=== PATIENT | male | born 1960 | race Caucasian/White ===

== ENCOUNTER → 2019-10-07 11:14 | Outpatient (BNVA) | payer BC, SELFPAY | PROVIDERS: PCP Family Medicine; Visit Provider Internal Medicine Rheumatology | DX: R21 Rash and other nonspecific skin eruption (principal); Z79.899 Other long term (current) drug therapy; Z11.59 Encounter for screening for other viral diseases; Z11.1 Encounter for screening for respiratory tuberculosis; R76.8 Other specified abnormal immunological findings in serum; M19.90 Unspecified osteoarthritis, unspecified site; R50.9 Fever, unspecified | CPT/HCPCS: 36415; 80076; 82306; 82565; 82728; 85025; 85651; 86140; 86431; 86480; 86704; 86803; 87340; 99204 ==

== ENCOUNTER 2019-10-16 07:44 | Outpatient (CLI) | payer BC, SELFPAY ==
--- NOTE | 2019-10-16 08:00 | XR_ITS ---
WS: [id number] Left hand, 3 views, 10/16/2019 Clinical Data: joint pain Comparison: None. Findings: No fractures or dislocations are seen. The soft tissues are unremarkable. The joint spaces are normal No periarticular demineralization or calcifications are seen. XR/XR hand LT min 3V* [id number] Impression: Negative left hand.
--- NOTE | 2019-10-16 08:30 | XR_ITS ---
WS: [id number] Right foot, 3 views, 10/16/2019 Clinical Data: joint pain Comparison: None. Findings: No fractures or dislocations are seen. No bone destruction or erosion is noted. The joint spaces and soft tissues are normal. No periarticular demineralization or calcifications are seen. XR/XR foot RT min 3V* [id number] Impression: Negative right foot.
--- NOTE | 2019-10-16 09:00 | XR_ITS ---
WS: [id number] Cervical spine, 3 views, 10/16/2019 Clinical Data: joint pain Comparison: None. Findings: No compression fractures are seen. The disc heights are normal. There is no prevertebral so ft tissue swelling. The odontoid is unremarkable. The soft tissues of the neck and the lung apices ar e normal. XR/XR cervical spine 3V* [id number] Impression: Negative cervical spine.
--- NOTE | 2019-10-16 09:30 | XR_ITS ---
WS: [id number] Right hand, 3 views, 10/16/2019 Clinical Data: joint pain Comparison: None. Findings: No fractures or dislocations are seen. The soft tissues are unremarkable. The joint space s are normal No periarticular demineralization or calcifications are seen. XR/XR hand RT min 3V* [id number] Impression: Negative right hand.
--- NOTE | 2019-10-16 10:00 | XR_ITS ---
WS: [id number] Left foot, 3 views, 10/16/2019 Clinical Data: joint pain Comparison: None. Findings: No fractures or dislocations are seen. No bone destruction or erosion is noted. The joint spaces and soft tissues are normal. No periarticular demineralization or calcifications are seen. There is a plantar spur. XR/XR foot LT min 3V* [id number] Impression: Negative left foot.
--- NOTE | 2019-10-16 10:30 | XR_ITS ---
WS: [id number] Chest 2 views, 10/16/2019 Clinical Data: joint pain Comparison: None. Findings: No nodules, masses or effusions are seen. The heart is normal. The pulmonary vascularity is not increased. No pneumonia or pneumothorax is seen. XR/XR chest 2V* [id number] Impression: Negative chest.
== END 2019-10-16 07:45 | disposition home or self-care (01) ==
LOC: RADWPI 07:48
PROVIDERS: Family Provider Family Medicine; PCP Family Medicine; Visit Provider Internal Medicine Rheumatology
DX: M25.50 Pain in unspecified joint (principal)
CPT/HCPCS: 71046; 72040; 73130; 73630

== ENCOUNTER → 2019-10-24 08:59 | Outpatient (BNVA) | payer BC, SELFPAY | PROVIDERS: Family Provider Family Medicine; PCP Family Medicine; Visit Provider Internal Medicine Rheumatology | DX: M19.90 Unspecified osteoarthritis, unspecified site (principal); Z79.899 Other long term (current) drug therapy; R21 Rash and other nonspecific skin eruption; R50.9 Fever, unspecified | CPT/HCPCS: 36415; 80076; 82728; 85651; 86140; 99214 ==

== ENCOUNTER → 2019-11-12 15:26 | Outpatient (BNVA) | payer BC, SELFPAY | PROVIDERS: Family Provider Family Medicine; PCP Family Medicine; Referring Provider Internal Medicine Rheumatology; Visit Provider Dermatology | DX: R21 Rash and other nonspecific skin eruption (principal); B07.8 Other viral warts | CPT/HCPCS: 99203; 99204 ==

== ENCOUNTER → 2020-03-16 09:42 | Outpatient (BNVA) | payer OTHER, SELFPAY | PROVIDERS: Family Provider Family Medicine; PCP Family Medicine; Visit Provider Internal Medicine Rheumatology | DX: M06.1 Adult-onset Still's disease (principal); Z79.899 Other long term (current) drug therapy | CPT/HCPCS: 36415; 80076; 82565; 85025; 85651; 86140 ==

== ENCOUNTER → 2020-03-31 13:06 | Outpatient (BNVA) | payer BC, SELFPAY | PROVIDERS: Family Provider Family Medicine; PCP Family Medicine; Visit Provider Internal Medicine Rheumatology | DX: M25.50 Pain in unspecified joint (principal); R50.9 Fever, unspecified; R21 Rash and other nonspecific skin eruption; Z79.899 Other long term (current) drug therapy; Z87.891 Personal history of nicotine dependence | CPT/HCPCS: 99214 ==

== ENCOUNTER → 2020-05-11 10:55 | Outpatient (BNVA) | payer OTHER, SELFPAY | PROVIDERS: Family Provider Family Medicine; PCP Family Medicine; Visit Provider Internal Medicine Rheumatology | DX: Z79.899 Other long term (current) drug therapy (principal) | CPT/HCPCS: 36415 ==

== ENCOUNTER 2020-05-11 16:24 | Outpatient (CLI) | payer OTHER, SELFPAY ==
--- NOTE | 2020-05-11 | XR_ITS ---
WS: [id number] CERVICAL SPINE 6 VIEWS HISTORY: NECK PAIN CHRONIC COMPARISON: None available. TECHNIQUE: AP, oblique and lateral radiographs. Lateral in neutral, flexion and extension. Mild straightening of the normal cervical lordosis. No fractures. With flexion and extension no insta bility. Lateral masses of C1 and C2 are aligned and the odontoid process is intact. XR/XR cervical spine 4-5V [id number] IMPRESSION: Normal cervical spine. No cervical instability.
== END 2020-05-11 16:25 | disposition home or self-care (01) ==
PROVIDERS: PCP Family Medicine; Visit Provider Family Medicine
DX: M54.2 Cervicalgia (principal)
CPT/HCPCS: 80076; 82565; 85025; 86140

== ENCOUNTER → 2020-08-25 15:21 | Outpatient (BNVA) | payer OTHER, SELFPAY | PROVIDERS: PCP Family Medicine; Visit Provider Internal Medicine Rheumatology | DX: M19.90 Unspecified osteoarthritis, unspecified site (principal); R21 Rash and other nonspecific skin eruption; Z79.899 Other long term (current) drug therapy; Z87.891 Personal history of nicotine dependence | CPT/HCPCS: 36415; 80076; 82565; 85025; 86140; 99214 ==

== ENCOUNTER → 2020-12-17 12:47 | Outpatient (BNVA) | payer OTHER, SELFPAY | PROVIDERS: PCP Family Medicine; Visit Provider Internal Medicine Rheumatology | DX: M06.1 Adult-onset Still's disease (principal); Z79.899 Other long term (current) drug therapy; Z87.2 Personal history of diseases of the skin and subcutaneous tissue; Z71.89 Other specified counseling | CPT/HCPCS: 99214 ==

== ENCOUNTER 2021-02-24 08:59 | Outpatient (CLI) | payer OTHER, SELFPAY ==
--- NOTE | 2021-02-24 10:05 | N.ONRAD NP_ITS ---
Radiation Oncology Consultation Patient Name: Jose Manuel Hogan Date of : 1960 Date of Service: 02/24/2021 Attending Physician: Tavo Vidal M.D. Jose Manuel Hogan was seen in consultation this morning at the request of Alex Rapp M.D. for consideration of prostate radiotherapy for the management of a recently diagnosed prostate cancer. He initially was identified to have an elevated PSA level (69.9 ng/mL) in November. A transrectal ultrasound-guided biopsy performed by Alex Rapp M.D. on November 26, 2020 diagnosed an acinar adenocarcinoma of the prostate gland with a Houston pattern of 5+5 (Grade Group 5) within the right mid biopsy core, a Nissa pattern of 5+4 (Grade Group 5) amidst the right apical, right basal, left apical, and left mid sampled cores, as well as a Nissa pattern 4+4 (Grade Group 4) in the left basal biopsy specimen. There was no seminal vesicle invasion was described. The presence of perineural invasion was not reported. A nuclear bone scintigraphy ordered on December 09, 2020 revealed increased tracer activity associated with the left posterior fourth and fifth ribs, shoulder girdle, right patella, and left nasion/inferior orbital rim. And abdominopelvic CT scan demonstrated bilateral external iliac chain lymphadenopathy and subcentimeter periaortic lymphadenopathy, and an indeterminate 4.5 cm upper-renal pole lesion. An F-18 Axumin PET imaging scan for 2020 confirmed increased tracer accumulation amid multiple subcentimeter retroperitoneal lymphadenopathy (SUV 2.9), common iliac lymphadenopathy (SUV 5.5), a right presacral lymph node (SUV 5.4), and bilateral external iliac lymphadenopathy (SUV 3.3). There was no osseous lesions present. The patient presents for discussion of radiotherapeutic options. I discussed with Mr. Hogan the AJCC clinical stage IVB ([id number]) corresponding to his prostate cancer. I also reviewed the National Comprehensive Cancer Network Guidelines recommending androgen deprivation therapy, with systemic therapy (abiraterone, apalutamide, docetaxel, or enzalutamide). Radiotherapy to the primary tumor for low-volume M1 disease may be considered. The admonition by the NCCN was established by the STAMPEDE Trial as published in The Lancet that enrolled patients with metastatic prostate cancer to receive lifelong androgen suppression and docetaxel (six 3-weekly cycles) with or without radiotherapy to the prostate. This study demonstrated improved failure-free survival in the radiotherapy arm but lacked an overall survival benefit. I would endorse a 4 week course of prostate radiotherapy according to the STAMPEDE Trial. Prior to commencement of radiotherapy, androgen suppression will be prescribed. I will not order genetic testing (the patient does not have offspring). I will request a medical oncology consultation at [facility] in [place]. His medical treatment plan was discussed with Alex Rapp M.D. Signed by: Dr. Tavo Vidal 03/10/2021 9:18:01 AM
[2021-02-24 10:23] LABS: Basophils % 0.9 %; Eosinophils # 0.3 10^3/uL (0.0-0.8); Eosinophils % 6.6 %; Hematocrit 39.8 % (42.0-52.0); Hemoglobin 13.1 g/dL (11.7-16.6); Lymphocytes # 1.5 10^3/uL (0.8-4.8); Lymphocytes % 31.9 %; Mean Corpuscular HGB Conc 32.9 g/dL (30.0-36.0); Mean Corpuscular Hemoglobin 29.6 pg (28.0-34.0); Mean Corpuscular Volume 89.8 fl (80-94); Monocytes # 0.6 10^3/uL (0.2-0.9); Neutrophils # 2.25 10^3/uL (1.8-7.7); Neutrophils % 48.2 %; Nucleated Red Blood Cells % 0 %; Platelet Count 214 10^3/cmm (130-400); Red Blood Count 4.43 10^6/uL (4.1-5.3); Red Cell Distribution Width 12.7 % (12.1-15.1); White Blood Count 4.7 10^3/uL (4.0-10.0)
[2021-02-24 10:57] LABS: Alanine Aminotransferase 31 U/L (0-41); Alkaline Phosphatase 166 IU/L (40-130); Anion Gap 15.3 (5-19); Aspartate Amino Transferase 23 U/L (0-40); Blood Urea Nitrogen 14 mg/dL (8-23); Calcium 8.6 mg/dL (8.5-10.5); Carbon Dioxide 20 mmol/L (22-29); Chloride 104 mmol/L (98-107); Globulin 2.5 g/dL (1.3-4.6); Glomerular Filtration Rate 85.8 mL/min (90-130); Glucose 113 mg/dL (65-115); Magnesium 1.9 mg/dL (1.7-2.3); Osmolality Calculated 281 mOsm/kg (285-295); Potassium 4.3 mmol/L (3.5-5.1); Sodium 135 mmol/L (136-145); Total Bilirubin 0.5 mg/dL (0.15-1.2); Total Protein 6.5 g/dL (6.6-8.7)
[2021-02-24 11:33] LABS: Testosterone Total > 1500.0 ng/dL (193-740)
== END 2021-02-24 09:00 | disposition home or self-care (01) ==
LOC: ONCMED 09:03
PROVIDERS: PCP Family Medicine; Visit Provider Radiology Radiation Oncology
DX: C61 Malignant neoplasm of prostate (principal); R97.20 Elevated prostate specific antigen [PSA]
CPT/HCPCS: 36415; 80053; 83735; 84153; 84403; 85025; 99205

== ENCOUNTER 2021-03-10 08:58 | Outpatient (CLI) | payer OTHER, SELFPAY ==
[2021-03-10 09:28] LABS: Basophils # 0.1 10^3/uL (0.0-0.1); Basophils % 1.1 %; Eosinophils # 0.2 10^3/uL (0.0-0.8); Eosinophils % 4.5 %; Hematocrit 40.6 % (42.0-52.0); Hemoglobin 13.6 g/dL (11.7-16.6); Lymphocytes # 1.2 10^3/uL (0.8-4.8); Lymphocytes % 26.3 %; Mean Corpuscular HGB Conc 33.5 g/dL (30.0-36.0); Mean Corpuscular Volume 89.6 fl (80-94); Mean Platelet Volume 10.2 fL (7.4-10.4); Monocytes # 0.5 10^3/uL (0.2-0.9); Monocytes % 9.8 %; Neutrophils # 2.71 10^3/uL (1.8-7.7); Neutrophils % 57.9 %; Nucleated Red Blood Cells % 0 %; Platelet Count 185 10^3/cmm (130-400); Red Blood Count 4.53 10^6/uL (4.1-5.3); Red Cell Distribution Width 12.8 % (12.1-15.1); White Blood Count 4.7 10^3/uL (4.0-10.0)
--- NOTE | 2021-03-10 11:41 | ONC CON_ITS ---
Dr. Steinberg New Patient Note Patient: Jose Manuel Hogan Unit #: [id number]: 1960 Dicatated By: Vivi Steinberg M.D.Date of Visit: Mar 10, 2021 Onc MED New Patient/Consult Referring Physician: Alex Rapp History of Present Illness: Mr. Jose Manuel Hogan, is a 60-year-old gentleman with history of progressive PSA level, it was 69.9 ng/mL in November 2020, patient was evaluated by urology and on 11/26/2020 he underwent ultrasound-guided prostate gland biopsy and pathology confirmed acinar adenocarcinoma with Williamson score 5+5, grade group 5 within the right mid biopsy core and Williamson pattern 5+4 in right apical, right basal, left apical and left mid cores. As well as Nissa score 4+4 in the left basal biopsy specimen. No seminal vesicle mentioned. And no perineural invasion identified. Patient underwent bone scan on 12/09/2020 which showed increased activity with the left posterior fourth and fifth rib, shoulder girdle, right patella and left orbital rim. CT scan of abdomen pelvis showed bilateral external iliac chain lymphadenopathy and subcentimeter periaortic lymphadenopathy and an indeterminate 4.5 cm upper renal pole lesion. Subsequently patient underwent Axumin CT PET scan on 02/01/2021 which confirmed increase uptake in multiple subcentimeter retroperitoneal lymph node SUV 2.9, common iliac lymphadenopathy SUV 5.5, a right presacral lymph node SUV 5.4 and bilateral external iliac lymph nodes SUV 3.3 but there was no bony lesion identified. Patient was started on bicalutamide 50 mg p.o. daily and January 2021 till 03/09/2021, when radiation oncology discontinue bicalutamide patient received first dose of 3 monthly Lupron just before 2020. Patient denies any bony pains, denies any dysuria or hematuria, denies any nausea or vomiting, denies any fever chills, denies any night sweats, denies any jaundice, denies any abdominal pain, appetite is good but patient is losing weight which is intentional. Past Medical History: Mr. Ruiz medical history consists of gastroesophageal reflux disease, hypertension, and restless leg syndrome. Past Surgical History: Mr. Hogan'donna surgical/procedural history consists of cholecystectomy, colonoscopy, and hernia repair. Medications: ALPRAZolam 0.5 Tablet (of 0.25 mg) Oral q 12 hours PRN, Apixaban 1 Tablet (of 5 mg) Oral daily, Azelastine HCl Solution Ophthalmic PRN, Azelastine HCl Solution Nasal PRN, Clopidogrel Bisulfate 1 Tablet (of 75 mg) Oral daily, Isosorbide Mononitrate ER 1 tablespoonful(s) (of 30 mg) Tablet SR 24 HR Oral b.i.d., Lopressor 1 Tablet (of 50 mg) Oral b.i.d., Losartan Potassium 2 Tablet (of 50 mg) Oral daily, Protonix 1 Tablet (of 40 mg) Tablet, enteric coated Oral daily Allergies: MRI contrast Social History: Mr. Hogan is single. Mr. Hogan no longer smokes. Family History: There is no documented family history. Review Of Symptoms: Review of Systems is not available for this patient. Vital Signs: Performed on Mar 10, 2021 09:34: 0, 0, 36.80 (HIGH), 2.11 sq.m, 66.00 in, 96 %, 68 /min, 18 /min, 172/95 mm(hg) (HIGH), 98.1 F (LOW), and 228 lbs (LOW). Performance Status: 0 - Fully active, able to carry on all predisease activities without restrictions. (ECOG) Physical Examination: ENMT - No mouth sores, no thrush, no jaundice, Respiratory - Lungs are clear to auscultation, Cardiovascular - Regular rate and rhythm of heart, Abdomen - Soft, bowel sounds present, Extremities - No visible edema. Lab/Imaging: Most recent lab results are not available for this patient. Impression: Adenocarcinoma prostate per ultrasound guided biopsy of prostate gland done on 11/26/2020 which showed Williamson score 5+5 within the right mid biopsy core, Nissa pattern 5+4 in right apical, right basal, left apical and left mid sample course as well as Williamson score 4+4 in the left basal biopsy specimen. No seminal vesicle identified and no perineural invasion identified. CT scan of abdomen pelvis done on 12/09/2020 showed bilateral enlarged external iliac chain lymph nodes concerning for metastatic disease. Moderate prostate gland enlargement. Left upper renal pole indeterminate lesion size 4.5 cm bone scan done on 12/07/2020 showed 2 posterior left ribs and left medial inferior orbital rim may reflect metastatic disease. Axumin CT PET scan done on 02/01/2021 showed prostate demonstrate marked increase in uptake. Small retroperitoneal lymph nodes are observed of concern for early metastatic disease. More prominent deep pelvic lymph nodes demonstrate findings concerning for metastatic disease. No osseous metastatic disease Clinical stage III versus 4B (T1c, N1 M1 a) Started on bicalutamide 50 mg p.o. daily in January 2021, till 03/09/2021. And first dose of 3 monthly Lupron was given just before 2020. Plan: Discussed with patient regarding his disease status and treatment options, based on his Axumin CT PET scan, patient has stage IVb disease and high-grade prostate cancer with features suggestive of very high risk disease e.g. Williamson score 5+5, PSA was 69 in November 2020. But the concern is whether patient has retroperitoneal lymph node involvement or not , if does then he would need ADT for lifelong or extended., If not, then being very high risk, ADT will be considered for extended period e.g Up to 18 to 36 months and will receive combined ADT plus radiation therapy plus 6 cycle of Taxotere. Patient was referred to urology oncology clinic at [place], but due to noncoverage patient could not go. Patient would prefer [facility] for second opinion and evaluation for clinical trials , If available. So ,we will refer him to urology oncology clinic at [facility] in [place], for evaluation for clinical trials, if available and for second opinion and regarding utility of Axumin CT PET scan for staging purposes or if possible retroperitoneal lymph node biopsy to confirm metastatic disease. Patient return to clinic 1 week after his visit to [facility] with CBC CMP and PSA and testosterone Signed By: Vivi Steinberg M.D. <<Signature on File>>
[2021-05-19 13:56] LABS: Basophils # 0.1 10^3/uL (0.0-0.1); Basophils % 1.1 %; Eosinophils # 0.2 10^3/uL (0.0-0.8); Eosinophils % 5.2 %; Hematocrit 38.4 % (42.0-52.0); Hemoglobin 12.9 g/dL (11.7-16.6); Lymphocytes # 1.7 10^3/uL (0.8-4.8); Lymphocytes % 35.7 %; Mean Corpuscular HGB Conc 33.6 g/dL (30.0-36.0); Mean Corpuscular Hemoglobin 30.4 pg (28.0-34.0); Mean Corpuscular Volume 90.4 fl (80-94); Mean Platelet Volume 10.6 fL (7.4-10.4); Monocytes # 0.5 10^3/uL (0.2-0.9); Monocytes % 10.8 %; Neutrophils # 2.17 10^3/uL (1.8-7.7); Nucleated Red Blood Cells % 0 %; Platelet Count 207 10^3/cmm (130-400); Red Blood Count 4.25 10^6/uL (4.1-5.3); Red Cell Distribution Width 12.7 % (12.1-15.1); White Blood Count 4.6 10^3/uL (4.0-10.0)
[2021-05-19 14:27] LABS: Alanine Aminotransferase 25 U/L (0-41); Albumin Level 4.2 g/dL (3.5-5.2); Alkaline Phosphatase 167 IU/L (40-130); Anion Gap 13.9 (5-19); Aspartate Amino Transferase 20 U/L (0-40); Blood Urea Nitrogen 12 mg/dL (8-23); Calcium 9.6 mg/dL (8.5-10.5); Carbon Dioxide 25 mmol/L (22-29); Chloride 104 mmol/L (98-107); Glomerular Filtration Rate 98.3 mL/min (90-130); Glucose 140 mg/dL (65-115); Osmolality Calculated 290 mOsm/kg (285-295); Potassium 3.9 mmol/L (3.5-5.1); Sodium 139 mmol/L (136-145); Total Bilirubin 0.5 mg/dL (0.15-1.2); Total Protein 7.2 g/dL (6.6-8.7)
== END 2021-03-10 08:59 | disposition home or self-care (01) ==
LOC: ONCMED 09:02
PROVIDERS: PCP Family Medicine; Visit Provider Internal Medicine Hematology & Oncology
DX: C61 Malignant neoplasm of prostate (principal); C77.8 Secondary and unspecified malignant neoplasm of lymph nodes of multiple regions; Z79.818 Long term (current) use of other agents affecting estrogen receptors and estrogen levels; Z79.899 Other long term (current) drug therapy
CPT/HCPCS: 36415; 84153; 85025; 99205

== ENCOUNTER 2021-05-19 09:00 | Outpatient (CLI) | payer OTHER, SELFPAY | END 2021-05-19 09:01 | disposition home or self-care (01) | LOC: ONCMED 05-21 11:52 | PROVIDERS: PCP Family Medicine; Visit Provider Internal Medicine Hematology & Oncology | DX: C61 Malignant neoplasm of prostate (principal); I10 Essential (primary) hypertension; G25.81 Restless legs syndrome; Z79.899 Other long term (current) drug therapy | CPT/HCPCS: 80053; 84153; 85025 ==

== ENCOUNTER 2021-05-20 08:55 | Outpatient (CLI) | payer OTHER, SELFPAY ==
--- NOTE | 2021-05-22 13:00 | ONC FU_ITS ---
Dr. Steinberg follow up note Patient: Jose Manuel Hogan Unit #: [id number]: 1960 Dicatated By: Vivi Steinberg M.D.Date of Visit:May 20, 2021 Onc Med Follow-up/Prog Note History of Present Illness: Mr. Jose Manuel Hogan, is a 60-year-old gentleman with history of progressive PSA level, it was 69.9 ng/mL in November 2020, patient was evaluated by urology and on 11/26/2020 he underwent ultrasound-guided prostate gland biopsy and pathology confirmed acinar adenocarcinoma with Chadwicks score 5+5, grade group 5 within the right mid biopsy core and Nissa pattern 5+4 in right apical, right basal, left apical and left mid cores. As well as Chadwicks score 4+4 in the left basal biopsy specimen. No seminal vesicle mentioned. And no perineural invasion identified. Patient underwent bone scan on 12/09/2020 which showed increased activity with the left posterior fourth and fifth rib, shoulder girdle, right patella and left orbital rim. CT scan of abdomen pelvis showed bilateral external iliac chain lymphadenopathy and subcentimeter periaortic lymphadenopathy and an indeterminate 4.5 cm upper renal pole lesion. Subsequently patient underwent Axumin CT PET scan on 02/01/2021 which confirmed increase uptake in multiple subcentimeter retroperitoneal lymph node SUV 2.9, common iliac lymphadenopathy SUV 5.5, a right presacral lymph node SUV 5.4 and bilateral external iliac lymph nodes SUV 3.3 but there was no bony lesion identified. Patient was started on bicalutamide 50 mg p.o. daily in January 2021 till 03/09/2021, when radiation oncology discontinue bicalutamide patient received first dose of 6 monthly Eligard ( 45 mg)j ust before [place] On February 22, 2021 On May 11, 2021, his PSA was 2.0 ng/mL Compared to 69.96 on November 19, 2020 and alk phos was 157 Patient was referred to [facility] for second opinion where he was seen on May 20, 2021 and the recommendations were aggressive therapy in the form of chemo hormonal therapy and also choline CT PET scan in combination with repeat pelvic MRI scan: CT PET scan showed asymmetric choline activity in the prostate gland, suspicious for residual prostate malignancy. Multiple bilateral external iliac, right common iliac and retroperitoneal lymph nodes with mild activity are consistent with komal metastasis but all have decreased in size when compared with CT scan done on December 09, 2020. No evidence of osseous or solid organ metastasis and MRI scan of pelvis shows 4.2 cm exophytic T2 hyperintense mass with multiple septations, in the upper pole left kidney concerning for primary renal neoplasm or multilocular cystic nephroma or complicated cyst. Patent renal veins and IVC. Patient was referred to urologist Dr. Alejo at [facility] who evaluated patient via telemetry medicine and recommended follow-up MRI scan of pelvis in [facility]. Patient was advised to start chemotherapy with Taxotere 75 mg per metered square every 3 weeks x6 followed by lab test and scans. And Came for follow-up, denies any specific complaint, no fever chills, no nausea or vomiting, no diarrhea constipation, no headaches blurred vision or double vision, no new bony pains, no dysuria or hematuria, occasionally hot flashes otherwise tolerating hormone therapy well. Patient denies any bony pains, denies any dysuria or hematuria, denies any nausea or vomiting, denies any fever chills, denies any night sweats, denies any jaundice, denies any abdominal pain, appetite is good but patient is losing weight which is intentional. Medications: Azelastine HCl Solution Ophthalmic PRN, Azelastine HCl Solution Nasal PRN, buPROPion HCl ER (XL) 1 Tablet (of 300 mg) Tablet SR 24 HR Oral daily, Carvedilol 1 Tablet (of 12.5 mg) Oral b.i.d., Leflunomide 1 Tablet (of 20 mg) Oral daily, predniSONE 1 Tablet (of 10 mg) Oral PRN, rOPINIRole HCl 1 Tablet (of 3 mg) Oral daily, Tamsulosin HCl 1 Capsule (of 0.4 mg) Oral daily, Temazepam 1 Capsule (of 15 mg) Oral at bedtime PRN Allergies: MRI contrast Review of Systems: Review of Systems is not available for this patient. Vital Signs: Performed on May 20, 2021 09:23 Height - 66.00 in BP - 179/93 mm(hg) (HIGH) Performed on May 20, 2021 09:22 Height - 66.00 in Weight - 240.2 lbs (HIGH) BSA - 2.16 sq.m BMI - 38.77 (HIGH) Temperature - 97.2 F (LOW) Pulse - 73 /min Respiration - 16 /min BP - 180/102 mm(hg) (HIGH) O2 Sat - 99 % Pain - 0 Fatigue - 5 Performance Status: 0 - Fully active, able to carry on all predisease activities without restrictions. (ECOG) Physical Examination: ENMT - No mouth sores, no thrush, no jaundice, Respiratory - Lungs are clear to auscultation, Cardiovascular - Regular rate and rhythm of heart, Abdomen - Soft, bowel sounds present, Extremities - No visible edema. Lab/Imaging: Most recent lab results are not available for this patient. Impression: Adenocarcinoma prostate per ultrasound guided biopsy of prostate gland done on 11/26/2020 which showed Nissa score 5+5 within the right mid biopsy core, Nissa pattern 5+4 in right apical, right basal, left apical and left mid sample course as well as Chadwicks score 4+4 in the left basal biopsy specimen. No seminal vesicle identified and no perineural invasion identified. CT scan of abdomen pelvis done on 12/09/2020 showed bilateral enlarged external iliac chain lymph nodes concerning for metastatic disease. Moderate prostate gland enlargement. Left upper renal pole indeterminate lesion size 4.5 cm bone scan done on 12/07/2020 showed 2 posterior left ribs and left medial inferior orbital rim may reflect metastatic disease. Axumin CT PET scan done on 02/01/2021 showed prostate demonstrate marked increase in uptake. Small retroperitoneal lymph nodes are observed of concern for early metastatic disease. More prominent deep pelvic lymph nodes demonstrate findings concerning for metastatic disease. No osseous metastatic disease Clinical stage III versus 4B (T1c, N1 M1 a) Started on bicalutamide 50 mg p.o. daily in January 2021, till 03/09/2021. And first dose of 3 monthly lupron was given just before 2020., Correction, patient received 6 monthly dose of Eligard 45 mg on February 22, 2021 and instead of Lupron Plan: Discussed with patient regarding his labs white blood count 4.6 hemoglobin 12.9 hematocrit 38.4 platelets 207,000 CMP within normal limits PSA 2.08 compared to 20.91 on March 10, 2021 Clinically, patient is doing well with no new signs symptoms history of disease progression, patient was referred to [facility] for second opinion we are further testing with choline CT PET scan showed improvement in his prostate gland as well as pelvic lymphadenopathy when compared with scan done in December 2020 and his follow-up PSA improved to 2 ng/mL from 69 at the time of diagnosis. Patient also had pelvic MRI which showed left renal mass concerning second renal primary, patient was referred to urologist at [place] who recommended follow-up MRI scan in [place] and then plan, while patient has very high risk prostate cancer, he was recommended chemo hormonal therapy. As mentioned earlier patient received 1 month of Casodex and 6 monthly dose of Eligard in February 2021 and now being considered for chemotherapy with Taxotere 75 mg per metered square every 3 weeks x6. Patient is aware of all the side effect possible benefits as discussed by oncology clinic at [place], and again discussed today, including but not limited to, bone marrow suppression, nausea vomiting, hair loss, peripheral neuropathy, allergic reactions were mentioned, further teaching will be done by chemotherapy nurse. We will obtain approval from his insurance prior to treatment and then we will see him back 1 week after first dose of Taxotere with CBC CMP As for generalized weakness and fatigue is concerned probably patient has underlying sleep apnea, will suggest PMD to consider sleep study, as if sleep apnea is concerned, he may benefit from CPAP machine. Return to clinic 1 week after chemotherapy with Taxotere initiated, with CBC CMP and PSA Signed By: Vivi Steinberg M.D. <<Signature on File>>
== END 2021-05-20 08:56 | disposition home or self-care (01) ==
PROVIDERS: PCP Family Medicine; Visit Provider Internal Medicine Hematology & Oncology
DX: C61 Malignant neoplasm of prostate (principal); R53.1 Weakness; R53.83 Other fatigue; Z79.899 Other long term (current) drug therapy
CPT/HCPCS: 36415; G0463

== ENCOUNTER 2021-06-08 07:01 | Day surgery (SDC) | payer OTHER, SELFPAY ==
[2021-06-07 12:37] VITALS: BMI 41.6
[2021-06-08] VITALS (8 sets, daily range): BP systolic 119–156; BP diastolic 65–96; PULSE 54–71; RESP 10–18; TEMP 36.3–36.6; O2SAT 97–99
--- NOTE | 2021-06-08 | SCC_ITS ---
Procedure done: 1. Placement of Power Port via right subclavian vein 2. Fluoroscopic guidance and interpretation for placement of catheter 31.3 seconds of fluoroscopic guidance, for a cumulative dose of 15.75 mGy, was provided to Dr. Sinclair by the radiology department. C-arm images of the chest were saved for the patient's permanent record. [facility]
--- NOTE | 2021-06-08 06:59 | ANES.PREANE2 ---
Pre-Anesthetic Assessment Height/Weight: Height 1.6 m Weight 106.594 kg Operation Date: 06/08/21 08:30 Proposed Procedures p Portacath Placement 93666/c61(Not Applicable) - Sarthak Sinclair MD Was Beta Kelvin taken within 24 hours: Yes Social No alcohol and No tobacco Exam alert, oriented x 3, clear to auscultation bilaterally and regular rate & rhythm Airway Submandibular: within normal limits Cervical ROM: within normal limits Mallampati: Class II Dentition: chipped Pulmonary None reported CV/HEM Hypertension HOCM S/P ICD placement no hx of cardioversion None reported Prostate cancer Hepatic None reported GI None reported Metabolic None reported Musc/skel Osteoarthritis/DJD Inflammatory arthritis Still's disease Prednisone 10 mg PRN, not taking currently Neuropsych 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 We discussed spectrum of MAC anesthesia including conversion to general as well as possibility of recall of intraoperative stimuli including discomfort/pain. Patient agrees to proceed with MAC with minimization of sympathetic stimulation, fluids to maintain intravascular volume, and phenylephrine to maintain afterload. Risk of > 500 ml blood loss (7ml/kg in children): No Medications/Allergies Home Medications Medication Instructions Recorded Confirmed Last Taken Type bupropion HCl 300 mg 24 hr tablet, 300 mg PO QAM 10/03/19 06/07/21 Unknown History extended release carvedilol 12.5 mg tablet 12.5 mg PO BID 10/03/19 06/07/21 Unknown History potassium 75 mg tablet 75 mg PO DAILY 10/03/19 06/07/21 Unknown History azelastine 0.05 % eye drops 1 drop OPHTHALMIC (EYE) BID 10/07/19 06/07/21 Unknown History azelastine 137 mcg (0.1 %) nasal 1 spray INTRANASAL BID 10/07/19 06/07/21 Unknown History spray aerosol ropinirole 1 mg tablet 4 mg PO DAILY tab 10/07/19 06/07/21 Unknown History temazepam 15 mg capsule 15 mg PO .hs PRN cap 10/07/19 06/07/21 Unknown History tretinoin 0.05 % topical cream 1 applic TOPICAL Q7D 10/07/19 06/07/21 Unknown History mupirocin 2 % topical ointment 1 applic TOPICAL TID #22 g 04/01/20 06/07/21 Unknown Rx triamcinolone acetonide 0.1 % 1 applic TOPICAL BID #80 g 04/01/20 06/07/21 Unknown Rx topical ointment clobetasol 0.05 % topical ointment 1 applic TOPICAL BID 14 Days #60 g 11/18/20 06/07/21 Unknown Rx tamsulosin 0.4 mg capsule (Flomax) 0.4 mg PO DAILY 12/17/20 06/07/21 Unknown History prednisone 10 mg tablet See Rx Instructions PO .COMPLEX 05/13/21 06/07/21 Unknown Rx PRN #30 tab leflunomide 20 mg tablet 20 mg PO DAILY 06/07/21 06/07/21 Unknown History Allergies Allergy/AdvReac Type Severity Reaction Status Date / Time Iodinated Contrast Media Allergy Severe ALGY-Swell Verified 06/07/21 12:34 Lip/Tongue/Throat PFS Anesthesia Medical History Adult-onset Still's disease COVID-19 vaccine administered High risk medication use Hypertension Immunization counseling Inflammatory arthritis Intermittent fever Joint pain Pain in joints 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 Restless leg syndrome Surgical History History of cholecystectomy Family History Other Cancer Diabetes Hypertension Rheumatoid arthritis Denies family history of Lupus Social History Smoking and tobacco status: former smoker Alcohol intake: former Year of sobriety/quit date alcohol: 11yr History of recent travel: No Data Anesthesia Cardiac Studies: No Data to Display
--- NOTE | 2021-06-08 07:03 | ECG_ITS ---
[facility] Test Date: 2021-06-08 Pat Name: Jose Manuel Hogan Department: Room: Gender: Male Siphoner: : 1960 Requested By: Lesvia Jeffery Order Number: [id number] Antonia MD: Juwan Parekh M.D. Measurements Intervals [place] Rate: 65 P: 5 MO: 178 QRS: -32 QRSD: 114 T: 69 QT: 390 QTc: 408 Interpretive Statements SINUS RHYTHM LEFT AXIS DEVIATION [QRS AXIS < -30] S1-S2-S3 PATTERN, CONSISTENT WITH PULMONARY DISEASE, RVH, OR NORMAL VARIANT MODERATE INTRAVENTRICULAR CONDUCTION DELAY [110+ ms QRS DURATION] MODERATE VOLTAGE CRITERIA FOR LVH, CONSIDER NORMAL VARIANT [MEETS CRITERIA IN ONE OF: R(aVL), S(V1), R(V5), R(V5/V6)+S(V1)] NONSPECIFIC T-WAVE ABNORMALITY No previous ECG available for comparison Electronically Signed On 06-08-2021 9:20:09 CDT by Juwan Parekh M.D. [id number]
--- NOTE | 2021-06-08 07:05 | SC_ITS ---
WS: [id number] INTRAOPERATIVE TECHNIQUE: 2 Spot fluoroscopic images for intraoperative purposes. FLUOROSCOPY TIME: 31.3 seconds CLINICAL INFORMATION: Powerport Placement COMPARISON: None. FINDINGS: RIGHT Port-A-Cath with tip in the SVC. No visualized pneumothorax. SC/C-arm FL for CVA [id number] IMPRESSION: Images obtained for intraoperative purposes.
[2021-06-08] MEDS: sodium chloride 0.9% 1,000 ML 30 ML IV (07:30)
--- NOTE | 2021-06-08 08:02 | W.PM.OPSUD ---
Surgery/Procedure H&P Update DATE OF PROCEDURE: June 08, 2021 DATE H&P PERFORMED: 05/31/21 H&P UPDATE INFORMATION: I have reviewed H&P completed within last 30 days, I have examined patient prior to procedure and No changes to prior documentation PREOP DIAGNOSIS: Prostate cancer PRIMARY INDICATION FOR PROCEDURE: The same PLANNED PROCEDURE: Operation Date: 06/08/21 08:30 Proposed Procedures p Portacath Placement 94520/c61(Not Applicable) - Sarthak Sinclair MD
[2021-06-08] MEDS: lidocaine 2% INJ 20 mL INJECTION (09:14)
[2021-06-08] MEDS: heparin, porcine 1,000 unit/mL INJ 10 mL 10000 UNIT IRRIGATION (09:14)
--- NOTE | 2021-06-08 09:28 | XR_ITS ---
WS: [id number] CHEST XRAY TECHNIQUE: Portable chest. CLINICAL INFORMATION: S/P right SC vein power port COMPARISON: None. FINDINGS: RIGHT subclavian Port-A-Cath with tip in the distal SVC. No visualized pneumothorax. Subcut aneous ICD overlying the sternum. Heart: Cardiomegaly. Lungs: Lungs are clear. No consolidation or pleural effusion. Bones: Normal visualized bony structures. XR/XR chest 1V portable [id number] IMPRESSION: RIGHT subclavian Port-A-Cath with tip in the distal SVC. No visualized pneumoth orax.
--- NOTE | 2021-06-08 09:28 | PM.OP ---
Operative Report Date of procedure: June 08, 2021 Pre-op diagnosis: Preop Diagnosis Prostate cancer Post-op diagnosis: The same Procedure done: 1. Placement of Power Port via right subclavian vein 2. Fluoroscopic guidance and interpretation for placement of catheter Implants: PowerPort Surgeon: Sarhtak Sinclair MD Retail And Promotions Coordinator: Surgical everett Phillip Estimated blood loss (mL): 10 Procedure: Patient was identified in the holding area and taken to the operative room and placed in supine position IV propofol was given by the anesthesia provider ,both arms were tucked,Time-out was done verifying the patient's name/date of /planned procedure and destination after the procedure, all were in agreement. SCDs confirmed to be functioning, preoperative antibiotics administered per protocol, and beta gale protocol was confirmed, appropriate positioning of the patient was done by me. Please note anesthesia was able to put a magnet for the ICD purpose prior to starting the procedure. Medications were reviewed to assess for anticoagulant usage. Risks and benefits and prevention of central line associated blood stream infection (CLABSI) were discussed with the patient/CPOA, and a consent was obtained. Monitors were in place and monitored throughout the procedure. All necessary supplies were available prior to start. Hand hygiene was completed prior to starting. Maximum barrier technique was utilized including a sterile gown, sterile gloves with a hat and mask. Site was was prepped with [chlorhexidine] and a full body drape was placed. 5 mL of 2% lidocaine was injected into the skin with a 25 gauge needle. Prep& drape was done under the usual sterile technique, lidocaine 2% was injected at the site of the stick, started by right sub-clavian vein stick that retrieved venous blood was obtained from the first stick, a guide wire was then threaded and under the guidance of fluoroscopy position was confirmed to be in the IVC and my interpretation, there were no PVC changes, at that point the guide wire was secured to the drapes with a hemostat and the needle was taken out, attention was then deviated towards creation of a pocket for the port were lidocaine 2% was injected using an 15 blade knife skin incision was created dissection using the Bovie to create a pocket for the Power Port to be accommodated. Hemostasis was secured, after the port being appropriately flushed it was inserted into the pocket and a tunneler was used to accommodate the catheter of the port catheter to be delivered through the incision first created at the site of the stick, at that point under fluoroscopy an estimated length was measured for the catheter and was cut at the designed level, followed by that a dilator with the sheath introduced onto the guide wire the dilator and the wire were retrieved and the catheter of the port was introduced via the sheath where it was peeled off and the catheter maintained to be in the SVC that was confirmed with fluoroscopy, and the fluoroscopy interpretation was done by me throughout the entire procedure. The port was kept in its pocket,3-0 Vicryl deep subdermal interrupted sutures, skin was then closed by 4-0 Monocryl as subcuticular closure.The port was appropriately flushed with heparin and venous blood was withdrawn without difficulty.The stick site was closed by 4-0 Monocryl and Dermabond was used followed by dressing.Count was correct at the end of the procedure.Patient tolerated the procedure well was taken to the recovery area. I was present for the whole entire procedure. Position of the catheter was checked with a postoperative chest x-ray and it was in good position without evidence of pneumothorax.
--- NOTE | 2021-06-08 11:10 | ANE.PACU2 ---
Inpatient post-anesthesia follow up: Airway intact: Yes Vital signs: Temperature 97.3 F Pulse Rate 65 Respiratory Rate 16 Blood Pressure 134/83 Pulse Oximetry 97 Oxygen Delivery Me thod Room Air Oxygen Flow Rate Fraction of Inspir ed Oxygen Hydration adequate: Yes Nausea and vomiting: No Pain level: 2 Mental status: Baseline
== END 2021-06-08 11:10 | disposition home or self-care (01) ==
PROVIDERS: PCP Family Medicine; Visit Provider Surgery
PROC: (CPT 36561; principal; 2021-06-08 08:30)
DX: C61 Malignant neoplasm of prostate (principal); I10 Essential (primary) hypertension; M19.90 Unspecified osteoarthritis, unspecified site; Z79.52 Long term (current) use of systemic steroids; Z87.891 Personal history of nicotine dependence
CPT/HCPCS: 36561; 71045; 76000; 77001; 93005; C1788; J0690; J1644; J2370; J2704; J3010; J7030

== ENCOUNTER 2021-06-09 08:02 | Outpatient (CLI) | payer OTHER, SELFPAY ==
[2021-06-09 08:34] LABS: Basophils % 0.4 %; Hematocrit 36.7 % (42.0-52.0); Hemoglobin 12.4 g/dL (11.7-16.6); Lymphocytes # 1.2 10^3/uL (0.8-4.8); Lymphocytes % 11.4 %; Mean Corpuscular HGB Conc 33.8 g/dL (30.0-36.0); Mean Corpuscular Hemoglobin 30.5 pg (28.0-34.0); Mean Corpuscular Volume 90.2 fl (80-94); Mean Platelet Volume 10.6 fL (7.4-10.4); Neutrophils # 8.02 10^3/uL (1.8-7.7); Neutrophils % 77.7 %; Nucleated Red Blood Cells % 0 %; Platelet Count 236 10^3/cmm (130-400); Red Blood Count 4.07 10^6/uL (4.1-5.3); Red Cell Distribution Width 12.7 % (12.1-15.1); White Blood Count 10.3 10^3/uL (4.0-10.0)
[2021-06-09 09:01] LABS: Alanine Aminotransferase 37 U/L (0-41); Albumin Level 3.9 g/dL (3.5-5.2); Alkaline Phosphatase 209 IU/L (40-130); Aspartate Amino Transferase 21 U/L (0-40); Blood Urea Nitrogen 16 mg/dL (8-23); Calcium 9.4 mg/dL (8.5-10.5); Carbon Dioxide 22 mmol/L (22-29); Chloride 107 mmol/L (98-107); Globulin 2.9 g/dL (1.3-4.6); Glomerular Filtration Rate 98.3 mL/min (90-130); Glucose 186 mg/dL (65-115); Osmolality Calculated 296 mOsm/kg (285-295); Sodium 140 mmol/L (136-145); Total Bilirubin 0.3 mg/dL (0.15-1.2); Total Protein 6.8 g/dL (6.6-8.7)
[2021-06-09 09:03] LABS: Anion Gap 15.7 (5-19); Potassium 4.7 mmol/L (3.5-5.1)
[2021-06-09] MEDS: famotidine 20 mg/2 mL INJ IVP (09:55)
[2021-06-09] MEDS: diphenhydrAMINE 50 mg/mL SDV 1mL 25 MG IV (10:00)
[2021-06-09] MEDS: palonosetron 0.25 mg/5 mL SDV IV (10:05)
--- NOTE | 2021-06-14 21:20 | ONC FU_ITS ---
Daniella Butterfield Progress Note Patient: Jose Manuel Hogan Unit #: [id number]: 1960 Dicatated By: Daniella Butterfield N.P.Date of Visit:Jun 09, 2021 Onc MED Follow-up/Prog Note Chief Complaint: Prostate cancer History of Present Illness: Mr. Jose Manuel Hogan, is a 60-year-old gentleman with history of progressive PSA level, it was 69.9 ng/mL in November 2020, patient was evaluated by urology and on 11/26/2020 he underwent ultrasound-guided prostate gland biopsy and pathology confirmed acinar adenocarcinoma with Carlisle score 5+5, grade group 5 within the right mid biopsy core and Nissa pattern 5+4 in right apical, right basal, left apical and left mid cores. As well as Carlisle score 4+4 in the left basal biopsy specimen. No seminal vesicle mentioned. And no perineural invasion identified. Patient underwent bone scan on 12/09/2020 which showed increased activity with the left posterior fourth and fifth rib, shoulder girdle, right patella and left orbital rim. CT scan of abdomen pelvis showed bilateral external iliac chain lymphadenopathy and subcentimeter periaortic lymphadenopathy and an indeterminate 4.5 cm upper renal pole lesion. Subsequently patient underwent Axumin CT PET scan on 02/01/2021 which confirmed increase uptake in multiple subcentimeter retroperitoneal lymph node SUV 2.9, common iliac lymphadenopathy SUV 5.5, a right presacral lymph node SUV 5.4 and bilateral external iliac lymph nodes SUV 3.3 but there was no bony lesion identified. Patient was started on bicalutamide 50 mg p.o. daily in January 2021 till 03/09/2021, when radiation oncology discontinue bicalutamide patient received first dose of 6 monthly Eligard ( 45 mg)j ust before [place] On February 22, 2021 On May 11, 2021, his PSA was 2.0 ng/mL Compared to 69.96 on November 19, 2020 and alk phos was 157 Patient was referred to [facility] for second opinion where he was seen on May 20, 2021 and the recommendations were aggressive therapy in the form of chemo hormonal therapy and also choline CT PET scan in combination with repeat pelvic MRI scan: CT PET scan showed asymmetric choline activity in the prostate gland, suspicious for residual prostate malignancy. Multiple bilateral external iliac, right common iliac and retroperitoneal lymph nodes with mild activity are consistent with komal metastasis but all have decreased in size when compared with CT scan done on December 09, 2020. No evidence of osseous or solid organ metastasis and MRI scan of pelvis shows 4.2 cm exophytic T2 hyperintense mass with multiple septations, in the upper pole left kidney concerning for primary renal neoplasm or multilocular cystic nephroma or complicated cyst. Patent renal veins and IVC. Patient was referred to urologist Dr. Alejo at [facility] who evaluated patient via telemetry medicine and recommended follow-up MRI scan of pelvis in [facility]. Patient was advised to start chemotherapy with Taxotere 75 mg per metered square every 3 weeks x6 followed by lab test and scans. Patient presents today for follow-up. He states he is feeling well. He is here for education on Taxotere which he will receive every 3 weeks x 6 cycles. He is having a moderate amount of fatigue. His appetite is good. He denies fever, chills, night sweats. No sinus drainage or sore throat. No shortness of breath, cough, chest pain. No GI or problems. No joint or bone pain. He is requesting a refill on his temazepam but he takes on occasion for insomnia. Review Of Symptoms: See above Past Medical History: Gastroesophageal reflux disease Hypertension Restless leg syndrome Past Surgical History: Cholecystectomy Colonoscopy Hernia repair Allergies: MRI contrast Medications: Azelastine HCl Solution Ophthalmic PRN Azelastine HCl Solution Nasal PRN buPROPion HCl ER (XL) 1 Tablet (of 300 mg) Tablet SR 24 HR Oral daily Carvedilol 1 Tablet (of 12.5 mg) Oral b.i.d. Leflunomide 1 Tablet (of 20 mg) Oral daily predniSONE 1 Tablet (of 10 mg) Oral PRN rOPINIRole HCl 1 Tablet (of 3 mg) Oral daily Tamsulosin HCl 1 Capsule (of 0.4 mg) Oral daily Temazepam 1 Capsule (of 15 mg) Oral at bedtime PRN Family History: There is no documented family history. Social History: Mr. Hogan is single. Mr. Hogan no longer smokes. Physical Examination: Performed on Jun 09, 2021 09:01: Height - 66.00 in, Weight - 242 lbs (HIGH), BSA - 2.17 sq.m, BMI - 39.06 (HIGH), Temperature - 98.7 F, Pulse - 73 /min, Respiration - 17 /min, BP - 164/84 mm(hg) (HIGH), O2 Sat - 97 %, Pain - 0, and Fatigue - 6. Performance Status: 0 - Fully active, able to carry on all predisease activities without restrictions. (ECOG) Constitutional Alert, cooperative, oriented. Mood and affect appropriate. Appears close to chronological age. Well nourished. Well developed. Head Normocephalic; no scars. Respiratory Lungs are clear to auscultation without rhonchi or wheezing. Cardiovascular Regular rate and rhythm of heart without murmurs, gallops or rubs. Abdomen Non-tender, non-distended, no masses, ascites or hepatosplenomegaly. Good bowel sounds. No guarding or rebound tenderness. Musculoskeletal No tenderness or swelling, normal range of motion without obvious weakness. Psychiatric Alert and oriented times three. Coherent speech. Verbalizes understanding of our discussions today. Laboratory: Test performed on Jun 09, 2021 08:24 Sodium 140 mmol/L Potassium 4.7 mmol/L Chloride 107 mmol/L CO2 22 mmol/L Anion Gap 15.7 BUN 16 mg/dL Creatinine 0.8 mg/dL Cr Clearance (Est) 150.55 mL/min eGFR 98.3 mL/min Glucose 186 mg/dL Osmolality - Calculated 296 mOsm/kg Calcium 9.4 mg/dL Protein, Total 6.8 g/dL Albumin 3.9 g/dL Globulin 2.9 g/dL Bilirubin, Total 0.3 mg/dL ALT (SGPT) 37 U/L AST (SGOT) 21 U/L Alkaline Phosphatase 209 IU/L WBC 10.3 10 3/uL RBC 4.07 10 6/uL HGB 12.4 g/dL HCT 36.7 % MCV 90.2 fl MCH 30.5 pg MCHC 33.8 g/dL RDW 12.7 % Platelet Count 236 10 3/cmm MPV 10.6 fL Neutrophils 8.02 10 3/uL Lymphocytes 1.2 10 3/uL Monocytes 1.0 10 3/uL Eosinophils 0.0 10 3/uL Basophils 0.0 10 3/uL Neutrophil % 77.7 % Lymphocyte % 11.4 % Monocyte % 10.0 % Eosinophil % 0.0 % Basophils % 0.4 % NRBC % 0 % Impression: Adenocarcinoma prostate per ultrasound guided biopsy of prostate gland done on 11/26/2020 which showed Nissa score 5+5 within the right mid biopsy core, Carlisle pattern 5+4 in right apical, right basal, left apical and left mid sample course as well as Carlisle score 4+4 in the left basal biopsy specimen. No seminal vesicle identified and no perineural invasion identified. CT scan of abdomen pelvis done on 12/09/2020 showed bilateral enlarged external iliac chain lymph nodes concerning for metastatic disease. Moderate prostate gland enlargement. Left upper renal pole indeterminate lesion size 4.5 cm bone scan done on 12/07/2020 showed 2 posterior left ribs and left medial inferior orbital rim may reflect metastatic disease. Axumin CT PET scan done on 02/01/2021 showed prostate demonstrate marked increase in uptake. Small retroperitoneal lymph nodes are observed of concern for early metastatic disease. More prominent deep pelvic lymph nodes demonstrate findings concerning for metastatic disease. No osseous metastatic disease Clinical stage III versus 4B (T1c, N1 M1 a) Started on bicalutamide 50 mg p.o. daily in January 2021, till 03/09/2021. And first dose of 3 monthly lupron was given just before 2020., Correction, patient received 6 monthly dose of Eligard 45 mg on February 22, 2021 and instead of Lupron Plan: Patient presents today for education on Taxotere. Handouts were provided. Side effects were discussed including hair loss, peripheral neuropathy, nausea and vomiting. We also discussed symptomatic treatment for possible side effects. He will receive his first cycle of Taxotere today and every 21 days as tolerated x6 cycles. He will return in 1 week with a CBC, CMP, and PSA. Signed By: Daniella Buttefrield N.P. <<Signature on File>>
== END 2021-06-09 08:03 | disposition home or self-care (01) ==
LOC: ONCMED 08:06
PROVIDERS: PCP Family Medicine; Visit Provider Nurse Practitioner Family
DX: Z51.11 Encounter for antineoplastic chemotherapy (principal); C61 Malignant neoplasm of prostate; R59.0 Localized enlarged lymph nodes; Z79.818 Long term (current) use of other agents affecting estrogen receptors and estrogen levels; Z79.899 Other long term (current) drug therapy
CPT/HCPCS: 80053; 85025; 96367; 96375; 96413; 99215; J1100; J1200; J2469; J3490; J7050; J9171

== ENCOUNTER 2021-06-15 09:00 | Outpatient (CLI) | payer OTHER, SELFPAY ==
--- NOTE | 2021-06-21 17:37 | ONC FU_ITS ---
Dr. Steinberg follow up note Patient: Jose Manuel Hogan Unit #: [id number]: [id number] Dicatated By: Vivi Steinberg M.D.Date of Visit:Jun 15, 2021 Onc Med Follow-up/Prog Note History of Present Illness: Mr. Jose Manuel Hogan, is a 60-year-old gentleman with history of progressive PSA level, it was 69.9 ng/mL in November 2020, patient was evaluated by urology and on 11/26/2020 he underwent ultrasound-guided prostate gland biopsy and pathology confirmed acinar adenocarcinoma with Nabb score 5+5, grade group 5 within the right mid biopsy core and Nissa pattern 5+4 in right apical, right basal, left apical and left mid cores. As well as Nabb score 4+4 in the left basal biopsy specimen. No seminal vesicle mentioned. And no perineural invasion identified. Patient underwent bone scan on 12/09/2020 which showed increased activity with the left posterior fourth and fifth rib, shoulder girdle, right patella and left orbital rim. CT scan of abdomen pelvis showed bilateral external iliac chain lymphadenopathy and subcentimeter periaortic lymphadenopathy and an indeterminate 4.5 cm upper renal pole lesion. Subsequently patient underwent Axumin CT PET scan on 02/01/2021 which confirmed increase uptake in multiple subcentimeter retroperitoneal lymph node SUV 2.9, common iliac lymphadenopathy SUV 5.5, a right presacral lymph node SUV 5.4 and bilateral external iliac lymph nodes SUV 3.3 but there was no bony lesion identified. Patient was started on bicalutamide 50 mg p.o. daily in January 2021 till 03/09/2021, when radiation oncology discontinue bicalutamide patient received first dose of 6 monthly Eligard ( 45 mg)j ust before [place] On February 22, 2021 On May 11, 2021, his PSA was 2.0 ng/mL Compared to 69.96 on November 19, 2020 and alk phos was 157 Patient was referred to [facility] for second opinion where he was seen on May 20, 2021 and the recommendations were aggressive therapy in the form of chemo hormonal therapy and also choline CT PET scan in combination with repeat pelvic MRI scan: CT PET scan showed asymmetric choline activity in the prostate gland, suspicious for residual prostate malignancy. Multiple bilateral external iliac, right common iliac and retroperitoneal lymph nodes with mild activity are consistent with komal metastasis but all have decreased in size when compared with CT scan done on December 09, 2020. No evidence of osseous or solid organ metastasis and MRI scan of pelvis shows 4.2 cm exophytic T2 hyperintense mass with multiple septations, in the upper pole left kidney concerning for primary renal neoplasm or multilocular cystic nephroma or complicated cyst. Patent renal veins and IVC. Patient was referred to urologist Dr. Aljeo at [facility] who evaluated patient via telemetry medicine and recommended follow-up MRI scan of pelvis in [facility]. Patient was advised to start chemotherapy with Taxotere 75 mg per metered square every 3 weeks x6 followed by lab test and scans. , Taxotere was started on June 09, 2021 Came for follow-up, denies any specific complaints except rash around Port-A-Cath and right lower neck and in left lateral chest in the rectangular patch shape. Patient denies any pain or increased sensitivity, no itching or oozing. Patient denies using any new soap or shampoo or new medication except for cycle of chemotherapy with Taxotere which was given on June 09, 2021. Denies any fever chills, no nausea or vomiting, no diarrhea or constipation, no dysuria or hematuria, no new bony pains. Medications: Azelastine HCl Solution Ophthalmic PRN, Azelastine HCl Solution Nasal PRN, buPROPion HCl ER (XL) 1 Tablet (of 300 mg) Tablet SR 24 HR Oral daily, Carvedilol 1 Tablet (of 12.5 mg) Oral b.i.d., Leflunomide 1 Tablet (of 20 mg) Oral daily, predniSONE 1 Tablet (of 10 mg) Oral PRN, rOPINIRole HCl 1 Tablet (of 3 mg) Oral daily, Tamsulosin HCl 1 Capsule (of 0.4 mg) Oral daily, Temazepam 1 Capsule (of 15 mg) Oral at bedtime PRN Allergies: MRI contrast Review of Systems: Review of Systems is not available for this patient. Vital Signs: Performed on Jun 15, 2021 15:33 Height - 66.00 in Weight - 236.8 lbs (LOW) BSA - 2.15 sq.m BMI - 38.22 (HIGH) Temperature - 98.6 F Pulse - 80 /min Respiration - 16 /min BP - 138/85 mm(hg) O2 Sat - 97 % Pain - 0 Fatigue - 5 Performance Status: 0 - Fully active, able to carry on all predisease activities without restrictions. (ECOG) Physical Examination: ENMT - No mouth sores, no thrush, no jaundice, Respiratory - Lungs are clear to auscultation, Cardiovascular - Regular rate and rhythm of heart, Abdomen - Soft, bowel sounds present, Extremities - No visible edema but rash involving right upper chest and right lower neck, patient recently underwent Port-A-Cath placement and rectangular shape patch of rash and left lateral chest. Lab/Imaging: Test performed on Jun 09, 2021 08:24 Sodium 140 mmol/L Potassium 4.7 mmol/L Chloride 107 mmol/L CO2 22 mmol/L Anion Gap 15.7 BUN 16 mg/dL Creatinine 0.8 mg/dL Cr Clearance (Est) 150.55 mL/min eGFR 98.3 mL/min Glucose 186 mg/dL Osmolality - Calculated 296 mOsm/kg Calcium 9.4 mg/dL Protein, Total 6.8 g/dL Albumin 3.9 g/dL Globulin 2.9 g/dL Bilirubin, Total 0.3 mg/dL ALT (SGPT) 37 U/L AST (SGOT) 21 U/L Alkaline Phosphatase 209 IU/L WBC 10.3 10 3/uL RBC 4.07 10 6/uL HGB 12.4 g/dL HCT 36.7 % MCV 90.2 fl MCH 30.5 pg MCHC 33.8 g/dL RDW 12.7 % Platelet Count 236 10 3/cmm MPV 10.6 fL Neutrophils 8.02 10 3/uL Lymphocytes 1.2 10 3/uL Monocytes 1.0 10 3/uL Eosinophils 0.0 10 3/uL Basophils 0.0 10 3/uL Neutrophil % 77.7 % Lymphocyte % 11.4 % Monocyte % 10.0 % Eosinophil % 0.0 % Basophils % 0.4 % NRBC % 0 % Impression: Adenocarcinoma prostate per ultrasound guided biopsy of prostate gland done on 11/26/2020 which showed Nabb score 5+5 within the right mid biopsy core, Nissa pattern 5+4 in right apical, right basal, left apical and left mid sample course as well as Nabb score 4+4 in the left basal biopsy specimen. No seminal vesicle identified and no perineural invasion identified. CT scan of abdomen pelvis done on 12/09/2020 showed bilateral enlarged external iliac chain lymph nodes concerning for metastatic disease. Moderate prostate gland enlargement. Left upper renal pole indeterminate lesion size 4.5 cm bone scan done on 12/07/2020 showed 2 posterior left ribs and left medial inferior orbital rim may reflect metastatic disease. Axumin CT PET scan done on 02/01/2021 showed prostate demonstrate marked increase in uptake. Small retroperitoneal lymph nodes are observed of concern for early metastatic disease. More prominent deep pelvic lymph nodes demonstrate findings concerning for metastatic disease. No osseous metastatic disease Clinical stage III versus 4B (T1c, N1 M1 a) Started on bicalutamide 50 mg p.o. daily in January 2021, till 03/09/2021. And first dose of 3 monthly lupron was given just before 2020., Correction, patient received 6 monthly dose of Eligard 45 mg on February 22, 2021 and instead of Lupron Started on Taxotere every 3 weeks x6 on June 09, 2021 Plan: Discussed with patient regarding his labs white blood count 1.1 hemoglobin 12.2 hematocrit 36.3 platelets 169,000 ANC 140 CMP within normal range PSA 1.35 compared to 2.08 on May 19, 2021 and 20.9 on March 10, 2021 Clinically, patient doing reasonably well, with no new signs symptoms except patches of rash involving right upper chest and lower neck and rectangular shape skin rash in the left lateral chest, etiology is unclear could be due to bandage used for recently done Port-A-Cath placement or contact dermatitis due to skin preparation for Port-A-Cath placement. Or due to chemotherapy but less likely, will continue to monitor, patient was advised in case there is a worsening of rash, he need to call us and we may consider referral to dermatology for evaluation As far as severe leukopenia/neutropenia is concerned probably due to chemotherapy, we will start him on prophylactic Levaquin 500 mg p.o. daily and he will return to clinic in 1 week with CBC and CMP. And will consider Neulasta support with next cycle of chemotherapy and thereafter, to prevent chemotherapy-induced neutropenia/leukopenia, patient received 6 monthly dose of Eligard 45 mg on February 22, 2021 so next one will be due in August 2021 Signed By: Vivi Steinberg M.D. <<Signature on File>>
== END 2021-06-15 09:01 | disposition home or self-care (01) ==
LOC: ONCMED 06-22 07:40
PROVIDERS: PCP Family Medicine; Visit Provider Internal Medicine Hematology & Oncology
DX: C61 Malignant neoplasm of prostate (principal); R59.0 Localized enlarged lymph nodes; L27.1 Localized skin eruption due to drugs and medicaments taken internally; D70.1 Agranulocytosis secondary to cancer chemotherapy; T45.1X5A Adverse effect of antineoplastic and immunosuppressive drugs, initial encounter; Z79.899 Other long term (current) drug therapy; Z79.2 Long term (current) use of antibiotics
CPT/HCPCS: 36591; 99215

== ENCOUNTER 2021-06-15 11:29 | Outpatient (CLI) | payer OTHER, SELFPAY ==
[2021-06-15 12:08] LABS: Basophils % 2.7 %; Eosinophils # 0.1 10^3/uL (0.0-0.8); Eosinophils % 6.3 %; Hematocrit 36.3 % (42.0-52.0); Hemoglobin 12.2 g/dL (11.7-16.6); Lymphocytes # 0.8 10^3/uL (0.8-4.8); Lymphocytes % 72.1 %; Mean Corpuscular HGB Conc 33.6 g/dL (30.0-36.0); Mean Corpuscular Hemoglobin 29.7 pg (28.0-34.0); Mean Corpuscular Volume 88.3 fl (80-94); Mean Platelet Volume 10.5 fL (7.4-10.4); Monocytes # 0.1 10^3/uL (0.2-0.9); Monocytes % 6.3 %; Neutrophils % 12.6 %; Nucleated Red Blood Cells % 0 %; Platelet Count 169 10^3/cmm (130-400); Red Blood Count 4.11 10^6/uL (4.1-5.3); Red Cell Distribution Width 12.1 % (12.1-15.1); White Blood Count 1.1 10^3/uL (4.0-10.0)
[2021-06-15 12:14] LABS: Neutrophils # 0.14 10^3/uL (1.8-7.7)
[2021-06-15 12:43] LABS: Alanine Aminotransferase 25 U/L (0-41); Albumin Level 3.9 g/dL (3.5-5.2); Alkaline Phosphatase 127 IU/L (40-130); Anion Gap 11.2 (5-19); Aspartate Amino Transferase 15 U/L (0-40); Blood Urea Nitrogen 15 mg/dL (8-23); Calcium 9.4 mg/dL (8.5-10.5); Carbon Dioxide 27 mmol/L (22-29); Chloride 100 mmol/L (98-107); Globulin 2.3 g/dL (1.3-4.6); Glomerular Filtration Rate 85.8 mL/min (90-130); Glucose 107 mg/dL (65-115); Osmolality Calculated 279 mOsm/kg (285-295); Potassium 4.2 mmol/L (3.5-5.1); Sodium 134 mmol/L (136-145); Total Bilirubin 1.2 mg/dL (0.15-1.2); Total Protein 6.2 g/dL (6.6-8.7)
== END 2021-06-15 11:30 | disposition home or self-care (01) ==
PROVIDERS: PCP Family Medicine; Visit Provider Internal Medicine Hematology & Oncology
DX: C61 Malignant neoplasm of prostate (principal); R53.1 Weakness; R53.83 Other fatigue; Z79.899 Other long term (current) drug therapy
CPT/HCPCS: 80053; 84153; 85025

== ENCOUNTER 2021-06-22 07:55 | Outpatient (CLI) | payer OTHER, SELFPAY ==
[2021-06-22 08:30] LABS: Hematocrit 35.8 % (42.0-52.0); Mean Corpuscular HGB Conc 33.5 g/dL (30.0-36.0); Mean Corpuscular Volume 89.5 fl (80-94); Platelet Count 297 10^3/cmm (130-400); Red Cell Distribution Width 12.5 % (12.1-15.1)
[2021-06-22 08:48] LABS: Alanine Aminotransferase 61 U/L (0-41); Albumin Level 3.7 g/dL (3.5-5.2); Alkaline Phosphatase 194 IU/L (40-130); Anion Gap 11.9 (5-19); Aspartate Amino Transferase 27 U/L (0-40); Blood Urea Nitrogen 12 mg/dL (8-23); Calcium 9.1 mg/dL (8.5-10.5); Carbon Dioxide 26 mmol/L (22-29); Chloride 104 mmol/L (98-107); Globulin 2.4 g/dL (1.3-4.6); Glucose 128 mg/dL (65-115); Osmolality Calculated 287 mOsm/kg (285-295); Potassium 3.9 mmol/L (3.5-5.1); Sodium 138 mmol/L (136-145); Total Bilirubin 0.4 mg/dL (0.15-1.2); Total Protein 6.1 g/dL (6.6-8.7)
[2021-06-22 08:54] LABS: Slide Review Slide Review Perform
[2021-06-22 08:55] LABS: Absolute Neutrophil 3.2 10^3/cmm (1.4-6.5); Absolute Segmented Neutrophil 2.2 10/cmm (1.6-7.1); Band Neutrophils Absolute 1.1 10^3/cmm (0.0-1.2); Eosinophils 0 %; Lymphocytes 41 %; Lymphocytes Absolute 4.5 10^3/cmm (1.2-3.4); Monocytes Absolute 0.4 10^3/cmm (0.1-0.6); Platelet Estimate Normal (Normal); Segmented Neutrophils 24 %; Total Cells Counted 100 (0-100)
--- NOTE | 2021-06-22 17:36 | ONC FU_ITS ---
Dr. Steinberg follow up note Patient: Jose Manuel Hogan Unit #: [id number]: [id number] Dicatated By: Vivi Steinberg M.D.Date of Visit:Jun 22, 2021 Onc Med Follow-up/Prog Note History of Present Illness: Mr. Jose Manuel Hogan, is a 60-year-old gentleman with history of progressive PSA level, it was 69.9 ng/mL in November 2020, patient was evaluated by urology and on 11/26/2020 he underwent ultrasound-guided prostate gland biopsy and pathology confirmed acinar adenocarcinoma with Arcadia score 5+5, grade group 5 within the right mid biopsy core and Nissa pattern 5+4 in right apical, right basal, left apical and left mid cores. As well as Arcadia score 4+4 in the left basal biopsy specimen. No seminal vesicle mentioned. And no perineural invasion identified. Patient underwent bone scan on 12/09/2020 which showed increased activity with the left posterior fourth and fifth rib, shoulder girdle, right patella and left orbital rim. CT scan of abdomen pelvis showed bilateral external iliac chain lymphadenopathy and subcentimeter periaortic lymphadenopathy and an indeterminate 4.5 cm upper renal pole lesion. Subsequently patient underwent Axumin CT PET scan on 02/01/2021 which confirmed increase uptake in multiple subcentimeter retroperitoneal lymph node SUV 2.9, common iliac lymphadenopathy SUV 5.5, a right presacral lymph node SUV 5.4 and bilateral external iliac lymph nodes SUV 3.3 but there was no bony lesion identified. Patient was started on bicalutamide 50 mg p.o. daily in January 2021 till 03/09/2021, when radiation oncology discontinue bicalutamide patient received first dose of 6 monthly Eligard ( 45 mg)j ust before [place] On February 22, 2021 On May 11, 2021, his PSA was 2.0 ng/mL Compared to 69.96 on November 19, 2020 and alk phos was 157 Patient was referred to [facility] for second opinion where he was seen on May 20, 2021 and the recommendations were aggressive therapy in the form of chemo hormonal therapy and also choline CT PET scan in combination with repeat pelvic MRI scan: CT PET scan showed asymmetric choline activity in the prostate gland, suspicious for residual prostate malignancy. Multiple bilateral external iliac, right common iliac and retroperitoneal lymph nodes with mild activity are consistent with komal metastasis but all have decreased in size when compared with CT scan done on December 09, 2020. No evidence of osseous or solid organ metastasis and MRI scan of pelvis shows 4.2 cm exophytic T2 hyperintense mass with multiple septations, in the upper pole left kidney concerning for primary renal neoplasm or multilocular cystic nephroma or complicated cyst. Patent renal veins and IVC. Patient was referred to urologist Dr. Alejo at [facility] who evaluated patient via telemetry medicine and recommended follow-up MRI scan of pelvis in [facility]. Patient was advised to start chemotherapy with Taxotere 75 mg per metered square every 3 weeks x6 followed by lab test and scans. , Taxotere was started on June 09, 2021 Came for follow-up, denies any specific complaints, no fever chills, no nausea or vomiting, no diarrhea constipation, as per patient rash on the right anterior chest and left chest wall is resolved, now feeling much better since taking prednisone 5 mg twice a day as a part of Taxotere therapy protocol. Also has completed a course of Levaquin which was given as prophylactic during neutropenia. Medications: Azelastine HCl Solution Ophthalmic PRN, Azelastine HCl Solution Nasal PRN, buPROPion HCl ER (XL) 1 Tablet (of 300 mg) Tablet SR 24 HR Oral daily, Carvedilol 1 Tablet (of 12.5 mg) Oral b.i.d., Leflunomide 1 Tablet (of 20 mg) Oral daily, predniSONE 1 Tablet (of 10 mg) Oral PRN, rOPINIRole HCl 1 Tablet (of 3 mg) Oral daily, Tamsulosin HCl 1 Capsule (of 0.4 mg) Oral daily, Temazepam 1 Capsule (of 15 mg) Oral at bedtime PRN Allergies: MRI contrast Review of Systems: Review of Systems is not available for this patient. Vital Signs: Performed on Jun 22, 2021 09:47 Height - 66.00 in Weight - 235.2 lbs (LOW) BSA - 2.14 sq.m BMI - 37.96 (HIGH) Temperature - 98.2 F (LOW) Pulse - 75 /min Respiration - 18 /min BP - 138/81 mm(hg) O2 Sat - 96 % Pain - 0 Fatigue - 2 Performance Status: 0 - Fully active, able to carry on all predisease activities without restrictions. (ECOG) Physical Examination: ENMT - No mouth sores, no thrush, no jaundice, Respiratory - Lungs are clear to auscultation, Cardiovascular - Regular rate and rhythm of heart, Abdomen - Soft, bowel sounds present, Extremities - No visible edema, No rash. Lab/Imaging: Test performed on Jun 09, 2021 08:24 Sodium 140 mmol/L Potassium 4.7 mmol/L Chloride 107 mmol/L CO2 22 mmol/L Anion Gap 15.7 BUN 16 mg/dL Creatinine 0.8 mg/dL Cr Clearance (Est) 150.55 mL/min eGFR 98.3 mL/min Glucose 186 mg/dL Osmolality - Calculated 296 mOsm/kg Calcium 9.4 mg/dL Protein, Total 6.8 g/dL Albumin 3.9 g/dL Globulin 2.9 g/dL Bilirubin, Total 0.3 mg/dL ALT (SGPT) 37 U/L AST (SGOT) 21 U/L Alkaline Phosphatase 209 IU/L WBC 10.3 10 3/uL RBC 4.07 10 6/uL HGB 12.4 g/dL HCT 36.7 % MCV 90.2 fl MCH 30.5 pg MCHC 33.8 g/dL RDW 12.7 % Platelet Count 236 10 3/cmm MPV 10.6 fL Neutrophils 8.02 10 3/uL Lymphocytes 1.2 10 3/uL Monocytes 1.0 10 3/uL Eosinophils 0.0 10 3/uL Basophils 0.0 10 3/uL Neutrophil % 77.7 % Lymphocyte % 11.4 % Monocyte % 10.0 % Eosinophil % 0.0 % Basophils % 0.4 % NRBC % 0 % Impression: Adenocarcinoma prostate per ultrasound guided biopsy of prostate gland done on 11/26/2020 which showed Nissa score 5+5 within the right mid biopsy core, Arcadia pattern 5+4 in right apical, right basal, left apical and left mid sample course as well as Nissa score 4+4 in the left basal biopsy specimen. No seminal vesicle identified and no perineural invasion identified. CT scan of abdomen pelvis done on 12/09/2020 showed bilateral enlarged external iliac chain lymph nodes concerning for metastatic disease. Moderate prostate gland enlargement. Left upper renal pole indeterminate lesion size 4.5 cm bone scan done on 12/07/2020 showed 2 posterior left ribs and left medial inferior orbital rim may reflect metastatic disease. Axumin CT PET scan done on 02/01/2021 showed prostate demonstrate marked increase in uptake. Small retroperitoneal lymph nodes are observed of concern for early metastatic disease. More prominent deep pelvic lymph nodes demonstrate findings concerning for metastatic disease. No osseous metastatic disease Clinical stage III versus 4B (T1c, N1 M1 a) Started on bicalutamide 50 mg p.o. daily in January 2021, till 03/09/2021. And first dose of 3 monthly lupron was given just before 2020., Correction, patient received 6 monthly dose of Eligard 45 mg on February 22, 2021 and instead of Lupron Started on Taxotere every 3 weeks x6 on June 09, 2021 Plan: Discussed with patient regarding his labs white blood count 9 hemoglobin 12 hematocrit 35.8 platelets 297,000 CMP within normal limits except ALT 61 compared to 25 previously Clinically, patient doing well with no new signs symptom, previously seen right anterior chest wall and left chest wall rash has resolved, which was probably due to tape used during Port-A-Cath placement. His follow-up CBC shows resolution of chemotherapy induced neutropenia, patient was treated with prophylactic Levaquin. Patient return to clinic in 1 week with CBC CMP, if reasonable for his second course of Taxotere. Patient has history of left renal mass/Cyst, at [facility]'s request, will schedule him for MRI scan of pelvis with special attention to left renal mass, and we will send the MRI scan disc to [facility] for review and comparison. Signed By: Vivi Steinberg M.D. <<Signature on File>>
== END 2021-06-22 07:56 | disposition home or self-care (01) ==
LOC: ONCMED 07:58
PROVIDERS: PCP Family Medicine; Visit Provider Internal Medicine Hematology & Oncology
DX: C61 Malignant neoplasm of prostate (principal); N28.89 Other specified disorders of kidney and ureter; Z79.899 Other long term (current) drug therapy
CPT/HCPCS: 36591; 80053; 85007; 85025; 99215

== ENCOUNTER 2021-06-29 08:57 | Outpatient (CLI) | payer OTHER, SELFPAY ==
[2021-06-29 09:23] LABS: Basophils % 0.2 %; Hematocrit 35.2 % (42.0-52.0); Hemoglobin 11.8 g/dL (11.7-16.6); Lymphocytes # 1.2 10^3/uL (0.8-4.8); Lymphocytes % 9.1 %; Mean Corpuscular HGB Conc 33.5 g/dL (30.0-36.0); Mean Corpuscular Hemoglobin 30.3 pg (28.0-34.0); Mean Corpuscular Volume 90.3 fl (80-94); Mean Platelet Volume 9.7 fL (7.4-10.4); Monocytes # 0.7 10^3/uL (0.2-0.9); Monocytes % 5.1 %; Neutrophils # 11.06 10^3/uL (1.8-7.7); Neutrophils % 84.7 %; Nucleated Red Blood Cells % 0 %; Platelet Count 200 10^3/cmm (130-400); Red Cell Distribution Width 12.8 % (12.1-15.1); White Blood Count 13.1 10^3/uL (4.0-10.0)
[2021-06-29 09:49] LABS: Alanine Aminotransferase 36 U/L (0-41); Albumin Level 4.1 g/dL (3.5-5.2); Alkaline Phosphatase 185 IU/L (40-130); Aspartate Amino Transferase 22 U/L (0-40); Blood Urea Nitrogen 14 mg/dL (8-23); Calcium 8.7 mg/dL (8.5-10.5); Carbon Dioxide 23 mmol/L (22-29); Chloride 104 mmol/L (98-107); Globulin 2.3 g/dL (1.3-4.6); Glomerular Filtration Rate 85.8 mL/min (90-130); Glucose 134 mg/dL (65-115); Osmolality Calculated 288 mOsm/kg (285-295); Sodium 138 mmol/L (136-145); Total Bilirubin 0.3 mg/dL (0.15-1.2); Total Protein 6.4 g/dL (6.6-8.7)
[2021-06-29 10:03] LABS: Anion Gap 15.5 (5-19); Potassium 4.5 mmol/L (3.5-5.1)
[2021-06-29] MEDS: palonosetron 0.25 mg/5 mL SDV IV (11:22)
[2021-06-29] MEDS: sodium chloride 0.9% 250 ML 100 ML IV (11:22)
[2021-06-29] MEDS: famotidine 20 mg/2 mL INJ IVP (11:25)
[2021-06-29] MEDS: diphenhydrAMINE 50 mg/mL SDV 1mL 25 MG IV (11:30)
[2021-06-29] MEDS: pegfilgrastim 6 mg/0.6 mL Kit (onpro) SUBCUT (13:47)
--- NOTE | 2021-06-29 20:43 | ONC FU_ITS ---
Daniella Butterfield Progress Note Patient: Jose Manuel Hogan Unit #: [id number]: 1960 Dicatated By: Daniella Butterfield N.P.Date of Visit:Jun 29, 2021 Onc MED Follow-up/Prog Note Chief Complaint: Prostate cancer History of Present Illness: Mr. Jose Manuel Hogan, is a 60-year-old gentleman with history of progressive PSA level, it was 69.9 ng/mL in November 2020, patient was evaluated by urology and on 11/26/2020 he underwent ultrasound-guided prostate gland biopsy and pathology confirmed acinar adenocarcinoma with Wilmington score 5+5, grade group 5 within the right mid biopsy core and Nissa pattern 5+4 in right apical, right basal, left apical and left mid cores. As well as Wilmington score 4+4 in the left basal biopsy specimen. No seminal vesicle mentioned. And no perineural invasion identified. Patient underwent bone scan on 12/09/2020 which showed increased activity with the left posterior fourth and fifth rib, shoulder girdle, right patella and left orbital rim. CT scan of abdomen pelvis showed bilateral external iliac chain lymphadenopathy and subcentimeter periaortic lymphadenopathy and an indeterminate 4.5 cm upper renal pole lesion. Subsequently patient underwent Axumin CT PET scan on 02/01/2021 which confirmed increase uptake in multiple subcentimeter retroperitoneal lymph node SUV 2.9, common iliac lymphadenopathy SUV 5.5, a right presacral lymph node SUV 5.4 and bilateral external iliac lymph nodes SUV 3.3 but there was no bony lesion identified. Patient was started on bicalutamide 50 mg p.o. daily in January 2021 till 03/09/2021, when radiation oncology discontinue bicalutamide patient received first dose of 6 monthly Eligard ( 45 mg)j ust before [place] On February 22, 2021 On May 11, 2021, his PSA was 2.0 ng/mL Compared to 69.96 on November 19, 2020 and alk phos was 157 Patient was referred to [facility] for second opinion where he was seen on May 20, 2021 and the recommendations were aggressive therapy in the form of chemo hormonal therapy and also choline CT PET scan in combination with repeat pelvic MRI scan: CT PET scan showed asymmetric choline activity in the prostate gland, suspicious for residual prostate malignancy. Multiple bilateral external iliac, right common iliac and retroperitoneal lymph nodes with mild activity are consistent with komal metastasis but all have decreased in size when compared with CT scan done on December 09, 2020. No evidence of osseous or solid organ metastasis and MRI scan of pelvis shows 4.2 cm exophytic T2 hyperintense mass with multiple septations, in the upper pole left kidney concerning for primary renal neoplasm or multilocular cystic nephroma or complicated cyst. Patent renal veins and IVC. Patient was referred to urologist Dr. Alejo at [facility] who evaluated patient via telemetry medicine and recommended follow-up MRI scan of pelvis in [facility]. Patient was advised to start chemotherapy with Taxotere 75 mg per metered square every 3 weeks x6 followed by lab test and scans. , Taxotere was started on June 09, 2021 Patient presents today for follow-up. He states he is feeling fine. His appetite is good. He denies fever, chills, night sweats. No sinus drainage or mouth sores. He does experience dry eyes which he takes azelastine drops for. No shortness of breath, cough, chest pain. No GI or problems. He states he had joint and bone pain for approximately 4 days after his last treatment but that is now resolved. He did have to take oxycodone during that time for the pain which really helped. And is requesting a refill. He denies headaches or dizziness. Review Of Symptoms: See above. Past Medical History: Gastroesophageal reflux disease Hypertension Restless leg syndrome Past Surgical History: Cholecystectomy Colonoscopy Hernia repair Allergies: MRI contrast Medications: Azelastine HCl Solution Ophthalmic PRN Azelastine HCl Solution Nasal PRN buPROPion HCl ER (XL) 1 Tablet (of 300 mg) Tablet SR 24 HR Oral daily Carvedilol 1 Tablet (of 12.5 mg) Oral b.i.d. Leflunomide 1 Tablet (of 20 mg) Oral daily predniSONE 1 Tablet (of 10 mg) Oral PRN rOPINIRole HCl 1 Tablet (of 3 mg) Oral daily Tamsulosin HCl 1 Capsule (of 0.4 mg) Oral daily Temazepam 1 Capsule (of 15 mg) Oral at bedtime PRN Family History: There is no documented family history. Social History: Mr. Hogan is single. Mr. Hogan no longer smokes. Physical Examination: Performed on Jun 29, 2021 11:52: Height - 66.00 in, BP - 145/92 mm(hg) (HIGH), Performed on Jun 29, 2021 11:51: Height - 66.00 in, Weight - 234.8 lbs (LOW), BSA - 2.14 sq.m, BMI - 37.90 (HIGH), Temperature - 98.1 F (LOW), Pulse - 88 /min, Respiration - 16 /min, BP - 157/92 mm(hg) (HIGH), O2 Sat - 97 %, Pain - 0, and Fatigue - 0. Performance Status: 0 - Fully active, able to carry on all predisease activities without restrictions. (ECOG) Constitutional Alert, cooperative, oriented. Mood and affect appropriate. Appears close to chronological age. Well nourished. Well developed. Head Normocephalic; no scars. Respiratory Lungs are clear to auscultation without rhonchi or wheezing. Cardiovascular Regular rate and rhythm of heart without murmurs, gallops or rubs. Abdomen Non-tender, non-distended, no masses, ascites or hepatosplenomegaly. Good bowel sounds. No guarding or rebound tenderness. Musculoskeletal No tenderness or swelling, normal range of motion without obvious weakness. Psychiatric Alert and oriented times three. Coherent speech. Verbalizes understanding of our discussions today. Laboratory: Test performed on Jun 29, 2021 09:15 Sodium 138 mmol/L Potassium 4.5 mmol/L Chloride 104 mmol/L CO2 23 mmol/L Anion Gap 15.5 BUN 14 mg/dL Creatinine 0.9 mg/dL Cr Clearance (Est) 133.8300 mL/min eGFR 85.8 mL/min Glucose 134 mg/dL Osmolality - Calculated 288 mOsm/kg Calcium 8.7 mg/dL Protein, Total 6.4 g/dL Albumin 4.1 g/dL Globulin 2.3 g/dL Bilirubin, Total 0.3 mg/dL ALT (SGPT) 36 U/L AST (SGOT) 22 U/L Alkaline Phosphatase 185 IU/L WBC 13.1 10 3/uL RBC 3.90 10 6/uL HGB 11.8 g/dL HCT 35.2 % MCV 90.3 fl MCH 30.3 pg MCHC 33.5 g/dL RDW 12.8 % Platelet Count 200 10 3/cmm MPV 9.7 fL Neutrophils 11.06 10 3/uL Lymphocytes 1.2 10 3/uL Monocytes 0.7 10 3/uL Eosinophils 0.0 10 3/uL Basophils 0.0 10 3/uL Neutrophil % 84.7 % Lymphocyte % 9.1 % Monocyte % 5.1 % Eosinophil % 0.0 % Basophils % 0.2 % NRBC % 0 % Impression: Adenocarcinoma prostate per ultrasound guided biopsy of prostate gland done on 11/26/2020 which showed Nissa score 5+5 within the right mid biopsy core, Wilmington pattern 5+4 in right apical, right basal, left apical and left mid sample course as well as Nissa score 4+4 in the left basal biopsy specimen. No seminal vesicle identified and no perineural invasion identified. CT scan of abdomen pelvis done on 12/09/2020 showed bilateral enlarged external iliac chain lymph nodes concerning for metastatic disease. Moderate prostate gland enlargement. Left upper renal pole indeterminate lesion size 4.5 cm bone scan done on 12/07/2020 showed 2 posterior left ribs and left medial inferior orbital rim may reflect metastatic disease. Axumin CT PET scan done on 02/01/2021 showed prostate demonstrate marked increase in uptake. Small retroperitoneal lymph nodes are observed of concern for early metastatic disease. More prominent deep pelvic lymph nodes demonstrate findings concerning for metastatic disease. No osseous metastatic disease Clinical stage III versus 4B (T1c, N1 M1 a) Started on bicalutamide 50 mg p.o. daily in January 2021, till 03/09/2021. And first dose of 3 monthly lupron was given just before 2020., Correction, patient received 6 monthly dose of Eligard 45 mg on February 22, 2021 and instead of Lupron Started on Taxotere every 3 weeks x6 on June 09, 2021 Plan: Labs were reviewed with patient with WBC 13.1, hemoglobin 11.8, hematocrit 35.2, and platelet count 200,000. His ANC is 11.06 on his CMP his glucose is mildly elevated at 134 and his alkaline phosphatase is mildly elevated at 185. The rest of his CMP is within normal limits. Patient seems to be tolerating Taxotere treatment although he did experience some neutropenia which was treated with Levaquin. He also experienced bone pain x4 days after his treatment and is needing a refill of his oxycodone to take during this time. He will receive cycle 2 of Taxotere today and return to the clinic in 1 week with a CBC and CMP and a PSA. Patient has history of left renal mass/Cyst, at [facility]'s request, will schedule him for MRI scan of pelvis with special attention to left renal mass, and we will send the MRI scan disc to [facility] for review and comparison. Signed By: Daniella Butterfield N.P. <<Signature on File>>
== END 2021-06-29 08:58 | disposition home or self-care (01) ==
PROVIDERS: PCP Family Medicine; Visit Provider Nurse Practitioner Family
DX: Z51.11 Encounter for antineoplastic chemotherapy (principal); C61 Malignant neoplasm of prostate; N28.89 Other specified disorders of kidney and ureter; Z79.899 Other long term (current) drug therapy
CPT/HCPCS: 80053; 85025; 96367; 96372; 96375; 96377; 96413; 99215; J1100; J1200; J2469; J2506; J3490; J7050; J9171

== ENCOUNTER 2021-07-21 09:00 | Oncology outpatient (recurring) (ONCR) | payer OTHER, SELFPAY ==
[2021-07-07 08:51] LABS: Basophils % 0.2 %; Eosinophils % 0.2 %; Hemoglobin 11.3 g/dL (11.7-16.6); Lymphocytes # 2.8 10^3/uL (0.8-4.8); Lymphocytes % 12.5 %; Mean Corpuscular HGB Conc 32.3 g/dL (30.0-36.0); Mean Corpuscular Hemoglobin 29.7 pg (28.0-34.0); Mean Corpuscular Volume 91.9 fl (80-94); Monocytes # 2.3 10^3/uL (0.2-0.9); Monocytes % 10.1 %; Neutrophils # 13.23 10^3/uL (1.8-7.7); Neutrophils % 58.4 %; Nucleated Red Blood Cells # 0.6 /100WBC; Nucleated Red Blood Cells % 2.4 %; Platelet Count 245 10^3/cmm (130-400); Red Blood Count 3.81 10^6/uL (4.1-5.3); Red Cell Distribution Width 13.3 % (12.1-15.1); White Blood Count 22.6 10^3/uL (4.0-10.0)
[2021-07-07 09:24] LABS: Alanine Aminotransferase 39 U/L (0-41); Albumin Level 3.4 g/dL (3.5-5.2); Alkaline Phosphatase 173 IU/L (40-130); Anion Gap 14.3 (5-19); Aspartate Amino Transferase 24 U/L (0-40); Blood Urea Nitrogen 23 mg/dL (8-23); Calcium 9.3 mg/dL (8.5-10.5); Carbon Dioxide 25 mmol/L (22-29); Chloride 106 mmol/L (98-107); Globulin 2.6 g/dL (1.3-4.6); Glomerular Filtration Rate 85.8 mL/min (90-130); Glucose 130 mg/dL (65-115); Osmolality Calculated 297 mOsm/kg (285-295); Potassium 4.3 mmol/L (3.5-5.1); Prostate Specific Antigen 0.927 ng/mL (0-4); Sodium 141 mmol/L (136-145); Total Bilirubin 0.5 mg/dL (0.15-1.2)
[2021-07-07 09:48] LABS: Slide Review Slide Review Perform
[2021-07-21 09:31] LABS: Basophils % 0.2 %; Eosinophils % 0.1 %; Hematocrit 33.1 % (42.0-52.0); Lymphocytes % 9.6 %; Mean Corpuscular HGB Conc 33.2 g/dL (30.0-36.0); Mean Corpuscular Volume 93.2 fl (80-94); Mean Platelet Volume 9.8 fL (7.4-10.4); Monocytes # 0.8 10^3/uL (0.2-0.9); Monocytes % 7.6 %; Neutrophils # 8.56 10^3/uL (1.8-7.7); Neutrophils % 81.5 %; Nucleated Red Blood Cells % 0 %; Platelet Count 254 10^3/cmm (130-400); Red Blood Count 3.55 10^6/uL (4.1-5.3); Red Cell Distribution Width 14.8 % (12.1-15.1); White Blood Count 10.5 10^3/uL (4.0-10.0)
[2021-07-21 09:50] LABS: Alanine Aminotransferase 27 U/L (0-41); Albumin Level 3.8 g/dL (3.5-5.2); Alkaline Phosphatase 166 IU/L (40-130); Aspartate Amino Transferase 15 U/L (0-40); Blood Urea Nitrogen 14 mg/dL (8-23); Calcium 8.8 mg/dL (8.5-10.5); Carbon Dioxide 23 mmol/L (22-29); Chloride 107 mmol/L (98-107); Globulin 1.8 g/dL (1.3-4.6); Glomerular Filtration Rate 114.6 mL/min (90-130); Glucose 109 mg/dL (65-115); Osmolality Calculated 291 mOsm/kg (285-295); Sodium 140 mmol/L (136-145); Total Bilirubin 0.4 mg/dL (0.15-1.2); Total Protein 5.6 g/dL (6.6-8.7)
[2021-07-21 10:02] LABS: Anion Gap 14.3 (5-19); Potassium 4.3 mmol/L (3.5-5.1)
[2021-07-21] MEDS: sodium chloride 0.9% 250 ML 100 ML IV (11:43)
[2021-07-21] MEDS: palonosetron 0.25 mg/5 mL SDV IVP (11:46)
[2021-07-21] MEDS: famotidine 20 mg/2 mL INJ IVP (11:47)
[2021-07-21] MEDS: diphenhydrAMINE 50 mg/mL SDV 1mL 25 MG IVP (11:51)
[2021-07-21] MEDS: [UNRECOGNIZED DRUG - REMARK] 258.5 MG IV (12:11)
[2021-07-21] MEDS: pegfilgrastim 6 mg/0.6 mL Kit (onpro) SUBCUT (13:21)
[2021-07-21 13:24] VITALS: BP 163/92; PULSE 73; RESP 16; TEMP 36.4; O2SAT 96
== END 2021-08-03 23:59 | disposition home or self-care (01) ==
PROVIDERS: Nurse Practitioner Family; PCP Family Medicine; Visit Provider Internal Medicine Hematology & Oncology
DX: Z51.11 Encounter for antineoplastic chemotherapy (principal); C61 Malignant neoplasm of prostate; C77.8 Secondary and unspecified malignant neoplasm of lymph nodes of multiple regions; M06.1 Adult-onset Still's disease; D72.829 Elevated white blood cell count, unspecified; Z79.899 Other long term (current) drug therapy; Z79.891 Long term (current) use of opiate analgesic
CPT/HCPCS: 36591; 80053; 84153; 85025; 96367; 96375; 96377; 96413; J1100; J1200; J2469; J2506; J3490; J7050; J9171

== ENCOUNTER 2021-09-01 08:30 | Oncology outpatient (recurring) (ONCR) | payer OTHER, SELFPAY ==
[2021-08-11 08:29] VITALS: BMI 37.9
[2021-08-11 08:30] LABS: Basophils % 0.2 %; Hematocrit 33.8 % (42.0-52.0); Lymphocytes # 1.1 10^3/uL (0.8-4.8); Lymphocytes % 8.8 %; Mean Corpuscular HGB Conc 32.5 g/dL (30.0-36.0); Mean Corpuscular Hemoglobin 31.1 pg (28.0-34.0); Mean Corpuscular Volume 95.5 fl (80-94); Mean Platelet Volume 9.7 fL (7.4-10.4); Monocytes # 1.1 10^3/uL (0.2-0.9); Monocytes % 8.2 %; Neutrophils % 81.2 %; Nucleated Red Blood Cells % 0 %; Platelet Count 188 10^3/cmm (130-400); Red Blood Count 3.54 10^6/uL (4.1-5.3); Red Cell Distribution Width 17.3 % (12.1-15.1); White Blood Count 12.8 10^3/uL (4.0-10.0)
[2021-08-11 08:54] LABS: Alanine Aminotransferase 31 U/L (0-41); Albumin Level 3.7 g/dL (3.5-5.2); Alkaline Phosphatase 185 IU/L (40-130); Blood Urea Nitrogen 23 mg/dL (8-23); Carbon Dioxide 25 mmol/L (22-29); Chloride 107 mmol/L (98-107); Globulin 2.1 g/dL (1.3-4.6); Glomerular Filtration Rate 98.3 mL/min (90-130); Glucose 92 mg/dL (65-115); Osmolality Calculated 295 mOsm/kg (285-295); Sodium 141 mmol/L (136-145); Total Bilirubin 0.6 mg/dL (0.15-1.2); Total Protein 5.8 g/dL (6.6-8.7)
[2021-08-11 08:55] LABS: Anion Gap 13.5 (5-19); Potassium 4.5 mmol/L (3.5-5.1)
[2021-08-11 08:56] LABS: Aspartate Amino Transferase 17 U/L (0-40)
[2021-08-11] MEDS: sodium chloride 0.9% 250 ML 100 ML IV (10:40)
[2021-08-11] MEDS: palonosetron 0.25 mg/5 mL SDV IVP (10:41)
[2021-08-11] MEDS: famotidine 20 mg/2 mL INJ IVP (10:43)
[2021-08-11] MEDS: diphenhydrAMINE 50 mg/mL SDV 1mL 25 MG IVP (10:45)
[2021-08-11] MEDS: [UNRECOGNIZED DRUG - REMARK] 258.5 MG IV (11:14)
[2021-08-11 12:29] VITALS: BP 144/93; PULSE 64; RESP 16; TEMP 36.2; O2SAT 97
[2021-08-11] MEDS: pegfilgrastim 6 mg/0.6 mL Kit (onpro) SUBCUT (12:29)
[2021-09-01 09:01] VITALS: BMI 38.0
[2021-09-01 09:03] LABS: Basophils # 0.1 10^3/uL (0.0-0.1); Basophils % 0.3 %; Hemoglobin 11.4 g/dL (11.7-16.6); Lymphocytes # 0.8 10^3/uL (0.8-4.8); Lymphocytes % 4.3 %; Mean Corpuscular HGB Conc 33.5 g/dL (30.0-36.0); Mean Corpuscular Hemoglobin 32.2 pg (28.0-34.0); Mean Platelet Volume 9.3 fL (7.4-10.4); Monocytes # 0.8 10^3/uL (0.2-0.9); Monocytes % 4.4 %; Neutrophils # 16.81 10^3/uL (1.8-7.7); Neutrophils % 89.6 %; Nucleated Red Blood Cells % 0.1 %; Platelet Count 182 10^3/cmm (130-400); Red Blood Count 3.54 10^6/uL (4.1-5.3); Red Cell Distribution Width 18.6 % (12.1-15.1); White Blood Count 18.8 10^3/uL (4.0-10.0)
[2021-09-01 09:28] LABS: Albumin Level 3.6 g/dL (3.5-5.2); Alkaline Phosphatase 244 IU/L (40-130); Blood Urea Nitrogen 23 mg/dL (8-23); Calcium 8.7 mg/dL (8.5-10.5); Carbon Dioxide 24 mmol/L (22-29); Chloride 103 mmol/L (98-107); Globulin 2.2 g/dL (1.3-4.6); Glomerular Filtration Rate 114.6 mL/min (90-130); Glucose 141 mg/dL (65-115); Osmolality Calculated 290 mOsm/kg (285-295); Prostate Specific Antigen 0.496 ng/mL (0-4); Sodium 137 mmol/L (136-145); Total Bilirubin 0.7 mg/dL (0.15-1.2); Total Protein 5.8 g/dL (6.6-8.7)
[2021-09-01 09:37] LABS: Alanine Aminotransferase 36 U/L (0-41)
[2021-09-01 09:38] LABS: Aspartate Amino Transferase 27 U/L (0-40)
[2021-09-01] MEDS: sodium chloride 0.9% 250 ML 100 ML IV (10:49)
[2021-09-01] MEDS: palonosetron 0.25 mg/5 mL SDV IVP (10:50)
[2021-09-01] MEDS: famotidine 20 mg/2 mL INJ IVP (10:51)
[2021-09-01] MEDS: diphenhydrAMINE 50 mg/mL SDV 1mL 25 MG IVP (10:52)
[2021-09-01] MEDS: [UNRECOGNIZED DRUG - REMARK] 258.5 MG IV (11:30)
[2021-09-01] MEDS: pegfilgrastim 6 mg/0.6 mL Kit (onpro) SUBCUT (12:43)
[2021-09-01 12:47] VITALS: BP 148/88; PULSE 74; RESP 16; TEMP 36.6; O2SAT 96
== END 2021-09-02 23:59 | disposition home or self-care (01) ==
PROVIDERS: Nurse Practitioner Family; PCP Family Medicine; Visit Provider Internal Medicine Hematology & Oncology
DX: Z51.11 Encounter for antineoplastic chemotherapy (principal); C61 Malignant neoplasm of prostate; C79.51 Secondary malignant neoplasm of bone; C77.8 Secondary and unspecified malignant neoplasm of lymph nodes of multiple regions; M06.1 Adult-onset Still's disease; M19.90 Unspecified osteoarthritis, unspecified site; R53.1 Weakness; R53.83 Other fatigue; D64.9 Anemia, unspecified; Z79.899 Other long term (current) drug therapy; Z79.891 Long term (current) use of opiate analgesic
CPT/HCPCS: 80053; 84153; 85025; 96367; 96375; 96377; 96413; J1100; J1200; J2469; J2506; J3490; J7050; J9171

== ENCOUNTER 2021-09-13 18:53 | Inpatient (IN) | payer OTHER, SELFPAY ==
[2021-09-13] VITALS (9 sets, daily range): BP systolic 72–106; BP diastolic 57–81; PULSE 139–150; RESP 22–23; TEMP 36.8; O2SAT 88–97; BMI 37.9
--- NOTE | 2021-09-13 19:11 | XRR_ITS ---
PROCEDURE INFORMATION: Exam: XR Chest Exam date and time: 09/13/2021 7:31 PM Age: 60 years old Clinical indication: Shortness of breath; Additional info: SOB TECHNIQUE: Imaging protocol: Radiologic exam of the chest. Views: 1 view. COMPARISON: CR XR chest 2V* [id number] 09/13/2021 1:25 PM FINDINGS: Tubes, catheters and devices: There is a right subclavian port with tip in the superior vena cava. There is a ICD wire projected over the sternum with a battery pack over the left lower chest. Lungs: There is unchanged airspace opacity right mid lung laterally. No interval increase/new airspace consolidation. Unchanged linear atelectasis or scarring in the left lower lobe. The pulmonary vascularity is within normal limits. Pleural spaces: Unremarkable. No pleural effusion. No pneumothorax. Heart/Mediastinum: The heart is enlarged. Bones/joints: No acute abnormality. XR/XR chest 1V portable [id number] IMPRESSION: Unchanged exam with stable airspace opacity in the periphery of the right lung.
--- NOTE | 2021-09-13 19:11 | ECG_ITS ---
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 Measurements Intervals [place] Rate: 141 P: TX: QRS: -53 QRSD: 90 T: 73 QT: 276 QTc: 423 Interpretive Statements ATRIAL FLUTTER/TACHYCARDIA WITH RAPID VENTRICULAR RESPONSE LEFT ANTERIOR FASCICULAR BLOCK [QRS AXIS <= -45, QR IN I, RS IN II] ST DEPRESSION, CONSIDER SUBENDOCARDIAL INJURY [0.1+ mV ST DEPRESSION] Compared to ECG 06/08/2021 07:12:49 Left anterior fascicular block now present ST (T wave) deviation now present Sinus rhythm no longer present Left-axis deviation no longer present Intraventricular conduction delay no longer present T-wave abnormality no longer present Electronically Signed On 09-14-2021 17:31:49 CDT by Wilfred Kidd M.D. [id number]
--- NOTE | 2021-09-13 19:36 | USR_ITS ---
PROCEDURE INFORMATION: Exam: US Duplex Lower Extremity Veins, Bilateral Exam date and time: 09/13/2021 8:02 PM Age: 60 years old Clinical indication: Edema, localized; Lower extremity, bilateral; Patient HX: Venous duplex imaging was performed in bilateral lower extremities. The venous duplex doppler examination of both lower extremities was performed in the standard fashion. The following venous structures were evaluated: Common femoral vein, profunda vein, proximal portion of the greater saphenous vein, superficial femoral vein, and the popliteal vein. In addition, the posterior tibial and peroneal veins were evaluated. Bilaterally, the common femoral, superficial femoral, profunda femoral, popliteal, posterior tibial, and the peroneal veins were identified and interrogated in the standard fashion. These veins were found to be easily compressible with spontaneous blood flow and normal augmentation. No evidence of thrombus in the deep veins noted. There is superficial thrombus in the superior aspect of the right greater saphenous vein, with partial channel effect. This area does not compress completely, although there is limited augmentation through the partial channel. The right greater saphenous vein in the proximal, mid, and distal thigh show normal compression, spontaneity, and augmentation. The left greater saphenous vein is normal. ; Additional info: Leg swelling x 4 days TECHNIQUE: Imaging protocol: Real-time Duplex ultrasound of the bilateral extremities with 2-D montalvo scale, color Doppler flow and spectral waveform analysis with image documentation. Complete exam focused on the bilateral lower extremity veins. COMPARISON: CT abdomen pelvis w con* [id number] 12/09/2020 10:43 AM FINDINGS: Right deep veins: Unremarkable. The common femoral, femoral, proximal profunda femoral and popliteal veins are patent without thrombus. Normal Doppler waveforms. Normal compressibility and/or augmentation response. Right superficial veins: Saphenofemoral junction is noted to have subocclusive thrombus and lack of complete compressibility. The remaining right saphenous vein is patent with good compressibility. Left deep veins: Unremarkable. The common femoral, femoral, proximal profunda femoral and popliteal veins are patent without thrombus. Normal Doppler waveforms. Normal compressibility and/or augmentation response. Left superficial veins: Saphenofemoral junction is patent without thrombus. Soft tissues: Unremarkable. US/[place] [id number] IMPRESSION: 1. No evidence of deep vein thrombosis either leg. 2. There is thrombus at the right saphenofemoral junction.
--- NOTE | 2021-09-13 19:37 | W.ED.SOB ---
HPI - SOB/Dyspnea General: Chief Complaint: Shortness of Breath/Dyspnea Stated Complaint: SOB/Cancer PT Time Seen by Provider: 09/13/21 19:25 Source: patient Mode of arrival: ambulatory Limitations: no limitations History of Present Illness: HPI Narrative: 60-year-old male who has a history of prostate cancer he is currently on treatment he states he is due for his last treatment. States that over the last few days has been having some low-grade fevers along with a cough and increasing shortness of breath. Patient here was hypotensive and is requiring 3 L currently and was hypoxic on room air he does not wear oxygen at home. Had some full body pain denies really any chest pain. States it is much worse with exertion he is also had some swelling in bilateral legs. No history of CHF or COPD. Associated symptoms: Deny abdominal pain, chest pain, fever(s), nausea or vomiting Review of Systems Const: Denies: fever(s), chills, body aches or change in appetite Eyes: Denies: blurry vision or eye discomfort ENMT: Denies: throat pain or dental pain Card: Denies: chest pain Resp: Reports: dyspnea GI: Denies: abdominal pain, nausea, vomiting or diarrhea : Denies: dysuria Musc: Denies: neck pain or back pain Skin/Breast: Denies: rash Neuro: Reports: weakness in extremities Psych: Denies: depression Manjeet/Lymph: Denies: easy bruising All/Imm: Denies: urticaria PFSH ED PFSH: Medical History (Updated 09/13/21 @ 23:32 by Mehran Espinoza MD) Adult-onset Still's disease COVID-19 vaccine administered Edema High risk medication use Hypertension Immunization counseling Inflammatory arthritis Intermittent fever Joint pain Pain in joints 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 Restless leg syndrome Shortness of breath Surgical History History of cholecystectomy Family History Other Cancer Diabetes Hyperlipidemia Hypertension Rheumatoid arthritis Denies family history of Lupus CAD (coronary artery disease) Clotting disorder Dementia Psychiatric illness Chronic kidney disease (CKD) Suicide Anesthesia complication Bleeding disorder Lung disease Stroke Social History Smoking and tobacco status: former smoker Alcohol intake: former Year of sobriety/quit date alcohol: 11yr History of recent travel: No Physical Exam Const: COMMON NORMALS: patient oriented x3 GENERAL APPEARANCE: ill appearing HENMT: COMMON NORMALS: normocephalic and atraumatic HEAD & SCALP: normocephalic and atraumatic Eye: COMMON NORMALS: Equal, round and reactive pupils present and EOMs intact bilaterally PUPIL: Yes Equal, round and reactive pupils present Neck/C-Spine: COMMON NORMALS: full ROM and supple Chest: COMMONS NORMALS: normal inspection of the chest and normal palpation of entire chest wall Resp: COMMON NORMALS: normal respiratory effort, No retractions and No use of accessory muscles AUSCULTATION: rales Cardio: COMMON NORMALS: regular rate, regular rhythm and No murmurs present (Cardio) RATE: regular rate RHYTHM: regular rhythm GI: COMMON NORMALS: Normal to inspection, nondistended, normoactive bowel sounds present, Soft to palpation, non-tender and no masses PALPATION: Yes Soft to palpation Extremity: COMMON NORMALS: full ROM NARRATIVE EXTREMITY EXAM: 2+ lower extremity edema Neuro: COMMON NORMALS: patient oriented x3, moves all extremities and no focal motor deficits Psych: COMMON NORMALS: mental status grossly normal, Normal thought process present and cooperative THOUGHT PROCESS: Normal thought process present Skin: COMMON NORMALS: no rashes or lesions noted and no wounds GENERAL SKIN EXAM: no rashes or lesions noted Course Vital Signs: Vital signs: Vital Signs Temperature 98.2 F 09/13/21 19:13 Pulse Rate 143 H 09/13/21 23:13 Respiratory Rate 22 H 09/13/21 22:34 Blood Pressure 99/71 09/13/21 23:13 Pulse Oximetry 95 09/13/21 23:13 MDM - SOB/Dyspnea Medical Decision Making Patient presents here with shortness of breath x-ray does show a right-sided pneumonia patient also has atrial flutter with RVR patient's currently on amnio drip still in atrial flutter blood pressure currently is 106/80 has had some slight hypotension spoke to cardiology who is consulted. Patient did have an elevated D-dimer he has an allergy to IV contrast patient given Lovenox likely get a VQ scan tomorrow spoke to the hospitalist will admit to ICU at this time. Lab Data : 09/13/21 19:50 09/13/21 19:50 Labs/Radiology: Radiology Impressions Chest X-Ray 09/13/21 19:11 IMPRESSION: Unchanged exam with stable airspace opacity in the periphery of the right lung. Venous Duplex 09/13/21 19:36 IMPRESSION: 1. No evidence of deep vein thrombosis either leg. 2. There is thrombus at the right saphenofemoral junction. Laboratory Results WBC 17.7 10^3/uL (4.0-10.0) H 09/13/21 19:50 RBC 3.28 10^6/uL (4.1-5.3) L 09/13/21 19:50 Hgb 10.3 g/dL (11.7-16.6) L 09/13/21 19:50 Hct 30.7 % (42.0-52.0) L 09/13/21 19:50 MCV 93.6 fl (80-94) 09/13/21 19:50 MCH 31.4 pg (28.0-34.0) 09/13/21 19:50 MCHC 33.6 g/dL (30.0-36.0) 09/13/21 19:50 RDW 18.1 % (12.1-15.1) H 09/13/21 19:50 Plt Count 102 10^3/cmm (130-400) L 09/13/21 19:50 MPV 9.8 fL (7.4-10.4) 09/13/21 19:50 Neut % (Auto) 85.7 % 09/13/21 19:50 Lymph % (Auto) 7.4 % 09/13/21 19:50 [place]ot % (Auto) 3.4 % 09/13/21 19:50 Eos % (Auto) 0.1 % 09/13/21 19:50 Baso % (Auto) 0.6 % 09/13/21 19:50 Neut # (Auto) 15.17 10^3/uL (1.8-7.7) H 09/13/21 19:50 Lymph # (Auto) 1.3 10^3/uL (0.8-4.8) 09/13/21 19:50 [place]ot # (Auto) 0.6 10^3/uL (0.2-0.9) 09/13/21 19:50 Eos # (Auto) 0.0 10^3/uL (0.0-0.8) 09/13/21 19:50 Baso # (Auto) 0.1 10^3/uL (0.0-0.1) 09/13/21 19:50 Nucleated RBC % (auto) 0.2 % 09/13/21 19:50 Nucleated RBCs # 0.0 /100WBC 09/13/21 19:50 PT 13.80 SECONDS (12.1-14.9) 09/13/21 19:50 INR 1.02 (0.8-1.2) 09/13/21 19:50 D-Dimer 5.29 ug/mIFEU (0-0.59) H 09/13/21 19:50 Sodium 134 mmol/L (136-145) L 09/13/21 19:50 Potassium 4.3 mmol/L (3.5-5.1) 09/13/21 19:50 Chloride 100 mmol/L (98-107) 09/13/21 19:50 Carbon Dioxide 22 mmol/L (22-29) 09/13/21 19:50 Anion Gap 16.3 (5-19) 09/13/21 19:50 BUN 12 mg/dL (8-23) 09/13/21 19:50 Creatinine 0.9 mg/dL (0.7-1.2) 09/13/21 19:50 GFR Calculation 85.8 mL/min (90-130) L 09/13/21 19:50 Glucose 134 mg/dL (65-115) H 09/13/21 19:50 Calculated Osmolality 280 mOsm/kg (285-295) L 09/13/21 19:50 Lactate 1.6 mmol/L (0.5-2.2) 09/13/21 19:50 Calcium 8.4 mg/dL (8.5-10.5) L 09/13/21 19:50 Total Bilirubin 1.2 mg/dL (0.15-1.2) 09/13/21 19:50 AST 36 U/L (0-40) 09/13/21 19:50 ALT 40 U/L (0-41) 09/13/21 19:50 Alkaline Phosphatase 170 IU/L (40-130) H 09/13/21 19:50 Troponin T Baseline 91 ng/L (0-15) H 09/13/21 19:50 NT-Pro-B Natriuret Pep 1393 pg/mL (0-125) H 09/13/21 19:50 Total Protein 5.3 g/dL (6.6-8.7) L 09/13/21 19:50 Albumin 3.0 g/dL (3.5-5.2) L 09/13/21 19:50 Globulin 2.3 g/dL (1.3-4.6) 09/13/21 19:50 SARS-CoV-2 Ag (Rapid) Negative (Negative) 09/13/21 19:55 EKG Data EKG 1: I personally reviewed and interpreted this EKG as follows: EKG Interpretation Date: 09/13/21 EKG interpretation time: 19:57 Interpretation: atrial flutter hr [address] or t wave abnormalities qrs 87 qtc 355 Critical Care Time Critical Care Time: Critical Care Time: Yes Total Critical Care Time: 40 Attestation: The high probability of a clinically significant, sudden or life threatening deterioration of the patient's cv/resp system(s) required my full and direct attention, intervention and personal management. The critical care time is as shown. 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
[2021-09-13] MEDS: sodium chloride 0.9% 1,000 ML 999 ML IV (19:55)
[2021-09-13 20:04] LABS: Basophils # 0.1 10^3/uL (0.0-0.1); Basophils % 0.6 %; Eosinophils % 0.1 %; Hematocrit 30.7 % (42.0-52.0); Hemoglobin 10.3 g/dL (11.7-16.6); Lymphocytes # 1.3 10^3/uL (0.8-4.8); Lymphocytes % 7.4 %; Mean Corpuscular HGB Conc 33.6 g/dL (30.0-36.0); Mean Corpuscular Hemoglobin 31.4 pg (28.0-34.0); Mean Corpuscular Volume 93.6 fl (80-94); Mean Platelet Volume 9.8 fL (7.4-10.4); Monocytes # 0.6 10^3/uL (0.2-0.9); Monocytes % 3.4 %; Neutrophils # 15.17 10^3/uL (1.8-7.7); Neutrophils % 85.7 %; Nucleated Red Blood Cells % 0.2 %; Platelet Count 102 10^3/cmm (130-400); Red Blood Count 3.28 10^6/uL (4.1-5.3); Red Cell Distribution Width 18.1 % (12.1-15.1); White Blood Count 17.7 10^3/uL (4.0-10.0)
[2021-09-13 20:23] LABS: SARS Covid-2 Antigen Negative (Negative)
[2021-09-13 20:26] LABS: INR 1.02 (0.8-1.2); Lactate (Lactic Acid level) 1.6 mmol/L (0.5-2.2)
[2021-09-13 20:27] LABS: Troponin(5th) Baseline 91 ng/L (0-15)
[2021-09-13 20:35] LABS: D Dimer 5.29 ug/mIFEU (0-0.59)
[2021-09-13 20:37] LABS: Alanine Aminotransferase 40 U/L (0-41); Alkaline Phosphatase 170 IU/L (40-130); Blood Urea Nitrogen 12 mg/dL (8-23); Calcium 8.4 mg/dL (8.5-10.5); Carbon Dioxide 22 mmol/L (22-29); Chloride 100 mmol/L (98-107); Globulin 2.3 g/dL (1.3-4.6); Glomerular Filtration Rate 85.8 mL/min (90-130); Glucose 134 mg/dL (65-115); NT Pro B Type Natriuretic Pept 1393 pg/mL (0-125); Osmolality Calculated 280 mOsm/kg (285-295); Sodium 134 mmol/L (136-145); Total Bilirubin 1.2 mg/dL (0.15-1.2); Total Protein 5.3 g/dL (6.6-8.7)
[2021-09-13 20:41] LABS: Anion Gap 16.3 (5-19); Aspartate Amino Transferase 36 U/L (0-40); Potassium 4.3 mmol/L (3.5-5.1)
[2021-09-13] MEDS: amiodarone 50 mg/mL SDV 3 mL 150 MG IVP (20:53)
[2021-09-13] MEDS: enoxaparin 100 mg/mL Syringe SUBCUT (21:10)
--- NOTE | 2021-09-13 21:11 | ECG_ITS ---
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 Measurements Intervals [place] Rate: 142 P: [place]: QRS: -54 QRSD: 87 T: 46 QT: 273 QTc: 420 Interpretive Statements ATRIAL FLUTTER/TACHYCARDIA WITH RAPID VENTRICULAR RESPONSE LEFT ANTERIOR FASCICULAR BLOCK [QRS AXIS <= -45, QR IN I, RS IN II] MODERATE ST DEPRESSION [0.05+ mV ST DEPRESSION] Compared to ECG 06/08/2021 07:12:49 Left anterior fascicular block now present ST (T wave) deviation now present Sinus rhythm no longer present Left-axis deviation no longer present Right ventricular hypertrophy no longer present Intraventricular conduction delay no longer present T-wave abnormality no longer present Electronically Signed On 09-14-2021 17:35:49 CDT by Wilfred Kidd M.D. [id number]
[2021-09-13] MEDS: sodium chloride 0.9% 500 ML 999 ML IV (21:25)
[2021-09-13] MEDS: dilTIAZem 5 mg/mL SDV 5 mL IVP (21:43)
[2021-09-13] MEDS: piperacillin-tazobactam 3.375 GM in sodium chloride 0.9% (plus) 50 ML IV (21:52)
[2021-09-13 22:37] LABS: Troponin 5 2HR 139.1 ng/L (0-15); Troponin 5 2HR Delta 48.1 ABS# (0-10)
[2021-09-13] MEDS: vancomycin 1,000 MG in sodium chloride 0.9% 250 ML 250 MG IV (22:40)
[2021-09-13 23:06] LABS: Magnesium 1.7 mg/dL (1.7-2.3)
[2021-09-14] VITALS (155 sets, daily range): BP systolic 69–121; BP diastolic 50–88; PULSE 112–155; RESP 0–31; TEMP 36.6–36.8; O2SAT 90–98
--- NOTE | 2021-09-14 00:07 | PC.PHAR ---
Pharmacokinetic dosing service Date: 09/14/21 Time: 0000 Objective: Patient: Jose Manuel Hogan Floor: ICU-5 Age: 60 yo Serum creatinine: 0.9 mg/dL Height: 66.0 Inches Weight (kg): 106.594 Diagnosis: Relevant medical/social history: Cultures and sensitivities: Other labs: Assessment: IBW (kg): 63.80 Dosing wt(kg): 106.594 Estimated Creatinine clearance (ml/min): 77.8 CRCL method: Cockcroft and Gault using ibw(default). Drug selected: Vancomycin Loading dose (mg): 0 Vd (liters): 95.9 (factor used: 0.9 L/kg) Jp (hr-1): 0.069 Half life (hrs): 10.05 Recommended dose: 1500 mg Interval: 12 hrs Infusion time (hrs): 1.5 Predicted peak (mcg/mL): 26.4 Predicted trough (mcg/mL): 12.79 Total body weight is being used for vancomycin dosing. Renal function is stable [ ] /unstable [ ] Recommendations: Give Vancomycin 1500 mg q 12 hrs with an expected Cpeak of 26.4 mcg/ml and an expected Ctrough of 12.79 mcg/ml Renal dosing of other antibiotics (review renal dosing of other medications and list guidelines here): Thank you for the consult, will continue to follow. Signature: Malina Palacio [facility]
--- NOTE | 2021-09-14 00:15 | PC.NURSE ---
Pt. arrived to room ICU 5 from er. NO needs or complaints expressed at this time. Amiodarone drip running at 1mg/min
--- NOTE | 2021-09-14 01:00 | PC.NURSE ---
Called Dr. Cox and gave update on patient status. No new orders at this time.
--- NOTE | 2021-09-14 01:11 | ECG_ITS ---
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 Measurements Intervals [place] Rate: 142 P: [place]: QRS: -44 QRSD: 98 T: 57 QT: 290 QTc: 447 Interpretive Statements ATRIAL FLUTTER/TACHYCARDIA WITH RAPID VENTRICULAR RESPONSE LEFT AXIS DEVIATION [QRS AXIS < -30] MODERATE ST DEPRESSION [0.05+ mV ST DEPRESSION] Compared to ECG 06/08/2021 07:12:49 ST (T wave) deviation now present Sinus rhythm no longer present Right ventricular hypertrophy no longer present Intraventricular conduction delay no longer present T-wave abnormality no longer present Electronically Signed On 09-14-2021 17:35:52 CDT by Wilfred Kidd M.D. [email or web address]
[2021-09-14] MEDS: FUROsemide 10 mg/mL SDV 2mL 20 MG IVP (01:50)
[2021-09-14 02:05] LABS: Basophils # 0.1 10^3/uL (0.0-0.1); Basophils % 0.4 %; Eosinophils % 0.1 %; Hematocrit 31.1 % (42.0-52.0); Hemoglobin 9.7 g/dL (11.7-16.6); Lymphocytes # 1.3 10^3/uL (0.8-4.8); Lymphocytes % 6.9 %; Mean Corpuscular HGB Conc 31.2 g/dL (30.0-36.0); Mean Corpuscular Hemoglobin 31.4 pg (28.0-34.0); Mean Corpuscular Volume 100.6 fl (80-94); Mean Platelet Volume 9.7 fL (7.4-10.4); Monocytes # 0.5 10^3/uL (0.2-0.9); Monocytes % 2.6 %; Neutrophils # 16.15 10^3/uL (1.8-7.7); Neutrophils % 87.1 %; Nucleated Red Blood Cells % 0.1 %; Platelet Count 85 10^3/cmm (130-400); Red Blood Count 3.09 10^6/uL (4.1-5.3); Red Cell Distribution Width 18.5 % (12.1-15.1); White Blood Count 18.5 10^3/uL (4.0-10.0)
--- NOTE | 2021-09-14 02:06 | P.HP_ITS ---
Providers/Chief Complaint Admitting Physician: Katia Cox MD Primary Care Provider: Glenn Dyer MD Chief Complaint: SOB/Cancer PT History of Present Illness Jose Manuel Hogan is a 60 year old male with metastatic prostate cancer, currently on chemotherapy with Taxotere presenting to the emergency room today with chief complains of increasing anasarca over the past week. Patient states he has been noticing increased lower extremity and generalized swelling to the point where t his morning he was unable to open his eyelids. He states he has had on and off swelling for the past few weeks for which he takes Lasix however this does not appear to have made a significant difference. He complains additionally of palpitations upon presentation to the ER was found to be in atrial fibrillation with RVR for which she is currently on amiodarone infusion. He has a family history of hypertrophic cardiomyopathy and his sister and has had prophylactic placement of an ICD earlier this year in [place]. Since yesterday he is also describing sensation of chest tightness and pleuritic type chest pain made worse on deep breathing. He has a new oxygen requirement of 3 L/min on nasal cannula. He was noted to be febrile this morning with T-max 100.2 when he went in for his oncology visit. He has had rhinorrhea over the past 7 to 10 days and a mild cough. 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 He has been taking 30 mg of p.o. prednisone daily, recently tapering down to prednisone 10 mg daily at least over the past 4 to 5 weeks for his arthritis. He had a port placed in June 2021 and has not noticed any swelling edema or discharge from the port site. I did draw his attention to small scab located a few centimeters away from his port site, patient was unaware of the same. Diagnostics in the ER were notable for EKG with A. fib with RVR,leukocytosis, elevated D-dimer, lower extremity [place] with superficial venous thrombosis, and an increasing troponin trend. Chest x-ray shows right middle lobe infiltrate. Review of Systems General: Reports: 10 or more systems reviewed and unremarkable except in HPI and below Const: Denies: fever(s), chills or body aches Eyes: Denies: change in vision, blurry vision or photophobia ENMT: Reports: hoarseness; Denies: throat pain, enlarged tonsils, odynophagia or nasal congestion Card: Denies: chest pain, palpitations, irregular heart rhythm, edema, swelling of feet/ankles, lightheadedness, pre-syncope, dyspnea on exertion or orthopnea Resp: Denies: dyspnea, productive cough, non-productive cough, wheezing, stridor, pain on inspiration, change in phlegm color, hemoptysis or chest congestion GI: Denies: abdominal pain, nausea, vomiting, hematemesis, coffee ground emesis, dysphagia, heartburn, diarrhea, constipation, GI cramping, change in stool character, hematochezia or melena : Denies: flank pain, dysuria, urinary frequency, urinary urgency, urinary hesitancy or hematuria Musc: Denies: neck pain, back pain, extremity pain, joint swelling, joint warmth or deformity Neuro: Denies: headache(s), numbness in extremities, weakness in extremities, sensory changes, difficulty walking, frequent falls, dizziness, vertigo, behavioral changes, Slurred speech present or seizure-like activity Psych: Denies: anxiety, depression, suicidal ideation or homicidal ideation Endo: Denies: polyuria, polydipsia, tired all the time, cold intolerance or hot flashes Manjeet/Lymph: Denies: easy bruising or easy bleeding Medications/Allergies Home Medications Medication Instructions Recorded Confirmed Last Taken Type bupropion HCl 300 mg 24 hr tablet, 300 mg PO QAM 10/03/19 09/13/21 09/13/21 History extended release carvedilol 12.5 mg tablet 12.5 mg PO BID 10/03/19 09/13/21 09/13/21 History potassium 75 mg tablet 75 mg PO DAILY 10/03/19 09/13/21 09/13/21 History azelastine 137 mcg (0.1 %) nasal 1 spray INTRANASAL BID 10/07/19 09/13/21 09/13/21 History spray aerosol ropinirole 1 mg tablet 4 mg PO DAILY tab 10/07/19 09/13/21 09/13/21 History tamsulosin 0.4 mg capsule (Flomax) 0.4 mg PO DAILY 12/17/20 09/13/21 09/13/21 History prednisone 10 mg tablet See Rx Instructions PO .COMPLEX 07/12/21 09/13/21 Unknown Rx PRN #30 tab leflunomide 20 mg tablet 20 mg PO DAILY #30 tab 07/29/21 09/13/21 09/13/21 Rx azelastine 0.05 % eye drops 1 drp OPHTHALMIC (EYE) BID #6 ml 08/05/21 09/13/21 0 09/13/21 Rx oxycodone 10 mg tablet 10 mg PO Q6H PRN 30 Days #60 tab 09/01/21 09/13/21 09/13/21 Rx furosemide 40 mg tablet (Lasix) 40 mg PO QAM #30 tab 09/13/21 09/13/21 09/13/21 Rx levofloxacin 500 mg tablet 500 mg PO DAILY 7 Days #7 tab 09/13/21 09/13/21 Unknown Rx Allergies Allergy/AdvReac Type Severity Reaction Status Date / Time Iodinated Contrast Media Allergy Severe ALGY-Swell Verified 09/13/21 20:57 Lip/Tongue/Throat PFSH Acute PFSH: Medical History Adult-onset Still's disease COVID-19 vaccine administered Edema High risk medication use Hypertension Immunization counseling Inflammatory arthritis Intermittent fever Joint pain Pain in joints 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 Restless leg syndrome Shortness of breath Surgical History History of cholecystectomy Family History Other Cancer Diabetes Hyperlipidemia Hypertension Rheumatoid arthritis Denies family history of Lupus CAD (coronary artery disease) Clotting disorder Dementia Psychiatric illness Chronic kidney disease (CKD) Suicide Anesthesia complication Bleeding disorder Lung disease Stroke Social History Smoking and tobacco status: former smoker Alcohol intake: former Year of sobriety/quit date alcohol: 11yr History of recent travel: No Vitals/I&O/Wt Last Vital Signs Temp 98.2 F 09/13/21 19:13 Pulse 145 H 09/13/21 23:56 Resp 22 H 09/13/21 23:56 BP 91/72 09/13/21 23:56 Pulse Ox 97 09/13/21 23:56 09/13/21 09/13/21 09/14/21 14:59 22:59 06:59 Intake Total 1550 / 1550 Balance 1550 / 1550 Weight last 48 hrs Weight 106.594 kg Physical Exam Narrative: General: Lying comfortably in bed at the time of exam. Does get mildly tachypneic with prolonged sentences. HEENT: PERRLA, pupils bilaterally equal and reactive, pallors not present Chest: Crackles to auscultation bilaterally CVS: Tachycardic, irregular heart rate Abdomen: Soft, mildly distended, no fluid thrill Neuro: No focal deficits, no facial deformity, AO x3, power 5/5 in all limbs Extremities: 3+ pitting edema extending up to the level of thighs. Healing scab few cm from port site insertion. No gross cellulitis noted around port site. Data : 09/13/21 19:50 09/13/21 19:50 Micro: Microbiology 09/13/21 22:03 Blood Culture - Preliminary Blood SPECIMEN COLLECTED 09/13/21 22:00 Blood Culture - Preliminary Blood SPECIMEN COLLECTED Other data: Radiology Impressions Chest X-Ray 09/13/21 19:11 IMPRESSION: Unchanged exam with stable airspace opacity in the periphery of the right lung. Venous Duplex 09/13/21 19:36 IMPRESSION: 1. No evidence of deep vein thrombosis either leg. 2. There is thrombus at the right saphenofemoral junction. Laboratory Results WBC 18.5 10^3/uL (4.0-10.0) H 09/14/21 01:38 RBC 3.09 10^6/uL (4.1-5.3) L 09/14/21 01:38 Hgb 9.7 g/dL (11.7-16.6) L 09/14/21 01:38 Hct 31.1 % (42.0-52.0) L 09/14/21 01:38 MCV 100.6 fl (80-94) H D 09/14/21 01:38 MCH 31.4 pg (28.0-34.0) 09/14/21 01:38 MCHC 31.2 g/dL (30.0-36.0) D 09/14/21 01:38 RDW 18.5 % (12.1-15.1) H 09/14/21 01:38 Plt Count 85 10^3/cmm (130-400) L 09/14/21 01:38 MPV 9.7 fL (7.4-10.4) 09/14/21 01:38 Neut % (Auto) 87.1 % 09/14/21 01:38 Lymph % (Auto) 6.9 % 09/14/21 01:38 [place] % (Auto) 2.6 % 09/14/21 01:38 Eos % (Auto) 0.1 % 09/14/21 01:38 Baso % (Auto) 0.4 % 09/14/21 01:38 Neut # (Auto) 16.15 10^3/uL (1.8-7.7) H 09/14/21 01:38 Lymph # (Auto) 1.3 10^3/uL (0.8-4.8) 09/14/21 01:38 [place] # (Auto) 0.5 10^3/uL (0.2-0.9) 09/14/21 01:38 Eos # (Auto) 0.0 10^3/uL (0.0-0.8) 09/14/21 01:38 Baso # (Auto) 0.1 10^3/uL (0.0-0.1) 09/14/21 01:38 Nucleated RBC % (auto) 0.1 % 09/14/21 01:38 Nucleated RBCs # 0.0 /100WBC 09/14/21 01:38 PT 13.80 SECONDS (12.1-14.9) 09/13/21 19:50 INR 1.02 (0.8-1.2) 09/13/21 19:50 D-Dimer 5.29 ug/mIFEU (0-0.59) H 09/13/21 19:50 Sodium 134 mmol/L (136-145) L 09/13/21 19:50 Potassium 4.3 mmol/L (3.5-5.1) 09/13/21 19:50 Chloride 100 mmol/L (98-107) 09/13/21 19:50 Carbon Dioxide 22 mmol/L (22-29) 09/13/21 19:50 Anion Gap 16.3 (5-19) 09/13/21 19:50 BUN 12 mg/dL (8-23) 09/13/21 19:50 Creatinine 0.9 mg/dL (0.7-1.2) 09/13/21 19:50 GFR Calculation 85.8 mL/min (90-130) L 09/13/21 19:50 Glucose 134 mg/dL (65-115) H 09/13/21 19:50 Calculated Osmolality 280 mOsm/kg (285-295) L 09/13/21 19:50 Lactate 1.6 mmol/L (0.5-2.2) 09/13/21 19:50 Calcium 8.4 mg/dL (8.5-10.5) L 09/13/21 19:50 Magnesium 1.7 mg/dL (1.7-2.3) 09/13/21 22:00 Total Bilirubin 1.2 mg/dL (0.15-1.2) 09/13/21 19:50 AST 36 U/L (0-40) 09/13/21 19:50 ALT 40 U/L (0-41) 09/13/21 19:50 Alkaline Phosphatase 170 IU/L (40-130) H 09/13/21 19:50 Troponin T Baseline 91 ng/L (0-15) H 09/13/21 19:50 Troponin T 120 Minute 139.1 ng/L (0-15) H 09/13/21 22:00 Delta Troponin T 48.1 ABS# (0-10) H* 09/13/21 22:00 NT-Pro-B Natriuret Pep 1393 pg/mL (0-125) H 09/13/21 19:50 Total Protein 5.3 g/dL (6.6-8.7) L 09/13/21 19:50 Albumin 3.0 g/dL (3.5-5.2) L 09/13/21 19:50 Globulin 2.3 g/dL (1.3-4.6) 09/13/21 19:50 SARS-CoV-2 Ag (Rapid) Negative (Negative) 09/13/21 19:55 A&P Assessment and plan (1) Community acquired pneumonia: Status: Acute (2) Atrial flutter with rapid ventricular response: Status: Acute (3) Acute respiratory failure with hypoxia: Status: Acute (4) Anasarca: Status: Acute (5) NSTEMI (non-ST elevated myocardial infarction): Status: Acute (6) Pulmonary embolism: Status: Acute (7) Venous thrombosis: Status: Acute (8) Inflammatory arthritis: Status: Acute (9) CHF (congestive heart failure): Status: Acute Plan 60-year-old male with metastatic prostate cancer currently on chemotherapy with Taxotere presenting today with A. fib with RVR, community-acquired pneumonia and signs of CHF along with lab findings suspicious for venous thromboembolism. #Sepsis Meet sepsis criteria by way of tachycardia, tachypnea, new organ dysfunction (hypoxia), leukocytosis and source of infection by way of pneumonia. Given 2 L fluid bolus in the ER, further fluids have not been continued as patient is otherwise grossly hypervolemic. Empiric antibiotic coverage with piperacillin tazobactam and vancomycin. Atypical coverage with azithromycin. Blood culture taken prior to starting antibiotics. Check COVID PCR, MRSA nasal screen, sputum culture if able to expectorate. Given steroid use with prednisone 30 mg/day at least over the past 4 to 5 weeks, will evaluate additionally for pneumocystis pneumonia. CT chest without contrast ordered. Screening with serum beta glucan, no results of the same may take up to a week to return. #Saphenofemoral junction thrombosis #Presumed PE Elevated D-dimer at 5, new onset A. fib, elevated troponins, saphenofemoral junction thrombosis, new hypoxia, pleuritic chest pain raise suspicion for venous thromboembolism and presumed PE. Unable to perform a CTA chest as patient reports anaphylaxis to CAT scan contrast. We will attempt to obtain VQ scan in a.m. Started on Lovenox 1 mg/kg every 12 hours. Closely monitor platelets, currently with mild thrombocytopenia at 102K #NSTEMI A. fib with RVR on EKG, no acute ST-T wave changes. Troponin elevated at baseline and 2 hours with significant delta. Started on Lovenox as above. Start aspirin 81 mg p.o. daily Patient denies any past history of CAD. Per noted drug history he is on carvedilol, reports this is for hypertension. Cardiology consult placed from ER. #A. fib with RVR Currently started on amiodarone infusion due to borderline low blood pressure. MAP currently consistently above 65. Per discussion with ER physician Case was discussed with on-call research development manager, patient otherwise medically stable for cardioversion not currently indicated. We will continue amiodarone and monitor closely in the ICU. This is new onset per patient history. Echocardiogram was taken earlier this morning, will await results. Elevated troponins may be a result of rapid A. fib versus CHF. Patient reports a family history of HOCM, has had placement of AICD as a precaution for his history. Device interrogation to ascertain duration of A. fib. #Acute CHF Clinical signs of heart failure with generalized anasarca, elevated JVD. CHF may be precipitated by A. fib RVR, prolonged steroid use, NSTEMI. Echocardiogram ordered and pending. Cannot comment at this time whether this will be systolic or diastolic in nature. Lasix 20mg IVP q12h monitor I/O, will likely titrate lasix dose based on clinical response # Hypoxia: likely combination of CHF+ pneumonia # Adult Still's disease : taper steroids to prednisone 10mg/d at this time # Leukocytosis may be related to pneumonia vs margination from steroid use (dates back to June 2021) Attestations Medical Necessity Statement*: anticipate >2midnight admission for above defined care, need for iv abx, iv amiodarone infusion, iv diuresis Critical Care Time: The high probability of a clinically significant, sudden or life threatening deterioration of the patient's [cardiac, respiratory] system(s) required my full and direct attention, intervention and personal management. The critical care time is as shown. This time is in addition to time spent performing any reported procedures but includes the following: [x] Data and vital sign review and interpretation [x] Patient assessment, examination and intervention [x] Documentation [x] Medication orders and management Critical Care Time (min): 60 Coding Level of Care Code Acute [facility] for [facility] Fwd Diagnoses Community acquired pneumonia J18.9 Atrial flutter with rapid ventricular response I48.92 Acute respiratory failure with hypoxia J96.01 Anasarca R60.1 NSTEMI (non-ST elevated myocardial infarction) I21.4 Pulmonary embolism I26.99 Venous thrombosis I82.90 Inflammatory arthritis M19.90 CHF (congestive heart failure) I50.9
[2021-09-14 02:26] LABS: Alanine Aminotransferase 35 U/L (0-41); Albumin Level 2.5 g/dL (3.5-5.2); Alkaline Phosphatase 154 IU/L (40-130); Blood Urea Nitrogen 11 mg/dL (8-23); Calcium 7.5 mg/dL (8.5-10.5); Carbon Dioxide 23 mmol/L (22-29); Chloride 102 mmol/L (98-107); Globulin 2.3 g/dL (1.3-4.6); Glomerular Filtration Rate 98.3 mL/min (90-130); Glucose 130 mg/dL (65-115); Osmolality Calculated 283 mOsm/kg (285-295); Sodium 136 mmol/L (136-145); Total Bilirubin 1.4 mg/dL (0.15-1.2); Total Protein 4.8 g/dL (6.6-8.7)
[2021-09-14 02:35] LABS: Anion Gap 15.1 (5-19); Aspartate Amino Transferase 30 U/L (0-40); Potassium 4.1 mmol/L (3.5-5.1)
[2021-09-14 02:37] LABS: Troponin 5 6HR 145.3 ng/L (0-15); Troponin 5 6HR Delta 54.3 ng/L (0-12)
--- NOTE | 2021-09-14 02:41 | PC.NURSE ---
Called Dr. Cox and notified of critical troponins. Also informed that patient heart rate has not lowered and has elevated to 150. Recieved orders for IV metoprolol
[2021-09-14 02:50] LABS: Chol HDL Ratio 6.16 mg/dL (1.0-5.00); Cholesterol 197 mg/dL (0-200); HDL Cholesterol 32 mg/dL (60-100); LDL Cholesterol Calculated 132 mg/dL (50-129); LDL HDL Ratio 4.13 RATIO (0.00-3.22); Triglycerides 167 mg/dL (0-150)
[2021-09-14] MEDS: metoprolol tartrate 1 mg/1 mL SDV 5 mL 5 MG IVP ×2 (02:52→04:28)
[2021-09-14 03:10] LABS: Thyroid Stimulating Hormone 2.59 uIU/mL (0.27-4.20)
--- NOTE | 2021-09-14 05:25 | PC.NURSE ---
CAlled Dr. Cox and notified that patient heart rate is still 151 a fib after giving all medications order. Pt. is asleep and asymptomatic. NO orders received at this time.
[2021-09-14] MEDS: piperacillin-tazobactam 3.375 GM in sodium chloride 0.9% (plus) 50 ML IV ×3 (05:58→22:16)
[2021-09-14] MEDS: buPROPion XL (24 HR) 300 mg Tablet PO (05:59)
[2021-09-14] MEDS: digoxin 250 mcg/ml INJ 2 mL IVP ×4 (07:19→17:39)
[2021-09-14] MEDS: dilTIAZem 5 mg/mL SDV 5 mL 10 MG IVP (07:19)
[2021-09-14] MEDS: azithromycin 250 mg Tablet 500 MG PO (08:17)
[2021-09-14] MEDS: pantoprazole DR 40 mg Tablet PO (08:17)
[2021-09-14] MEDS: aspirin 81 mg EC Tablet PO (08:18)
[2021-09-14 08:50] LABS: Platelet Count 97 10^3/cmm (130-400)
[2021-09-14 09:01] LABS: INR 1.22 (0.8-1.2)
[2021-09-14 09:02] LABS: Partial Thromboplastin Time 40.8 SECONDS (23.9-36.7)
[2021-09-14] MEDS: heparin drip 25,000 UNIT/500 ML PREMIX 61.83 UNIT IV (09:03)
[2021-09-14 09:05] LABS: D Dimer 3.12 ug/mIFEU (0-0.59)
[2021-09-14 09:06] LABS: Fibrinogen 532 mg/dL (174-498)
--- NOTE | 2021-09-14 09:19 | P.CONIM_ITS ---
Providers/Reason For Consult Consulting Physician/Specialty*: Wilfred Kidd MD/Cardiology Reason for Consult*: Atrial fibrillation/ Atrial flutter with RVR Requesting Physician: Dr Espinoza Attending Physician: Fredi Hui MD Primary Care Provider: Glenn Dyer MD History of Present Illness History of Present Illness Jose Manuel Hogan is a 60 year old male with past medical history of metastatic prostate cancer currently on chemotherapy presented to the hospital with generalized swelling and anasarca. He has also been noticing shortness of breath recently. In the emergency room he was found to be in atrial fibrillation with RVR. He has possible pneumonia versus PE. He was started on amiodarone drip. However heart rates are still uncontrolled. Echocardiogram demonstrates preserved LV systolic function. He is on heparin drip. Patient has been staying hypotensive Review of Systems General: Reports: 10 or more systems reviewed and unremarkable except in HPI and below Const: Denies: fever(s), chills or body aches Eyes: Denies: change in vision, blurry vision or photophobia ENMT: Reports: hoarseness; Denies: throat pain, enlarged tonsils, odynophagia or nasal congestion Card: Reports: palpitations and dyspnea on exertion; Denies: chest pain, irregular heart rhythm, edema, swelling of feet/ankles, lightheadedness, pre-syncope or orthopnea Resp: Denies: dyspnea, productive cough, non-productive cough, wheezing, stridor, pain on inspiration, change in phlegm color, hemoptysis or chest congestion GI: Denies: abdominal pain, nausea, vomiting, hematemesis, coffee ground emesis, dysphagia, heartburn, diarrhea, constipation, GI cramping, change in stool character, hematochezia or melena : Denies: flank pain, dysuria, urinary frequency, urinary urgency, urinary hesitancy or hematuria Musc: Denies: neck pain, back pain, extremity pain, joint swelling, joint warmth or deformity Neuro: Denies: headache(s), numbness in extremities, weakness in extremities, sensory changes, difficulty walking, frequent falls, dizziness, vertigo, behavioral changes, Slurred speech present or seizure-like activity Psych: Denies: anxiety, depression, suicidal ideation or homicidal ideation Endo: Denies: polyuria, polydipsia, tired all the time, cold intolerance or hot flashes Manjeet/Lymph: Denies: easy bruising or easy bleeding Medications/Allergies Home Medications Medication Instructions Recorded Confirmed Last Taken Type bupropion HCl 300 mg 24 hr tablet, 300 mg PO QAM 10/03/19 09/13/21 09/13/21 History extended release carvedilol 12.5 mg tablet 12.5 mg PO BID 10/03/19 09/13/21 09/13/21 History potassium 75 mg tablet 75 mg PO DAILY 10/03/19 09/13/21 09/13/21 History azelastine 137 mcg (0.1 %) nasal 1 spray INTRANASAL BID 10/07/19 09/13/21 09/13/21 History spray aerosol ropinirole 1 mg tablet 4 mg PO DAILY tab 10/07/19 09/13/21 09/13/21 History tamsulosin 0.4 mg capsule (Flomax) 0.4 mg PO DAILY 12/17/20 09/13/21 09/13/21 History prednisone 10 mg tablet See Rx Instructions PO .COMPLEX 07/12/21 09/13/21 Unknown Rx PRN #30 tab leflunomide 20 mg tablet 20 mg PO DAILY #30 tab 07/29/21 09/13/21 09/13/21 Rx azelastine 0.05 % eye drops 1 drp OPHTHALMIC (EYE) BID #6 ml 08/05/21 09/13/21 09/13/21 Rx oxycodone 10 mg tablet 10 mg PO Q6H PRN 30 Days #60 tab 09/01/21 09/13/21 09/13/21 Rx furosemide 40 mg tablet (Lasix) 40 mg PO QAM #30 tab 09/13/21 09/13/21 09/13/21 Rx levofloxacin 500 mg tablet 500 mg PO DAILY 7 Days #7 tab 09/13/21 09/13/21 Unknown Rx Allergies Allergy/AdvReac Type Severity Reaction Status Date / Time Iodinated Contrast Media Allergy Severe ALGY-Swell Verified 09/13/21 20:57 Lip/Tongue/Throat Current Medications Generic Name Dose Route Start Last Admin Trade Name Freq PRN Reason Stop Dose Admin Aspirin 81 mg 09/14/21 09:00 09/14/21 08:18 Aspirin 81 Mg Ec Tablet PO 81 mg DAILY RAJ Administration Azithromycin 500 mg 09/14/21 09:00 09/14/21 08:17 Azithromycin 250 Mg Tablet PO 09/17/21 08:59 500 mg DAILY RAJ Administration Protocol Bupropion HCl 300 mg 09/14/21 06:00 09/14/21 05:59 Bupropion Xl (24 Hr) 300 Mg Tablet PO 300 mg QAM RAJ Administration Furosemide 20 mg 09/14/21 01:45 09/14/21 01:50 Furosemide 10 Mg/Ml Sdv 2ml IVP 20 mg Q12H RAJ Administration Amiodarone HCl 900 mg/ 518 mls @ 0 mls/hr 09/13/21 20:15 09/14/21 03:15 Dextrose/ IV Miscellaneous IV 0.5 mg/min Supplies .Q0M RAJ 17.27 mls/hr Titration Protocol Per Protocol Piperacillin Sod/Tazobactam 50 mls @ 12.5 mls/hr 09/14/21 06:00 09/14/21 05:58 Sod 3.375 gm/ Sodium Chloride IV 12.5 mls/hr Q8H RAJ Administration Protocol Heparin Sodium/Sodium Chloride 25,000 unit in 500 mls @ 0 mls/hr 09/14/21 07:15 09/14/21 09:03 Heparin Drip IV 29 unit/kg/hr .Q0M RAJ 61.83 mls/hr Administration Protocol Per Protocol Methylprednisolone Sodium Succinate 30 mg 09/14/21 08:45 09/14/21 09:02 Methylprednisolone Sod Succ 40 Mg/Ml Inj IVP 30 mg Q12H RAJ Administration Pantoprazole Sodium 40 mg 09/14/21 09:00 09/14/21 08:[address] 40 Mg Tablet PO 40 mg DAILY RAJ Administration PFSH Acute PFSH: Medical History Adult-onset Still's disease COVID-19 vaccine administered Edema Elevated PSA High risk medication use Hypertension Immunization counseling Inflammatory arthritis Intermittent fever Joint pain Pain in joints Prostate cancer Stage IVB - T1c, N1, M1a, P>=20, G5 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 Restless leg syndrome Shortness of breath Urinary frequency Surgical History History of cholecystectomy Family History Other Cancer Diabetes Hyperlipidemia Hypertension Rheumatoid arthritis Denies family history of Lupus CAD (coronary artery disease) Clotting disorder Dementia Psychiatric illness Chronic kidney disease (CKD) Suicide Anesthesia complication Bleeding disorder Lung disease Stroke Social History Smoking and tobacco status: former smoker Alcohol intake: former Year of sobriety/quit date alcohol: 11yr History of recent travel: No Vitals/I&O/Wt Last Vital Signs Temp 98.3 F 09/14/21 07:52 Pulse 150 H 09/14/21 07:52 Resp 15 09/14/21 07:52 BP 90/75 09/14/21 07:52 Pulse Ox 91 09/14/21 07:52 09/13/21 09/14/21 09/14/21 22:59 06:59 14:59 Intake Total 1550 / 1550 214.662 / 1764.662 Output Total 1200 / 1200 Balance 1550 / 1550 -985.338 / 564.662 Weight last 48 hrs Weight 235 lb Physical Exam Narrative: GENERAL: Patient is alert, awake and oriented x3. [] NECK: No jugular vein distension. [] HEENT: No cyanosis. No icterus. No pallor. [] HEART: Regular S1 and S2. No murmur, rub or gallop. [] LUNGS: Clear to auscultate bilaterally. [] ABDOMEN: Soft, nontender and nondistended. Positive bowel sounds. No guarding, rebound or tenderness. [] CENTRAL NERVOUS SYSTEM: Grossly nonfocal. [] EXTREMITIES: Lower extremities with 1+ edema bilaterally. Pulses palpable in the lower extremities, both dorsalis pedis and posterior tibial. [] Data : 09/15/21 00:35 09/15/21 00:35 Micro: Microbiology 09/13/21 22:03 Blood Culture - Preliminary Blood SPECIMEN COLLECTED 09/13/21 22:00 Blood Culture - Preliminary Blood SPECIMEN COLLECTED A&P Assessment and plan (1) CHF (congestive heart failure): Status: Acute (2) Venous thrombosis: Status: Acute (3) Pulmonary embolism: Status: Suspected (4) Troponin level elevated: Status: Acute (5) Anasarca: Status: Acute (6) Community acquired pneumonia: Status: Acute (7) Atrial flutter with rapid ventricular response: Status: Acute Plan Patient has atrial flutter/fibrillation that is new onset for him. This is in the setting of possible pneumonia versus pulmonary embolism. Given his high heart rates and contrast allergy CTA has not been done. He is already anticoagulated. He is having congestive heart failure symptoms. Echo shows normal LV systolic function. He does have an ICD with family history of hypertrophic cardiomyopathy. He is on amiodarone drip. Continue. Continue anticoagulation with heparin drip. We are loading him with digoxin. If heart rates are not improved by tomorrow and he stays hypotensive, plan for MAURI/cardioversion. Troponin elevation likely secondary to demand ischemia. Once he is stable, can consider ischemic work-up. Thank you for involving us with care of this patient. We will continue to follow. Please call with questions. Consult Attestations Medical Necessity Statement: Care expected to cross 2 midnights. Coding Level of Care Code Acute Stove Mechanic for Erasto Goldberg Diagnoses CHF (congestive heart failure) I50.9 Venous thrombosis I82.90 Pulmonary embolism I26.99 Troponin level elevated R77.8 Anasarca R60.1 Community acquired pneumonia J18.9 Atrial flutter with rapid ventricular response I48.92
--- NOTE | 2021-09-14 09:20 | PM.PN ---
Subjective Subjective: Patient admitted overnight. Today morning seen in ICU with family at bedside. Patient's heart rate running in 140s to 150s, irregular. Patient comfortable otherwise other than slight difficulty in breathing. Currently on 3 L saturating 94%. Mean arterial pressures have remained around 65. Vitals/I&O/Wt Last Vital Signs Temp 98.3 F 09/14/21 07:52 Pulse 150 H 09/14/21 07:52 Resp 15 09/14/21 07:52 BP 90/75 09/14/21 07:52 Pulse Ox 91 09/14/21 07:52 09/13/21 09/14/21 09/14/21 22:59 06:59 14:59 Intake Total 1550 / 1550 214.662 / 1764.662 Output Total 1200 / 1200 Balance 1550 / 1550 -985.338 / 564.662 Weight last 48 hrs Weight 106.594 kg Physical Exam Narrative: General: Lying comfortably in bed at the time of exam. Does get mildly tachypneic with prolonged sentences. HEENT: PERRLA, pupils bilaterally equal and reactive, pallors not present Chest: Crackles to auscultation bilaterally CVS: Tachycardic, irregular heart rate Abdomen: Soft, mildly distended, no fluid thrill Neuro: No focal deficits, no facial deformity, AO x3, power 5/5 in all limbs Extremities: 3+ pitting edema extending up to the level of thighs. Healing scab few cm from port site insertion. No gross cellulitis noted around port site. Data : 09/14/21 12:33 09/14/21 01:38 Micro: Microbiology 09/13/21 22:03 Blood Culture - Preliminary Blood SPECIMEN COLLECTED 09/13/21 22:00 Blood Culture - Preliminary Blood SPECIMEN COLLECTED A&P Assessment and plan (1) Acute respiratory failure with hypoxia: Status: Acute (2) Pulmonary embolism: Status: Suspected (3) CHF (congestive heart failure): Status: Acute (4) Atrial flutter with rapid ventricular response: Status: Acute (5) Deep vein thrombosis: Status: Acute (6) NSTEMI (non-ST elevated myocardial infarction): Status: Acute (7) Leukocytosis: Status: Acute (8) Community acquired pneumonia: Status: Acute (9) Anasarca: Status: Acute (10) Venous thrombosis: Status: Acute (11) Inflammatory arthritis: Status: Acute (12) Thrombocytopenia: Status: Acute Plan 60-year-old male with metastatic prostate cancer currently on chemotherapy with Taxotere presenting today with A. fib with RVR, hypoxic respiratory failure found to have DVT, signs suggestive of congestive heart failure and possible pulmonary embolism while community-acquired pneumonia cannot be ruled out in a patient who is immunocompromised. Sepsis: Present on admission. Meet sepsis criteria by way of tachycardia, tachypnea, new organ dysfunction (hypoxia), leukocytosis and source of infection by way of pneumonia. Follow-up blood culture. Check sputum culture. Urine Legionella bacterial antigen negative. MRSA pending. Check COVID PCR. For now continue with broad-spectrum antibiotics. Continue with Zosyn, vancomycin, azithromycin. Will discontinue as per culture results. Given steroid use with prednisone 30 mg/day at least over the past 4 to 5 weeks, will evaluate additionally for pneumocystis pneumonia. CT chest without contrast ordered. Screening with serum beta glucan, no results of the same may take up to a week to return. Keep mean artery pressure 65. Patient has been chronically on steroids for last 3 to 4 weeks. Stopped yesterday. For now put on Solu-Medrol 30 mg twice daily. We will taper rapidly. Leukocytosis: Could be secondary to infection versus chronic steroid use. Tapering down from 30 mg to 10 mg with last steroid use as per patient on 09/13. Acute hypoxic respiratory failure: Most likely secondary to congestive heart failure in setting of atrial fibrillation flutter. High suspicion of pulmonary embolism. D-dimer elevated. Unfortunately cannot do CTA as patient is anaphylactic allergic to contrast. Low suspicion of pneumonia for now though. Antibiotics as above. Ipratropium, Xopenex every 6 hour, budesonide twice daily. For supplementation keeping saturation over 90%. For congestive heart failure. IV Lasix 40 mg twice daily. Strict input output charting, daily weights. Fluid restriction up to 2 L. Perez catheterization. Target up to 2 L negative in next 24 hours. Atrial flutter flutter/fibrillation with rapid ventricular response: Borderline blood pressures. Keep mean artery pressure over 65. For now continue with amiodarone drip as per protocol. Digoxin load. 500 mcg stat followed by 250 mcg every 6 hourly for 2 doses. Cardiology consulted. High chance patient would need cardioversion with MAURI. Heparin drip for anticoagulation for now. DVT: Saphenofemoral junction thrombosis: With high suspicion of PE. Thrombocytopenia. DIC panel negative. For now continue with heparin drip. Monitor for bleeding and worsening of thrombocytopenia. Elevated troponins: Possible NSTEMI. Patient does give history of chest pressure for last few days. Check A1c, lipid panel. Aspirin, statin. Cardiology consulted. Most likely patient will need ischemic work-up once hemodynamically stable. Echocardiogram once heart rate less than 100. Analgesia: Tylenol Glycemic control: Not needed. Check A1c. Nutrition: GI soft cardiac diet. N.p.o. after midnight for possible cardioversion in a.m. CODE STATUS: Full code. Confirmed with patient and family at bedside. PUD prophylaxis: Protonix DVT prophylaxis: Heparin drip will suffice as DVT prophylaxis Discharge planning: Most likely home once medically stable and medically cleared. Continue with ICU care Attestations Medical Necessity Statement*: Patient requires further hospitalization for management of acute hypoxic respiratory failure secondary congestive heart failure, high suspicion of pulmonary embolism, DVT, atrial flutter with fibrillation and rapid ventricular response, possible non-ST elevation IN Critical Care Time: The high probability of a clinically significant, sudden or life threatening deterioration of the patient's [cardiac, respiratory system(s) required my full and direct attention, intervention and personal management. The critical care time is as shown. This time is in addition to time spent performing any reported procedures but includes the following: [x] Data and vital sign review and interpretation [x] Patient assessment, examination and intervention [x] Documentation [x] Medication orders and management Critical Care Time (min): 90 Coding Level of Care Code Acute Bed Placement Coordinator for [facility] Fwd Diagnoses Community acquired pneumonia J18.9 Atrial flutter with rapid ventricular response I48.92 Acute respiratory failure with hypoxia J96.01 Anasarca R60.1 NSTEMI (non-ST elevated myocardial infarction) I21.4 Pulmonary embolism I26.99 Venous thrombosis I82.90 Inflammatory arthritis M19.90 CHF (congestive heart failure) I50.9 Deep vein thrombosis I82.409 Thrombocytopenia D69.6 Leukocytosis D72.829
[2021-09-14 09:55] LABS: NT Pro B Type Natriuretic Pept 1913 pg/mL (0-125); Procalcitonin 0.16 ng/mL (0-0.5)
[2021-09-14] MEDS: amiodarone 50 mg/mL SDV 3 mL 150 MG IVP (10:20)
[2021-09-14] MEDS: FUROsemide 10 mg/mL SDV 4mL 40 MG IVP (10:22)
[2021-09-14 10:54] LABS: Add Urine Microscopic? NO; Charge for UA Resulting for Rev
[2021-09-14 10:55] LABS: Iron 43 ug/dL (59-158); Percent Saturation 18.2 % (20-50); Total Iron Binding Capacity 236 mcg/dl; Unsaturated Iron Binding 193 ug/dL (112-347)
[2021-09-14 11:22] LABS: Bilirubin Urine Neg (Negative); Blood Urine Neg (Negative); Glucose Urine UA Norm (Normal); Ketones Urine Negative (Negative); Leukocyte Esterase Urine Negative (Negative); Nitrate Urine Negative (Negative); Protein Urine Neg (Negative); Urine Appearance Clear (CLEAR); Urine Color Yellow (Yellow); Urobilinogen Urine Norm (Negative); pH Urine 6 (5-7)
[2021-09-14 12:59] LABS: Basophils # 0.1 10^3/uL (0.0-0.1); Basophils % 0.3 %; Eosinophils % 0.1 %; Hematocrit 31.3 % (42.0-52.0); Hemoglobin 10.2 g/dL (11.7-16.6); Lymphocytes # 1.1 10^3/uL (0.8-4.8); Lymphocytes % 5.8 %; Mean Corpuscular HGB Conc 32.6 g/dL (30.0-36.0); Mean Corpuscular Volume 98.1 fl (80-94); Mean Platelet Volume 9.3 fL (7.4-10.4); Monocytes # 0.4 10^3/uL (0.2-0.9); Monocytes % 2.4 %; Neutrophils # 16.47 10^3/uL (1.8-7.7); Nucleated Red Blood Cells % 0 %; Platelet Count 95 10^3/cmm (130-400); Red Blood Count 3.19 10^6/uL (4.1-5.3); Red Cell Distribution Width 18.2 % (12.1-15.1); White Blood Count 18.5 10^3/uL (4.0-10.0)
[2021-09-14] MEDS: levalbuterol 1.25 mg/3 mL Neb INHALATION ×2 (15:19→20:47)
[2021-09-14] MEDS: ipratropium 0.5 mg/2.5 mL Neb INHALATION ×2 (15:19→20:47)
[2021-09-14 18:06] LABS: Partial Thromboplastin Time 105.7 SECONDS (23.9-36.7)
[2021-09-14] MEDS: ondansetron 2 mg/ML SDV 2 mL 4 MG IVP (18:13)
[2021-09-14] MEDS: atorvastatin 40 mg Tablet PO (20:11)
[2021-09-14] MEDS: ropinirole 1 mg Tablet 4 MG PO (20:11)
[2021-09-14] MEDS: budesonide 0.5 mg/2 mL Neb 0.25 MG INHALATION (20:47)
[2021-09-15] VITALS (66 sets, daily range): BP systolic 73–150; BP diastolic 43–95; PULSE 67–145; RESP 2–32; TEMP 36.4–36.6; O2SAT 90–99
[2021-09-15 01:05] LABS: Basophils # 0.1 10^3/uL (0.0-0.1); Basophils % 0.4 %; Hematocrit 26.2 % (42.0-52.0); Lymphocytes % 7.3 %; Mean Corpuscular HGB Conc 34.4 g/dL (30.0-36.0); Mean Corpuscular Hemoglobin 31.8 pg (28.0-34.0); Mean Corpuscular Volume 92.6 fl (80-94); Mean Platelet Volume 9.5 fL (7.4-10.4); Monocytes # 0.2 10^3/uL (0.2-0.9); Monocytes % 1.4 %; Neutrophils # 11.91 10^3/uL (1.8-7.7); Neutrophils % 89.5 %; Nucleated Red Blood Cells % 0 %; Platelet Count 82 10^3/cmm (130-400); Red Blood Count 2.83 10^6/uL (4.1-5.3); Red Cell Distribution Width 17.6 % (12.1-15.1); White Blood Count 13.3 10^3/uL (4.0-10.0)
[2021-09-15 01:23] LABS: Alanine Aminotransferase 30 U/L (0-41); Albumin Level 2.8 g/dL (3.5-5.2); Alkaline Phosphatase 134 IU/L (40-130); Anion Gap 14.9 (5-19); Aspartate Amino Transferase 17 U/L (0-40); Blood Urea Nitrogen 15 mg/dL (8-23); Carbon Dioxide 26 mmol/L (22-29); Chloride 100 mmol/L (98-107); Globulin 2.4 g/dL (1.3-4.6); Glomerular Filtration Rate 85.8 mL/min (90-130); Glucose 185 mg/dL (65-115); Osmolality Calculated 290 mOsm/kg (285-295); Potassium 3.9 mmol/L (3.5-5.1); Sodium 137 mmol/L (136-145); Total Bilirubin 1.3 mg/dL (0.15-1.2); Total Protein 5.2 g/dL (6.6-8.7)
[2021-09-15 01:33] LABS: Partial Thromboplastin Time 72.6 SECONDS (23.9-36.7)
[2021-09-15] MEDS: levalbuterol 1.25 mg/3 mL Neb INHALATION ×3 (04:11→20:24)
[2021-09-15] MEDS: piperacillin-tazobactam 3.375 GM in sodium chloride 0.9% (plus) 50 ML IV ×3 (05:50→21:09)
--- NOTE | 2021-09-15 07:00 | USCV_ITS ---
Jose Manuel Hogan Age: 60 Gender: M : 1960 Exam Date: 09/15/2021 07:30 Ordering Phys: Wilfred Kidd M.D ([email or web address]) Technologist: SAYDA Exam Location: [facility] [place] Indication: IRREGULAR HR, MAURI WITH CARDIOVER BP: 114 / 74 HR: 147 Rhythm: Sinus Technical Quality: Adequate MEASUREMENTS (Male / Female) Normal Values Medications Complications Proc. Components FINDINGS Left Ventricle Right Ventricle Right Atrium Left Atrium LA Appendage IA Septum Mitral Valve Aortic Valve Tricuspid Valve Pulmonic Valve Pericardium Aorta CONCLUSIONS Transesophageal echocardiogram was performed to rule out left atrial appendage thrombus prior to cardioversion. As limited images were obtained and left atrial appendage thrombus was ruled out, power surge shutdown the machine. Patient was having desaturation episodes and we decided to limit transesophageal echocardiogram and proceed with cardioversion that was successfully performed.(Not all images were stored) No left atrial appendage thrombus seen. Wilfred Kidd MD (Electronically Signed) Final Date: 26 September 2021 01:02 S
--- NOTE | 2021-09-15 07:10 | W.PM.OPSUD ---
Surgery/Procedure H&P Update DATE OF PROCEDURE: September 15, 2021 DATE H&P PERFORMED: 09/14/21 H&P UPDATE INFORMATION: I have reviewed H&P completed within last 30 days, I have examined patient prior to procedure and No changes to prior documentation PREOP DIAGNOSIS: Atrial fibrillation with RVR PRIMARY INDICATION FOR PROCEDURE: Atrial fibrillation with RVR PLANNED PROCEDURE: Transesophageal echocardiogram with cardioversion
--- NOTE | 2021-09-15 07:20 | ANES.PREANE2 ---
Pre-Anesthetic Assessment Height/Weight: Height 1.68 m Weight 106.186 kg Temp Pulse Resp BP Pulse Ox 97.8 F 118 H 9 L 122/62 96 09/15/21 04:00 09/15/21 07:00 09/15/21 07:00 09/15/21 07:00 09/15/21 07:00 Preop Diagnosis: Atrial fibrillation with RVR Was Beta Kelvin taken within 24 hours: Yes Was Clonidine taken within 24 hours: N/A Social No alcohol and No tobacco Airway Submandibular: within normal limits Cervical ROM: within normal limits Mallampati: Class II Comments: Comments: missing teeth Pulmonary Shortness of Breath PE Rule out COVID PCN CV/HEM Anemia, Arrythmia (Aflutter with RVR), Congestive Heart Failure, Deep Vein Thrombosis and Myocardial Infarction (NSTEMI) Thrombocytpoenia TTE 09/13/21 CONCLUSIONS ?Technically limited quality echocardiogram because of poor ?ultrasonic windows. ?LV systolic function is normal with EF of 55 to 60%. ?Moderate to severe concentric left ventricular hypertrophy. ?Mild mitral regurgitation ?Trace tricuspid regurgitation ?No comparison studies are available Hepatic None reported GI None reported Metabolic None reported Musc/skel Osteoarthritis/DJD Anesthetic Plan ASA status: 3 Anesthesia: Anesthesia Evaluation and General Risk of > 500 ml blood loss (7ml/kg in children): No Medications/Allergies Home Medications Medication Instructions Recorded Confirmed Last Taken Type bupropion HCl 300 mg 24 hr tablet, 300 mg PO QAM 10/03/19 09/13/21 09/13/21 History extended release carvedilol 12.5 mg tablet 12.5 mg PO BID 10/03/19 09/13/21 09/13/21 History potassium 75 mg tablet 75 mg PO DAILY 10/03/19 09/13/21 09/13/21 History azelastine 137 mcg (0.1 %) nasal 1 spray INTRANASAL BID 10/07/19 09/13/21 09/13/21 History spray aerosol ropinirole 1 mg tablet 4 mg PO DAILY tab 10/07/19 09/13/21 09/13/21 History tamsulosin 0.4 mg capsule (Flomax) 0.4 mg PO DAILY 12/17/20 09/13/21 09/13/21 History prednisone 10 mg tablet See Rx Instructions PO .COMPLEX 05/09/22 07/11/22 Unknown Rx PRN #30 tab leflunomide 20 mg tablet 20 mg PO DAILY #30 tab 07/29/21 09/13/21 09/13/21 Rx azelastine 0.05 % eye drops 1 drp OPHTHALMIC (EYE) BID #6 ml 08/05/21 09/13/21 09/13/21 Rx oxycodone 10 mg tablet 10 mg PO Q6H PRN 30 Days #60 tab 09/01/21 09/13/21 09/13/21 Rx furosemide 40 mg tablet (Lasix) 40 mg PO QAM #30 tab 09/13/21 09/13/21 09/13/21 Rx levofloxacin 500 mg tablet 500 mg PO DAILY 7 Days #7 tab 09/13/21 09/13/21 Unknown Rx Allergies Allergy/AdvReac Type Severity Reaction Status Date / Time Iodinated Contrast Media Allergy Severe ALGY-Swell Verified 09/13/21 20:57 Lip/Tongue/Throat Current Medications Generic Name Dose Route Start Last Admin Trade Name Freq PRN Reason Stop Dose Admin Aspirin 81 mg 09/14/21 09:00 09/14/21 08:18 Aspirin 81 Mg Ec Tablet PO 81 mg DAILY RAJ Administration Atorvastatin Calcium 40 mg 09/14/21 21:00 09/14/21 20:11 Atorvastatin 40 Mg Tablet PO 40 mg BEDTIME RAJ Administration Azithromycin 500 mg 09/14/21 09:00 09/14/21 08:17 Azithromycin 250 Mg Tablet PO 09/17/21 08:59 500 mg DAILY RAJ Administration Protocol Budesonide 0.25 mg 09/14/21 20:00 09/14/21 20:47 Budesonide 0.5 Mg/2 Ml Neb INHALATION 0.25 mg BID.RESPIRATORY RAJ Administration Bupropion HCl 300 mg 09/14/21 06:00 09/15/21 05:52 Bupropion Xl (24 Hr) 300 Mg Tablet PO Not Given QAM RAJ Furosemide 40 mg 09/14/21 09:30 09/14/21 17:42 Furosemide 10 Mg/Ml Sdv 4ml IVP Not Given BID RAJ Amiodarone HCl 900 mg/ 518 mls @ 0 mls/hr 09/13/21 20:15 09/14/21 13:40 Dextrose/ IV Miscellaneous IV 0.5 mg/min Supplies .Q0M RAJ 17.27 mls/hr Administration Protocol Per Protocol Piperacillin Sod/Tazobactam 50 mls @ 12.5 mls/hr 09/14/21 06:00 09/15/21 05:50 Sod 3.375 gm/ Sodium Chloride IV 12.5 mls/hr Q8H RAJ Administration Protocol Vancomycin HCl 1,500 mg/ 250 mls @ 166.667 mls/hr 09/14/21 11:00 09/14/21 22:28 Sodium Chloride IV 166.67 mls/hr Q12H RAJ Administration Heparin Sodium/Sodium Chloride 25,000 unit in 500 mls @ 0 mls/hr 09/14/21 07:15 09/14/21 18:11 Heparin Drip IV Infused .Q0M RAJ Titration Protocol Per Protocol Albumin Human 25 gm in 100 mls @ 60 mls/hr 09/14/21 17:30 09/15/21 01:00 Albumin IV 60 mls/hr Q8H RAJ Administration Ipratropium [place] 0.5 mg 09/14/21 15:00 09/14/21 20:47 Ipratropium 0.5 Mg/2.5 Ml Neb INHALATION 0.5 mg TID.RESPIRATORY RAJ Administration Levalbuterol HCl 1.25 mg 09/14/21 15:00 09/15/21 04:11 Levalbuterol 1.25 Mg/3 Ml Neb INHALATION 1.25 mg Q6H.RESPIRATORY RAJ Administration Methylprednisolone Sodium Succinate 30 mg 09/14/21 08:45 09/14/21 19:49 Methylprednisolone Sod Succ 40 Mg/Ml Inj IVP 30 mg Q12H RAJ Administration Ondansetron HCl 4 mg 09/13/21 22:36 09/14/21 18:13 Ondansetron 2 Mg/Ml Sdv 2 Ml IVP 4 mg Q8H PRN Administration NAUSEA AND VOMITING Pantoprazole Sodium 40 mg 09/14/21 09:00 09/14/21 08:[address] 40 Mg Tablet PO 40 mg DAILY RAJ Administration Ropinirole HCl 4 mg 09/14/21 21:00 09/14/21 20:11 Ropinirole 1 Mg Tablet PO 4 mg BEDTIME RAJ Administration Tamsulosin HCl 0.4 mg 09/14/21 09:00 09/14/21 09:28 Tamsulosin 0.4 Mg Capsule PO Not Given DAILY [facility] Medical History Adult-onset Still's disease COVID-19 vaccine administered Edema Elevated PSA High risk medication use Hypertension Immunization counseling Inflammatory arthritis Intermittent fever Joint pain Pain in joints Prostate cancer Stage IVB - T1c, N1, M1a, P>=20, G5 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 Restless leg syndrome Shortness of breath Urinary frequency Surgical History History of cholecystectomy Family History Other Cancer Diabetes Hyperlipidemia Hypertension Rheumatoid arthritis Denies family history of Lupus CAD (coronary artery disease) Clotting disorder Dementia Psychiatric illness Chronic kidney disease (CKD) Suicide Anesthesia complication Bleeding disorder Lung disease Stroke Social History Smoking and tobacco status: former smoker Alcohol intake: former Year of sobriety/quit date alcohol: 11yr History of recent travel: No Data Anesthesia : 09/15/21 00:35 09/15/21 00:35 Short CBC 09/13/21 09/14/21 09/14/21 Range/Units 19:50 01:38 07:53 WBC 17.7 H 18.5 H (4.0-10.0) 10^3/uL Hgb 10.3 L 9.7 L (11.7-16.6) g/dL Hct 30.7 L 31.1 L (42.0-52.0) % MCV 93.6 100.6 H D (80-94) fl Plt Count 102 L 85 L 97 L (130-400) 10^3/cmm Neut % (Auto) 85.7 87.1 % Neut # (Auto) 15.17 H 16.15 H (1.8-7.7) 10^3/uL 09/14/21 09/15/21 Range/Units 12:33 00:35 WBC 18.5 H 13.3 H (4.0-10.0) 10^3/uL Hgb 10.2 L 9.0 L (11.7-16.6) g/dL Hct 31.3 L 26.2 L (42.0-52.0) % MCV 98.1 H 92.6 D (80-94) fl Plt Count 95 L 82 L (130-400) 10^3/cmm Neut % (Auto) 89.0 89.5 % Neut # (Auto) 16.47 H 11.91 H (1.8-7.7) 10^3/uL BMP 09/13/21 09/14/21 09/15/21 19:50 01:38 00:35 Sodium 134 L 136 137 Potassium 4.3 4.1 3.9 Chloride 100 102 100 Carbon Dioxide 22 23 26 BUN 12 11 15 Creatinine 0.9 0.8 0.9 Glucose 134 H 130 H 185 H Calcium 8.4 L 7.5 L 8.0 L Cardiac Enzymes 09/13/21 09/13/21 09/13/21 Range/Units 19:50 19:50 22:00 Troponin T Baseline 91 H (0-15) ng/L Troponin T 120 Minute 139.1 H (0-15) ng/L Delta Troponin T 48.1 H* (0-10) ABS# Troponin T Hi Sens 6Hr (0-15) ng/L Troponin T Hi Sens 6Hr Delta (0-12) ng/L NT-Pro-B Natriuret Pep 1393 H (0-125) pg/mL 09/14/21 09/14/21 Range/Units 01:38 01:38 Troponin T Baseline (0-15) ng/L Troponin T 120 Minute (0-15) ng/L Delta Troponin T (0-10) ABS# Troponin T Hi Sens 6Hr 145.3 H (0-15) ng/L Troponin T Hi Sens 6Hr Delta 54.3 H* (0-12) ng/L NT-Pro-B Natriuret Pep 1913 H (0-125) pg/mL Liver Function 09/13/21 09/14/21 09/15/21 Range/Units 19:50 01:38 00:35 Total Bilirubin 1.2 1.4 H 1.3 H (0.15-1.2) mg/dL AST 36 30 17 (0-40) U/L ALT 40 35 30 (0-41) U/L Alkaline Phosphatase 170 H 154 H 134 H (40-130) IU/L Albumin 3.0 L 2.5 L 2.8 L (3.5-5.2) g/dL Urine 09/14/21 Range/Units 10:29 Urine Color Yellow (Yellow) Urine Appearance Clear (CLEAR) Urine pH 6 (5-7) Ur Specific [place] 1.010 (1.005-1.030) Urine Protein Neg (Negative) Urine Glucose (UA) Norm (Normal) Urine Ketones Negative (Negative) Urine Nitrate Negative (Negative) Urine Bilirubin Neg (Negative) Ur Leukocyte Esterase Negative (Negative) COVID Results 09/13/21 19:55 SARS-CoV-2 Ag (Rapid) Negative Coags 09/13/21 09/14/21 09/14/21 19:50 07:53 15:49 PT 13.80 15.70 H INR 1.02 1.22 H APTT 40.8 H 105.7 H D Fibrinogen 532 H Fibrin Degrad Products Neg, <10 D-Dimer 5.29 H 3.12 H 09/15/21 00:35 PT INR APTT 72.6 H Fibrinogen Fibrin Degrad Products D-Dimer Microbiology 09/13/21 22:03 Blood Culture - Preliminary Blood NEGATIVE TO DATE 09/13/21 22:00 Blood Culture - Preliminary Blood NEGATIVE TO DATE 09/14/21 01:55 MRSA Culture - Final Nose 09/14/21 10:29 Bacterial Antigens - Final Urine Kidney 09/14/21 10:29 Legionella Urinary Antigen - Final Urine Catheterized Cardiac Studies: Echocardiogram 09/13/21
[2021-09-15 07:32] LABS: Partial Thromboplastin Time 68.3 SECONDS (23.9-36.7)
--- NOTE | 2021-09-15 08:03 | P.PCN_ITS ---
Procedure Note: Date of procedure: 09/15/21 Pre-procedure diagnosis: Atrial fibrillation with RVR Post-procedure diagnosis: other (Normal sinus rhythm) Procedure: Transesophageal echocardiogram/ Cardioversion Procedure detail: After anesthesia team administered anesthesia, we introduced MAURI probe. Patient had desaturation episodes. As we obtained images of left atrial appendage, ruling out thrombus, power surge caused echo machine to shutdown. Given patient's desaturation episodes, we decided to proceed with cardioversion as no thrombus was seen. He underwent DCCV at 200 J and was successfully cardioverted to normal sinus rhythm. Performing Provider: Wilfrde Kidd Complications: None Coding Level of Care Code Acute Landscape Architecture Teacher for Erasto Goldberg
[2021-09-15] MEDS: phenylephrine 10 mg/ml SDV 1 mL (08:26)
[2021-09-15] MEDS: sodium chloride 0.9% 500 ML 999 ML IV (09:23)
[2021-09-15] MEDS: tamsulosin 0.4 mg Capsule PO (09:23)
[2021-09-15] MEDS: pantoprazole DR 40 mg Tablet PO (09:23)
[2021-09-15] MEDS: azithromycin 250 mg Tablet 500 MG PO (09:23)
[2021-09-15] MEDS: aspirin 81 mg EC Tablet PO (09:23)
[2021-09-15] MEDS: amiodarone 200 mg Tablet 400 MG PO ×2 (10:09→17:34)
[2021-09-15] MEDS: heparin drip 25,000 UNIT/500 ML PREMIX 49.03 UNIT IV (10:13)
--- NOTE | 2021-09-15 10:35 | PC.CHAP ---
Pastoral Care Encounter/Spiritual Assessment Type of Contact [] Declined mussel farmer visit [] Patient/Family/Request visit [] Outpatient visit [] Follow-up visit [] Physician referral [] Code/Alert [x] Routine visit [] Staff referral [] Actively dying [] Patient sleeping [] Family support [] [] Out of room [] Palliative care [] [x] Receiving care in room [] Pre-surgical visit [] Trauma [] Long length of stay [x] ICU visit [] Other: Relational/Emotional Strength [] Patient feels connected with others/family/visitors/staff [] Distress [] Loneliness/isolation [] Abandonment Spirituality of Patient [] Person of Pat [] Attends Buddhist of their Pat [] Believes in Prayer [] Reads Bible or Yarsani materials [] There are Spiritual issues to be addressed Machine Oiler Interventions [x] Prayer [] Active listening [] Non-anxious presence [] Spiritual/emotional support [] Crisis/trauma care [] Spiritual counseling [] Bereavement support [] Provided bereavement packet [] Provided Bible/devotional materials [] Provided toy/stuffed animal, coloring book to patient or family member [] Provided Communion [] Anointing/[place] [] Salvation [x] Completed spiritual assessment [] Other: Impact on Illness or Injury [] Angry [] Fearful [] Anxious [] Often cries [] Exhaustion [] Unable to work [] Unable to attend restorationism [] Unable to walk/stand [] Unable to read [] Unable to drive [] Unable to eat/drink [] Unable to sleep [] Unable to be with family [] Patient intubated [] Other: Summary Time spent with patient
--- NOTE | 2021-09-15 12:20 | P.PN_ITS ---
Subjective Subjective: Today patient seen with family at bedside. Patient states he is feeling a lot better. Denies any further chest heaviness. States his brain fogginess is gone. Ordered today morning he underwent MAURI cardioversion. Currently he is in normal sinus rhythm with heart rate running in 70s to 80s. Saturating well at 3 L nasal cannula. Documented urine output of over 4 L in last 24 hours. Denies any nausea vomiting, headache, chest pain. Currently on amiodarone drip of 0.5 and heparin drip. Vitals/I&O/Wt Last Vital Signs Temp 97.8 F 09/15/21 04:00 Pulse 118 H 09/15/21 07:00 Resp 9 L 09/15/21 07:00 BP 122/62 09/15/21 07:00 Pulse Ox 96 09/15/21 07:00 09/14/21 09/15/21 09/15/21 22:59 06:59 14:59 Intake Total 740 / 1219.896 400 / 1619.896 419.578 / 419.578 Output Total 1525 / 3925 400 / 4325 Balance -785 / -2705.104 0 / -2705.104 419.578 / 419.578 Weight last 48 hrs Weight 106.186 kg Weight 106.594 kg Physical Exam Narrative: General: Lying comfortably in bed at the time of exam. Does get mildly tachypneic with prolonged sentences. HEENT: PERRLA, pupils bilaterally equal and reactive, pallors not present Chest: Crackles to auscultation bilaterally CVS: Tachycardic, irregular heart rate Abdomen: Soft, mildly distended, no fluid thrill Neuro: No focal deficits, no facial deformity, AO x3, power 5/5 in all limbs Extremities: 3+ pitting edema extending up to the level of thighs. Healing scab few cm from port site insertion. No gross cellulitis noted around port site. Urinary Catheter Management: Perez: Cath Placed During This Visit: yes Reason for Continuing Indwelling Catheter: Accurate Measurement of Urinary Output in Critically Ill Patients Urinary Catheter Date of Insertion: 09/14/21 Urinary Catheter Time of Insertion: 09:00 Data : 09/15/21 00:35 09/15/21 00:35 Micro: Microbiology 09/13/21 22:03 Blood Culture - Preliminary Blood NEGATIVE TO DATE 09/13/21 22:00 Blood Culture - Preliminary Blood NEGATIVE TO DATE 09/14/21 01:55 MRSA Culture - Final Nose 09/14/21 10:29 Bacterial Antigens - Final Urine Kidney 09/14/21 10:29 Legionella Urinary Antigen - Final Urine Catheterized A&P Assessment and plan (1) Acute respiratory failure with hypoxia: Status: Acute (2) Pulmonary embolism: Status: Suspected (3) CHF (congestive heart failure): Status: Acute (4) Atrial flutter with rapid ventricular response: Status: Acute (5) Deep vein thrombosis: Status: Acute (6) NSTEMI (non-ST elevated myocardial infarction): Status: Acute (7) Leukocytosis: Status: Acute (8) Community acquired pneumonia: Status: Acute (9) Anasarca: Status: Acute (10) Venous thrombosis: Status: Acute (11) Inflammatory arthritis: Status: Acute (12) Thrombocytopenia: Status: Acute Plan 60-year-old male with metastatic prostate cancer currently on chemotherapy with Taxotere presenting today with A. fib with RVR, hypoxic respiratory failure found to have DVT, signs suggestive of congestive heart failure and possible pulmonary embolism while community-acquired pneumonia cannot be ruled out in a patient who is immunocompromised. Sepsis: Present on admission. Meet sepsis criteria by way of tachycardia, tachypnea, new organ dysfunction (hypoxia), leukocytosis and source of infection by way of pneumonia. Follow-up blood culture. Check sputum culture. Urine Legionella bacterial antigen negative. MRSA pending. Check COVID PCR. For now continue with broad-spectrum antibiotics. Continue with Zosyn, vancomycin, azithromycin. Will discontinue as per culture results. Given steroid use with prednisone 30 mg/day at least over the past 4 to 5 weeks, will evaluate additionally for pneumocystis pneumonia. CT chest without contrast ordered. Screening with serum beta glucan, no results of the same may take up to a week to return. Keep mean artery pressure 65. Patient has been chronically on steroids for last 3 to 4 weeks. Stopped yesterday. For now put on Solu-Medrol 30 mg twice daily. We will taper rapidly. Leukocytosis: Could be secondary to infection versus chronic steroid use. Tapering down from 30 mg to 10 mg with last steroid use as per patient on 09/13. Acute hypoxic respiratory failure: Most likely secondary to congestive heart failure in setting of atrial fibrillation flutter. High suspicion of pulmonary embolism. D-dimer elevated. Unfortunately cannot do CTA as patient is anaphylactic allergic to contrast. Low suspicion of pneumonia for now though. Antibiotics as above. Ipratropium, Xopenex every 6 hour, budesonide twice daily. For supplementation keeping saturation over 90%. For congestive heart failure. IV Lasix 40 mg twice daily. Strict input output charting, daily weights. Fluid restriction up to 2 L. Perez catheterization. Target up to 2 L negative in next 24 hours. Atrial flutter flutter/fibrillation with rapid ventricular response: Borderline blood pressures. Keep mean artery pressure over 65. For now continue with amiodarone drip as per protocol. Digoxin load. 500 mcg stat followed by 250 mcg every 6 hourly for 2 doses. Cardiology consulted. High chance patient would need cardioversion with MAURI. Heparin drip for anticoagulation for now. DVT: Saphenofemoral junction thrombosis: With high suspicion of PE. Thrombocytopenia. DIC panel negative. For now continue with heparin drip. Monitor for bleeding and worsening of thrombocytopenia. Elevated troponins: Possible NSTEMI. Patient does give history of chest pressure for last few days. Check A1c, lipid panel. Aspirin, statin. Cardiology consulted. Most likely patient will need ischemic work-up once hemodynamically stable. Echocardiogram once heart rate less than 100. Analgesia: Tylenol Glycemic control: Not needed. Check A1c. Nutrition: GI soft cardiac diet. N.p.o. after midnight for possible cardioversi on in a.m. CODE STATUS: Full code. Confirmed with patient and family at bedside. PUD prophylaxis: Protonix DVT prophylaxis: Heparin drip will suffice as DVT prophylaxis Discharge planning: Most likely home once medically stable and medically cleared. Continue with ICU care Plan for the day: Continue with vancomycin and Zosyn. MRSA negative. Will discontinue vancomycin 24 hours. Wean down Solu-Medrol to 30 mg daily. Change Lasix to 40 mg oral twice daily. Continue with heparin drip. Monitor hemoglobin and platelet count. Monitor for bleeding. Stop amiodarone drip. Start on amiodarone 400 mg twice daily. Blood pressure remained stable will start on metoprolol 25 mg twice daily from evening. We will plan for a possible Lexiscan stress test within next 48 hours if patient remains hemodynamically stable and afebrile. Out of bed to chair. Continue with fluid restriction. As patient is a lot more hemodynamically stable today we will do CT chest without contrast and nuclear perfusion scan. Attestations Medical Necessity Statement*: Patient requires further hospitalization for m anagement of possible PE, new DVT, atrial fibrillation with flutter post cardioversion, non-ST relation UT, possible pneumonia in setting of being immunocompromised from chemotherapy. Critical Care Time: The high probability of a clinically significant, sudden or life threatening deterioration of the patient's [cardiac, neurological, pulmonary system(s) required my full and direct attention, intervention and personal management. The critical care time is as shown. This time is in addition to time spent performing any reported procedures but includes the following: [x] Data and vital sign review and interpretation [x] Patient assessment, examination and intervention [x] Documentation [x] Medication orders and management Critical Care Time (min): 60 Coding Level of Care Code Acute [employer] Spacelift for g Fwd Diagnoses Acute respiratory failure with hypoxia J96.01 Pulmonary embolism I26.99 CHF (congestive heart failure) I50.9 Atrial flutter with rapid ventricular response I48.92 Deep vein thrombosis I82.409 NSTEMI (non-ST elevated myocardial infarction) I21.4 Leukocytosis D72.829 Community acquired pneumonia J18.9 Anasarca R60.1 Venous thrombosis I82.90 Inflammatory arthritis M19.90 Thrombocytopenia D69.6
--- NOTE | 2021-09-15 12:30 | CT_ITS ---
WS: [id number] CT CHEST WITHOUT INTRAVENOUS CONTRAST HISTORY: Pneumonia. Short of breath. TECHNIQUE: Contiguous 5 mm axial imaging performed on the thorax. Coronal and sagittal reformats are submitted. All CT scans at [facility] use at least one of these dose optimization techniques: automated exposure control; mA and/or kV adjustment per patient size (includes targeted exams where dose is matched to clinical indication); or iterative reconstruction. CONTRAST: None DLP: 695.85 mGy.cm COMPARISON: Prior PET/CT 02/01/2021 Lungs and central airway: Centrilobular emphysematous changes. There are numerous scattered bilateral , subcentimeter irregular opacifications and groundglass opacifications. Pleural-based mass in the RI GHT lateral thorax extending predominantly into the RIGHT upper lobe. There is extension along the mi nor fissure with mild bulging of the fissure posteriorly. Numerous adjacent blebs. There is also yesi cent groundglass attenuation encasing this pleural-based mass. Bilateral lower lobe areas of atelecta sis. Pleura: Normal. No pleural effusion. Heart and pericardium: Normal size heart with no pericardial effusion. Mediastinum and jean: No mediastinum or hilar adenopathy. Vessels: Normal size aortic and pulmonary artery. No coronary artery calcifications. Chest wall and lower neck: RIGHT subclavian catheter with tip terminating in the distal SVC. Upper abdomen: Bilateral adrenal low-attenuation masses. The largest exophytic from the superior pole LEFT kidney measures 4.4 x 3.6 cm. FDG negative on a PET/CT of 02/01/2021. Osseous structures: Mild degenerative changes throughout the thoracic spine. CT/CT chest wo con [id number] IMPRESSION: 1. Pleural-based mass RIGHT upper lobe extends along the fissure with mild bul ging across the minor fissure. Significant amount of adjacent parenchymal infla mmation. This could be an area of infection due to the extensive adjacent groun dglass attenuation within the lung. Small empyema within the differential altho ugh is no fluid or air present. Recommend short-term follow-up with antibiotics . Follow-up chest CT imaging recommended in 4-6 weeks. Please note this pleural -based mass was not present on the PET/CT of 02/01/2021. 2. There are additional scattered groundglass nodules which are slightly spicu lated. 3. Bibasilar areas of atelectasis. 4. No adenopathy.
[2021-09-15 13:42] LABS: Quest SARS-CoV-2 RNA NOT DETECTED (NOT DETECTED)
[2021-09-15 13:45] LABS: Partial Thromboplastin Time 69.1 SECONDS (23.9-36.7)
--- NOTE | 2021-09-15 14:42 | ANE.PACU2 ---
Inpatient post-anesthesia follow up: Airway intact: Yes Vital signs: Temperature 97.8 F Pulse Rate 118 Respiratory Rate 9 Blood Pressure 122/62 Pulse Oximetry 96 Oxygen Delivery Me thod [ Nasal Cannula Current Rate & Del elin] Oxygen Delivery Me thod Nasal Cannula Oxygen Flow Rate [ Current Rate 3 & Delivery] Oxygen Flow Rate 3 Fraction of Inspir ed Oxygen Hydration adequate: Yes Nausea and vomiting: No Pain level: 1 Mental status: Baseline
[2021-09-15] MEDS: ipratropium 0.5 mg/2.5 mL Neb INHALATION ×2 (14:44→20:24)
[2021-09-15 15:10] LABS: Troponin T (5th) Once 80 ng/L (0-15)
[2021-09-15] MEDS: FUROsemide 40 mg Tablet PO (15:20)
[2021-09-15 15:26] LABS: Estmated Average Glucose 174; Hemoglobin A1C 7.7 % (4.0-6.0)
--- NOTE | 2021-09-15 16:18 | PC.NURSE ---
0700 Dr. Kidd at bedside in preparation for MAURI and cardioversion. 0705 Dr. Jeffery, anesthesia, at bedside to administer sedation for procedure. MAURI performed per Dr. Kidd. Orders to synchronize cardiovert patient at 200 J. 0740 Shock delivered per order. Blood pressure managed per anesthesia. 0750 Reported low BP to Dr. Hui. Orders to hold am dose of Lasix, give fluid bolus for low BP. Once IV Amio has been administered for 24 hours, give PO dose and dc drip.
--- NOTE | 2021-09-15 17:04 | PM.PN ---
Subjective Subjective: Patient underwent successful MAURI cardioversion today. Blood pressure has improved. Feeling well. Vitals/I&O/Wt Last Vital Signs Temp 97.6 F 09/15/21 11:00 Pulse 99 09/15/21 16:00 Resp 18 09/15/21 16:00 BP 139/76 09/15/21 16:00 Pulse Ox 97 09/15/21 16:00 09/15/21 09/15/21 09/15/21 06:59 14:59 22:59 Intake Total 400 / 9246.789 5336.578 / 1169.578 Output Total 400 / 4325 Balance 0 / -2705.104 1169.578 / 1169.578 Weight last 48 hrs Weight 234 lb 1.6 oz Weight 235 lb Physical Exam Narrative: GENERAL: Patient is alert, awake and oriented x3. [] NECK: No jugular vein distension. [] HEENT: No cyanosis. No icterus. No pallor. [] HEART: Regular S1 and S2. No murmur, rub or gallop. [] LUNGS: Clear to auscultate bilaterally. [] ABDOMEN: Soft, nontender and nondistended. Positive bowel sounds. No guarding, rebound or tenderness. [] CENTRAL NERVOUS SYSTEM: Grossly nonfocal. [] EXTREMITIES: Lower extremities with 1+ edema bilaterally. Pulses palpable in the lower extremities, both dorsalis pedis and posterior tibial. [] Urinary Catheter Management: Perez: Cath Placed During This Visit: yes Reason for Continuing Indwelling Catheter: Accurate Measurement of Urinary Output in Critically Ill Patients Urinary Catheter Date of Insertion: 09/14/21 Urinary Catheter Time of Insertion: 09:00 Data : 09/16/21 09:09 09/16/21 05:36 Micro: Microbiology 09/13/21 22:03 Blood Culture - Preliminary Blood NEGATIVE TO DATE 09/13/21 22:00 Blood Culture - Preliminary Blood NEGATIVE TO DATE 09/14/21 01:55 MRSA Culture - Final Nose A&P Assessment and plan (1) CHF (congestive heart failure): Status: Acute (2) Venous thrombosis: Status: Acute (3) Pulmonary embolism: Status: Suspected (4) Troponin level elevated: Status: Acute (5) Anasarca: Status: Acute (6) Community acquired pneumonia: Status: Acute (7) Atrial flutter with rapid ventricular response: Status: Acute Plan Patient has atrial flutter/fibrillation that is new onset for him. This is in the setting of possible pneumonia versus pulmonary embolism. Given his high heart rates and contrast allergy CTA has not been done. He is already anticoagulated. He is having congestive heart failure symptoms. Echo shows normal LV systolic function. He does have an ICD with family history of hypertrophic cardiomyopathy. Continue anticoagulation with heparin drip. Patient underwent successful MAURI cardioversion to normal sinus rhythm. He is feeling much better now. Blood pressure is improved. Continue p.o. amiodarone and digoxin. Can start with blockers. Troponin elevation likely secondary to demand ischemia. Once he is stable, can consider ischemic work-up. Thank you for involving us with care of this patient. We will continue to follow. Please call with questions. Attestations Medical Necessity Statement*: Care expected to cross 2 midnights Coding Level of Care Code Acute Blood Donor Recruiter for [facility] Fwd Diagnoses CHF (congestive heart failure) I50.9 Venous thrombosis I82.90 Pulmonary embolism I26.99 Troponin level elevated R77.8 Anasarca R60.1 Community acquired pneumonia J18.9 Atrial flutter with rapid ventricular response I48.92
[2021-09-15 17:30] LABS: Glucose Point of Care 361 mg/dL (70-110)
[2021-09-15] MEDS: sennosides-docusate Tablet 1 TAB PO (17:34)
[2021-09-15] MEDS: insulin lispro 100 unit/1 mL SUBCUT ×2 (17:34→21:19)
[2021-09-15] MEDS: budesonide 0.5 mg/2 mL Neb 0.25 MG INHALATION (20:24)
[2021-09-15] MEDS: atorvastatin 40 mg Tablet 80 MG PO (20:49)
[2021-09-15] MEDS: ropinirole 1 mg Tablet 4 MG PO (20:50)
[2021-09-15] MEDS: metoprolol tartrate 25 mg Tablet PO (20:50)
[2021-09-15] MEDS: oxyCODONE 5 mg IR Tab/Cap 10 MG PO (21:24)
[2021-09-15 21:40] LABS: Glucose Point of Care 279 mg/dL (70-110)
[2021-09-15 22:02] LABS: Vancomycin Trough 19.2 ug/mL (10-15)
[2021-09-15] MEDS: ondansetron 2 mg/ML SDV 2 mL 4 MG IVP (23:28)
[2021-09-16] VITALS (48 sets, daily range): BP systolic 100–155; BP diastolic 56–90; PULSE 59–78; RESP 1–23; TEMP 36.3–36.7; O2SAT 92–99
[2021-09-16 00:36] LABS: Partial Thromboplastin Time 68.2 SECONDS (23.9-36.7)
[2021-09-16] MEDS: levalbuterol 1.25 mg/3 mL Neb INHALATION ×4 (03:26→21:27)
[2021-09-16] MEDS: buPROPion XL (24 HR) 300 mg Tablet PO (05:46)
[2021-09-16] MEDS: piperacillin-tazobactam 3.375 GM in sodium chloride 0.9% (plus) 50 ML IV (05:47)
[2021-09-16 06:22] LABS: Basophils % 0.2 %; Hemoglobin 7.6 g/dL (11.7-16.6); Lymphocytes # 0.5 10^3/uL (0.8-4.8); Lymphocytes % 5.4 %; Mean Corpuscular Hemoglobin 31.3 pg (28.0-34.0); Mean Corpuscular Volume 94.7 fl (80-94); Mean Platelet Volume 9.7 fL (7.4-10.4); Monocytes # 0.4 10^3/uL (0.2-0.9); Monocytes % 4.3 %; Neutrophils % 89.1 %; Nucleated Red Blood Cells % 0 %; Platelet Count 90 10^3/cmm (130-400); Red Blood Count 2.43 10^6/uL (4.1-5.3); Red Cell Distribution Width 17.2 % (12.1-15.1); White Blood Count 10.1 10^3/uL (4.0-10.0)
[2021-09-16 06:53] LABS: Alanine Aminotransferase 25 U/L (0-41); Albumin Level 3.3 g/dL (3.5-5.2); Alkaline Phosphatase 114 IU/L (40-130); Anion Gap 13.3 (5-19); Aspartate Amino Transferase 14 U/L (0-40); Blood Urea Nitrogen 22 mg/dL (8-23); Calcium 8.6 mg/dL (8.5-10.5); Carbon Dioxide 27 mmol/L (22-29); Chloride 102 mmol/L (98-107); Globulin 1.9 g/dL (1.3-4.6); Glomerular Filtration Rate 85.8 mL/min (90-130); Glucose 212 mg/dL (65-115); Osmolality Calculated 298 mOsm/kg (285-295); Potassium 3.3 mmol/L (3.5-5.1); Sodium 139 mmol/L (136-145); Total Bilirubin 0.5 mg/dL (0.15-1.2); Total Protein 5.2 g/dL (6.6-8.7)
--- NOTE | 2021-09-16 07:00 | NM_ITS ---
WS: [id number] NUCLEAR MEDICINE VENTILATION/PERFUSION LUNG SCAN HISTORY: high probability of PE COMPARISON: Chest CT 09/15/2021. Prior chest radiograph 09/13/2021 TECHNIQUE: Ventilation: 32.5 mCi of Technetium 99 DTPA aerosol inhaled. Perfusion: 5.2 mCi of technetium 99m MAA IV. Mild heterogeneous deposition of the radionuclide on the ventilatory portion centrally. Heart is enla rged. There is a matched peripheral defect in the central lateral RIGHT lung. This corresponds to the consolidation seen on the recent chest CT. This matched defect results from the lung consolidation p roduced by a pulmonary infarct with localized edema and hemorrhage. This does correspond to the CT fi ndings and history the patient. An additional defect is noted which is not matched in the posterior L EFT lower lobe. NM/NM pul vent and perfus* [id number] IMPRESSION: High probability for pulmonary embolism. Matched defect in the periphery of the mid RIGHT lung corresponds to an area of pulmonary infarction with localized edema and hemorrhage as also noted on a re cent CT.
[2021-09-16 07:03] LABS: Partial Thromboplastin Time 105.9 SECONDS (23.9-36.7)
[2021-09-16 08:14] LABS: Glucose Point of Care 227 mg/dL (70-110)
[2021-09-16] MEDS: FUROsemide 40 mg Tablet PO ×2 (08:38→17:04)
[2021-09-16] MEDS: amiodarone 200 mg Tablet 400 MG PO ×2 (08:38→20:31)
[2021-09-16] MEDS: aspirin 81 mg EC Tablet PO (08:38)
[2021-09-16] MEDS: insulin lispro 100 unit/1 mL SUBCUT ×4 (08:38→20:44)
[2021-09-16] MEDS: pantoprazole DR 40 mg Tablet PO (08:39)
[2021-09-16] MEDS: azithromycin 250 mg Tablet 500 MG PO (08:39)
[2021-09-16] MEDS: tamsulosin 0.4 mg Capsule PO (08:39)
[2021-09-16] MEDS: metoprolol tartrate 25 mg Tablet PO (08:41)
[2021-09-16] MEDS: budesonide 0.5 mg/2 mL Neb 0.25 MG INHALATION ×2 (08:55→21:27)
[2021-09-16] MEDS: ipratropium 0.5 mg/2.5 mL Neb INHALATION ×3 (08:55→21:27)
[2021-09-16] MEDS: potassium chloride ER 20 mEq Tablet 40 MEQ PO ×2 (09:05→10:44)
[2021-09-16 09:18] LABS: Hematocrit 23.2 % (42.0-52.0); Hemoglobin 7.8 g/dL (11.7-16.6)
--- NOTE | 2021-09-16 09:31 | PC.NURSE ---
Rounded with Dr. Hui and Dr. Kidd. Reviewed labs, vitals, heart rhythm, I&O, imaging results and plan of care. Orders for stat Hgb and PTT. Hold heparin until labs result. Transfuse 2 units PRBC, give ordered IV Lasix between units. BRADLEY mcmillan later today after blood transfusion. Check stool for occult blood. Plan for stress test vs. cardiac cath. Family at bedside.
[2021-09-16 09:47] LABS: Partial Thromboplastin Time 61.1 SECONDS (23.9-36.7)
[2021-09-16 11:45] LABS: Glucose Point of Care 211 mg/dL (70-110)
--- NOTE | 2021-09-16 12:24 | P.PN_ITS ---
Subjective Subjective: Patient is doing better. hgb went down. No chest pain or shortness of breath. Vitals/I&O/Wt Last Vital Signs Temp 97.6 F 09/16/21 11:00 Pulse 72 09/16/21 12:00 Resp 17 09/16/21 12:00 BP 121/71 09/16/21 12:00 Pulse Ox 97 09/16/21 12:00 09/15/21 09/16/21 09/16/21 22:59 06:59 14:59 Intake Total 470 / 1639.578 360 / 1999.578 350 / 350 Output Total 575 / 575 375 / 950 Balance -105 / 1064.578 -15 / 1049.578 350 / 350 Weight last 48 hrs Weight 228 lb 1.6 oz Weight 234 lb 1.6 oz Physical Exam Narrative: GENERAL: Patient is alert, awake and oriented x3. [] NECK: No jugular vein distension. [] HEENT: No cyanosis. No icterus. No pallor. [] HEART: Regular S1 and S2. No murmur, rub or gallop. [] LUNGS: Clear to auscultate bilaterally. [] ABDOMEN: Soft, nontender and nondistended. Positive bowel sounds. No guarding, rebound or tenderness. [] CENTRAL NERVOUS SYSTEM: Grossly nonfocal. [] EXTREMITIES: Lower extremities with 1+ edema bilaterally. Pulses palpable in the lower extremities, both dorsalis pedis and posterior tibial. [] Urinary Catheter Management: Perez: Cath Placed During This Visit: yes Reason for Continuing Indwelling Catheter: Accurate Measurement of Urinary Output in Critically Ill Patients Urinary Catheter Date of Insertion: 09/14/21 Urinary Catheter Time of Insertion: 09:00 Data : 09/17/21 05:02 09/17/21 05:02 A&P Assessment and plan (1) CHF (congestive heart failure): Status: Acute Qualifiers: Heart failure type: diastolic Heart failure chronicity: acute Qualified Code(s): I50.31 - Acute diastolic (congestive) heart failure (2) Venous thrombosis: Status: Acute (3) Pulmonary embolism: Status: Acute Qualifiers: Pulmonary embolism type: unspecified Chronicity: acute Acute cor pulmonale presence: without acute cor pulmonale Qualified Code(s): I26.99 - Other pulmonary embolism without acute cor pulmonale (4) Troponin level elevated: Status: Acute (5) Anasarca: Status: Acute (6) Community acquired pneumonia: Status: Acute (7) Atrial flutter with rapid ventricular response: Status: Acute Plan Patient has atrial flutter/fibrillation that is new onset for him. This is in the setting of possible pulmonary embolism. Patient underwent VQ scan secondary to contrast allergy and it shows high probability for pulmonary embolism. He is already anticoagulated. He is having congestive heart failure symptoms. Echo shows normal LV systolic function. He does have an ICD with family history of hypertrophic cardiomyopathy. Continue anticoagulation Patient underwent successful MAURI cardioversion to normal sinus rhythm. He is feeling much better now. Blood pressure is improved. Continue p.o. amiodarone and digoxin. Can start beta blockers. Troponin elevation likely secondary to demand ischemia. Can consider outpatient ischemic work up Thank you for involving us with care of this patient. We will continue to fo gilma. Please call with questions. Attestations 2 Medical Necessity Statement*: Care expected to cross 2 midnights. Coding Level of Care Code Acute Mount Loader for [facility]essiod Diagnoses CHF (congestive heart failure) I50.31 Heart failure type: diastolic Heart failure chronicity: acute Venous thrombosis I82.90 Pulmonary embolism I26.99 Pulmonary embolism type: unspecified Chronicity: acute Acute cor pulmonale presence: without acute cor pulmonale Troponin level elevated R77.8 Anasarca R60.1 Community acquired pneumonia J18.9 Atrial flutter with rapid ventricular response I48.92
[2021-09-16] MEDS: heparin drip 25,000 UNIT/500 ML PREMIX 36.24 UNIT IV (12:58)
[2021-09-16] MEDS: sodium chloride 0.9% (100 ml) 100 ML ×2 (12:59→17:04)
--- NOTE | 2021-09-16 13:21 | P.PN_ITS ---
Subjective Subjective: No acute events overnight. Seen with family at bedside. Denies any nausea, vomiting, headache. States he is feeling better. Has remained hemodynamically stable and afebrile. Currently on 2 L saturating 96%. Hemoglobin today down to 7.8 but denies of having any melena, bleeding, abdominal pain. Vitals/I&O/Wt Last Vital Signs Temp 98.0 F 09/16/21 13:15 Pulse 69 09/16/21 13:15 Resp 14 09/16/21 13:15 BP 117/66 09/16/21 13:15 Pulse Ox 96 09/16/21 13:15 09/15/21 09/16/21 09/16/21 22:59 06:59 14:59 Intake Total 970 / 2139.578 360 / 2499.578 350 / 350 Output Total 575 / 575 375 / 950 Balance 395 / 1564.578 -15 / 1549.578 350 / 350 Weight last 48 hrs Weight 103.464 kg Weight 106.186 kg Physical Exam Narrative: General: Lying comfortably in bed at the time of exam. Does get mildly tachypneic with prolonged sentences. HEENT: PERRLA, pupils bilaterally equal and reactive, pallors not present Chest: Crackles to auscultation bilaterally CVS: Tachycardic, irregular heart rate Abdomen: Soft, mildly distended, no fluid thrill Neuro: No focal deficits, no facial deformity, AO x3, power 5/5 in all limbs Extremities: 3+ pitting edema extending up to the level of thighs. Healing scab few cm from port site insertion. No gross cellulitis noted around port site. Urinary Catheter Management: Perez: Cath Placed During This Visit: yes Reason for Continuing Indwelling Catheter: Accurate Measurement of Urinary Output in Critically Ill Patients Urinary Catheter Date of Insertion: 09/14/21 Urinary Catheter Time of Insertion: 09:00 Data : 09/16/21 09:09 09/16/21 05:36 A&P Assessment and plan (1) Acute respiratory failure with hypoxia: Status: Acute (2) Pulmonary embolism: Status: Acute Qualifiers: Pulmonary embolism type: unspecified Chronicity: acute Acute cor pulm onale presence: without acute cor pulmonale Qualified Code(s): I26.99 - Other pulmonary embolism without acute cor pulmonale (3) CHF (congestive heart failure): Status: Acute Qualifiers: Heart failure type: diastolic Heart failure chronicity: acute Qualified Code(s): I50.31 - Acute diastolic (congestive) heart failure (4) Atrial flutter with rapid ventricular response: Status: Acute (5) Deep vein thrombosis: Status: Acute Qualifiers: DVT location: lower extremity Affected thrombotic vein of extremity: femoral Chronicity: acute Laterality: right Qualified Code(s): I82.411 - Acute embolism and thrombosis of right femoral vein (6) NSTEMI (non-ST elevated myocardial infarction): Status: Acute (7) Leukocytosis: Status: Acute (8) Community acquired pneumonia: Status: Acute (9) Anasarca: Status: Acute (10) Venous thrombosis: Status: Acute (11) Inflammatory arthritis: Status: Acute (12) Thrombocytopenia: Status: Acute Plan 60-year-old male with metastatic prostate cancer currently on chemotherapy with Taxotere presenting today with A. fib with RVR, hypoxic respiratory failure found to have DVT, signs suggestive of congestive heart failure and possible pu lmonary embolism while community-acquired pneumonia cannot be ruled out in a patient who is immunocompromised. Sepsis: Present on admission. Meet sepsis criteria by way of tachycardia, tachypnea, new organ dysfunction (hypoxia), leukocytosis and source of infection by way of pneumonia. Blood cultures so far negative, MRSA negative, urine Legionella bacterial antigen negative. COVID-19 antigen negative, PCR pending. Will discontinue IV antibiotics and switch over to oral Augmentin and Levaquin for next 3 days and continue to monitor. Given steroid use with prednisone 30 mg/day at least over the past 4 to 5 weeks, will evaluate additionally for pneumocystis pneumonia. Appreciate CT chest results. Concerning for possible pulmonary infarct with hemorrhage versus possible empyema. Discussed with radiology and pulmonology on-call.. As per radiology most likely hemorrhage given high suspicion of pulmonary embolism on VQ scan. Plan for now is to continue antibiotics for 2 weeks post discharge and repeat imaging in 4 to 6 weeks Keep mean artery pressure 65. Taper steroids to 15 mg daily. Leukocytosis: Could be secondary to infection versus chronic steroid use. Tapering down from 30 mg to 10 mg with last steroid use as per patient on 09/13. Acute hypoxic respiratory failure: Most likely secondary to congestive heart failure in setting of atrial fibrillation flutter. VQ scan confirming pulm embolism. Unfortunately cannot do CTA as patient is anaphylactic allergic to contrast. Low suspicion of pneumonia for now though. Antibiotics as above. Ipratropium, Xopenex every 6 hour, budesonide twice daily. For supplementation keeping saturation over 90%. For congestive heart failure. Switch to oral Lasix 40 mg twice daily. Will give 1 extra dose of IV Lasix during blood transfusion. Strict input output charting, daily weights. Fluid restriction up to 2 L. Perez catheterization. Atrial flutter flutter/fibrillation with rapid ventricular response: Post cardioversion. Continue with amiodarone 400 mg oral twice daily for next 7 days followed by 200 mg twice daily. Switch from metoprolol to home medication Coreg but at lower dose of 6.25 mg twice daily. Heparin drip for anticoagulation for now. DVT: Saphenofemoral junction thrombosis: With high suspicion of PE. Thrombocytopenia. DIC panel negative. For now continue with heparin drip. Monitor for bleeding and worsening of thrombocytopenia. We will switch to oral anticoagulation within next 24 hours. Elevated troponins: Possible NSTEMI. Patient does give history of chest pressure for last few days. Aspirin, statin. Cardiology consulted. Most likely patient will need ischemic work-up once hemodynamically stable. Plan for ischemic work-up as an outpatient. Echocardiogram shows an EF of 55 to 60%, moderate to severe concentric LVH. Anemia: No overt sign of bleeding. Check stool for occult blood. Most likely secondary to severe illness versus secondary to chemotherapy. Transfused unit of blood to keep hemoglobin over 8. Continue with heparin drip. Monitor hemoglobin. Continue with oral iron suppl ementation. Analgesia: Tylenol Glycemic control: Not needed. Check A1c. Nutrition: GI soft cardiac diet. N.p.o. after midnight for possible cardioversion in a.m. CODE STATUS: Full code. Confirmed with patient and family at bedside. PUD prophylaxis: Protonix DVT prophylaxis: Heparin drip will suffice as DVT prophylaxis Discharge planning: Most likely home within next 48 hours if hemoglobin remains stable. Continue with ICU care Attestations Medical Necessity Statement*: Requires further hospitalization for management of anemia in setting of ongoing anticoagulation for a new DVT, pulmonary emboli sm, atrial fibrillation post cardioversion Time Spent in Patient Care: Greater than 35 minutes Coding Level of Care Code Acute Automobile Wrecker for Erast[facility] Goldberg Diagnoses Acute respiratory failure with hypoxia J96.01 Pulmonary embolism I26.99 Pulmonary embolism type: unspecified Chronicity: acute Acute cor pulmonale presence: without acute cor pulmonale CHF (congestive heart failure) I50.31 Heart failure type: diastolic Heart failure chronicity: acute Atrial flutter with rapid ventricular response I48.92 Deep vein thrombosis I82.411 DVT location: lower extremity Affected thrombotic vein of extremity: femoral Chronicity: acute Laterality: right NSTEMI (non-ST elevated myocardial infarction) I21.4 Leukocytosis D72.829 Community acquired pneumonia J18.9 Anasarca R60.1 Venous thrombosis I82.90 Inflammatory arthritis M19.90 Thrombocytopenia D69.6
[2021-09-16] MEDS: FUROsemide 10 mg/mL SDV 4mL 40 MG IVP (15:39)
[2021-09-16 16:25] LABS: Partial Thromboplastin Time 41.1 SECONDS (23.9-36.7)
[2021-09-16] MEDS: heparin 5,000 unit/mL INJ 1 mL IV (17:04)
[2021-09-16 17:10] LABS: Glucose Point of Care 230 mg/dL (70-110)
[2021-09-16] MEDS: ondansetron 2 mg/ML SDV 2 mL 4 MG IVP (17:11)
[2021-09-16] MEDS: carvedilol 6.25 mg Tablet PO (20:31)
[2021-09-16] MEDS: ropinirole 1 mg Tablet 4 MG PO (20:33)
[2021-09-16 20:43] LABS: Glucose Point of Care 267 mg/dL (70-110)
[2021-09-16] MEDS: oxyCODONE 5 mg IR Tab/Cap 10 MG PO (20:45)
[2021-09-16] MEDS: atorvastatin 40 mg Tablet 80 MG PO (22:49)
[2021-09-16] MEDS: amoxicillin-clav 875-125 mg Tablet 1 TAB PO (22:50)
[2021-09-16 23:06] LABS: Partial Thromboplastin Time 87.6 SECONDS (23.9-36.7)
[2021-09-17] VITALS (45 sets, daily range): BP systolic 53–161; BP diastolic 40–95; PULSE 60–140; RESP 12–32; TEMP 36.3–36.5; O2SAT 92–99
[2021-09-17] MEDS: ondansetron 2 mg/ML SDV 2 mL 4 MG IVP ×2 (02:34→08:22)
--- NOTE | 2021-09-17 02:54 | PC.NURSE ---
Pt has left lower abdomen pain. He feels that it may be related to gas. He tells me that he has not been regular and feels as though he would feel much better if he could pass flatus.
--- NOTE | 2021-09-17 03:16 | PC.NURSE ---
Pt resting quietly in bed with eyes closed. Respirations are even and unlabored.
--- NOTE | 2021-09-17 03:58 | PC.NURSE ---
Pt resting quietly in bed with eyes closed. Respirations are even and unlabored. Skin is flushed and dry.
[2021-09-17 05:25] LABS: Basophils % 0.3 %; Hematocrit 28.5 % (42.0-52.0); Hemoglobin 9.9 g/dL (11.7-16.6); Lymphocytes # 0.6 10^3/uL (0.8-4.8); Lymphocytes % 4.3 %; Mean Corpuscular HGB Conc 34.7 g/dL (30.0-36.0); Mean Corpuscular Hemoglobin 31.7 pg (28.0-34.0); Mean Corpuscular Volume 91.3 fl (80-94); Monocytes # 0.5 10^3/uL (0.2-0.9); Monocytes % 3.9 %; Neutrophils # 11.72 10^3/uL (1.8-7.7); Nucleated Red Blood Cells # 0.1 /100WBC; Nucleated Red Blood Cells % 0.4 %; Platelet Count 115 10^3/cmm (130-400); Red Blood Count 3.12 10^6/uL (4.1-5.3); Red Cell Distribution Width 16.5 % (12.1-15.1)
[2021-09-17] MEDS: buPROPion XL (24 HR) 300 mg Tablet PO (05:26)
--- NOTE | 2021-09-17 05:27 | PC.NURSE ---
Pt complains of LLQ pain only when moving. He denies any pain at all when lying still.
[2021-09-17 05:40] LABS: Partial Thromboplastin Time 53.7 SECONDS (23.9-36.7)
[2021-09-17] MEDS: heparin 5,000 unit/mL INJ 1 mL IV ×2 (05:46→12:16)
[2021-09-17 05:47] LABS: Alanine Aminotransferase 38 U/L (0-41); Albumin Level 3.3 g/dL (3.5-5.2); Alkaline Phosphatase 126 IU/L (40-130); Anion Gap 10.2 (5-19); Aspartate Amino Transferase 35 U/L (0-40); Blood Urea Nitrogen 23 mg/dL (8-23); Calcium 8.7 mg/dL (8.5-10.5); Carbon Dioxide 34 mmol/L (22-29); Chloride 100 mmol/L (98-107); Globulin 1.7 g/dL (1.3-4.6); Glomerular Filtration Rate 85.8 mL/min (90-130); Glucose 163 mg/dL (65-115); Osmolality Calculated 299 mOsm/kg (285-295); Potassium 3.2 mmol/L (3.5-5.1); Sodium 141 mmol/L (136-145); Total Bilirubin 1.2 mg/dL (0.15-1.2)
--- NOTE | 2021-09-17 06:18 | PC.NURSE ---
Heparin drip infusing at 21 mls per hour when this nurse came on shift last night. Pt does not wish to take Levaquin until breakfast this morning.
[2021-09-17] MEDS: oxyCODONE 5 mg IR Tab/Cap 10 MG PO (06:51)
--- NOTE | 2021-09-17 07:02 | PC.NURSE ---
pt got up to commode. After having a small, tarry BM, he became dizzy. He was assisted into the chair. VS normal. Dizziness quickly subsided, but left abdomen and flank pain persisted. Pain medication administered.
[2021-09-17 07:27] LABS: Glucose Point of Care 174 mg/dL (70-110)
--- NOTE | 2021-09-17 08:09 | ECG_ITS ---
[facility] Test Date: 2021-09-17 Pat Name: Jose Manuel Hogan Department: Room: [facility] Gender: Male Guidance Director: : 1960 Requested By: Fredi Hui Order Number: [id number] Antonia MD: Gloria Cheek M.D. Measurements Intervals [place] Rate: 71 P: 26 CA: 160 QRS: -11 QRSD: 101 T: 14 QT: 405 QTc: 443 Interpretive Statements SINUS RHYTHM LEFT VENTRICULAR HYPERTROPHY AND ST-T CHANGE [VOLTAGE CRITERIA PLUS ST/T ABNORMALITY] Compared to ECG 09/13/2021 22:30:12 Left ventricular hypertrophy now present Atrial flutter no longer present Left anterior fascicular block no longer present ST (T wave) deviation still present Electronically Signed On 09-17-2021 17:17:48 CDT by Gloria Cheek M.D. [id number]
[2021-09-17] MEDS: insulin lispro 100 unit/1 mL SUBCUT ×2 (08:22→12:17)
--- NOTE | 2021-09-17 08:35 | PC.NURSE ---
Reported nausea and vomiting to Dr. Hui. Orders for EKG and Zofran. Will hold PO meds until GI upset has resolved.
--- NOTE | 2021-09-17 08:51 | PM.PN ---
Subjective Subjective: Patient was having significant abdominal discomfort. CT showed possible retroperitoneal hematoma had a spontaneous. Vitals/I&O/Wt Last Vital Signs Temp 97.4 F L 09/17/21 00:00 Pulse 67 09/17/21 06:00 Resp 18 09/17/21 06:51 BP 133/76 09/17/21 06:00 Pulse Ox 94 09/17/21 06:51 09/16/21 09/17/21 09/17/21 22:59 06:59 14:59 Intake Total 1029.928 / 1779.928 390.072 / 2170.000 Output Total 1800 / 2700 2400 / 5100 Balance -770.072 / -920.072 -2009.928 / -2930.000 Weight last 48 hrs Weight 222 lb 9.6 oz Weight 228 lb 1.6 oz Physical Exam Narrative: GENERAL: Patient is alert, awake and oriented x3. [] NECK: No jugular vein distension. [] HEENT: No cyanosis. No icterus. No pallor. [] HEART: Regular S1 and S2. No murmur, rub or gallop. [] LUNGS: Clear to auscultate bilaterally. [] ABDOMEN: Abdominal tenderness CENTRAL NERVOUS SYSTEM: Grossly nonfocal. [] EXTREMITIES: Lower extremities with 1+ edema bilaterally. Pulses palpable in the lower extremities, both dorsalis pedis and posterior tibial. [] Urinary Catheter Management: Perez: Cath Placed During This Visit: yes, but has since been removed by the nurse Reason for Continuing Indwelling Catheter: Accurate Measurement of Urinary Output in Critically Ill Patients Urinary Catheter Date of Insertion: 09/14/21 Urinary Catheter Time of Insertion: 09:00 Date Urinary Catheter Removed: 09/17/21 Time Urinary Catheter Discontinued: 06:20 Data : 09/17/21 15:41 09/17/21 15:41 Micro: Microbiology 09/16/21 21:00 Occult Blood (FIT) - Final Stool - Stool Aspirate A&P Assessment and plan (1) CHF (congestive heart failure): Status: Acute Qualifiers: Heart failure type: diastolic Heart failure chronicity: acute Qualified Code(s): I50.31 - Acute diastolic (congestive) heart failure (2) Venous thrombosis: Status: Acute (3) Pulmonary embolism: Status: Acute Qualifiers: Pulmonary embolism type: unspecified Chronicity: acute Acute cor pulmonale presence: without acute cor pulmonale Qualified Code(s): I26.99 - Other pulmonary embolism without acute cor pulmonale (4) Troponin level elevated: Status: Acute (5) Anasarca: Status: Acute (6) Community acquired pneumonia: Status: Acute (7) Atrial flutter with rapid ventricular response: Status: Acute (8) Retroperitoneal hematoma: Status: Acute Plan Patient developed abdominal discomfort. CTA showing possible retroperitoneal hematoma. Plan for transfer for IR intervention. Will need to continue anticoagulation for now as possible PE and had cardioversion. Thank you for involving us with care of this patient. Please call with questions. Attestations Medical Necessity Statement*: Care expected to cross 2 midnights. Coding Level of Care Code Acute Architect In Training for Erasto Goldberg Diagnoses CHF (congestive heart failure) I50.31 Heart failure type: diastolic Heart failure chronicity: acute Venous thrombosis I82.90 Pulmonary embolism I26.99 Pulmonary embolism type: unspecified Chronicity: acute Acute cor pulmonale presence: without acute cor pulmonale Troponin level elevated R77.8 Anasarca R60.1 Community acquired pneumonia J18.9 Atrial flutter with rapid ventricular response I48.92 Retroperitoneal hematoma K66.1
[2021-09-17] MEDS: FUROsemide 40 mg Tablet PO (10:07)
[2021-09-17] MEDS: amiodarone 200 mg Tablet 400 MG PO ×2 (10:08→18:04)
[2021-09-17] MEDS: aspirin 81 mg EC Tablet PO (10:08)
[2021-09-17] MEDS: levoFLOXacin 500 mg Tablet PO (10:08)
[2021-09-17] MEDS: lidocaine 1% 5 ML in potassium chloride premix 100 ML 25 ML IV ×2 (10:09→15:09)
[2021-09-17] MEDS: potassium chloride ER 20 mEq Tablet 40 MEQ PO (10:09)
[2021-09-17] MEDS: tamsulosin 0.4 mg Capsule PO (10:09)
[2021-09-17] MEDS: carvedilol 6.25 mg Tablet PO (10:09)
[2021-09-17] MEDS: pantoprazole 40 mg SDV IVP (10:09)
--- NOTE | 2021-09-17 11:04 | PC.CHAP ---
Pastoral Care Encounter/Spiritual Assessment Type of Contact [] Declined fresh work inspector visit [] Patient/Family/Request visit [] Outpatient visit [] Follow-up visit [] Physician referral [] Code/Alert [x] Routine visit [] Staff referral [] Actively dying [] Patient sleeping [] Family support [] [] Out of room [] Palliative care [] [] Receiving care in room [] Pre-surgical visit [] Trauma [] Long length of stay [x] ICU visit [] Other: Relational/Emotional Strength [] Patient feels connected with others/family/visitors/staff [] Distress [] Loneliness/isolation [] Abandonment Spirituality of Patient [] Person of Pat [] Attends Religion of their Pat [] Believes in Prayer [] Reads Bible or Christian materials [] There are Spiritual issues to be addressed Manager Research Interventions [x] Prayer [] Active listening [] Non-anxious presence [] Spiritual/emotional support [] Crisis/trauma care [] Spiritual counseling [] Bereavement support [] Provided bereavement packet [] Provided Bible/devotional materials [] Provided toy/stuffed animal, coloring book to patient or family member [] Provided Communion [] Anointing/[place] [] Salvation [x] Completed spiritual assessment [] Other: Impact on Illness or Injury [] Angry [] Fearful [] Anxious [] Often cries [] Exhaustion [] Unable to work [] Unable to attend nondenominational [] Unable to walk/stand [] Unable to read [] Unable to drive [] Unable to eat/drink [] Unable to sleep [] Unable to be with family [] Patient intubated [] Other: Summary Time spent with patient
[2021-09-17 11:50] LABS: Glucose Point of Care 183 mg/dL (70-110)
[2021-09-17] MEDS: morphine 4 mg/mL SDV 1 mL 2 MG IVP (11:54)
[2021-09-17 11:58] LABS: Partial Thromboplastin Time 52.6 SECONDS (23.9-36.7)
[2021-09-17 12:26] LABS: Lactic Sepsis W/Reflex 1.1 mmol/L (0.5-2.2)
[2021-09-17] MEDS: metoprolol tartrate 1 mg/1 mL SDV 5 mL 5 MG IVP (12:33)
[2021-09-17] MEDS: metoclopramide 5 mg/mL SDV 2 mL IVP (14:45)
[2021-09-17 15:05] LABS: Digoxin 0.8 ng/mL (0.6-1.2); Lipase 27 U/L (13-60); Magnesium 1.9 mg/dL (1.7-2.3)
[2021-09-17] MEDS: sodium chloride 0.9% 1,000 ML 999 ML IV ×2 (15:30→17:46)
--- NOTE | 2021-09-17 15:34 | US_ITS ---
WS: [id number] ULTRASOUND ABDOMEN CLINICAL INFORMATION: free air, possible intrabdominal bleed COMPARISON: None. FINDINGS: Lobulated heterogeneous echogenic collection in the LEFT upper quadrant with mass effect on the LEFT kidney and adjacent spleen. LEFT kidney not well visualized. Findings suspicious for hemato ma measuring 12.3 x 7.2 CM. Liver Size: Normal. Craniocaudal length: 13.1 cm. Echogenicity: Normal. Surface nodularity: None. Mass (size and location): None. Bile ducts Intrahepatic ducts: Normal. Common bile duct diameter: 0.4 cm. Gallbladder Not visualized. Spleen Splenomegaly: Upper limits of normal Craniocaudal length: 13.1 cm. RIGHT kidney: Not well visualized LEFT kidney: Not well visualized US/US abdomen complete* [id number] IMPRESSION: Limited examination due to patient's pain. 1. Lobulated heterogeneous echogenic collection in the LEFT upper quadrant wit h mass effect on the LEFT kidney and adjacent spleen. LEFT kidney not well visu alized. Findings suspicious for intra-abdominal hematoma measuring 12.3 x 7.2 C M. 2. Liver is normal in appearance. 3. Gallbladder is not visualized and may have been previously resected. Notified Fredi Hui MD at 09/17/2021 4:23 PM.
[2021-09-17] MEDS: HYDROmorphone 1 mg/mL INJ 1 mL 0.5 MG IVP (15:50)
--- NOTE | 2021-09-17 15:50 | P.PN_ITS ---
Subjective Subjective: Patient is doing better. hgb went down. No chest pain or shortness of breath. Vitals/I&O/Wt Last Vital Signs Temp 97.6 F 09/17/21 07:00 Pulse 77 09/17/21 10:00 Resp 14 09/17/21 11:54 BP 161/93 09/17/21 10:00 Pulse Ox 94 09/17/21 11:54 09/17/21 09/17/21 09/17/21 06:59 14:59 22:59 Intake Total 390.072 / 2170.000 208 / 208 Output Total 2400 / 5100 Balance -2009.928 / -2930.000 208 / 208 Weight last 48 hrs Weight 100.97 kg Weight 103.464 kg Physical Exam Narrative: General: Lying comfortably in bed at the time of exam. Does get mildly tachypneic with prolonged sentences. HEENT: PERRLA, pupils bilaterally equal and reactive, pallors not present Chest: Crackles to auscultation bilaterally CVS: Tachycardic, irregular heart rate Abdomen: Soft, mildly distended, no fluid thrill Neuro: No focal deficits, no facial deformity, AO x3, power 5/5 in all limbs Extremities: 3+ pitting edema extending up to the level of thighs. Healing scab few cm from port site insertion. No gross cellulitis noted around port site. Urinary Catheter Management: Perez: Cath Placed During This Visit: yes, but has since been removed by the nurse Reason for Continuing Indwelling Catheter: Accurate Measurement of Urinary Output in Critically Ill Patients Urinary Catheter Date of Insertion: 09/14/21 Urinary Catheter Time of Insertion: 09:00 Date Urinary Catheter Removed: 09/17/21 Time Urinary Catheter Discontinued: 06:20 Data : 09/17/21 05:02 09/17/21 05:02 Micro: Microbiology 09/16/21 21:00 Occult Blood (FIT) - Final Stool - Stool Aspirate A&P Assessment and plan (1) Acute respiratory failure with hypoxia: Status: Acute (2) Pulmonary embolism: Status: Acute Qualifiers: Pulmonary embolism type: unspecified Chronicity: acute Acute cor pulmonale presence: without acute cor pulmonale Qualified Code(s): I26.99 - Ot her pulmonary embolism without acute cor pulmonale (3) CHF (congestive heart failure): Status: Acute Qualifiers: Heart failure type: diastolic Heart failure chronicity: acute Qualified Code(s): I50.31 - Acute diastolic (congestive) heart failure (4) Atrial flutter with rapid ventricular response: Status: Acute (5) Deep vein thrombosis: Status: Acute Qualifiers: DVT location: lower extremity Affected thrombotic vein of extremity: femoral Chronicity: acute Laterality: right Qualified Code(s): I82.411 - Acute embolism and thrombosis of right femoral vein (6) NSTEMI (non-ST elevated myocardial infarction): Status: Acute (7) Leukocytosis: Status: Acute (8) Community acquired pneumonia: Status: Acute (9) Anasarca: Status: Acute (10) Venous thrombosis: Status: Acute (11) Inflammatory arthritis: Status: Acute (12) Thrombocytopenia: Status: Acute Plan 60-year-old male with metastatic prostate cancer currently on chemotherapy with Taxotere presenting today with A. fib with RVR, hypoxic respiratory failure found to have DVT, signs suggestive of congestive heart failure and possible pulmonary embolism while community-acquired pneumonia cannot be ruled out in a patient who is immunocompromised. Sepsis: Present on admission. Meet sepsis criteria by way of tachycardia, tachypnea, new organ dysfunction (hypoxia), leukocytosis and source of infection by way of pneumonia. Blood cultures so far negative, MRSA negative, urine Legionella bacterial antigen negative. COVID-19 antigen negative, PCR pending. Will discontinue IV antibiotics and switch over to oral Augmentin and Levaquin for next 3 days and continue to monitor. Given steroid use with prednisone 30 mg/day at least over the past 4 to 5 weeks, will evaluate additionally for pneumocystis pneumonia. Appreciate CT chest results. Concerning for possible pulmonary infarct with hemorrhage versus possible empyema. Discussed with radiology and pulmonology on-call.. As per radiology most likely hemorrhage given high suspicion of p ulmonary embolism on VQ scan. Plan for now is to continue antibiotics for 2 weeks post discharge and repeat imaging in 4 to 6 weeks Keep mean artery pressure 65. Taper steroids to 15 mg daily. Leukocytosis: Could be secondary to infection versus chronic steroid use. Tapering down from 30 mg to 10 mg with last steroid use as per patient on 09/13. Acute hypoxic respiratory failure: Most likely secondary to congestive heart failure in setting of atrial fibrillation flutter. VQ scan confirming pulm embolism. Unfortunately cannot do CTA as patient is anaphylactic allergic to contrast. Low suspicion of pneumonia for now though. Antibiotics as above. Ipratropium, Xopenex every 6 hour, budesonide twice daily. For supplementation keeping saturation over 90%. For congestive heart failure. Switch to oral Lasix 40 mg twice daily. Will give 1 extra dose of IV Lasix during blood transfusion. Strict input output charting, daily weights. Fluid restriction up to 2 L. Perez catheterization. Atrial flutter flutter/fibrillation with rapid ventricular response: Post cardioversion. Continue with amiodarone 400 mg oral twice daily for next 7 days followed by 200 mg twice daily. Switch from metoprolol to home medication Coreg but at lower dose of 6.25 mg twice daily. Heparin drip for anticoagulation for now. DVT: Saphenofemoral junction thrombosis: With high suspicion of PE. Thrombocytopenia. DIC panel negative. For now continue with heparin drip. Monitor for bleeding and worsening of thrombocytopenia. We will switch to oral anticoagulation within next 24 hours. Elevated troponins: Possible NSTEMI. Patient does give history of chest pressure for last few days. Aspirin, statin. Cardiology consulted. Most likely patient will need ischemic work-up once hemodynamically stable. Plan for ischemic work-up as an outpatient. Echocardiogram shows an EF of 55 to 60%, moderate to severe concentric LVH. Anemia: No overt sign of bleeding. Check stool for occult blood. Most likely secondary to severe illness versus secondary to chemotherapy. Transfused unit of blood to keep hemoglobin over 8. Continue with heparin drip. Monitor hemoglobin. Continue with oral iron supplementation. Analgesia: Tylenol Glycemic control: Not needed. Check A1c. Nutrition: GI soft cardiac diet. N.p.o. after midnight for possible cardioversion in a.m. CODE STATUS: Full code. Confirmed with patient and family at bedside. PUD prophylaxis: Protonix DVT prophylaxis: Heparin drip will suffice as DVT prophylaxis Discharge planning: Most likely home within next 48 hours if hemoglobin remains stable. Continue with ICU care Coding Level of Care Code Acute Perioperative Educator for Erasto Fwd Diagnoses Acute respiratory failure with hypoxia J96.01 Pulmonary embolism I26.99 Pulmonary embolism type: unspecified Chronicity: acute Acute cor pulmonale presence: without acute cor pulmonale CHF (congestive heart failure) I50.31 Heart failure type: diastolic Heart failure chronicity: acute Atrial flutter with rapid ventricular response I48.92 Deep vein thrombosis I82.411 DVT location: lower extremity Affected thrombotic vein of extremity: femoral Chronicity: acute Laterality: right NSTEMI (non-ST elevated myocardial infarction) I21.4 Leukocytosis D72.829 Community acquired pneumonia J18.9 Anasarca R60.1 Venous thrombosis I82.90 Inflammatory arthritis M19.90 Thrombocytopenia D69.6
[2021-09-17 15:52] LABS: Basophils % 0.3 %; Hematocrit 25.7 % (42.0-52.0); Hemoglobin 8.8 g/dL (11.7-16.6); Lymphocytes # 0.7 10^3/uL (0.8-4.8); Lymphocytes % 4.6 %; Mean Corpuscular HGB Conc 34.2 g/dL (30.0-36.0); Mean Corpuscular Volume 93.5 fl (80-94); Mean Platelet Volume 8.9 fL (7.4-10.4); Monocytes # 0.6 10^3/uL (0.2-0.9); Monocytes % 4.2 %; Neutrophils # 13.24 10^3/uL (1.8-7.7); Neutrophils % 89.3 %; Nucleated Red Blood Cells # 0.1 /100WBC; Nucleated Red Blood Cells % 0.5 %; Platelet Count 123 10^3/cmm (130-400); Red Blood Count 2.75 10^6/uL (4.1-5.3); Red Cell Distribution Width 16.9 % (12.1-15.1); White Blood Count 14.8 10^3/uL (4.0-10.0)
[2021-09-17] MEDS: HYDROmorphone 1 mg/mL INJ 1 mL IVP (16:05)
--- NOTE | 2021-09-17 16:08 | CT_ITS ---
WS: [id number] CTA ABDOMEN TECHNIQUE: Noncontrast plus contrast enhanced CTA of the abdominal aorta with coronal and sagittal re formatted images and additional MIP Images. CLINICAL INFORMATION: ischemic bowel vs spleenic infarct bleeding COMPARISON: None. DLP: 1046.[address] scans at [facility] use at least one of these dose optimization techniques: automated e xposure control; mA and/or kV adjustment per patient size (includes targeted exams where dose is matc hed to clinical indication); or iterative reconstruction. FINDINGS: Large LEFT subcapsular perirenal hematoma. Hemorrhagic blood products extend into the LEFT retroperit oneum with blood products extending into the pelvis. Perirenal hematoma measures approximately 4.1 c m in maximum transverse dimension with associated compression of the LEFT kidney. Evidence of active hemorrhage with increased attenuation blood products and areas of contrast extravasation near the upp er pole LEFT kidney adjacent to the upper pole renal lesion which may be the source for bleeding. Mod erate to large amount of retroperitoneal blood products about the psoas and extending into the pelvis with evidence of acute recent hemorrhage. Renal arteries are normal in appearance. LEFT renal artery is normal. Spleen is normal in appearance. Enteric tube with tip in the distal stomach. Liver is normal in appearance. Gallbladder is not visualized although no visualized cholecystectomy c lips. Presumed previous cholecystectomy. Bibasilar atelectasis LEFT greater than RIGHT. Pleural-based partially visualized lesion RIGHT upper lobe previously described. Pancreas appears normal. Celiac and SMA appear normal. Sigmoid diverticulosis. No evidence of high-gr tay small or large bowel obstruction. No free air. Normal appendix in the RIGHT lower quadrant. RIGHT renal cyst. CT/CT angio abdomen pelvis [id number] IMPRESSION: 1. Large LEFT acute subcapsular perirenal hematoma with evidence of active hem orrhage. Perirenal hematoma measures approximately 4.9 x 4.7 x 11.8 cm 2. Hemorrhagic blood products extend into the retroperitoneum and LEFT lower p amos. Retroperitoneal hematoma measures approximately 13.7 x 6.1 cm 3. Subcapsular hematoma results in compression of the LEFT kidney parenchyma. 4. LEFT upper pole renal lesion suspected to be source of hemorrhage with smal l areas of contrast extravasation.. 5. Normal caliber abdominal aorta. Celiac and SMA are patent. Renal arteries a re patent. 6. No other acute findings. Message LEFT for Fredi Hui MD at 09/17/2021 5:00PM. Discussed with Dr. Jim at 4:55 PM
[2021-09-17 16:12] LABS: Lactate (Lactic Acid level) 2.2 mmol/L (0.5-2.2)
[2021-09-17 16:24] LABS: Alanine Aminotransferase 84 U/L (0-41); Albumin Level 2.8 g/dL (3.5-5.2); Alkaline Phosphatase 119 IU/L (40-130); Anion Gap 11.4 (5-19); Aspartate Amino Transferase 99 U/L (0-40); Blood Urea Nitrogen 29 mg/dL (8-23); Calcium 7.6 mg/dL (8.5-10.5); Carbon Dioxide 28 mmol/L (22-29); Chloride 102 mmol/L (98-107); Globulin 1.8 g/dL (1.3-4.6); Glomerular Filtration Rate 61.6 mL/min (90-130); Glucose 179 mg/dL (65-115); Osmolality Calculated 296 mOsm/kg (285-295); Potassium 3.4 mmol/L (3.5-5.1); Sodium 138 mmol/L (136-145); Total Protein 4.6 g/dL (6.6-8.7)
[2021-09-17] MEDS: diphenhydrAMINE 50 mg/mL SDV 1mL IVP (16:30)
[2021-09-17] MEDS: hydrocortisone 100 mg/2 mL SDV 50 MG IVP (16:30)
[2021-09-17] MEDS: iodixanol 320 mg/mL 100mL Btl IV (16:45)
--- NOTE | 2021-09-17 17:00 | P.PNCC_ITS ---
Critical Care Event Note Patient seen multiple times in the day today. Today morning examination patient was sitting up in chair with family at bedside. As per the RN patient has not had 2 episodes of vomiting. Vomitus looked bilious in content along with possibility of being black in color though not hematemesis. Patient complains of pain in his left upper and middle quadrant. Patient's hemoglobin was up to 9.9 after 2 units of blood transfusion yesterday. Patient did complain of diarrhea without melena. During the day lactate was checked which came back to be 1.1. Patient did have episode of RVR with atrial fibrillation during vomiting which was treated with a dose of IV metoprolol and amiodarone. Both amiodarone patient came back into normal sinus rhythm. Patient continued to have worsening of abdominal pain. Abdominal pain was treated with IV morphine and Dilaudid. Plan was to repeat hemoglobin and CT abdomen pelvis without contrast in evening. At around 3 PM patient complaint of acute abdominal pain after which she went hypotensive which was treated with IV bolus and 2 unit of blood transfusion. Repeat set of labs including CBC, CMP, lactate were sent. His lactate remained negative. Start bedside ultrasound showed a possibility of collection/hematoma between the left spleen and kidney. Patient was premedicated and underwent CT abdominal pelvis which was concerning for retroperitoneal bleed encapsulating the left kidney along with compression. During all of this patient received 2 unit of blood transfusion, 2 L of IV fluid and was started on low-dose Levophed to keep. My mean artery pressure over 65. He received 3 mg of IV Dilaudid overall in divided doses. PTT was found to be 61. Because of extensive hematoma further risks of reversal of heparin with the possibility of a stroke, further thrombosis were discussed and he was given 5 mg of protamine. Given all the above surgery was consulted to recommended patient to be transferred to a higher center for IR drainage and possible coiling. During the whole day multiple plans were discussed with patient, patient's family at bedside. All the questions were answered. Patient and patient's family were finally agreeable for transfer to a higher center. The high probability of a clinically significant, sudden or life threatening deterioration of the patient's [cardiac, renal, hematological, GI system(s) required my full and direct attention, intervention and personal management. The critical care time is as shown. This time is in addition to time spent performing any reported procedures but includes the following: [x] Data and vital sign review and interpretation [x] Patient assessment, examination and intervention [x] Documentation [x] Medication orders and management 90 Critical Care Time Code activated: No Critical Care Time (min): 90 Coding Level of Care Code Acute Talent Development Consultant for Erasto Goldberg
--- NOTE | 2021-09-17 17:03 | P.CONIM_ITS ---
Providers/Reason For Consult Consulting Physician/Specialty*: Dr. 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 Overnight he began vomiting and imaging revealed an expanding retroperitoneal mass in the patient's left side. He reports extreme left flank pain nausea and vomiting of bilious contents. He also had an NSTEMI upon arrival to the hospital. The pain is severe sharp and constant. Palpation makes it worse. Nothing makes it better. The pain does not radiate. Review of Systems General: Reports: 10 or more systems reviewed and unremarkable except in HPI and below Medications/Allergies Home Medications Medication Instructions Recorded Confirmed Last Taken Type bupropion HCl 300 mg 24 hr tablet, 300 mg PO QAM 10/03/19 09/13/21 09/13/21 History extended release carvedilol 12.5 mg tablet 12.5 mg PO BID 10/03/19 09/13/21 09/13/21 History potassium 75 mg tablet 75 mg PO DAILY 10/03/19 09/13/21 09/13/21 History azelastine 137 mcg (0.1 %) nasal 1 spray INTRANASAL BID 10/07/19 09/13/21 09/13/21 History spray aerosol ropinirole 1 mg tablet 4 mg PO DAILY tab 10/07/19 09/13/21 09/13/21 History tamsulosin 0.4 mg capsule (Flomax) 0.4 mg PO DAILY 12/17/20 09/13/21 09/13/21 History prednisone 10 mg tablet See Rx Instructions PO .COMPLEX 07/12/21 09/13/21 Unknown Rx PRN #30 tab leflunomide 20 mg tablet 20 mg PO DAILY #30 tab 07/29/21 09/13/21 09/13/21 Rx azelastine 0.05 % eye drops 1 drp OPHTHALMIC (EYE) BID #6 ml 08/05/21 09/13/21 09/13/21 Rx oxycodone 10 mg tablet 10 mg PO Q6H PRN 30 Days #60 tab 09/01/21 09/13/21 09/13/21 Rx furosemide 40 mg tablet (Lasix) 40 mg PO QAM #30 tab 09/13/21 09/13/21 09/13/21 Rx levofloxacin 500 mg tablet 500 mg PO DAILY 7 Days #7 tab 09/13/21 09/13/21 Unknown Rx Allergies Allergy/AdvReac Type Severity Reaction Status Date / Time Iodinated Contrast Media Allergy Severe ALGY-Swell Verified 09/13/21 20:57 Lip/Tongue/Throat Current Medications Generic Name Dose Route Start Last Admin Trade Name Freq PRN Reason Stop Dose Admin Amiodarone HCl 400 mg 09/15/21 12:00 09/17/21 10:08 Amiodarone 200 Mg Tablet PO 400 mg BID RAJ Administration Aspirin 81 mg 09/14/21 09:00 09/17/21 10:08 Aspirin 81 Mg Ec Tablet PO 81 mg DAILY RAJ Administration Atorvastatin Calcium 80 mg 09/15/21 21:00 09/16/21 22:49 Atorvastatin 40 Mg Tablet PO 80 mg BEDTIME RAJ Administration Bupropion HCl 300 mg 09/14/21 06:00 09/17/21 05:26 Bupropion Xl (24 Hr) 300 Mg Tablet PO 300 mg QAM RAJ Administration Furosemide 40 mg 09/15/21 16:00 09/17/21 10:07 Furosemide 40 Mg Tablet PO 40 mg BID@08,16 RAJ Administration Heparin Sodium (Porcine) 0 unit 09/14/21 07:11 09/17/21 12:16 Heparin 5,000 Unit/Ml Inj 1 Ml IV 2,100 unit PRN PRN Administration Heparin weight-base protocol Protocol Heparin Sodium/Sodium Chloride 25,000 unit in 500 mls @ 0 mls/hr 09/14/21 07:15 09/17/21 05:45 Heparin Drip IV Infused .Q0M RAJ Titration Protocol Per Protocol Lidocaine HCl 5 ml/ Potassium 105 mls @ 25 mls/hr 09/17/21 14:30 09/17/21 15:09 Chloride IV 09/17/21 18:41 25 mls/hr ONCE ONE Administration Levofloxacin 500 mg 09/17/21 06:00 09/17/21 10:08 Levofloxacin 500 Mg Tablet PO 09/20/21 05:59 500 mg DAILY@0600 RAJ Administration Protocol Methylprednisolone Sodium Succinate 15 mg 09/17/21 09:00 09/17/21 08:22 Methylprednisolone Sod Succ 40 Mg/Ml Inj IVP 15 mg DAILY RAJ Administration Metoclopramide HCl 5 mg 09/17/21 13:59 09/17/21 14:45 Metoclopramide 5 Mg/Ml Sdv 2 Ml IVP 5 mg Q6H PRN Administration NAUSEA AND VOMITING Metoprolol Tartrate 5 mg 09/17/21 12:25 09/17/21 12:33 Metoprolol Tartrate 1 Mg/1 Ml Sdv 5 Ml IVP 5 mg Q4H PRN Administration hr more than 110 bpm Morphine Sulfate 2 mg 09/17/21 11:40 09/17/21 11:54 Morphine 4 Mg/Ml Sdv 1 Ml IVP 2 mg Q4H PRN Administration SEVERE PAIN Ondansetron HCl 4 mg 09/13/21 22:36 09/17/21 02:34 Ondansetron 2 Mg/Ml Sdv 2 Ml IVP 4 mg Q8H PRN Administration NAUSEA AND VOMITING Oxycodone HCl 10 mg 09/14/21 00:47 09/17/21 06:51 Oxycodone 5 Mg Ir Tab/Cap PO 10 mg Q6H PRN Administration pain Pantoprazole Sodium 40 mg 09/17/21 09:30 09/17/21 10:09 Pantoprazole 40 Mg Sdv IVP 40 mg Q12H RAJ Administration Ropinirole HCl 4 mg 09/14/21 21:00 09/16/21 20:33 Ropinirole 1 Mg Tablet PO 4 mg BEDTIME RAJ Administration Senna/Docusate Sodium 1 tab 09/15/21 18:00 09/17/21 10:09 Sennosides-Docusate Tablet PO Not Given BID RAJ Sucralfate 1 gm 09/17/21 11:00 09/17/21 11:58 Sucralfate 1 Gm Tablet PO Not Given AC&BEDTIME RAJ Tamsulosin HCl 0.4 mg 09/14/21 09:00 09/17/21 10:09 Tamsulosin 0.4 Mg Capsule PO 0.4 mg DAILY RAJ Administration PFSH Acute PFSH: Medical History Adult-onset Still's disease COVID-19 vaccine administered Edema Elevated PSA High risk medication use Hypertension Immunization counseling Inflammatory arthritis Intermittent fever Joint pain Pain in joints Prostate cancer Stage IVB - T1c, N1, M1a, P>=20, G5 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 Restless leg syndrome Shortness of breath Urinary frequency Surgical History History of cholecystectomy Family History Other Cancer Diabetes Hyperlipidemia Hypertension Rheumatoid arthritis Denies family history of Lupus CAD (coronary artery disease) Clotting disorder Dementia Psychiatric illness Chronic kidney disease (CKD) Suicide Anesthesia complication Bleeding disorder Lung disease Stroke Social History Smoking and tobacco status: former smoker Alcohol intake: former Year of sobriety/quit date alcohol: 11yr History of recent travel: No Vitals/I&O/Wt Last Vital Signs Temp 97.6 F 09/17/21 07:00 Pulse 77 09/17/21 10:00 Resp 14 09/17/21 11:54 BP 161/93 09/17/21 10:00 Pulse Ox 94 09/17/21 11:54 09/17/21 09/17/21 09/17/21 06:59 14:59 22:59 Intake Total 390.072 / 2170.000 208 / 208 0 / 208 Output Total 2400 / 5100 Balance -2009.928 / -2930.000 208 / 208 0 / 208 Weight last 48 hrs Weight 222 lb 9.6 oz Weight 228 lb 1.6 oz Physical Exam Narrative: General : Patient is well developed , no acute distress, oriented x3 Head : Normal cephalic, a-traumatic. Ears : Pinnae and external canal are normal. Hearing is normal. Eyes : PERRLA, Sclera and injection are normal. No conjunctival discharge. Nose : Mucous membranes are without erythema. Throat : buccal mucosa is normal, gums are without significant recession or hypertrophy. Lungs : Equal chest rise bilaterally, no use of accessory muscles, trachea is midline. Cor : Rate and rhythm are normal. Abdomen : Soft, extremely tender left flank, nondistended no g/r/m Extremities : No edema, no cyanosis or clubbing, dorsalis pedis pulses are present bilaterally, non-tender to palpation of calves. Upper extremities are n ormal bilaterally. Back : non-tender to palpation, no CVA tenderness. Neuro : CN II - XII intact, Upper and lower extremities have equal and full strength Urinary Catheter Management: Perez: Cath Placed During This Visit: yes, but has since been removed by the nurse Reason for Continuing Indwelling Catheter: Accurate Measurement of Urinary Output in Critically Ill Patients Urinary Catheter Date of Insertion: 09/14/21 Urinary Catheter Time of Insertion: 09:00 Date Urinary Catheter Removed: 09/17/21 Time Urinary Catheter Discontinued: 06:20 Data : 09/17/21 15:41 09/17/21 15:41 Micro: Microbiology 09/16/21 21:00 Occult Blood (FIT) - Final Stool - Stool Aspirate A&P Assessment and plan (1) Troponin level elevated: Status: Acute (2) Leukocytosis: Status: Acute (3) Thrombocytopenia: Status: Acute (4) Deep vein thrombosis: Status: Acute Qualifiers: DVT location: lower extremity Affected thrombotic vein of extremity: femoral Chronicity: acute Laterality: right Qualified Code(s): I82.411 - Acute embolism and thrombosis of right femoral vein (5) CHF (congestive heart failure): Status: Acute Qualifiers: Heart failure type: diastolic Heart failure chronicity: acute Qualified Code(s): I50.31 - Acute diastolic (congestive) heart failure (6) Pulmonary embolism: Status: Acute Qualifiers: Pulmonary embolism type: unspecified Chronicity: acute Acute cor pulmonale presence: without acute cor pulmonale Qualified Code(s): I26.99 - Other pulmonary embolism without acute cor pulmonale (7) NSTEMI (non-ST elevated myocardial infarction): Status: Acute (8) Anasarca: Status: Acute (9) Community acquired pneumonia: Status: Acute (10) Atrial flutter with rapid ventricular response: Status: Acute (11) Retroperitoneal hematoma: Status: Acute Plan Ideally this patient and possible coiling of a bleeding artery in his retroperitoneum on the left side. I am afraid that if I open the hematoma he will bleed out before definitive treatment. I recommend transfer to a tertiary care center. I discussed the case with medicine. Thank you for this consultation Coding Level of Care Code Acute Mechanical Developer Prover for Erasto Goldberg Diagnoses Troponin level elevated R77.8 Leukocytosis D72.829 Thrombocytopenia D69.6 Deep vein thrombosis I82.411 DVT location: lower extremity Affected thrombotic vein of extremity: femoral Chronicity: acute Laterality: right CHF (congestive heart failure) I50.31 Heart failure type: diastolic Heart failure chronicity: acute Pulmonary embolism I26.99 Pulmonary embolism type: unspecified Chronicity: acute Acute cor pulmonale presence: without acute cor pulmonale NSTEMI (non-ST elevated myocardial infarction) I21.4 Anasarca R60.1 Community acquired pneumonia J18.9 Atrial flutter with rapid ventricular response I48.92 Retroperitoneal hematoma K66.1
[2021-09-17 17:11] LABS: Partial Thromboplastin Time 61.5 SECONDS (23.9-36.7)
--- NOTE | 2021-09-17 17:41 | P.TS_ITS ---
Transfer Summary Providers Date of Admission: 09/14/21 00:34 Date of Discharge/Transfer: 09/18/21 Attending Provider at Admission: Katia Cox MD Attending Provider at Transfer: Fredi Hui MD Consults: Cardiology:: Dr. Kidd Surgery: Dr. Jim Primary Care Provider: Glenn Dyer MD Transfer Plans: Anticipated date of transfer: 09/18/21 . Receiving Facility: [facility] . Receiving Provider: Dr. Roche . Diagnoses at Discharge Discharge Diagnosis (1) Troponin level elevated: Status: Acute (2) Leukocytosis: Status: Acute (3) Thrombocytopenia: Status: Acute (4) Deep vein thrombosis: Status: Acute Qualifiers: Affected thrombotic vein of extremity: femoral Chronicity: acute DVT location: lower extremity Laterality: right Qualified Code(s): I82.411 - Acute embolism and thrombosis of right femoral vein (5) CHF (congestive heart failure): Status: Acute Qualifiers: Heart failure chronicity: acute Heart failure type: diastolic Qualified Code(s): I50.31 - Acute diastolic (congestive) heart failure (6) Pulmonary embolism: Status: Acute Qualifiers: Acute cor pulmonale presence: without acute cor pulmonale Chronicity: acute Pulmonary embolism type: unspecified Qualified Code(s): I26.99 - Other pulmonary embolism without acute cor pulmonale (7) NSTEMI (non-ST elevated myocardial infarction): Status: Acute (8) Anasarca: Status: Acute (9) Community acquired pneumonia: Status: Acute (10) Atrial flutter with rapid ventricular response: Status: Acute (11) Retroperitoneal hematoma: Status: Acute (12) Venous thrombosis: Status: Acute Reason for Visit Reason for Visit SOB/Cancer PT Brief History: History as per HPI: Jose Manuel Hogan is a 60 year old male with metastatic prostate cancer, currently on chemotherapy with Taxotere presenting to the emergency room today with chief complains of increasing anasarca over the past week.? Patient states he has been noticing increased lower extremity and generalized swelling to the point where this morning he was unable to open his eyelids.? He states he has had on and off swelling for the past few weeks for which he takes Lasix however this does not appear to have made a significant difference.? He complains additionally of palpitations upon presentation to the ER was found to be in atrial fibrillation with RVR for which she is currently on amiodarone infusion.? He has a family history of hypertrophic cardiomyopathy and his sister and has had prophylactic placement of an ICD earlier this year in [place].? Since yesterday he is also describing sensation of chest tightness and pleuritic type chest pain made worse on deep breathing.? He has a new oxygen requirement of 3 L/min on nasal cannula.? He was noted to be febrile this morning with T-max 100.2 when he went in for his oncology visit.? He has had rhinorrhea over the past 7 to 10 days and a mild cough. 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 He has been taking 30 mg of p.o. prednisone daily, recently tapering down to prednisone 10 mg daily at least over the past 4 to 5 weeks for his arthritis.? He had a port placed in June 2021 and has not noticed any swelling edema or discharge from the port site.? I did draw his attention to small scab located a few centimeters away from his port site, patient was unaware of the same. Diagnostics in the ER were notable for EKG with A. fib with RVR,leukocytosis, elevated D-dimer, lower extremity Duplex with superficial venous thrombosis, and an increasing troponin trend.? Chest x-ray shows right middle lobe infiltrate. Hospital Course Hospital Course Patient admitted to the hospital for further evaluation and management. At start he was admitted to the ICU. He was started on broad-spectrum antibiotics for concerns of pneumonia. On admission patient was in atrial fibrillation with rapid ventricular response, hypoxic respiratory distress which is thought to be secondary to possible pneumonia, congestive heart failure and possible PE. CTA could not be done because of history of anaphylaxis to contrast study. On admission lower limb Dopplers were done which are consistent for saphenofemoral junction thrombosis. He was started on anticoagulation with heparin because of low platelet count. He was aggressively IV diuresed even after multiple medication changes he continued to be in RVR. Cardiology was consulted and he eventually underwent electrocardioversion on 09/15. Patient tolerated the procedure well. VQ scan was done which was high probability for right sided pulmonary embolism without cardiac strain but with the possibility of pulmonary infarct. He was back in normal sinus rhythm post cardioversion and was constantly improving till 09/16 when he developed anemia for which he required treatment of blood transfusion. Patient responded to transfusion well. Patient did not have any episode of melena though stool for occult blood was positive. Given need of anticoagulation secondary pulmonary embolism, DVT and recent cardioversion he was closely monitored while being on heparin. On 09/17 patient developed vomiting along with abdominal pain. Lactate was done which was within normal limits which ruled out ischemic bowel. Patient developed hypotension for which she required IV boluses and 2 more blood transfusion. Given life- threatening condition he underwent CT after premedication which showed patient to have large left acute subcapsular perirenal hematoma with evidence of active hemorrhage. Perirenal hematoma was measuring 4.9 x 4.7 x 11.8 extended into left lower pelvis and compressing the left kidney parenchyma. Surgery was consulted who recommended patient to be transferred to a tertiary center for possibility of coiling. Given the patient was in shock heparin was reversed with protamine. During the whole process family was updated regularly. Possibility of transfer were discussed in detail with the patient and family and they were agreeable. Multiple places were contacted for possible ICU to ICU transfer. Patient was eventually accepted at [facility] by Dr. Roche. He is transferred in hemodynamically stable condition on minimal dose of Levophed 5-second blood transfusion is going along with IV fluids via Air-Evac. Physical Exam Narrative: General: No acute distress, AO x3, cold not clammy on levophed of 2 HEENT: PERRLA, pupils bilaterally equal and reactive Chest: Normal vesicular breath sounds, no added sounds, equal good air entry bilaterally, coarse crackles present on right side of chest CVS: S1-S2 regular, no murmurs, no tachycardia, no gallops, no rubs Abdomen: Soft, tender to palpation on left upper and middle quadrant, slight renal angle tenderness, no organomegaly, bowel sounds present Neuro: No focal deficits, no facial deformity, AO x3, power 5/5 in all limbs Urinary Catheter Management: Perez: Cath Placed During This Visit: yes, but has since been removed by the nurse Reason for Continuing Indwelling Catheter: Accurate Measurement of Urinary Output in Critically Ill Patients Urinary Catheter Date of Insertion: 09/14/21 Urinary Catheter Time of Insertion: 09:00 Date Urinary Catheter Removed: 09/17/21 Time Urinary Catheter Discontinued: 06:20 TS Data Studies Completed and Pending Pending at discharge Category Date Time Status Blood Culture Stat Lab 09/13/21 22:03 Results Complete Blood Count w/Auto AM LABS Lab 09/18/21 04:00 Ordered Comprehensive Metabolic Panel AM LABS Lab 09/18/21 04:00 Ordered Fungitell Glucan Assay (Blood) AM LABS Lab 09/14/21 04:00 Received Leukocyte Reduced RBC Stat Lab 09/16/21 09:09 Results Platelet Count Q2D Lab 09/18/21 04:00 Ordered Sputum Culture and Gram Stain Stat Lab 09/14/21 14:03 Uncollected Type and Screen Stat Lab 09/16/21 09:09 Results CV. echo transesophageal [id number] Routine Ultrasound 09/15/21 07:00 Taken Labs from last 24 hours 09/17/21 09/17/21 09/17/21 15:41 15:41 15:41 WBC 14.8 H RBC 2.75 L Hgb 8.8 L Hct 25.7 L MCV 93.5 MCH 32.0 MCHC 34.2 RDW 16.9 H Plt Count 123 L MPV 8.9 Neut % (Auto) 89.3 Lymph % (Auto) 4.6 [place] % (Auto) 4.2 Eos % (Auto) 0.0 Baso % (Auto) 0.3 Neut # (Auto) 13.24 H Lymph # (Auto) 0.7 L [place] # (Auto) 0.6 Eos # (Auto) 0.0 Baso # (Auto) 0.0 Nucleated RBC % (auto) 0.5 Nucleated RBCs # 0.1 APTT Sodium 138 Potassium 3.4 L Chloride 102 Carbon Dioxide 28 Anion Gap 11.4 BUN 29 H Creatinine 1.2 GFR Calculation 61.6 L Glucose 179 H POC Glucose Calculated Osmolality 296 H Lactic Acid Lactate 2.2 Calcium 7.6 L Magnesium Total Bilirubin 1.0 AST 99 H ALT 84 H Alkaline Phosphatase 119 Total Protein 4.6 L Albumin 2.8 L Globulin 1.8 Lipase Digoxin Blood Type Rho(D) Type Antibody Screen Crossmatch 09/17/21 09/17/21 09/17/21 15:41 11:45 11:35 WBC RBC Hgb Hct MCV MCH MCHC RDW Plt Count MPV Neut % (Auto) Lymph % (Auto) [place] % (Auto) Eos % (Auto) Baso % (Auto) Neut # (Auto) Lymph # (Auto) [place] # (Auto) Eos # (Auto) Baso # (Auto) Nucleated RBC % (auto) Nucleated RBCs # APTT 61.5 H 52.6 H Sodium Potassium Chloride Carbon Dioxide Anion Gap BUN Creatinine GFR Calculation Glucose POC Glucose Calculated Osmolality Lactic Acid 1.1 Lactate Calcium Magnesium Total Bilirubin AST ALT Alkaline Phosphatase Total Protein Albumin Globulin Lipase Digoxin Blood Type Rho(D) Type Antibody Screen Crossmatch 09/17/21 09/17/21 09/17/21 11:33 07:20 05:02 WBC RBC Hgb Hct MCV MCH MCHC RDW Plt Count MPV Neut % (Auto) Lymph % (Auto) [place] % (Auto) Eos % (Auto) Baso % (Auto) Neut # (Auto) Lymph # (Auto) [place] # (Auto) Eos # (Auto) Baso # (Auto) Nucleated RBC % (auto) Nucleated RBCs # APTT Sodium Potassium Chloride Carbon Dioxide Anion Gap BUN Creatinine GFR Calculation Glucose POC Glucose 183 H 174 H Calculated Osmolality Lactic Acid Lactate Calcium Magnesium Total Bilirubin AST ALT Alkaline Phosphatase Total Protein Albumin Globulin Lipase Digoxin 0.8 Blood Type Rho(D) Type Antibody Screen Crossmatch 09/17/21 09/17/21 09/17/21 05:02 05:02 05:02 WBC RBC Hgb Hct MCV MCH MCHC RDW Plt Count MPV Neut % (Auto) Lymph % (Auto) [place] % (Auto) Eos % (Auto) Baso % (Auto) Neut # (Auto) Lymph # (Auto) [place] # (Auto) Eos # (Auto) Baso # (Auto) Nucleated RBC % (auto) Nucleated RBCs # APTT 53.7 H Sodium 141 Potassium 3.2 L Chloride 100 Carbon Dioxide 34 H Anion Gap 10.2 BUN 23 Creatinine 0.9 GFR Calculation 85.8 L Glucose 163 H POC Glucose Calculated Osmolality 299 H Lactic Acid Lactate Calcium 8.7 Magnesium 1.9 Total Bilirubin 1.2 AST 35 ALT 38 Alkaline Phosphatase 126 Total Protein 5.0 L Albumin 3.3 L Globulin 1.7 Lipase 27 Digoxin Blood Type Rho(D) Type Antibody Screen Crossmatch 09/17/21 09/16/21 09/16/21 05:02 22:34 20:36 WBC 13.0 H RBC 3.12 L Hgb 9.9 L Hct 28.5 L MCV 91.3 MCH 31.7 MCHC 34.7 D RDW 16.5 H Plt Count 115 L MPV 9.0 Neut % (Auto) 90.0 Lymph % (Auto) 4.3 [place] % (Auto) 3.9 Eos % (Auto) 0.0 Baso % (Auto) 0.3 Neut # (Auto) 11.72 H Lymph # (Auto) 0.6 L [place] # (Auto) 0.5 Eos # (Auto) 0.0 Baso # (Auto) 0.0 Nucleated RBC % (auto) 0.4 Nucleated RBCs # 0.1 APTT 87.6 H D Sodium Potassium Chloride Carbon Dioxide Anion Gap BUN Creatinine GFR Calculation Glucose POC Glucose 267 H Calculated Osmolality Lactic Acid Lactate Calcium Magnesium Total Bilirubin AST ALT Alkaline Phosphatase Total Protein Albumin Globulin Lipase Digoxin Blood Type Rho(D) Type Antibody Screen Crossmatch 09/16/21 09:09 WBC RBC Hgb Hct MCV MCH MCHC RDW Plt Count MPV Neut % (Auto) Lymph % (Auto) [place] % (Auto) Eos % (Auto) Baso % (Auto) Neut # (Auto) Lymph # (Auto) [place] # (Auto) Eos # (Auto) Baso # (Auto) Nucleated RBC % (auto) Nucleated RBCs # APTT Sodium Potassium Chloride Carbon Dioxide Anion Gap BUN Creatinine GFR Calculation Glucose POC Glucose Calculated Osmolality Lactic Acid Lactate Calcium Magnesium Total Bilirubin AST ALT Alkaline Phosphatase Total Protein Albumin Globulin Lipase Digoxin Blood Type O Positive Rho(D) Type Positive Antibody Screen Negative Crossmatch See Detail Completed Studies During Hospitalization Category Date Time Status CT chest wo con [id number] Routine Cat Scan 09/15/21 12:30 Completed CTA abdomen pelvis [CT angio abdomen pelvis [id number]] Stat Cat Scan 09/17/21 16:08 Completed XR chest 1V portable [id number] Stat Exams 09/13/21 19:11 Completed NM pul vent and perfus* [id number] Routine Nuc Med 09/16/21 07:00 Completed US abdomen complete* [id number] Routine Ultrasound 09/17/21 15:34 Completed US venous duplex lower extremity bilat [CV venous Ultrasound 09/13/21 19:36 [place] [id number]] Urgent Laboratory Last Values WBC 14.8 10^3/uL (4.0-10.0) H 09/17/21 15:41 RBC 2.75 10^6/uL (4.1-5.3) L 09/17/21 15:41 Hgb 8.8 g/dL (11.7-16.6) L 09/17/21 15:41 Hct 25.7 % (42.0-52.0) L 09/17/21 15:41 MCV 93.5 fl (80-94) 09/17/21 15:41 MCH 32.0 pg (28.0-34.0) 09/17/21 15:41 MCHC 34.2 g/dL (30.0-36.0) 09/17/21 15:41 RDW 16.9 % (12.1-15.1) H 09/17/21 15:41 Plt Count 123 10^3/cmm (130-400) L 09/17/21 15:41 MPV 8.9 fL (7.4-10.4) 09/17/21 15:41 Neut % (Auto) 89.3 % 09/17/21 15:41 Lymph % (Auto) 4.6 % 09/17/21 15:41 [place] % (Auto) 4.2 % 09/17/21 15:41 Eos % (Auto) 0.0 % 09/17/21 15:41 Baso % (Auto) 0.3 % 09/17/21 15:41 Neut # (Auto) 13.24 10^3/uL (1.8-7.7) H 09/17/21 15:41 Lymph # (Auto) 0.7 10^3/uL (0.8-4.8) L 09/17/21 15:41 [place] # (Auto) 0.6 10^3/uL (0.2-0.9) 09/17/21 15:41 Eos # (Auto) 0.0 10^3/uL (0.0-0.8) 09/17/21 15:41 Baso # (Auto) 0.0 10^3/uL (0.0-0.1) 09/17/21 15: Nucleated RBC % (auto) 0.5 % 09/17/21: Nucleated RBCs # 0.1 /100WBC 09/17/21 15:41 PT 15.70 SECONDS (12.1-14.9) H 09/14/21 07:53 INR 1.22 (0.8-1.2) H 09/14/21 07:53 APTT 61.5 SECONDS (23.9-36.7) H 09/17/21 15:41 Fibrinogen 532 mg/dL (174-498) H 09/14/21 07:53 Fibrin Degrad Products Neg, <10 ug/mL (NEG) 09/14/21 07:53 D-Dimer 3.12 ug/mIFEU (0-0.59) H 09/14/21 07:53 Sodium 138 mmol/L (136-145) 09/17/21 15:41 Potassium 3.4 mmol/L (3.5-5.1) L 09/17/21 15:41 Chloride 102 mmol/L (98-107) 09/17/21 15:41 Carbon Dioxide 28 mmol/L (22-29) 09/17/21 15:41 Anion Gap 11.4 (5-19) 09/17/21 15:41 BUN 29 mg/dL (8-23) H 09/17/21 15:41 Creatinine 1.2 mg/dL (0.7-1.2) 09/17/21 15:41 GFR Calculation 61.6 mL/min (90-130) L 09/17/21 15:41 Glucose 179 mg/dL (65-115) H 09/17/21 15:41 POC Glucose 183 mg/dL (70-110) H 09/17/21 11:33 Estimat Average Glucose 174 09/15/21 00:35 Hemoglobin A1c 7.7 % (4.0-6.0) H 09/15/21 00:35 Calculated Osmolality 296 mOsm/kg (285-295) H 09/17/21 15:41 Lactic Acid 1.1 mmol/L (0.5-2.2) 09/17/21 11:45 Lactate 2.2 mmol/L (0.5-2.2) 09/17/21 15:41 Calcium 7.6 mg/dL (8.5-10.5) L 09/17/21 15:41 Magnesium 1.9 mg/dL (1.7-2.3) 09/17/21 05:02 Iron 43 ug/dL (59-158) L 09/14/21 01:38 TIBC 236 mcg/dl 09/14/21 01:38 % Saturation 18.2 % (20-50) L 09/14/21 01:38 Unsat Iron Binding 193 ug/dL (112-347) 09/14/21 01:38 Total Bilirubin 1.0 mg/dL (0.15-1.2) 09/17/21 15:41 AST 99 U/L (0-40) H 09/17/21 15:41 ALT 84 U/L (0-41) H 09/17/21 15:41 Alkaline Phosphatase 119 IU/L (40-130) 09/17/21 15:41 Troponin T Gen 5 ng/L 80 ng/L (0-15) H 09/15/21 00:35 Troponin T Baseline 91 ng/L (0-15) H 09/13/21 19:50 Troponin T 120 Minute 139.1 ng/L (0-15) H 09/13/21 22:00 Delta Troponin T 48.1 ABS# (0-10) H* 09/13/21 22:00 Troponin T Hi Sens 6Hr 145.3 ng/L (0-15) H 09/14/21 01:38 Troponin T Hi Sens 6Hr Delta 54.3 ng/L (0-12) H* 09/14/21 01:38 NT-Pro-B Natriuret Pep 1913 pg/mL (0-125) H 09/14/21 01:38 Total Protein 4.6 g/dL (6.6-8.7) L 09/17/21 15:41 Albumin 2.8 g/dL (3.5-5.2) L 09/17/21 15:41 Globulin 1.8 g/dL (1.3-4.6) 09/17/21 15:41 Triglycerides 167 mg/dL (0-150) H 09/14/21 01:38 Cholesterol 197 mg/dL (0-200) 09/14/21 01:38 LDL Cholesterol, Calc 132 mg/dL (50-129) H 09/14/21 01:38 HDL Cholesterol 32 mg/dL (60-100) L 09/14/21 01:38 LDL/HDL Ratio 4.13 RATIO (0.00-3.22) H 09/14/21 01:38 Cholesterol/HDL Ratio 6.16 mg/dL (1.0-5.00) H 09/14/21 01:38 Lipase 27 U/L (13-60) 09/17/21 05:02 Procalcitonin 0.16 ng/mL (0-0.5) 09/14/21 01:38 TSH 2.59 uIU/mL (0.27-4.20) 09/14/21 01:38 Urine Color Yellow (Yellow) 09/14/21 10:29 Urine Appearance Clear (CLEAR) 09/14/21 10:29 Urine pH 6 (5-7) 09/14/21 10:29 Ur Specific [place] 1.010 (1.005-1.030) 09/14/21 10:29 Urine Protein Neg (Negative) 09/14/21 10:29 Urine Glucose (UA) Norm (Normal) 09/14/21 10:29 Urine Ketones Negative (Negative) 09/14/21 10:29 Urine Blood Neg (Negative) 09/14/21 10:29 Urine Nitrate Negative (Negative) 09/14/21 10:29 Urine Bilirubin Neg (Negative) 09/14/21 10:29 Urine Urobilinogen Norm mg/dL (Negative) 09/14/21 10:29 Ur Leukocyte Esterase Negative (Negative) 09/14/21 10:29 Vancomycin Trough 19.2 ug/mL (10-15) H 09/15/21 21:30 Digoxin 0.8 ng/mL (0.6-1.2) 09/17/21 05:02 SARS-CoV-2 RNA (RT-PCR) Not detected (NOT DETECTED) 09/14/21 14:28 SARS-CoV-2 Ag (Rapid) Negative (Negative) 09/13/21 19:55 Blood Type O Positive 09/16/21 09:09 Rho(D) Type Positive 09/16/21 09:09 Antibody Screen Negative 09/16/21 09:09 Crossmatch See Detail 09/16/21 09:09 Radiology Impressions Chest X-Ray 09/13/21 19:11 IMPRESSION: Unchanged exam with stable airspace opacity in the periphery of the right lung. Venous Duplex 09/13/21 19:36 IMPRESSION: 1. No evidence of deep vein thrombosis either leg. 2. There is thrombus at the right saphenofemoral junction. Chest CT 09/15/21 12:30 IMPRESSION: 1. Pleural-based mass RIGHT upper lobe extends along the fissure with mild bulging across the minor fissure. Significant amount of adjacent parenchymal inflammation. This could be an area of infection due to the extensive adjacent groundglass attenuation within the lung. Small empyema within the differential although is no fluid or air present. Recommend short-term follow-up with antibiotics. Follow-up chest CT imaging recommended in 4-6 weeks. Please note this pleural-based mass was not present on the PET/CT of 02/01/2021. 2. There are additional scattered groundglass nodules which are slightly spiculated. 3. Bibasilar areas of atelectasis. 4. No adenopathy. Pulmonary Perfusion Imaging 09/16/21 07:00 IMPRESSION: High probability for pulmonary embolism. Matched defect in the periphery of the mid RIGHT lung corresponds to an area of pulmonary infarction with localized edema and hemorrhage as also noted on a recent CT. Abdomen Ultrasound 09/17/21 15:34 IMPRESSION: Limited examination due to patient's pain. 1. Lobulated heterogeneous echogenic collection in the LEFT upper quadrant with mass effect on the LEFT kidney and adjacent spleen. LEFT kidney not well visualized. Findings suspicious for intra-abdominal hematoma measuring 12.3 x 7.2 CM. 2. Liver is normal in appearance. 3. Gallbladder is not visualized and may have been previously resected. Notified Fredi Hui MD at 09/17/2021 4:23 PM. Abdomen/Pelvis CTA 09/17/21 16:08 IMPRESSION: 1. Large LEFT acute subcapsular perirenal hematoma with evidence of active hemorrhage. Perirenal hematoma measures approximately 4.9 x 4.7 x 11.8 cm 2. Hemorrhagic blood products extend into the retroperitoneum and LEFT lower pelvis. Retroperitoneal hematoma measures approximately 13.7 x 6.1 cm 3. Subcapsular hematoma results in compression of the LEFT kidney parenchyma. 4. LEFT upper pole renal lesion suspected to be source of hemorrhage with small areas of contrast extravasation.. 5. Normal caliber abdominal aorta. Celiac and SMA are patent. Renal arteries are patent. 6. No other acute findings. Message LEFT for Fredi Hui MD at 09/17/2021 5:00PM. Discussed with Dr. Jim at 4:55 PM Recent Clincial Data Last Vital Signs Temp 97.6 F 09/17/21 07:00 Pulse 77 09/17/21 10:00 Resp 32 H 09/17/21 16:05 BP 161/93 09/17/21 10:00 Pulse Ox 94 09/17/21 11:54 Vital Signs Temp Pulse Resp BP Pulse Ox 09/17/21 16:05 32 H 09/17/21 11:54 14 94 09/17/21 10:00 77 12 161/93 95 09/17/21 09:00 73 12 133/82 95 09/17/21 08:00 65 13 98/75 94 09/17/21 07:00 97.6 F 73 14 121/74 93 09/17/21 06:51 18 94 09/17/21 06:00 67 14 133/76 Intake & Output/Weight 09/15/21 09/16/21 09/17/21 09/18/21 06:59 06:59 06:59 06:59 Intake Total 1619.896 / 0751.483 6598.578 / 2499.578 2170.000 / 2170.000 1208 / 1208 Output Total 4325 / 4325 950 / 950 5100 / 5100 Balance -2705.104 / -2705.104 1549.578 / 1549.578 -2930.000 / -2930.000 1208 / 1208 Weight 106.186 kg 103.464 kg 100.97 kg Vitals Last Vital Signs Temp 97.6 F 09/17/21 07:00 Pulse 77 09/17/21 10:00 Resp 32 H 09/17/21 16:05 BP 161/93 09/17/21 10:00 Pulse Ox 94 09/17/21 11:54 TS Medications Medications Acetaminophen (Acetaminophen 325 Mg Tablet) 650 mg PO Q6H PRN PRN Reason: MILD PAIN Amiodarone HCl (Amiodarone 200 Mg Tablet) 400 mg PO BID [facility] Last Admin: 09/17/21 10:08 Dose: 400 mg Documented by: Aspirin (Aspirin 81 Mg Ec Tablet) 81 mg PO DAILY [facility] Last Admin: 09/17/21 10:08 Dose: 81 mg Documented by: Atorvastatin Calcium (Atorvastatin 40 Mg Tablet) 80 mg PO BEDTIME [facility] Last Admin: 09/16/21 22:49 Dose: 80 mg Documented by: Bupropion HCl (Bupropion Xl (24 Hr) 300 Mg Tablet) 300 mg PO QAM [facility] Last Admin: 09/17/21 05:26 Dose: 300 mg Documented by: Dextrose (Dextrose 50% Syringe 50 Ml) 25 ml IVP ONCE PRN; Protocol PRN Reason: hypoglycemia protocol Dextrose (Dextrose 50% Syringe 50 Ml) 50 ml IVP PRN PRN; Protocol PRN Reason: hypoglycemia protocol Doxycycline Monohydrate (Doxycycline 100 Mg Tablet) 100 mg PO BID RAJ; Protocol Furosemide (Furosemide 40 Mg Tablet) 40 mg PO BID@08,16 [facility] Last Admin: 09/17/21 17:27 Dose: Not Given Documented by: Glucagon (Glucagon 1 Mg/Ml Inj 1 Ml) 1 mg IM ONCE PRN; Protocol PRN Reason: Adult Acute Hypoglycemia Prot. Heparin Sodium (Porcine) (Heparin 5,000 Unit/Ml Inj 1 Ml) 0 unit IV PRN PRN; Protocol PRN Reason: Heparin weight-base protocol Last Admin: 09/17/21 12:16 Dose: 2,100 unit Documented by: Hydromorphone HCl (Hydromorphone 1 Mg/Ml Inj 1 Ml) 0.5 mg IVP Q4H PRN PRN Reason: pain scale 6-10 Last Admin: 09/17/21 15:50 Dose: 0.5 mg Documented by: Heparin Sodium/Sodium Chloride (Heparin Drip) 25,000 unit in 500 mls @ 0 mls/hr IV .Q0M RAJ; Protocol Last Titration: 09/17/21 05:45 Dose: Infused Documented by: Dextrose (D5w) 500 mls @ 100 mls/hr IV ONCE PRN; Protocol PRN Reason: Adult Acute Hypoglycemia Prot Lidocaine HCl 5 ml/ Potassium (Chloride) 105 mls @ 25 mls/hr IV ONCE ONE Stop: 09/17/21 18:41 Last Admin: 09/17/21 15:09 Dose: 25 mls/hr Documented by: Norepinephrine Bitartrate 4 mg (/ Dextrose) 254 mls @ 0 mls/hr IV .Q0M RAJ; Protocol Last Admin: 09/17/21 17:33 Dose: 2 mcg/min, 7.62 mls/hr Documented by: Sodium Chloride (Sodium Chloride 0.9%) 1,000 mls @ 999 mls/hr IV .Q1H1M RAJ Stop: 09/17/21 17:45 Last Infusion: 09/17/21 16:30 Dose: Infused Documented by: Insulin Human Lispro (Insulin Lispro 100 Unit/1 Ml) 0 unit SUBCUT Q6H RAJ; Protocol Ipratropium [place] (Ipratropium 0.5 Mg/2.5 Ml Neb) 0.5 mg INHALATION Q4H.RESPIRATORY PRN PRN Reason: SHORTNESS OF BREATH Levalbuterol HCl (Levalbuterol 1.25 Mg/3 Ml Neb) 1.25 mg INHALATION Q4H.RESPIRATORY PRN PRN Reason: SHORTNESS OF BREATH Levofloxacin (Levofloxacin 500 Mg Tablet) 500 mg PO DAILY@0600 [facility]; Protocol Stop: 09/20/21 05:59 Last Admin: 09/17/21 10:08 Dose: 500 mg Documented by: Magnesium Hydroxide (Magnesium Hydroxide 30 Ml Udc) 15 ml PO BEDTIME PRN PRN Reason: CONSTIPATION Methylprednisolone Sodium Succinate (Methylprednisolone Sod Succ 40 Mg/Ml Inj) 15 mg IVP DAILY [facility] Last Admin: 09/17/21 08:22 Dose: 15 mg Documented by: Metoclopramide HCl (Metoclopramide 5 Mg/Ml Sdv 2 Ml) 5 mg IVP Q6H PRN PRN Reason: NAUSEA AND VOMITING Last Admin: 09/17/21 14:45 Dose: 5 mg Documented by: Metoprolol Tartrate (Metoprolol Tartrate 1 Mg/1 Ml Sdv 5 Ml) 5 mg IVP Q4H PRN PRN Reason: hr more than 110 bpm Last Admin: 09/17/21 12:33 Dose: 5 mg Documented by: Metoprolol Tartrate (Metoprolol Tartrate 50 Mg Tablet) 50 mg PO BID@0900,2100 [facility] Morphine Sulfate (Morphine 4 Mg/Ml Sdv 1 Ml) 2 mg IVP Q4H PRN PRN Reason: SEVERE PAIN Last Admin: 09/17/21 11:54 Dose: 2 mg Documented by: Ondansetron HCl (Ondansetron 2 Mg/Ml Sdv 2 Ml) 4 mg IVP Q8H PRN PRN Reason: NAUSEA AND VOMITING Last Admin: 09/17/21 02:34 Dose: 4 mg Documented by: Oxycodone HCl (Oxycodone 5 Mg Ir Tab/Cap) 10 mg PO Q6H PRN PRN Reason: pain Last Admin: 09/17/21 06:51 Dose: 10 mg Documented by: Pantoprazole Sodium (Pantoprazole 40 Mg Sdv) 40 mg IVP Q12H [facility] Last Admin: 09/17/21 10:09 Dose: 40 mg Documented by: Ropinirole HCl (Ropinirole 1 Mg Tablet) 4 mg PO BEDTIME [facility] Last Admin: 09/16/21 20:33 Dose: 4 mg Documented by: Senna/Docusate Sodium (Sennosides-Docusate Tablet) 1 tab PO BID [facility] Last Admin: 09/17/21 10:09 Dose: Not Given Documented by: Sucralfate (Sucralfate 1 Gm Tablet) 1 gm PO AC&BEDTIME [facility] Last Admin: 09/17/21 11:58 Dose: Not Given Documented by: Tamsulosin HCl (Tamsulosin 0.4 Mg Capsule) 0.4 mg PO DAILY [facility] Last Admin: 09/17/21 10:09 Dose: 0.4 mg Documented by: Discontinued Medications Albuterol/Ipratropium (Ipratropium-Albuterol 3 Ml Neb) 3 ml INHALATION Q4H PRN PRN Reason: SHORTNESS OF BREATH Amiodarone HCl (Amiodarone 50 Mg/Ml Sdv 3 Ml) 150 mg IVP ONCE ONE Stop: 09/13/21 20:02 Last Admin: 09/13/21 20:53 Dose: 150 mg Documented by: Amiodarone HCl (Amiodarone 50 Mg/Ml Sdv 3 Ml) 150 mg IVP ONCE ONE Stop: 09/14/21 09:18 Last Admin: 09/14/21 10:20 Dose: 150 mg Documented by: Amoxicillin/Clavulanate Potassium (Amoxicillin-Clav 875-125 Mg Tablet) 1 tab PO BID [facility]; Protocol Stop: 09/19/21 17:59 Last Admin: 09/17/21 15:24 Dose: Not Given Documented by: Atorvastatin Calcium (Atorvastatin 40 Mg Tablet) 40 mg PO BEDTIME [facility] Last Admin: 09/14/21 20:11 Dose: 40 mg Documented by: Azithromycin (Azithromycin 250 Mg Tablet) 500 mg PO DAILY [facility]; Protocol Stop: 09/17/21 08:59 Last Admin: 09/16/21 08:39 Dose: 500 mg Documented by: Budesonide (Budesonide 0.5 Mg/2 Ml Neb) 0.25 mg INHALATION BID.RESPIRATORY [facility] Last Admin: 09/17/21 11:20 Dose: Not Given Documented by: Carvedilol (Carvedilol 12.5 Mg Tablet) 12.5 mg PO BID [facility] Carvedilol (Carvedilol 6.25 Mg Tablet) 6.25 mg PO BID [facility] Last Admin: 09/17/21 10:09 Dose: 6.25 mg Documented by: Digoxin (Digoxin 250 Mcg/Ml Inj 2 Ml) 250 mcg IVP NOW ONE Stop: 09/14/21 07:01 Last Admin: 09/14/21 07:19 Dose: 250 mcg Documented by: Digoxin (Digoxin 250 Mcg/Ml Inj 2 Ml) 250 mcg IVP NOW ONE Stop: 09/14/21 07:52 Last Admin: 09/14/21 08:17 Dose: 250 mcg Documented by: Digoxin (Digoxin 250 Mcg/Ml Inj 2 Ml) 250 mcg IVP Q6H [facility] Stop: 09/14/21 19:01 Last Admin: 09/14/21 17:39 Dose: 250 mcg Documented by: Diltiazem HCl (Diltiazem 5 Mg/Ml Sdv 5 Ml) 5 mg IVP ONCE ONE Stop: 09/13/21 21:29 Last Admin: 09/13/21 21:43 Dose: 5 mg Documented by: Diltiazem HCl (Diltiazem 5 Mg/Ml Sdv 5 Ml) 10 mg IVP ONCE ONE Stop: 09/14/21 06:48 Last Admin: 09/14/21 07:19 Dose: 10 mg Documented by: Diphenhydramine HCl (Diphenhydramine 50 Mg/Ml Sdv 1ml) 50 mg IVP ONCE ONE Stop: 09/17/21 16:08 Last Admin: 09/17/21 16:30 Dose: 50 mg Documented by: Enoxaparin Sodium (Enoxaparin 100 Mg/Ml Syringe) 100 mg SUBCUT ONCE ONE Stop: 09/13/21 20:55 Last Admin: 09/13/21 21:10 Dose: 100 mg Documented by: Enoxaparin Sodium (Enoxaparin 100 Mg/Ml Syringe) 100 mg SUBCUT Q12H [facility] Furosemide (Furosemide 10 Mg/Ml Sdv 2ml) 20 mg IVP ONCE ONE Stop: 09/14/21 01:26 Last Admin: 09/14/21 01:50 Dose: Not Given Documented by: Furosemide (Furosemide 10 Mg/Ml Sdv 2ml) 20 mg IVP Q12H [facility] Last Admin: 09/14/21 01:50 Dose: 20 mg Documented by: Furosemide (Furosemide 10 Mg/Ml Sdv 4ml) 40 mg IVP BID [facility] Last Admin: 09/15/21 09:18 Dose: Not Given Documented by: Furosemide (Furosemide 10 Mg/Ml Sdv 4ml) 40 mg IVP ONCE PRN PRN Reason: BETWEEN UNITS OF BLOOD Stop: 09/16/21 20:00 Last Admin: 09/16/21 15:39 Dose: 40 mg Documented by: Hydrocortisone Sodium Succinate (Hydrocortisone 100 Mg/2 Ml Sdv) 50 mg IVP ONCE ONE Stop: 09/17/21 16:31 Last Admin: 09/17/21 16:30 Dose: 50 mg Documented by: Hydromorphone HCl (Hydromorphone 1 Mg/Ml Inj 1 Ml) 1 mg IVP ONCE ONE Stop: 09/17/21 16:04 Last Admin: 09/17/21 16:05 Dose: 1 mg Documented by: Sodium Chloride (Sodium Chloride 0.9%) 1,000 mls @ 999 mls/hr IV .Q1H1M ONE Stop: 09/13/21 20:36 Last Infusion: 09/13/21 22:50 Dose: Infused Documented by: Vancomycin HCl 1,000 mg/ (Sodium Chloride) 250 mls @ 250 mls/hr IV ONCE ONE; Protocol Stop: 09/13/21 20:56 Last Admin: 09/13/21 22:40 Dose: 250 mls/hr Documented by: Piperacillin Sod/Tazobactam (Sod 3.375 gm/ Sodium Chloride) 50 mls @ 100 mls/hr IV ONCE ONE; Protocol Stop: 09/13/21 20:26 Last Infusion: 09/13/21 22:50 Dose: Infused Documented by: Amiodarone HCl 900 mg/Dextrose/ IV Miscellaneous Supplies 518 mls @ 0 mls/hr IV .Q0M [facility]; Protocol Last Titration: 09/15/21 11:04 Dose: 0 mg/min, 0 mls/hr Documented by: Sodium Chloride (Sodium Chloride 0.9%) 500 mls @ 999 mls/hr IV .Q31M ONE Stop: 09/13/21 21:49 Last Admin: 09/13/21 21:22 Dose: Not Given Documented by: Sodium Chloride (Sodium Chloride 0.9%) 500 mls @ 999 mls/hr IV .Q31M ONE Stop: 09/13/21 21:49 Last Infusion: 09/13/21 22:50 Dose: Infused Documented by: Piperacillin Sod/Tazobactam (Sod 3.375 gm/ Sodium Chloride) 50 mls @ 12.5 mls/hr IV Q8H [facility]; Protocol Last Infusion: 09/16/21 09:50 Dose: Infused Documented by: Vancomycin HCl 1,500 mg/ (Sodium Chloride) 250 mls @ 166.667 mls/hr IV Q12H [facility] Last Admin: 09/16/21 10:44 Dose: 166.7 mls/hr Documented by: Magnesium Sulfate 1 gm/ Sodium (Chloride) 52 mls @ 104 mls/hr IV ONCE ONE Stop: 09/14/21 08:29 Last Admin: 09/14/21 08:17 Dose: 104 mls/hr Documented by: Albumin Human (Albumin) 25 gm in 100 mls @ 60 mls/hr IV Q8H [facility] Last Infusion: 09/15/21 11:05 Dose: Infused Documented by: Sodium Chloride (Sodium Chloride 0.9%) 500 mls @ 999 mls/hr IV .Q31M ONE Stop: 09/15/21 08:29 Last Admin: 09/15/21 09:23 Dose: 999 mls/hr Documented by: Sodium Chloride (Sodium Chloride 0.9% (100 Ml)) Confirm Administered Dose 100 mls @ as directed .ROUTE .STK-MED ONE Stop: 09/16/21 11:20 Last Admin: 09/16/21 12:59 Dose: 3 mls/hr Documented by: Sodium Chloride (Sodium Chloride 0.9% (100 Ml)) Confirm Administered Dose 100 mls @ as directed .ROUTE .STK-MED ONE Stop: 09/16/21 15:50 Last Admin: 09/16/21 17:04 Dose: 3 mls/hr Documented by: Lidocaine HCl 5 ml/ Potassium (Chloride) 105 mls @ 25 mls/hr IV ONCE ONE Stop: 09/17/21 13:43 Last Infusion: 09/17/21 14:20 Dose: Infused Documented by: Amiodarone HCl 150 mg/Dextrose/ IV Miscellaneous Supplies 103 mls @ 412 mls/hr IV ONCE ONE Stop: 09/17/21 13:37 Last Infusion: 09/17/21 13:45 Dose: Infused Documented by: Magnesium Sulfate 1 gm/ Sodium (Chloride) 52 mls @ 104 mls/hr IV ONCE ONE Stop: 09/17/21 14:59 Last Admin: 09/17/21 15:09 Dose: 104 mls/hr Documented by: Sodium Chloride (Sodium Chloride 0.9% (100 Ml)) Confirm Administered Dose 100 mls @ as directed .ROUTE .STK-MED ONE Stop: 09/17/21 15:47 Last Admin: 09/17/21 17:26 Dose: Not Given Documented by: Sodium Chloride (Sodium Chloride 0.9% (100 Ml)) Confirm Administered Dose 100 mls @ as directed .ROUTE .[facility] ONE Stop: 09/17/21 15:47 Last Admin: 09/17/21 17:27 Dose: Not Given Documented by: Insulin Human Lispro (Insulin Lispro 100 Unit/1 Ml) 0 unit SUBCUT WM&BEDTIME [facility]; Protocol Last Admin: 09/17/21 12:17 Dose: 6 unit Documented by: Iodixanol (Iodixanol 320 Mg/Ml 100ml Btl) 0 ml IV ONCE ONE Stop: 09/17/21 16:45 Last Admin: 09/17/21 16:45 Dose: 95 ml Documented by: Ipratropium [place] (Ipratropium 0.5 Mg/2.5 Ml Neb) 0.5 mg INHALATION TID.RESPIRATORY [facility] Last Admin: 09/17/21 11:19 Dose: Not Given Documented by: Levalbuterol HCl (Levalbuterol 1.25 Mg/3 Ml Neb) 1.25 mg INHALATION Q6H.RESPIRATORY [facility] Last Admin: 09/17/21 11:19 Dose: Not Given Documented by: Methylprednisolone Sodium Succinate (Methylprednisolone Sod Succ 40 Mg/Ml Inj) 30 mg IVP Q12H [facility] Last Admin: 09/15/21 09:23 Dose: 30 mg Documented by: Methylprednisolone Sodium Succinate (Methylprednisolone Sod Succ 40 Mg/Ml Inj) 30 mg IVP DAILY [facility] Last Admin: 09/16/21 08:39 Dose: 30 mg Documented by: Metoprolol Tartrate (Metoprolol Tartrate 1 Mg/1 Ml Sdv 5 Ml) 5 mg IVP ONCE ONE Stop: 09/14/21 02:44 Last Admin: 09/14/21 02:52 Dose: 5 mg Documented by: Metoprolol Tartrate (Metoprolol Tartrate 1 Mg/1 Ml Sdv 5 Ml) 5 mg IVP ONCE ONE Stop: 09/14/21 04:22 Last Admin: 09/14/21 04:28 Dose: 5 mg Documented by: Metoprolol Tartrate (Metoprolol Tartrate 25 Mg Tablet) 25 mg PO BID@0900,2100 [facility] Last Admin: 09/16/21 08:41 Dose: 25 mg Documented by: Ondansetron HCl (Ondansetron 2 Mg/Ml Sdv 2 Ml) 4 mg IVP ONCE ONE Stop: 09/17/21 08:11 Last Admin: 09/17/21 08:22 Dose: 4 mg Documented by: Pantoprazole Sodium (Pantoprazole Dr 40 Mg Tablet) 40 mg PO DAILY [facility] Last Admin: 09/17/21 15:23 Dose: Not Given Documented by: Phenylephrine HCl (Phenylephrine 10 Mg/Ml Sdv 1 Ml) Confirm Administered Dose 10 mg .ROUTE .STK-MED ONE Stop: 09/15/21 07:48 Last Admin: 09/15/21 08:26 Dose: 10 mg Documented by: Potassium Chloride (Potassium Chloride Er 20 Meq Tablet) 40 meq PO Q1H [facility] Stop: 09/16/21 09:46 Last Admin: 09/16/21 10:44 Dose: 40 meq Documented by: Potassium Chloride (Potassium Chloride Er 20 Meq Tablet) 40 meq PO ONCE ONE Stop: 09/17/21 09:33 Last Admin: 09/17/21 10:09 Dose: 40 meq Documented by: Prednisone (Prednisone 10 Mg Tablet) 10 mg PO DAILY [facility] Propofol (Propofol 10 Mg/Ml Sdv 20 Ml) Confirm Administered Dose 400 mg .ROUTE .STK-MED ONE Stop: 09/15/21 08:04 Allergies Iodinated Contrast Media Allergy (Severe, Verified 09/13/21 20:57) ALGY-Swell Lip/Tongue/Throat IV contrast Home Medications bupropion HCl 300 mg 24 hr tablet, extended release 300 mg PO QAM 10/03/19 [History Confirmed 09/13/21] carvedilol 12.5 mg tablet 12.5 mg PO BID 10/03/19 [History Confirmed 09/13/21] potassium 75 mg tablet 75 mg PO DAILY 10/03/19 [History Confirmed 09/13/21] azelastine 137 mcg (0.1 %) nasal spray aerosol 1 spray INTRANASAL BID 10/07/19 [History Confirmed 09/13/21] ropinirole 1 mg tablet 4 mg PO DAILY tab 10/07/19 [History Confirmed 09/13/21] tamsulosin 0.4 mg capsule (Flomax) 0.4 mg PO DAILY 12/17/20 [History Confirmed 09/13/21] prednisone 10 mg tablet See Rx Instructions PO .COMPLEX PRN #30 tab 07/12/21 [Rx Confirmed 09/13/21] leflunomide 20 mg tablet 20 mg PO DAILY #30 tab 07/29/21 [Rx Confirmed 09/13/21] azelastine 0.05 % eye drops 1 drp OPHTHALMIC (EYE) BID #6 ml 08/05/21 [Rx Confirmed 09/13/21] oxycodone 10 mg tablet 10 mg PO Q6H PRN 30 Days #60 tab 09/01/21 [Rx Confirmed 09/13/21] furosemide 40 mg tablet (Lasix) 40 mg PO QAM #30 tab 09/13/21 [Rx Confirmed 09/13/21] levofloxacin 500 mg tablet 500 mg PO DAILY 7 Days #7 tab 09/13/21 [Rx Confirmed 09/13/21] Discharge Plan Discharge Patient Disposition: Xfer Other Condition: Stable Prescriptions: No Action azelastine 137 mcg (0.1 %) aerosol,spray 1 spray INTRANASAL BID 0RF Rx Instructions: administer into each nostril carvedilol 12.5 mg tablet 12.5 mg PO BID 0RF Rx Instructions: must administer with a meal/food bupropion HCl 300 mg tablet extended release 24 hr 300 mg PO QAM 0RF potassium 75 mg tablet 75 mg PO DAILY 0RF ropinirole 1 mg tablet 4 mg PO DAILY 0RF tamsulosin [Flomax] 0.4 mg capsule 0.4 mg PO DAILY 0RF furosemide [Lasix] 40 mg tablet 40 mg PO QAM Qty: 30 0RF levofloxacin 500 mg tablet 500 mg PO DAILY 7 Days Qty: 7 0RF oxycodone 10 mg tablet 10 mg PO Q6H PRN (Reason: pain) 30 Days Qty: 60 0RF prednisone 10 mg tablet See Rx Instructions PO .COMPLEX PRN (Reason: joint pain) Qty: 30 1RF Rx Instructions: 1 tab daily for 5-7 days as needed for a joint pain flare PO PRN; leflunomide 20 mg tablet 20 mg PO DAILY Qty: 30 2RF azelastine 0.05 % drops 1 drp ophthalmic (eye) BID Qty: 6 0RF Discharge Orders: Transfer Out of Facility (Order); Ordered 09/17/21 Ordered By: Fredi Hui Referrals: Glenn Dyer MD [Primary Care Provider] - Patient Instructions: Opioid Safety Transfer Attestations Time Spent in Transfer Care: critical care time (Bleeding shock, anemia requiring blood transfusion, vasopressor, multiple goals of care discussion, discussion with other providers in our hospital and outside with different facilities,) Critical Care Time (min): 120 Specific Discharge Activities: educating patient, educating and/or supporting family/caregiver, discussing with pcp/other providers, documenting/other paperwork and evaluating patient/reviewing data Status at Transfer: Cognitive status at transfer: cognitively intact ; Behavioral status at transfer: cooperative ; Functional status at transfer: independent ambulation ; Overall status at transfer: patient is not back to baseline Quality Metrics Clinical Quality Measures [ Venous Thromboembolism { Contraindication to Overlap Therapy: None; Overlap threrpy ordered; VTE Discharge Education: Education about anticoagulant t herapy/Care Notes given; Deep Vein Thrombosis/Pulmonary Embolism Present on Admission: Yes;}] Coding Level of Care Code Acute Visitor Services Technician for Chg Fwd Diagnoses Troponin level elevated R77.8 Leukocytosis D72.829 Thrombocytopenia D69.6 Deep vein thrombosis I82.411 Affected thrombotic vein of extremity: femoral Chronicity: acute DVT location: lower extremity Laterality: right CHF (congestive heart failure) I50.31 Heart failure chronicity: acute Heart failure type: diastolic Pulmonary embolism I26.99 Acute cor pulmonale presence: without acute cor pulmonale Chronicity: acute Pulmonary embolism type: unspecified NSTEMI (non-ST elevated myocardial infarction) I21.4 Anasarca R60.1 Community acquired pneumonia J18.9 Atrial flutter with rapid ventricular response I48.92 Retroperitoneal hematoma K66.1 Venous thrombosis I82.90
--- NOTE | 2021-09-17 17:49 | ECG_ITS ---
[facility] Test Date: 2021-09-17 Pat Name: Jose Manuel Hogan Department: Room: [facility] Gender: Male Mammal Control Agent: : 1960 Requested By: Fredi Hui Order Number: [id number] Antonia MD: Wilfred Kidd M.D. Measurements Intervals [place] Rate: 62 P: 15 NV: 154 QRS: 5 QRSD: 97 T: 150 QT: 380 QTc: 388 Interpretive Statements SINUS RHYTHM ST DEVIATION AND MODERATE T-WAVE ABNORMALITY, CONSIDER LATERAL ISCHEMIA [-0.1+ mV T-WAVE IN I/aVL/V5/V6] Compared to ECG 09/17/2021 08:22:44 T-wave abnormality now present Possible ischemia now present Left ventricular hypertrophy no longer present ST (T wave) deviation no longer present Electronically Signed On 09-20-2021 17:57:01 CDT by Wilfred Kidd M.D. [id number] f
[2021-09-17 17:53] LABS: Glucose Point of Care 200 mg/dL (70-110)
[2021-09-17] MEDS: protamine 10 mg/mL SDV 5 mL 5 MG IVP (18:04)
[2021-09-17 18:27] LABS: Fungitell 1-3-B Glucan Assay 221 pg/mL; Interpretation POSITIVE
--- NOTE | 2021-09-17 19:36 | PC.NURSE ---
1140 Reported increased ABD pain to Dr. Hui. Patient requesting IV pain medications d/t GI upset. Orders for IV morphine received. 1154 IV morphine administered per order. [address] Hui to report patients elevated heart rate and change in heart rhythm. Reported ABD pain unrelieved with morphine administration. Orders for IV metoprolol and IV dilaudid. 1233 IV metoprolol given per order. Patient vomited and reported that pain had decreased and he would prefer not to take the Dilaudid at this time. Dr. Hui notified. [address] Hui to report continued elevated heart rate despite metoprolol administration. Orders for Amio bolus. 1345 Amio bolus given per protocol. 1350 Reported continued nausea and vomiting to Dr. Hui. Orders for Reglan received. 1445 Reglan given. 1505 Patient crying out in pain. Dr. Hui called to bedside, who discussed plan of care with patient and family. 1530 In room with patient when he became pale and dizzy. Blood pressure low. Patient transferred from chair to bed. Dr. Hui called to bedside. Heparin drip turned off. NS bolus started. Stat ABD ultrasound obtained. Labs drawn. 1545 PRBCs started per order. 1550 Dilaudid given per order. 1605 Pain unrelieved. Orders per Dr. Hui to give an additional dose of Dilaudid. Plan to pre-medicate patient for iodine allergy and transfer to CT for a CTA. 1630 Benadryl and Solu-Cortef given per order. NGT placed per Dr. Hui's order. [address] room for imagining. 1700 Patient back to his room. Dr. Jim at bedside to discussed CTA results with patient and family. Plan to transfer patient to outside hospital for procedure not available at current facility. 1750 Reported called to [facility]. 1830 Patient left with ambulance crew.
== END 2021-09-17 18:30 | disposition short-term general hospital (02) | DRG 871 ==
LOC: ER 21:56 → ICU 23:32
PROVIDERS: Admitting Provider Student in an Organized Health Care Education/Training Program; Emergency Provider Emergency Medicine; PCP Family Medicine; Visit Provider Student in an Organized Health Care Education/Training Program
DX: A41.9 Sepsis, unspecified organism (principal); I21.A1 Myocardial infarction type 2; J18.9 Pneumonia, unspecified organism; I26.99 Other pulmonary embolism without acute cor pulmonale; I50.31 Acute diastolic (congestive) heart failure; J96.01 Acute respiratory failure with hypoxia; K66.1 Hemoperitoneum; I82.411 Acute embolism and thrombosis of right femoral vein; I82.811 Embolism and thrombosis of superficial veins of right lower extremity; I48.92 Unspecified atrial flutter; C77.9 Secondary and unspecified malignant neoplasm of lymph node, unspecified; D62 Acute posthemorrhagic anemia; D84.821 Immunodeficiency due to drugs; T45.1X5A Adverse effect of antineoplastic and immunosuppressive drugs, initial encounter; I11.0 Hypertensive heart disease with heart failure; I95.9 Hypotension, unspecified; I48.91 Unspecified atrial fibrillation; C61 Malignant neoplasm of prostate; M06.1 Adult-onset Still's disease; D69.6 Thrombocytopenia, unspecified; R10.12 Left upper quadrant pain; R11.2 Nausea with vomiting, unspecified; Z82.49 Family history of ischemic heart disease and other diseases of the circulatory system; Z87.891 Personal history of nicotine dependence; Z20.822 Contact with and (suspected) exposure to COVID-19; Z95.810 Presence of automatic (implantable) cardiac defibrillator; Z79.899 Other long term (current) drug therapy; Z79.01 Long term (current) use of anticoagulants; Z79.82 Long term (current) use of aspirin
CPT/HCPCS: 36415; 36416; 36430; 36591; 51702; 71045; 71046; 71250; 74174; 76700; 78014; 80053; 80061; 80162; 80202; 81003; 82274; 82962; 83036; 83540; 83550; 83605; 83690; 83735; 83880; 84145; 84443; 84484; 85014; 85018; 85025; 85049; 85362; 85378; 85384; 85610; 85730; 86403; 86850; 86900; 86920; 87040; 87426; 87449; 87635; 87641; 93005; 93306; 93312; 93320; 93325; 93970; 94640; 94664; 96365; 96366; 96367; 96372; 96375; 99285; A9540; A9567; C9113; J0282; J1160; J1170; J1200; J1644; J1650; J1720; J1815; J1940; J2270; J2370; J2405; J2543; J2704; J2720; J2765; J2920; J3370; J3475; J3480; J3490; J7030; J7040; J7050; J7060; J7614; J7626; J7644; P9016; P9040; P9047; Q0144; Q9967

== ENCOUNTER 2021-10-21 18:25 | Inpatient (IN) | payer OTHER, SELFPAY ==
[2021-10-21 18:26] VITALS: BP 123/78; PULSE 97; RESP 17; TEMP 36.5; O2SAT 100
[2021-10-21 20:00] VITALS: BP 110/73; PULSE 100; RESP 19; TEMP 36.8; O2SAT 98
--- NOTE | 2021-10-21 20:00 | P.HP_ITS ---
Providers/Chief Complaint Admitting Physician: Vadim Santos DO Primary Care Provider: Glenn Dyer MD Chief Complaint: GI Bleed History of Present Illness Jose Manuel Hogan is a 60 year old male with metastatic prostate cancer who originally presented to [facility] early September. He was found to have a pulmonary embolus and he was treated with anticoagulation. After a few days he had abdo felipe pain he was found to have a spontaneous hematoma. It was continuously bleeding and needed to be have intervention. He was transferred to [facility]. He underwent embolization. I am unclear why his stay had to be 30 days. They were attempting to find fdc for skilled care. The family requested transfer back to his hometown. Patient is seen with sister and [id number] at the bedside. Patient is unable to give history. He does not know why he is here. And he is confused. And he answered no to review of systems. Sister and [id number] spoke up and talked about his severe leg pain that he describes. And they have spent nights rubbing his legs for him. Review of Systems General: Reports: ROS unobtainable due to mental status Medications/Allergies Home Medications Medication Instructions Recorded Confirmed Last Taken Type bupropion HCl 300 mg 24 hr tablet, 300 mg PO QAM 10/03/19 09/13/21 09/13/21 History extended release carvedilol 12.5 mg tablet 12.5 mg PO BID 10/03/19 09/13/21 09/13/21 History potassium 75 mg tablet 75 mg PO DAILY 10/03/19 09/13/21 09/13/21 History azelastine 137 mcg (0.1 %) nasal 1 spray intranasal BID 10/07/19 09/13/21 09/13/21 History spray aerosol ropinirole 1 mg tablet 4 mg PO DAILY 10/07/19 09/13/21 09/13/21 History tamsulosin 0.4 mg capsule (Flomax) 0.4 mg PO DAILY 12/17/20 09/13/21 09/13/21 History leflunomide 20 mg tablet 20 mg PO DAILY #30 tabs 07/29/21 09/13/21 09/13/21 Rx azelastine 0.05 % eye drops 1 drp ophthalmic (eye) BID #6 mL 08/05/21 09/13/2109/13/22 Rx oxycodone 10 mg tablet 10 mg PO Q6H PRN pain 30 days #60 09/01/21 09/13/21 09/13/21 Rx tabs furosemide 40 mg tablet (Lasix) 40 mg PO QAM edema #30 tabs 09/13/21 09/13/21 09/13/21 Rx levofloxacin 500 mg tablet 500 mg PO DAILY 7 days #7 tabs 09/13/21 09/13/21 Unknown Rx prednisone 10 mg tablet See Rx Instructions .Route 09/23/21 Unknown Rx .COMPLEX #30 tabs Allergies Allergy/AdvReac Type Severity Reaction Status Date / Time Iodinated Contrast Media Allergy Severe ALGY-Swell Verified 09/13/21 20:57 Lip/Tongue/Throat PFSH Acute PFSH: Medical History (Updated 10/21/21 @ 20:10 by Vadim Santos DO) Adult-onset Still's disease COVID-19 vaccine administered Edema Elevated PSA High risk medication use Hypertension Immunization counseling Inflammatory arthritis Intermittent fever Joint pain Pain in joints Prostate cancer Stage IVB - T1c, N1, M1a, P>=20, G5 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 Restless leg syndrome Shortness of breath Urinary frequency Surgical History History of cholecystectomy Family History Other Cancer Diabetes Hyperlipidemia Hypertension Rheumatoid arthritis Denies family history of Lupus CAD (coronary artery disease) Clotting disorder Dementia Psychiatric illness Chronic kidney disease (CKD) Suicide Anesthesia complication Bleeding disorder Lung disease Stroke Social History Smoking and tobacco status: former smoker Alcohol intake: former Year of sobriety/quit date alcohol: 11yr History of recent travel: No Vitals/I&O/Wt Last Vital Signs Temp 97.7 F 10/21/21 18:26 Pulse 97 10/21/21 18:26 Resp 17 10/21/21 18:26 BP 123/78 10/21/21 18:26 Pulse Ox 100 10/21/21 18:26 O2 Del Method 10/21/21 18:26 O2 Flow Rate 3.5 10/21/21 18:26 Physical Exam Narrative: Patient appears older than his stated age of 60. He is bald from chemotherapy. He is in no acute distress at the time of examination. Neurologic: Patient is shaking. With some head bobbing. Patient is very weak but equal bilaterally. He is able to hold his arms up against gravity for 10 seconds. However patient barely lifts legs off the bed but it is equal. P atjosefina is confused he is not oriented. He knows his name but not the date year location. ENT: Nasal and pharyngeal mucosa is dry extra are auditory canals are patent Eyes pupils equal round reactive to light and accommodation extraocular muscles are intact there is no scleral icterus Chest rises symmetrically with inspiration no abnormality Respiratory clear lungs no wheezes rales or rhonchi Heart normal S1-S2 without murmurs clicks gallops rubs Abdomen obese soft nontender nondistended positive bowel sounds Extremities nonpitting edema of the feet and ankles. He has venous stasis changes on his lower extremities there is a covered blister on his left calf Skin pale warm dry there is ecchymosis over his forearms. And the venous stasis changes noted above Perez in place normal male anatomy Data Other Labs: Reviewed from outside hospital unremarkable. A&P Assessment and plan (1) Prostate cancer metastatic to intrapelvic lymph node: Status: Acute (2) Prostate cancer metastatic to bone: Status: Acute (3) Pulmonary embolism: Status: Acute Qualifiers: Pulmonary embolism type: unspecified Chronicity: acute Acute cor pulmonale presence: without acute cor pulmonale Qualified Code(s): I26.99 - Other pulmonary embolism without acute cor pulmonale (4) CHF (congestive heart failure): Status: Acute Qualifiers: Heart failure type: diastolic Heart failure chronicity: acute Qualifi ed Code(s): I50.31 - Acute diastolic (congestive) heart failure (5) Adult-onset Still's disease: Status: Acute (6) Leg pain: Status: Acute (7) Prostate cancer: Status: Acute Plan Patient is admitted as a social admission. Patient transfers with 20 recent diagnoses of UTI, urinary stroke obstruction, nausea and vomiting, vertigo, poor appetite, anemia, kidney injury, pulmonary emboli, paroxysmal atrial fibrillation, hypertension, retroperitoneal retroperitoneal bleeding, acute on chronic renal failure, hyponatremia, type 2 diabetes with complication, diabetic peripheral neuropathy, protein calorie malnutrition, DVT of right lower extremity, status post IVC filter, prostate cancer metastatic to intrapelvic lymph node, on antineoplastic chemotherapy. I do not see an active problem list he is not currently on antibiotics. When I spoke to the physician transferring the patient who states the patient's biggest problem was loss of appetite not wanting to eat. Currently the concern is with new onset encephalopathy . I had a long conversation with the sister and [id number]. The sister was in tears. They have been with the patient at their at his bedside for the past 35 days and they are exhausted. I strongly advised that they leave the hospital and get some sleep. I explained to them I would be adjusting medications and I think I could keep him calm through the night. I have continued his oxycodone I will be placing him on Seroquel tonight for the confusion and to help with sleep. I will schedule the oxycodone because they are concerned he will not build to ask for it. And actually I may put him on a fentanyl patch or a long- acting long-acting OxyContin. His labs from the other hospital are unremarkable hemoglobin has been stable at 8.5 I will check baseline labs for tomorrow Case management will be consulted for placement. Of note the sister was asking very specific questions. I asked her to look at the big picture. We started with what she understood about the prostate cancer. She did not understand that it was metastatic to the lymph nodes and bone. We talked about the fragility of Kalyan undergoing chemo and the immunosuppression that that causes. I explained to them I would work up the new onset confusion. Attestations Medical Necessity Statement*: Patient with new onset confusion. Work-up to ensue. Coding Level of Care Code Acute Contract Loader for Erasto Goldberg Diagnoses Prostate cancer metastatic to intrapelvic lymph node C61; C77.5 Prostate cancer metastatic to bone C61; C79.51 Pulmonary embolism I26.99 Pulmonary embolism type: unspecified Chronicity: acute Acute cor pulmonale presence: without acute cor pulmonale CHF (congestive heart failure) I50.31 Heart failure type: diastolic Heart failure chronicity: acute Adult-onset Still's disease M06.1 Leg pain M79.606 Prostate cancer C61
[2021-10-21 20:22] VITALS: RESP 18
[2021-10-21] MEDS: oxyCODONE 5 mg IR Tab/Cap 10 MG PO (20:22)
[2021-10-21] MEDS: apixaban 5 mg Tablet PO (20:22)
[2021-10-21] MEDS: ropinirole 2 mg Tablet 4 MG PO (20:22)
[2021-10-21] MEDS: metoclopramide 10 mg Tablet 5 MG PO (20:22)
[2021-10-21] MEDS: LORazepam 1 mg Tablet PO (21:31)
--- NOTE | 2021-10-21 22:50 | PC.NURSE ---
RN contacted Dr. Santos at family request because of discrepencies between medication orders and what patient was taking at [place]. Patient's sister states pt takes oxycodone every 3 hours, ativan every [address] Santos did not order any new medications or make changes to the frequency of current medications because of patient's new onset AMS. Information relayed to family.
[2021-10-21 22:59] VITALS: RESP 18
[2021-10-21] MEDS: oxyCODONE 10 mg ER (12 HR) Tablet PO (22:59)
[2021-10-21] MEDS: quetiapine 25 mg Tablet 50 MG PO (22:59)
[2021-10-22] VITALS (18 sets, daily range): BP systolic 99–132; BP diastolic 63–83; PULSE 89–119; RESP 12–22; TEMP 36.6–37.1; O2SAT 91–100
[2021-10-22] MEDS: oxyCODONE 5 mg IR Tab/Cap 10 MG PO ×3 (00:11→18:04)
--- NOTE | 2021-10-22 01:00 | PC.NURSE ---
Addendum entered by Beth Rose RN 10/22/21 05:09: New orders for patient per Dr. Simmons, including PRN Haldol if patient agitation increases. Original Note: Dr. Simmons contacted at 0050 per patient's family request. Family voiced concerns that patient is much worse than he has ever been. Patient appears confused and does not answer questions appropriately, but does not appear different than start of shift. Dr. Simmons at bedside at 0100
[2021-10-22 02:40] LABS: Basophils # 0.1 10^3/uL (0.0-0.1); Basophils % 1.9 %; Eosinophils # 0.2 10^3/uL (0.0-0.8); Eosinophils % 5.6 %; Hematocrit 21.3 % (42.0-52.0); Hemoglobin 6.7 g/dL (11.7-16.6); Lymphocytes # 1.3 10^3/uL (0.8-4.8); Lymphocytes % 33.6 %; Mean Corpuscular HGB Conc 31.5 g/dL (30.0-36.0); Mean Corpuscular Hemoglobin 29.9 pg (28.0-34.0); Mean Corpuscular Volume 95.1 fl (80-94); Mean Platelet Volume 8.8 fL (7.4-10.4); Monocytes # 0.5 10^3/uL (0.2-0.9); Neutrophils # 1.66 10^3/uL (1.8-7.7); Neutrophils % 44.6 %; Nucleated Red Blood Cells % 0 %; Platelet Count 210 10^3/cmm (130-400); Red Blood Count 2.24 10^6/uL (4.1-5.3); Red Cell Distribution Width 15.6 % (12.1-15.1); White Blood Count 3.7 10^3/uL (4.0-10.0)
[2021-10-22 02:50] LABS: Urine Appearance Clear (CLEAR); Urine Color Yellow (Yellow)
[2021-10-22 02:51] LABS: Bilirubin Urine Neg (Negative); Blood Urine 2+ (Negative); Glucose Urine UA Norm (Normal); Ketones Urine Negative (Negative); Nitrate Urine Negative (Negative); Protein Urine Neg (Negative); Specific Gravity, Urine 1.015 (1.005-1.030); Sulfosalicylic Acid Urine Negative (Negative); Urobilinogen Urine Norm (Negative); pH Urine 8 (5-7)
[2021-10-22 02:52] LABS: Add Urine Microscopic? YES; Bacteria Urine TRACE /hpf; Leukocyte Esterase Urine Trace (Negative); RBC Urine 0-4 /hpf (0-2); Squamous Epithelial Cell Urine 0-4 /hpf (0-5); WBC Urine 0-4 /hpf (0-5)
[2021-10-22 02:53] LABS: Add Urine Culture? No
[2021-10-22 02:58] LABS: Ammonia 18 umol/L (16-60); Lactate (Lactic Acid level) 0.8 mmol/L (0.5-2.2)
[2021-10-22] MEDS: haloperidol inj 5 mg/mL INJ 1 mL 1 MG IM ×2 (03:07→12:35)
[2021-10-22 03:17] LABS: Blood Gas Allen Test Pos; Blood Gas Sample Site Radial, right; Blood Gas Sample Type Arterial
[2021-10-22 03:34] LABS: Alanine Aminotransferase 17 U/L (0-41); Albumin Level 2.3 g/dL (3.5-5.2); Alkaline Phosphatase 114 U/L (40-130); Anion Gap 10.8 (5-19); Aspartate Amino Transferase 14 U/L (0-40); Blood Urea Nitrogen 14 mg/dL (8-23); C Reactive Protein 37.2 mg/L (0.0-4.9); Calcium 7.9 mg/dL (8.5-10.5); Carbon Dioxide 38 mmol/L (22-29); Chloride 93 mmol/L (98-107); Creatine Phosphokinase 116 U/L (39-308); Glomerular Filtration Rate 51.5 mL/min (90-130); Glucose 70 mg/dL (65-115); Magnesium 1.8 mg/dL (1.7-2.3); Osmolality Calculated 287 mOsm/kg (285-295); Phosphorus 2.6 mg/dL (2.5-4.5); Sodium 139 mmol/L (136-145); Total Bilirubin 0.7 mg/dL (0.15-1.2); Total Protein 4.3 g/dL (6.6-8.7)
[2021-10-22 03:40] LABS: Potassium 2.8 mmol/L (3.5-5.1)
[2021-10-22] MEDS: potassium chloride ER 20 mEq Tablet 40 MEQ PO ×2 (04:08→10:14)
[2021-10-22 04:18] LABS: Ferritin 3023 ng/mL (30-400)
[2021-10-22 05:00] LABS: NT Pro B Type Natriuretic Pept 1473 pg/mL (0-125)
[2021-10-22] MEDS: metoclopramide 10 mg Tablet 5 MG PO ×3 (06:00→22:05)
[2021-10-22] MEDS: magnesium sulfate premix 2 GM/50 ML PIGGYBACK IV (06:51)
[2021-10-22] MEDS: cefTRIAXone 1,000 MG in sodium chloride 0.9% (plus) 50 ML 100 MG IV (09:56)
[2021-10-22] MEDS: digoxin 125 mcg Tablet PO (10:14)
[2021-10-22] MEDS: oxyCODONE 10 mg ER (12 HR) Tablet PO ×2 (10:15→18:01)
[2021-10-22] MEDS: predniSONE 10 mg Tablet PO (10:15)
[2021-10-22] MEDS: tamsulosin 0.4 mg Capsule PO (10:15)
[2021-10-22] MEDS: FUROsemide 40 mg Tablet PO (10:15)
[2021-10-22] MEDS: pantoprazole DR 40 mg Tablet PO (10:16)
[2021-10-22] MEDS: pregabalin 25 mg Capsule PO ×2 (10:18→18:03)
--- NOTE | 2021-10-22 10:52 | PC.CHAP ---
Pastoral Care Encounter/Spiritual Assessment Type of Contact [] Declined residential care officer visit [] Patient/Family/Request visit [] Outpatient visit [] Follow-up visit [] Physician referral [] Code/Alert [x] Routine visit [] Staff referral [] Actively dying [] Patient sleeping [] Family support [] [] Out of room [] Palliative care [] [] Receiving care in room [] Pre-surgical visit [] Trauma [] Long length of stay [] ICU visit [] Other: Relational/Emotional Strength [x] Patient feels connected with others/family/visitors/staff [] Distress [] Loneliness/isolation [] Abandonment Spirituality of Patient x[] Person of Pat [] Attends Yazidi of their Pat [x] Believes in Prayer [] Reads Bible or Quaker materials [] There are Spiritual issues to be addressed Drier Attendant Interventions x] Prayer [x]x Active listening x] Non-anxious presence [x] Spiritual/emotional support [] Crisis/trauma care [] Spiritual counseling [] Bereavement support [] Provided bereavement packet [] Provided Bible/devotional materials [] Provided toy/stuffed animal, coloring book to patient or family member [] Provided Communion [] Anointing/Howe [] Salvation [x] Completed spiritual assessment [] Other: Impact on Illness or Injury [] Angry [] Fearful [] Anxious [] Often cries [] Exhaustion [] Unable to work [] Unable to attend congregation [] Unable to walk/stand [] Unable to read [] Unable to drive [] Unable to eat/drink [] Unable to sleep [] Unable to be with family [] Patient intubated [] Other: Summary Time spent with patient 10 min
--- NOTE | 2021-10-22 13:43 | PC.PHAR ---
unable to verify medications-pt was a direct admit that came from [facility]-ext med history shows prednisone 10mg as directed prn 09/23/21 30d/s-lasix 40mg qam filled 09/13/21 30d/s-flomax 0.4mg hs 09/08/21 90d/s-azelastine 0.1% 1 s bid filled 09/08/21 50d/s-temazepam 15 hs prn filled 09/04/21 30d/s-bupropion xl 300mg daily filled 09/02/21 90d/s-oxycodone ir 10mg q6h prn filled 09/01/21 30d/s-dexamethasone 4mg as directed with chemo-ropinirole 4mg hs filled 07/14/21 90d/s-carvedilol 12.5mg bid filled 06/30/21 90d/s-compazine 10mg q4h prn filled 06/29/21 7d/s and lorazepam 1mg tid prn na filled 06/09/21 10d/s-leflunomide 20mg daily filled 06/04/21 90d/s-
[2021-10-22 13:57] LABS: ABG PH Result 7.52 (7.35-7.45); Base Excess ABG 15.8 mmol/L (-2.0-2.0); Blood Gas Operator Identificat WALCI; HCO3 ABG 40.3 mmol/L (22-26); Oxygen Device NC; PO2 ABG 78.3 mmHg (80.0-100.0)
--- NOTE | 2021-10-22 14:32 | PM.PN ---
Subjective Subjective: 24-hour events. Patient and caregiver were able to sleep overnight after the initiation of medications. Unfortunately around 3 AM patient woke up and he was confused delirious. He began to get somewhat combative and Haldol was used. He again went back to sleep and when he woke up he had the same behavior. Note his sister had to go to the emergency room for chest pain/anxiety. When I saw the patient he had received a low-dose Haldol, a security person was with the patient and the patient would only talk to the security person. He describes the pain in his feet as if rabbits are eating his feet. Vitals/I&O/Wt Last Vital Signs Temp 98.2 F 10/22/21 12:00 Pulse 111 H 10/22/21 12:00 Resp 12 10/22/21 12:00 BP 127/77 10/22/21 12:00 Pulse Ox 95 10/22/21 12:00 O2 Del Method 10/22/21 12:00 O2 Flow Rate 3 10/22/21 12:00 10/21/21 10/22/21 10/22/21 22:59 06:59 14:59 Intake Total 60 / 60 Output Total 1250 / 1250 Balance 60 / 60 -1250 / -1190 Physical Exam Narrative: Patient appears older than his stated age of 60. He is bald Shows signs of duress. He is very anxious, he is hallucinating and he is rather aggressive. Patient is confused he is not oriented. He knows his name but not the date year location. He declined by exam only wanting mobile security architect to talk to him. Extremities no change in the appearance of his LE Data : 10/22/21 01:22 10/22/21 01:22 Micro: Microbiology 10/22/21 01:22 Blood Culture - Preliminary Blood SPECIMEN COLLECTED 10/22/21 01:22 Blood Culture - Preliminary Blood SPECIMEN COLLECTED A&P Assessment and plan (1) Prostate cancer metastatic to intrapelvic lymph node: Has been receiving palliative chemotherapy both IV and oral. Status: Acute (2) Prostate cancer metastatic to bone: Mets to ribs. Status: Acute (3) Pulmonary embolism: Anticoagulation on hold due to retroperitoneal bleed need for intervention. And blood products Status: Acute Qualifiers: Pulmonary embolism type: unspecified Chronicity: acute Acute cor pulmonale presence: without acute cor pulmonale Qualified Code(s): I26.99 - Other pulmonary embolism without acute cor pulmonale (4) CHF (congestive heart failure): Appears compensated at this time. Status: Acute Qualifiers: Heart failure type: diastolic Heart failure chronicity: acute Qualified Code(s): I50.31 - Acute diastolic (congestive) heart failure (5) Adult-onset Still's disease: No issues at this time Status: Acute (6) Leg pain: I am concerned that this patient's peripheral neuropathy in his pain syndrome is related to chemotherapy. Unfortunately there are no good agents for the treatment of chemotherapy-induced peripheral neuropathy. I continue to treat aggressively with long-acting OxyContin and oxycodone scheduled. Acupuncture has been hope to help this condition will pursue acupressure points if he allows Status: Acute (7) Prostate cancer: Status: Acute Plan Patient is admitted as a social admission. Patient transfers with 20 recent diagnoses of UTI, urinary obstruction, nausea and vomiting, vertigo, poor appetite, anemia, kidney injury, pulmonary emboli, paroxysmal atrial fibrillation, hypertension, retroperitoneal retroperitoneal bleeding, acute on chronic renal failure, hyponatremia, type 2 diabetes with complication, diabetic peripheral neuropathy, protein calorie malnutrition, DVT of right lower extremity, status post IVC filter, prostate cancer metastatic to intrapelvic lymph node, on antineoplastic chemotherapy. he had completed his course of antibiotics. The UA on admission showed a pH of 82+ blood trace leuk esterase and 0-4 RBCs WBCs and squamous cell. The overnight hospitalist chose to restart Rocephin I will stop this. Do not think the patient has an active UTI. Though most pressing concern is the patient's delirium with aggressive behavior. I talked with pharmacy and nursing will uptitrate Haldol 5 mg q. 20 minutes until the patient is calm with a max dose of the 20 mg. Unfortunately the patient's only family member sister was in the emergency room when I rounded. We will readdress at a later time. Attestations Medical Necessity Statement*: Patient with new onset confusion. Work-up to ensue. Coding Level of Care Code Acute Agricultural Technician for Erasto Goldberg Diagnoses Prostate cancer metastatic to intrapelvic lymph node C61; C77.5 Prostate cancer metastatic to bone C61; C79.51 Pulmonary embolism I26.99 Pulmonary embolism type: unspecified Chronicity: acute Acute cor pulmonale presence: without acute cor pulmonale CHF (congestive heart failure) I50.31 Heart failure type: diastolic Heart failure chronicity: acute Adult-onset Still's disease M06.1 Leg pain M79.606 Prostate cancer C61
[2021-10-22 19:33] LABS: Hematocrit 26.3 % (42.0-52.0); Hemoglobin 8.6 g/dL (11.7-16.6)
[2021-10-22] MEDS: ropinirole 2 mg Tablet 4 MG PO (22:04)
[2021-10-22] MEDS: quetiapine 25 mg Tablet 50 MG PO (22:05)
[2021-10-22] MEDS: haloperidol inj 5 mg/mL INJ 1 mL IM (22:42)
[2021-10-22] MEDS: haloperidol inj 5 mg/mL INJ 1 mL 10 MG IM (23:25)
[2021-10-23] VITALS (100 sets, daily range): BP systolic 81–163; BP diastolic 59–100; PULSE 58–119; RESP 16–20; TEMP 36.5–38.5; O2SAT 85–100
[2021-10-23] MEDS: oxyCODONE 5 mg IR Tab/Cap 10 MG PO (01:15)
[2021-10-23] MEDS: LORazepam 1 mg Tablet PO (01:15)
--- NOTE | 2021-10-23 06:25 | PC.NURSE ---
Pt refusing all morning medications. Attempted to climb out of bed along with removing foams that covered skin tears and wound to buttocks. Patient has attempted multiple times during the night to pull out mcmillan catheter. Haldol was administered twice this shift with no results. Ativan PO was given per MD request and patient rested for approximately 2 hours earlier in shift. Currently laying in bed conversating with 1:1 sitter.
[2021-10-23] MEDS: haloperidol inj 5 mg/mL INJ 1 mL IM (07:46)
[2021-10-23] MEDS: ziprasidone 20 mg/mL SDV IM (11:39)
[2021-10-23 12:37] LABS: ABG PCO2 35.8 mmHg (35-45); Arterial Blood Gas Hematocrit 29.8 % (42-52); Base Excess ABG 11.6 mmol/L (-2.0-2.0); Blood Gas Allen Test Pos; Blood Gas Operator Identificat BD; Blood Gas Sample Site Brachial, right; Blood Gas Sample Type Arterial; HCO3 ABG 34.1 mmol/L (22-26); Oxygen Device ROOM AIR; PO2 ABG 48.3 mmHg (80.0-100.0)
[2021-10-23 12:38] LABS: ABG PH Result 7.59 (7.35-7.45)
[2021-10-23 12:39] LABS: Basophils # 0.1 10^3/uL (0.0-0.1); Basophils % 1.4 %; Eosinophils # 0.2 10^3/uL (0.0-0.8); Eosinophils % 2.7 %; Hemoglobin 9.4 g/dL (11.7-16.6); Lymphocytes # 2.7 10^3/uL (0.8-4.8); Lymphocytes % 35.5 %; Mean Corpuscular HGB Conc 32.4 g/dL (30.0-36.0); Mean Corpuscular Hemoglobin 30.3 pg (28.0-34.0); Mean Corpuscular Volume 93.5 fl (80-94); Mean Platelet Volume 8.6 fL (7.4-10.4); Monocytes # 0.9 10^3/uL (0.2-0.9); Monocytes % 11.6 %; Neutrophils # 3.69 10^3/uL (1.8-7.7); Neutrophils % 48.1 %; Nucleated Red Blood Cells % 0 %; Platelet Count 285 10^3/cmm (130-400); Red Cell Distribution Width 16.1 % (12.1-15.1); White Blood Count 7.7 10^3/uL (4.0-10.0)
[2021-10-23] MEDS: dexmedeTOMIDine 0.9 % NaCL 400 MCG/100 ML PREMIX IV (13:00)
[2021-10-23 13:10] LABS: Alanine Aminotransferase 21 U/L (0-41); Albumin Level 2.9 g/dL (3.5-5.2); Alkaline Phosphatase 140 U/L (40-130); Anion Gap 18.8 (5-19); Aspartate Amino Transferase 25 U/L (0-40); Blood Urea Nitrogen 9 mg/dL (8-23); Calcium 8.5 mg/dL (8.5-10.5); Carbon Dioxide 31 mmol/L (22-29); Chloride 95 mmol/L (98-107); Globulin 2.7 g/dL (1.3-4.6); Glomerular Filtration Rate 41.2 mL/min (90-130); Glucose 80 mg/dL (65-115); Osmolality Calculated 290 mOsm/kg (285-295); Potassium 3.8 mmol/L (3.5-5.1); Sodium 141 mmol/L (136-145); Thyroid Stimulating Hormone 6.42 uIU/mL (0.27-4.20); Total Protein 5.6 g/dL (6.6-8.7)
--- NOTE | 2021-10-23 13:16 | XRR_ITS ---
PROCEDURE INFORMATION: Exam: XR Chest Exam date and time: 10/23/2021 1:29 PM Age: 60 years old Clinical indication: Other: Sepsis; Patient HX: Limited HX due to pts condition TECHNIQUE: Imaging protocol: Radiologic exam of the chest. Views: 1 view. COMPARISON: CT chest con [id number] 09/15/2021 1:38 PM FINDINGS: Tubes, catheters and devices: A stimulator device overlies the lateral aspect of the left upper abdomen. Central venous catheter tip terminates at the cavoatrial junction. Lungs: 3.4 cm opacity along the lateral aspect of the right mid lung field. This was seen on the prior CT scan as well. Pleural spaces: Left costophrenic angle is obscured and a pleural effusion cannot be excluded. Heart/Mediastinum: Possible cardiomegaly. Bones/joints: Unremarkable. XR/XR chest 1V portable [id number] IMPRESSION: 3.4 cm opacity along the lateral aspect of the right midlung field with seen on the prior CT scan as well.
--- NOTE | 2021-10-23 13:37 | PC.NURSE ---
Patient was attempting to pull out mcmillan catheter and talking about praying and alvaro during bedside shift report. Patient was then Haldol to help him relax. After the Haldol patient was able to rest for about an hour. Nurse's Aide then came to this nurse to report patient had removed his port. Patient had removed gown and was face down on the bed with sheets in a ball. There were numerous small blood patches on the bed but patient became very upset when nurse attempted to touch bed. Patient's sister arrived and was upset to see patient on soiled linens with no gown on. Sister attempted to calm patient and reapply sheets, however, patient refused and became upset. Patient's sister was upset to see patient so disoriented. Patient was sliding legs off the bed at the end of the bed. Patient refused to let the nurses slide him back up. Patient's sister insisted to see a doctor and refused another haldol injection. Attempted to redress patient's skin tears to hands and forearms. Patient's sister took clean fitted sheet but when patient grabbed the sheet it became bloody again. Dr Santos came to see patient in person and ordered Geodon. Geodon was given to patient. Patient calmed slightly prior to transferring to ICU. Report was given to WADE Corrigan via phone call and bedside report and patient care was given. Patient's family was updated in the waiting room of ICU prior to this nurse returning to the floor.
[2021-10-23] MEDS: vancomycin 1,250 MG/250 ML PIGGYBACK 250 MG IV (13:45)
[2021-10-23] MEDS: sodium chloride 0.9% 500 ML 999 ML IV (13:49)
[2021-10-23] MEDS: sodium chloride 0.9% 1,000 ML 200 ML IV ×2 (13:52→19:36)
[2021-10-23] MEDS: dexmedeTOMIDine 0.9 % NaCL 400 MCG/100 ML PREMIX 13 MCG IV (15:45)
[2021-10-23 16:14] LABS: Add Urine Microscopic? YES; Bilirubin Urine Neg (Negative); Blood Urine 3+ (Negative); Glucose Urine UA Norm (Normal); Ketones Urine 1+ (Negative); Leukocyte Esterase Urine Negative (Negative); Nitrate Urine Negative (Negative); Protein Urine Neg (Negative); Sulfosalicylic Acid Urine Negative (Negative); Urine Appearance Clear (CLEAR); Urine Color Yellow (Yellow); Urobilinogen Urine Norm (Negative); pH Urine 9 (5-7)
[2021-10-23 16:16] LABS: Bacteria Urine TRACE /hpf; Mucus Urine TRACE /hpf
[2021-10-23 16:17] LABS: Add Urine Culture? No
--- NOTE | 2021-10-23 16:45 | PC.NURSE ---
Patient brought to ICU from [facility] at 1230. Patient was laying prone upon arrival on unit, uncooperative with staff, illogical flow of thoughts and unable to answer any orientation questions. Patient has multiple skin tears and bruising to left and right arms due to repeatedly hitting them against side rails and thrashing in bed. Patient has a stage 2 pressure injury to sacrum. Patient has pulled out all IV access and pulled off all monitoring. WIth the assistance of 3 other nurses, patient was turned supine. Nurse has restrained patient due to pulling out lines and due to him harming himself by thrashing in bed. IV access gained via port in right chest. Blood labs drawn and precedex started. About 30 minutes after precedex was started patient has become more calm, but still agitated and requiring continued precedex and restraints.
--- NOTE | 2021-10-23 16:51 | PC.NURSE ---
Patient's lactic came back as 6.0. NUrse alerted Dr jordan to lactate and received orders for antibiotics and fluids. NUrse alerted Dr jordan to patient not receiving any of the morning oral meds, including oxycodone, due to his inability to safely swallow.
[2021-10-23] MEDS: hydrocortisone 100 mg/2 mL SDV 50 MG IVP (17:35)
[2021-10-23] MEDS: morphine 4 mg/mL SDV 1 mL 2 MG IVP (17:39)
--- NOTE | 2021-10-23 18:17 | PC.NURSE ---
THIS NURSE WAS CALLED TO PATIENT ROOM ALONG [facility] TO DISCUSS PATIENT CARE WITH PATIENT'S SISTER. SISTER WAS FRUSTRATED THAT PATIENT WAS VERY AGITATED AND CONFUSED AND HAD WORSENED SINCE SHE LEFT LAST NIGHT. THIS NURSE ALONG WITH [facility] TALKED WITH PATIENT'S SISTER STANISLAW OUTSIDE PATIENT DOOR. PATIENT SISTER EXPLAINED THAT PATIENT HAD WORSENED AND WAS IN A MESS. SHE ASKED REPETITIVELY IF THIS WERE YOUR FAMILY, WHAT WOULD YOU DO? THIS NURSE EXPLAINED THAT IT WAS NOT HER PLACE TO ANSWER THAT QUESTION, BUT WE WOULD DO THE BEST WE COULD TO FIX THE SITUATION. PATIENT'S SISTER REQUESTED A DOCTOR IN THE ROOM IMMEDIATELY. PATIENT SISTER STATED THIS WAS AN EMERGENCY . THIS NURSE CONTACTED DR. GARCIA AND SHE CAME TO THE FLOOR IMMEDIATELY. PATIENT'S SISTER WAS VERY UPSET THAT SHE WASN'T CALLED IN THE NIGHT LETTING HER KNOW PATIENT WAS VERY CONFUSED AND AGITATED. PATIENT HAD A 1:1 SITTER DURING THE NIGHT AND THIS MORNING. PATIENT HAD RECEIVED HALDOL, BUT WAS NOT EFFECTIVE. DR. GARCIA THEN ORDERED 20MG OF GEODON AND TRANSFER ORDERS TO ICU TO START PRECEDEX. PATIENT'S SISTER CALLED ME INTO THE ROOM MULTIPLE TIMES TO ASSESS THE PATIENT DURING THIS TIME. I EXPLAINED THAT THE GEODON WOULD TAKE SOMETIME TO WORK AND THAT WE WERE MOVING FAST POSSIBLE TO MOVE HER BROTHER TO THE ICU TO START THE PRECEDEX DRIP. I EXPLAINED THAT THE PATIENT CARE NURSE BUNNY OLVERA WAS GIVING REPORT TO FUNMILAYO THE ICU NURSE AND WE WERE MAKING SURE THE PRECEDEX WAS IN THE ROOM SO WE COULD USE TEAM WORK TO GET PATIENT CALMED QUICKLY POSSIBLE. FUNMILAYO OLVERA CALLED SOON THE PRECEDEX WAS DELIVERED TO THE ROOM AND MYSELF, BUNNY AND JARROD PT MOVED PATIENT TO ICU. WITH A TEAM EFFORT WE SAFELY POSITIONED PATIENT TO ACCESS THE PORT-A-CATH AND START THE PRECEDEX. FAMILY IN THE WAITING ROOM AT THIS TIME. THIS NURSE UPDATED FAMILY IN THE WAITING ROOM AND LET THEM KNOW THAT FUNMILAYO WOULD COME GET THEM SOON PATIENT WAS SETTLED. THE SISTER AND HER THANKED BUNNY OLVERA AND MYSELF FOR DOING ALL WE HAD DONE.
[2021-10-23] MEDS: piperacillin-tazobactam 3.375 GM in sodium chloride 0.9% (plus) 50 ML IV (18:48)
--- NOTE | 2021-10-23 19:00 | PC.NURSE ---
Pt. laying in bed, very confused and and anxious attempting to pull anything in reach. Restraints in place. NO needs identified at this time.
[2021-10-23] MEDS: dexmedeTOMIDine 0.9 % NaCL 400 MCG/100 ML PREMIX 26 MCG IV (19:35)
--- NOTE | 2021-10-23 20:00 | PC.NURSE ---
Pt. much more calm. Patient given bed bath and straightened up. NO needs identified at this time.
--- NOTE | 2021-10-23 20:53 | P.PN_ITS ---
Subjective Subjective: Events of the day: Patient became extremely agitated around the noon hour. Multiple attempts at verbal calming as well as medications were not effective. Unfortunately patient's sister and [id number] were at the bedside and difficult to have a conversation with. H his behavior was unable to be on the floor Emergent transfer to the ICU for Precedex. I spent about 90 minutes investigating if patient could be withdrawing from medication. Having reaction to the medication. I did a thorough review of all laboratory studies. Please see below for conclusions. After a few hours in the ICU patient was calm. He could not interact with me on Precedex. Vitals/I&O/Wt Last Vital Signs Temp 97.7 F 10/23/21 19:22 Pulse 83 10/23/21 17:20 Resp 18 10/23/21 17:39 BP 124/68 10/23/21 17:20 Pulse Ox 99 10/23/21 17:39 O2 Del Method 10/23/21 13:15 O2 Flow Rate 4 10/23/21 13:15 10/23/21 10/23/21 10/23/21 06:59 14:59 22:59 Intake Total 57.193 / 57.193 1860.716 / 1917.909 Output Total 900 / 3700 300 / 300 Balance -900 / -3350 57.193 / 57.193 1560.716 / 1617.909 Weight last 48 hrs Weight 94.801 kg Weight 95 kg Physical Exam Narrative: Initial exam during severe agitation showed the patient prone [facility] off the bed he was disrobed. He was bleeding from the IV. He was screaming getting. He had a wound on his coccyx. I was otherwise unable to examine him due to his aggressive agitated combative state. Later in the ICU patient was examined. Initially he was still agitated with twitching. He was mumbling reciting the alphabet. With the addition of morphine he was able to rest. In general patient appears very pale. 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 Neuro. Patient is calm and open his eyes to command. He is moving all extremities Heart was regular normal S1-S2 lungs clear anteriorly abdomen soft nondistended bowel sounds were diminished. Extremities no edema Data : 10/23/21 12:30 10/23/21 12:30 Micro: Microbiology 10/23/21 14:45 Blood Culture - Preliminary Blood SPECIMEN COLLECTED 10/23/21 14:40 Blood Culture - Preliminary Blood SPECIMEN COLLECTED 10/22/21 01:22 Blood Culture - Preliminary Blood NEGATIVE TO DATE 10/22/21 01:22 Blood Culture - Preliminary Blood NEGATIVE TO DATE CXR: My impression: Cardiomegaly. AICD present. Delineated opacity seen in the right middle lobe. Radiologist's impression: IMPRESSION: 3.4 cm opacity along the lateral aspect of the right midlung field with seen on the prior CT scan as well. ABG Interpretation 1: 10/22/21 10/23/21 03:06 12:30 ABG pH 7.52 H 7.59 H* ABG pCO2 50.0 H 35.8 ABG pO2 78.3 L 48.3 L ABG HCO3 40.3 H 34.1 H ABG Base Excess 15.8 H 11.6 H My Interpretation: Hypoxia. Metabolic alkalosis. A&P Assessment and plan (1) Prostate cancer metastatic to intrapelvic lymph node: Has been receiving palliative chemotherapy both IV and oral. Status: Acute (2) Prostate cancer metastatic to bone: Mets to ribs. Status: Acute (3) Pulmonary embolism: I believe this is an error. The pulmonary perfusion imaging on 09/16/2021 show a matched defect. A CT scan of the lungs the following day shows a pleural-based lesion. Status: Acute Qualifiers: Pulmonary embolism type: unspecified Chronicity: acute Acute cor pulmonale presence: without acute cor pulmonale Qualified Code(s): I26.99 - Other pulmonary embolism without acute cor pulmonale (4) CHF (congestive heart failure): Appears compensated at this time. Echo on 09/13/2021 shows: CONCLUSIONS ?Technically limited quality echocardiogram because of poor ?ultrasonic windows. ?LV systolic function is normal with EF of 55 to 60%. ?Moderate to severe concentric left ventricular hypertrophy. ?Mild mitral regurgitation ?Trace tricuspid regurgitation ?No comparison studies are available Status: Acute Qualifiers: Heart failure type: diastolic Heart failure chronicity: acute Qualified Code(s): I50.31 - Acute diastolic (congestive) heart failure (5) Adult-onset Still's disease: Patient was on steroids and Lefunomide (adverse effect is peripheral neuropathy) Status: Acute (6) Leg pain: I am concerned that this patient's peripheral neuropathy in his pain syndrome is related to chemotherapy. Unfortunately there are no good agents for the treatment of chemotherapy-induced peripheral neuropathy. I continue to treat aggressively with long-acting OxyContin and oxycodone scheduled. Acupuncture has been hope to help this condition will pursue acupressure points if he allows Status: Acute (7) Prostate cancer: Status: Acute (8) Delirium: Status: Acute (9) Pleural mass: Status: Acute (10) Lung nodule, multiple: Status: Acute (11) Fever: Status: Acute (12) Anemia: Status: Acute (13) Hypoxia: Status: Acute (14) Metabolic alkalemia: Status: Acute (15) DAMASO (acute kidney injury): Status: Acute (16) Lactate blood increase: Status: Acute Plan Unfortunately this patient is very complicated. As stated previously the patient was initially admitted on 09/13/2021 after being seen in the oncology clinic. Patient came in complaining of increasing anasarca. Patient was found to be in A. fib with RVR. Patient also had a femoral junction thrombosis and later PE was found. Patient was started on anticoagulation. On 09/17/2021 patient became critical. Found to have retroperitoneal bleeding. He had to be emergently transported to [facility] for embolization. After success he was hospitalized for a continued 30 days. Report from the physician was merely that patient was stable eating well and family wanted the patient to return to [place]. Since admission care of this patient has been extremely complicated. Since it was presented to me as a social admission I continued medications at the patient was transferred on. At that time family was very concerned about his pain and I placed him on both long-acting and short acting oxycodone. Having some confusion thus I held Ativan. He seemed to be having signs of delirium. I also held Adderall due to altered mental status. It was listed as as needed I am unclear if he was taking this. I continued prednisone Protonix Reglan and Re quip. Held scopolamine. I continued Ativan as needed. As well as his Wellbutrin. Since admission I have tempted to pain which medications he is taken. He has been agitated periodically and sometimes refusing medications. After the patient was sedated with Precedex I have spent significant time reviewing medications from prior hospital medications at our hospital discussing with her see medication interactions or other medications that could be attributing to delirium and or withdrawal. Initial vital signs on admission to ICU reported a fever of 101 axillary. This is new. Is negative. The night of admission 09/20/2021 UA was obtained. Overnight physicians interpretation was a urinary tract infection and he was started on Rocephin. However the patient had just recently been treated for UTI at [facility]. Considering the patient had a Perez catheter was agitated pulling out it did not think the urinalysis was evidence of a urinary tract infection. Due to fever , sepsis work-up ensued with blood and urine cultures pending chest x-ray shows again that pleural lesion. Lactate is elevated. Will follow. Suspect withdrawal syndrome. He was placed on morphine with good effect. I will order low-dose Valium to cover withdrawal from Ativan that he was taking regularly per the sister. I was able to sit down and meet with sister and [id number]. I explained all of the above. Sister expressed understanding. She was repeatedly stating that patient was taking oxycodone on a regular basis and Dr. Arce prescribed it. After inquiry she was finally able to express herself that her biggest concern is his comfort. She does not want him to suffer. She states that while they were at [facility] patient had noted that he would not want to be resuscitated and a DNR was in place. Upon this knowledge we have changed his CODE STATUS as well. And after speaking with her it is now clear that they do not necessarily want a further work-up or treatment but mostly want comfort. I offered that we continue this course of treatment for the next 24 to 48 hours and make further decisions at that time. It appears that the acute decline seen September 13, 2021 likely due to multiple thrombosis including PE. Unfortunately patient had a complication of anticoagulation with a large retroperitoneal bleed that required intervention. Has subsequently declined significantly through this hospitalization. Concur that the best avenue is pain control. Give medications that patient may have been withdrawing from to cause delirium. Close monitoring maintain in ICU. Attestations Medical Necessity Statement*: Patient critically ill. Requiring multiple midnights. Coding Level of Care Code Acute [employer] Solution Architect for [employer] Fwd Diagnoses Prostate cancer metastatic to intrapelvic lymph node C61; C77.5 Prostate cancer metastatic to bone C61; C79.51 Pulmonary embolism I26.99 Pulmonary embolism type: unspecified Chronicity: acute Acute cor pulmonale presence: without acute cor pulmonale CHF (congestive heart failure) I50.31 Heart failure type: diastolic Heart failure chronicity: acute Adult-onset Still's disease M06.1 Leg pain M79.606 Prostate cancer C61 Delirium R41.0 Pleural mass J94.8 Lung nodule, multiple R91.8 Fever R50.9 Anemia D64.9 Hypoxia R09.02 Metabolic alkalemia E87.3 DAMASO (acute kidney injury) N17.9 Lactate blood increase R79.89
--- NOTE | 2021-10-23 23:00 | PC.NURSE ---
Nursing staff continues to try and roll patient side to side put patient continually pulls at wedges and moves around enough to get to back. Will continue to try however it will be difficult to keep patient on side
[2021-10-23] MEDS: metoclopramide 5 mg/mL SDV 2 mL IVP (23:05)
[2021-10-23] MEDS: pantoprazole 40 mg SDV IVP (23:05)
[2021-10-24] VITALS (193 sets, daily range): BP systolic 68–167; BP diastolic 47–134; PULSE 54–94; RESP 16–18; TEMP 36.8–37.4; O2SAT 82–100
[2021-10-24] MEDS: morphine 4 mg/mL SDV 1 mL 2 MG IVP ×5 (01:17→19:45)
[2021-10-24] MEDS: sodium chloride 0.9% 1,000 ML 200 ML IV (02:20)
[2021-10-24] MEDS: piperacillin-tazobactam 3.375 GM in sodium chloride 0.9% (plus) 50 ML IV ×3 (03:16→18:20)
[2021-10-24 04:04] LABS: Eosinophils % 0.3 %; Hematocrit 25.1 % (42.0-52.0); Hemoglobin 7.9 g/dL (11.7-16.6); Lymphocytes % 25.1 %; Mean Corpuscular HGB Conc 31.5 g/dL (30.0-36.0); Mean Corpuscular Hemoglobin 30.3 pg (28.0-34.0); Mean Corpuscular Volume 96.2 fl (80-94); Mean Platelet Volume 9.1 fL (7.4-10.4); Monocytes # 0.4 10^3/uL (0.2-0.9); Monocytes % 9.8 %; Neutrophils # 2.53 10^3/uL (1.8-7.7); Neutrophils % 63.3 %; Nucleated Red Blood Cells % 0 %; Platelet Count 219 10^3/cmm (130-400); Red Blood Count 2.61 10^6/uL (4.1-5.3)
[2021-10-24] MEDS: metoclopramide 5 mg/mL SDV 2 mL IVP ×4 (04:18→23:03)
[2021-10-24] MEDS: dexmedeTOMIDine 0.9 % NaCL 400 MCG/100 ML PREMIX 26 MCG IV (04:18)
[2021-10-24] MEDS: hydrocortisone 100 mg/2 mL SDV 50 MG IVP ×2 (04:18→18:18)
[2021-10-24 04:28] LABS: Anion Gap 15.8 (5-19); Blood Urea Nitrogen 9 mg/dL (8-23); Calcium 7.8 mg/dL (8.5-10.5); Carbon Dioxide 31 mmol/L (22-29); Chloride 103 mmol/L (98-107); Glomerular Filtration Rate 51.5 mL/min (90-130); Glucose 141 mg/dL (65-115); Magnesium 1.7 mg/dL (1.7-2.3); Osmolality Calculated 303 mOsm/kg (285-295); Potassium 3.8 mmol/L (3.5-5.1); Sodium 146 mmol/L (136-145)
[2021-10-24] MEDS: vancomycin 1,250 MG/250 ML PIGGYBACK 250 MG IV (07:33)
[2021-10-24] MEDS: pantoprazole 40 mg SDV IVP ×2 (10:38→23:03)
[2021-10-24] MEDS: dexmedeTOMIDine 0.9 % NaCL 400 MCG/100 ML PREMIX 5.2 MCG IV (10:52)
[2021-10-24] MEDS: LORazepam 0.5 mg Tablet PO (11:31)
[2021-10-24] MEDS: sodium chloride 0.9% 1,000 ML 50 ML IV (13:07)
[2021-10-24] MEDS: dexmedeTOMIDine 0.9 % NaCL 400 MCG/100 ML PREMIX 28.6 MCG IV (15:51)
--- NOTE | 2021-10-24 16:49 | PC.NURSE ---
Patient's mental status has been variable throuhgout the morning, sometimes calm, other times agitated with no apparent triggers. At 1130, patient has become cooperative enough to follow commands and is able to drink. NUrse administered PO ativan. After receiving ativan, patientremains confused and agitated, though is less aggressive. Still frequently attempting to pull out IV, mcmillan, and remove coverings, agitation is interrupted by periods of sleep.
--- NOTE | 2021-10-24 16:53 | PC.NURSE ---
New medication orders received to manage agitation. Morphine frequency change form q4 hrs to q3 hours, and 1mg Ativan push q6 hours. Patient currently has precedex running. NUrse has administered morphine and decreased precedex. Will continue to monitor vitals to observe the effects of morphine before giving ativan. Nurse will continue to decrease precedex as indicated.
--- NOTE | 2021-10-24 17:55 | P.PN_ITS ---
Subjective Subjective: Patient relatively sedated. He did shown signs of continued agitation. Met with sister and [id number] for an hour and a half see below Vitals/I&O/Wt Last Vital Signs Temp 98.5 F 10/24/21 13:20 Pulse 66 10/24/21 15:19 Resp 18 10/24/21 13:20 BP 167/75 10/24/21 14:55 Pulse Ox 94 10/24/21 14:55 O2 Del Method 10/24/21 13:20 O2 Flow Rate 3 10/24/21 08:45 10/24/21 10/24/21 10/24/21 06:59 14:59 22:59 Intake Total 1100 / 3067.909 1203.431 / 1203.431 465.823 / 1669.254 Output Total 1250 / 1550 1350 / 1350 Balance -150 / 1517.909 -146.569 / -146.569 465.823 / 319.254 Weight last 48 hrs Weight 94.801 kg Weight 95 kg Physical Exam Narrative: In general patient appears very pale and a cushingoid appearance. Neuro. Patient is calm and open his eyes to command. When Precedex weaned he is able to move all extremities. Heart: Regular normal S1-S2 lungs: clear anteriorly abdomen soft nondistended bowel sounds were diminished. Extremities no edema Data : 10/24/21 03:19 10/24/21 03:19 Micro: Microbiology 10/23/21 14:45 Blood Culture - Preliminary Blood NEGATIVE TO DATE 10/23/21 14:40 Blood Culture - Preliminary Blood NEGATIVE TO DATE A&P Assessment and plan (1) Prostate cancer metastatic to intrapelvic lymph node: Has been receiving palliative chemotherapy both IV and oral prior to hospitalization 09/13/2021 Status: Acute (2) Prostate cancer metastatic to bone: Mets to ribs. Status: Acute (3) Pulmonary embolism: Identified 09/16/2021 Status: Acute Qualifiers: Pulmonary embolism type: unspecified Chronicity: acute Acute cor pulmonale presence: without acute cor pulmonale Qualified Code(s): I26.99 - O ther pulmonary embolism without acute cor pulmonale (4) CHF (congestive heart failure): Likely diastolic; however not reported on echo Echo on 09/13/2021 shows: CONCLUSIONS ?Technically limited quality echocardiogram because of poor ?ultrasonic windows. ?LV systolic function is normal with EF of 55 to 60%. ?Moderate to severe concentric left ventricular hypertrophy. 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 Status: Acute (7) Prostate cancer: Metastatic to bone and pelvic lymph nodes. Suspect possible leptomeningeal spread as well. Status: Acute (8) Delirium: Status: Acute (9) Pleural mass: Status: Acute (10) Lung nodule, multiple: Status: Acute (11) Fever: Status: Acute (12) Anemia: Status: Acute (13) Hypoxia: Status: Acute (14) Metabolic alkalemia: Status: Acute (15) DAMASO (acute kidney injury): Status: Acute (16) Lactate blood increase: Status: Acute Plan Summary initially admitted on 09/13/2021 at [facility] after being seen in the oncology clinic. Patient came in complaining of increasing anasarca. Patient was found to be in A. fib with RVR. Patient also had a femoral junction thrombosis and later PE was found. Patient was started on anticoagulation. On 09/17/2021 patient became critical. Found to have retroperitoneal bleeding. He had to be emergently transported to [facility] for embolization. After success he was hospitalized for a continued 30 days. Report from the physician was merely that patient was stable eating well and family wanted the patient to return to [place]. All that I can really identify is a UTI and treatment for pain that occurred in the interim 2 to 3 weeks after successful embolization. Since re-admission to [facility], care of this patient has been extremely complicated. While it was presented to me that this was a social readmission. Patient presented with confusion. And while the intention was to continue medications and find placement, I felt it prudent to adjust medications due to this confusion. At that time family was very concerned about his pain and I placed him on both long-acting and short acting oxycodone. Having some confusion thus I held Ativan. He appeared to be showing signs of delirium. I continued prednisone Protonix Reglan and Requip. Held scopolamine. Continued Wellbutrin. Since admission , He has been agitated periodically and sometimes refusing medications. We did trial of Haldol to no avail. On 10/23/2021 patient was so delirious that he had to be transferred to the ICU and started on Precedex. After the patient was sedated with Precedex I have spent significant time reviewing medications from prior hospital medications at our hospital, discussing with pharmacist possible medication interactions or other medications that could be attributing to delirium and/or withdrawal. Initial vital signs on admission to ICU reported a fever of 101 axillary. This was new. The night of admission 09/20/2021 UA was obtained. Overnight physicians interpretation was a urinary tract infection and he was started on Rocephin. However the patient had just recently been treated for UTI at [facility]. Considering the patient had a Perez catheter was agitated pulling at, I did not think the urinalysis was evidence of a urinary tract infection. Due to fever , sepsis work-up ensued with blood and urine cultures and chest x- ray shows again that pleural lesion?pulmonary infarct. Lactate is elevated. Withdrawal syndrome is possible since he was taking oxycodone 10 mg every 3 hours and Ativan 1 mg every 6 hours at outside hospital.. He was placed on morphine with good effect. I ordered Valium ME however this was not given since we did not have it in stock. Unfortunately he remained without a benzodiazepine for another 24 hours. I talked with the daughter and [id number] yesterday for about an hour. She informed us that he had changed his CODE STATUS to DNR at [facility]. Conclusion of the meeting was to continue the course of treatment for the next 24 to 48 hours. Today I met with the family for an hour and a half. The sister Fadia clearly has a lot of anxiety herself (as she is already been to our emergency room once) and finally admitted to the fears she has about her brother. She does not want him to suffer. And she feels responsible to make decisions. As below I ex plained that the patient's body is already making his decisions for us. I explained I do not think he can recover to his previous from the events of the last 6 weeks we discussed the patient's underlying conditions and comorbidities. We discussed metastatic prostate cancer and the complications from the cancer and treatments that the patient has experienced. The patient has been hospitalized since September 13 almost 6 weeks. Prior to that he was showing decline as per oncology notes. As we reviewed all of the patient's most recent diagnoses and how when we treat for 1 disease it affects another. I asked what she thought her brother would want. The conclusion again is that she does not want him to suffer. She wanted the defibrillator turned off just in case the patient were to have a ventricular arrhythmia. I have called the company and a cctv technician is on the way to turn this off. In the meantime he is on scheduled morphine and Ativan. We are considering starting a drip. Since he is so delirious and requiring IV medications and continuous nursing he would qualify for inpatient hospice. Attestations Medical Necessity Statement*: Patient is delirious. Moving to comfort care requiring IV morphine and Ativan drip. 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[facility] Fwd Diagnoses Prostate cancer metastatic to intrapelvic lymph node C61; C77.5 Prostate cancer metastatic to bone C61; C79.51 Pulmonary embolism I26.99 Pulmonary embolism type: unspecified Chronicity: acute Acute cor pulmonale presence: without acute cor pulmonale CHF (congestive heart failure) I50.31 Heart failure type: diastolic Heart failure chronicity: acute Adult-onset Still's disease M06.1 Leg pain M79.606 Prostate cancer C61 Delirium R41.0 Pleural mass J94.8 Lung nodule, multiple R91.8 Fever R50.9 Anemia D64.9 Hypoxia R09.02 Metabolic alkalemia E87.3 DAMASO (acute kidney injury) N17.9 Lactate blood increase R79.89
--- NOTE | 2021-10-24 18:35 | PC.NURSE ---
SHift SUmmary: overall, uneventful shift. Patient has rested in bed throughout the day. Mental status has been very variable. Mostly calm, occaisonally agitated. At best has been alert to person, and year, but usually unable to answer any questions. IV ativan for agitation has been started today.
[2021-10-24] MEDS: dexmedeTOMIDine 0.9 % NaCL 400 MCG/100 ML PREMIX 31.2 MCG IV (21:21)
[2021-10-25] VITALS (193 sets, daily range): BP systolic 122–172; BP diastolic 69–96; PULSE 51–83; RESP 7–26; TEMP 36.3–37.5; O2SAT 89–98
[2021-10-25] MEDS: morphine 4 mg/mL SDV 1 mL 2 MG IVP ×2 (00:02→06:04)
[2021-10-25] MEDS: dexmedeTOMIDine 0.9 % NaCL 400 MCG/100 ML PREMIX 31.2 MCG IV ×3 (01:20→23:10)
[2021-10-25] MEDS: vancomycin 1,250 MG/250 ML PIGGYBACK 250 MG IV (02:49)
[2021-10-25] MEDS: piperacillin-tazobactam 3.375 GM in sodium chloride 0.9% (plus) 50 ML IV ×2 (04:03→12:02)
[2021-10-25] MEDS: metoclopramide 5 mg/mL SDV 2 mL IVP ×3 (04:03→16:51)
[2021-10-25] MEDS: hydrocortisone 100 mg/2 mL SDV 50 MG IVP (04:40)
[2021-10-25 05:06] LABS: Anion Gap 19.6 (5-19); Blood Urea Nitrogen 9 mg/dL (8-23); Calcium 7.8 mg/dL (8.5-10.5); Carbon Dioxide 26 mmol/L (22-29); Chloride 99 mmol/L (98-107); Glomerular Filtration Rate 68.1 mL/min (90-130); Glucose 128 mg/dL (65-115); Osmolality Calculated 294 mOsm/kg (285-295); Sodium 142 mmol/L (136-145)
[2021-10-25 05:47] LABS: Potassium 2.6 mmol/L (3.5-5.1)
[2021-10-25] MEDS: lidocaine 1% 5 ML in potassium chloride premix 100 ML 25 ML IV ×2 (07:11→11:53)
[2021-10-25] MEDS: lanolin oint 7 gm 1 APPLIC TOPICAL (08:29)
--- NOTE | 2021-10-25 08:49 | PC.NURSE ---
Nurse has observed patient's mouth to frequently by dry. Nurse attempts at moistening mouth are inconsistent. Patient will sometimes be cooperative and allow oral swabs, or is alert enough to drink water. Other times, patient is not alert enough to drink, or is confused and tightly closes lips and shakes head side to side to prevent swabs while spitting any water from the swab back at the nurse. Nurse applied lanolin ointment for dry lips.
--- NOTE | 2021-10-25 09:21 | CT_ITS ---
WS: [id number] CT CHEST, ABDOMEN, AND PELVIS TECHNIQUE: Noncontrast CT of the chest, abdomen, and pelvis with coronal and sagittal reformatted nilsa ges. CLINICAL INFORMATION: ams, retroperitoneal hematoma, fever COMPARISON: CTA September 17, 2021 DLP: 1209.[address] scans at [facility] use at least one of these dose optimization techniques: automated e xposure control; mA and/or kV adjustment per patient size (includes targeted exams where dose is matc hed to clinical indication); or iterative reconstruction. CT CHEST: Small LEFT greater than RIGHT pleural effusions. Compressive atelectasis in the lung bases. Subpleura l opacity/loculated fluid RIGHT lower lobe laterally along the fissure measuring 3.5 x 1.3 cm is unch anged. Normal caliber thoracic aorta. No mediastinal or hilar lymphadenopathy. No axillary lymphadeno vilma. CT ABDOMEN AND PELVIS: Large LEFT subcapsular perirenal hematoma with hemorrhagic blood products extending into the LEFT ret roperitoneum and pelvis. Associated compression of the LEFT kidney. Perirenal hematoma measures appro ximately 4.9 cm in maximum transverse dimension. This measures approximately 14.7 cm craniocaudal wit h compression of the LEFT psoas. Increased attenuation blood products compatible with interval hemorr jefe. Heterogeneous lesion upper pole LEFT kidney measuring 5.2 x 4.1 cm is unchanged suspicious for neoplasm. Perez catheter. Noncontrast liver is normal. Normal GE junction. Noncontrast spleen is normal. Fatty atrophy of the pancreas. Normal caliber abdominal aorta. IVC filter. No hydronephrosis in the RIGHT k idney. Normal sigmoid colon. CT/[place] [id number] IMPRESSION: 1. Recurrent LEFT perirenal hematoma with increased attenuation blood products extending into the pelvis compatible with interval hemorrhage. This measures a pproximately 5.8 x 4.9 x 14.7 cm extending into the LEFT retroperitoneum. 2. Associated compression LEFT kidney. 3. Stable LEFT upper pole heterogeneous lesion suspicious for neoplasm measuri ng 4.1 x 5.2 CM. 4. Small LEFT and tiny RIGHT pleural effusions with compressive atelectasis in the lung bases. 5. Subpleural opacity/loculated fluid along the RIGHT fissure unchanged. 6. IVC filter Notified Fredi Hui MD at 10/25/2021 12:20 PM.
--- NOTE | 2021-10-25 09:21 | CT_ITS ---
WS: [id number] CT HEAD TECHNIQUE: Noncontrast CT of the head obtained from the skullbase to the vertex. CLINICAL INFORMATION: ams COMPARISON: None. DLP: 1200.[address] scans at [facility] use at least one of these dose optimization techniques: automated e xposure control; mA and/or kV adjustment per patient size (includes targeted exams where dose is matc hed to clinical indication); or iterative reconstruction. FINDINGS: No evidence of intracranial hemorrhage or mass effect. Ventricular system and basal cisterns are diaz nt. Mild small vessel changes with mild parenchymal volume loss. No extra-axial fluid collections. No evidence of mass or mass effect. Mild mucosal thickening paranasal sinuses and RIGHT maxillary sinus. Mucosal thickening RIGHT mastoid air cells. LEFT mastoid air cells well aerated. CT/CT head wo con* [id number] IMPRESSION: 1. No evidence of intracranial hemorrhage or mass effect. 2. Mild small vessel changes. Mild parenchymal volume loss. 3. Mucosal thickening RIGHT mastoid air cells.
[2021-10-25] MEDS: sodium chloride 0.9% 1,000 ML 50 ML IV (09:33)
[2021-10-25 09:42] LABS: Basophils % 0.8 %; Eosinophils % 0.6 %; Hematocrit 26.5 % (42.0-52.0); Hemoglobin 8.2 g/dL (11.7-16.6); Lymphocytes # 1.2 10^3/uL (0.8-4.8); Lymphocytes % 23.3 %; Mean Corpuscular HGB Conc 30.9 g/dL (30.0-36.0); Mean Corpuscular Hemoglobin 30.1 pg (28.0-34.0); Mean Corpuscular Volume 97.4 fl (80-94); Monocytes # 0.4 10^3/uL (0.2-0.9); Monocytes % 8.2 %; Neutrophils % 66.5 %; Nucleated Red Blood Cells % 0 %; Platelet Count 249 10^3/cmm (130-400); Red Blood Count 2.72 10^6/uL (4.1-5.3); Red Cell Distribution Width 15.9 % (12.1-15.1); White Blood Count 5.1 10^3/uL (4.0-10.0)
[2021-10-25 10:07] LABS: Alanine Aminotransferase 26 U/L (0-41); Albumin Level 2.7 g/dL (3.5-5.2); Alkaline Phosphatase 121 U/L (40-130); Aspartate Amino Transferase 36 U/L (0-40); Total Bilirubin 0.7 mg/dL (0.15-1.2); Total Protein 4.7 g/dL (6.6-8.7)
[2021-10-25 10:13] LABS: Procalcitonin 0.17 ng/mL (0-0.5)
[2021-10-25] MEDS: fluconazole premix 100 MG in empty flexible container 1 EACH 50 MG IV (10:59)
[2021-10-25] MEDS: HYDROmorphone 1 mg/mL INJ 1 mL 0.4 MG IVP ×3 (10:59→20:39)
[2021-10-25] MEDS: pantoprazole 40 mg SDV IVP (11:05)
[2021-10-25] MEDS: dexmedeTOMIDine 0.9 % NaCL 400 MCG/100 ML PREMIX 13 MCG IV (14:00)
--- NOTE | 2021-10-25 15:26 | P.PN_ITS ---
Subjective Subjective: Hospital course, labs appreciated. Examination patient on Precedex at 0.6, fluid normal saline 50 cc/h. Patient lying comfortably in bed, not arousable but moving to tactile response. Hemodynamically stable. Has remained afebrile. Vitals/I&O/Wt Last Vital Signs Temp 98.9 F 10/25/21 12:50 Pulse 58 L 10/25/21 12:50 Resp 12 10/25/21 12:50 BP 157/84 10/25/21 12:50 Pulse Ox 96 10/25/21 12:50 O2 Del Method 10/25/21 08:00 O2 Flow Rate 3 10/24/21 08:45 10/25/21 10/25/21 10/25/21 06:59 14:59 22:59 Intake Total 200 / 6514.374 9427 / 1205 288.333 / 1493.333 Output Total 3450 / 5600 2200 / 2200 Balance -3250 / -3603.969 -995 / -995 288.333 / -706.667 Physical Exam Narrative: In general patient appears chronically sick appearing, pale and a cushingoid appearance. Neuro. Patient is calm and open his eyes to command. When Precedex weaned he i s able to move all extremities. Heart: Regular normal S1-S2 lungs: clear anteriorly abdomen soft nondistended bowel sounds were diminished. Extremities no edema Data : 10/25/21 03:35 10/25/21 03:35 Micro: Microbiology 10/23/21 14:45 Blood Culture - Preliminary Blood NEGATIVE TO DATE 10/23/21 14:40 Blood Culture - Preliminary Blood NEGATIVE TO DATE A&P Assessment and plan (1) Prostate cancer metastatic to intrapelvic lymph node: Has been receiving palliative chemotherapy both IV and oral prior to hospitalization 09/13/2021 Status: Acute (2) Prostate cancer metastatic to bone: Mets to ribs. Status: Acute (3) Pulmonary embolism: Identified 09/16/2021 Status: Acute Qualifiers: Pulmonary embolism type: unspecified Chronicity: acute Acute cor pulmonale presence: without acute cor pulmonale Qualified Code(s): I26.99 - Other pulmonary embolism without acute cor pulmonale (4) CHF (congestive heart failure): Likely diastolic; however not reported on echo Echo on 09/13/2021 shows: CONCLUSIONS ?Technically limited quality echocardiogram because of poor ?ultrasonic windows. ?LV systolic function is normal with EF of 55 to 60%. ?Moderate to severe concentric left ventricular hypertrophy. 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 Status: Acute (7) Prostate cancer: Metastatic to bone and pelvic lymph nodes. Suspect possible leptomeningeal spread as well. Status: Acute (8) Delirium: Status: Acute (9) Pleural mass: Status: Acute (10) Lung nodule, multiple: Status: Acute (11) Fever: Status: Acute (12) Anemia: Status: Acute (13) Hypoxia: Status: Acute (14) Metabolic alkalemia: Status: Acute (15) DAMASO (acute kidney injury): Status: Acute (16) Lactate blood increase: Status: Acute Plan Summary initially admitted on 09/13/2021 at [facility] after being seen in the oncology clinic. Patient came in complaining of increasing anasarca. Patient was found to be in A. fib with RVR. Patient also had a femoral junction thrombosis and later PE was found. Patient was started on anticoagulation. On 09/17/2021 patient became critical. Found to have retroperitoneal bleeding. He had to be emergently transported to [facility] for embolization. After success he was hospitalized for a continued 30 days. Report from the physician was merely that patient was stable eating well and family wanted the patient to return to [place]. All that I can really identify is a UTI and treatment for pain that occurred in the interim 2 to 3 weeks after successful embolization. Since re-admission to [facility], care of this patient has been extremely complicated. While it was presented to me that this was a social readmission. Patient presented with confusion. And while the intention was to continue medications and find placement, I felt it prudent to adjust medications due to this confusion. At that time family was very concerned about his pain and I placed him on both long-acting and short acting oxycodone. Having some confusion thus I held Ativan. He appeared to be showing signs of delirium. I continued prednisone Protonix Reglan and Requip. Held scopolamine. Continued Wellbutrin. Since admission , He has been agitated periodically and sometimes refusing medications. We did trial of Haldol to no avail. On 10/23/2021 patient was so delirious that he had to be transferred to the ICU and started on Precedex. After the patient was sedated with Precedex I have spent significant time reviewing medications from prior hospital medications at our hospital, discussing with pharmacist possible medication interactions or other medications that could be attributing to delirium and/or withdrawal. Initial vital signs on admission to ICU reported a fever of 101 axillary. This was new. The night of admission 09/20/2021 UA was obtained. Overnight physicians interpretation was a urinary tract infection and he was started on Rocephin. However the patient had just recently been treated for UTI at [facility]. Considering the patient had a Perez catheter was agitated pulling at, I did not think the urinalysis was evidence of a urinary tract infection. Due to fever , sepsis work-up ensued with blood and urine cultures and chest x- ray shows again that pleural lesion?pulmonary infarct. Lactate is elevated. Withdrawal syndrome is possible since he was taking oxycodone 10 mg every 3 hours and Ativan 1 mg every 6 hours at outside hospital.. He was placed on morphine with good effect. I ordered Valium FL however this was not given since we did not have it in stock. Unfortunately he remained without a benzodiazepine for another 24 hours. I talked with the daughter and [id number] yesterday for about an hour. She informed us that he had changed his CODE STATUS to DNR at [facility]. Conclusion of the meeting was to continue the course of treatment for the next 24 to 48 hours. Today I met with the family for an hour and a half. The sister Fadia clearly has a lot of anxiety herself (as she is already been to our emergency room once) and finally admitted to the fears she has about her brother. She does not want him to suffer. And she feels responsible to make decisions. As below I explained that the patient's body is already making his decisions for us. I explained I do not think he can recover to his previous from the events of the last 6 weeks we discussed the patient's underlying conditions and comorbidities. We discussed metastatic prostate cancer and the complications from the cancer and treatments that the patient has experienced. The patient has been hospitalized since September 13 almost 6 weeks. Prior to that he was showing decline as per oncology notes. As we reviewed all of the patient's most recent diagnoses and how when we treat for 1 disease it affects another. I asked what she thought her brother would want. The conclusion again is that she does not want him to suffer. She wanted the defibrillator turned off just in case the patient were to have a ventricular arrhythmia. I have called the company and a gis mapping technician is on the way to turn this off. In the meantime he is on scheduled morphine and Ativan. We are considering starting a drip. Since he is so delirious and requiring IV medications and continuous nursing he would qualify for inpatient hospice. Earlier during the day when family was not available for further assessment of delirious and altered mental status patient underwent CT abdomen pelvis and head to rule out any infectious focus, new stroke or bleed. Patient was started on Dilaudid 0.4 mg every 4 hour scheduled along with Ativan 1 mg every 6 hours. Precedex was being weaned down. Paperwork from [employer] was reviewed and he was started on IV fluconazole for recent Shahana UTI. Later in the day family was for further goals of care discussions. Goals of care discussion: In summary discussion was done for further goals of care given Mr. Hogan poor baseline health from prostate cancer which is metastasized, prolonged hospitalization for over 4 to 5 weeks for pulm embolism complicated by retroperitoneal left renal hematoma which is further complicated by patient developing delirium most likely secondary to withdrawal from excessive pain and anxiety medications. As per the sister patient in detail have expressed his wishes to make sure that he is never in pain or anxious. Patient recently had made himself DNR/DNI given his overall health. As per the sister, patient does not have any other immediate family. The parents are , patient was never . Given patient's wishes sister wants to go ahead and start patient on comfort measures status. Her only concern is to make sure that patient is not anxious because his biggest goal was to make sure he is never anxious. CODE STATUS changed as to comfort measures status. No further blood work, vitals. Continue with Dilaudid and Ativan. Morphine and Ativan as needed. Stop any antifungals or antibiotics. This documentation was created by [employer] chief scientist software. Every effort was made to ensure accuracy of chief scientist. Any obvious errors or omissions should be clarified with the author of the document. Attestations Medical Necessity Statement*: Requires further hospitalization as patient is in transition over to comfort measures status given metastatic prostate cancer, acute kidney injury, delirium in a patient with recent submassive PE complicated by retroperitoneal left-sided renal hematoma Critical Care Time: The high probability of a clinically significant, sudden or life threatening deterioration of the patient's [neurological, hematological, goals of care] system(s) required my full and direct attention, intervention and personal management. The critical care time is as shown. 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 Fwd Diagnoses Prostate cancer metastatic to intrapelvic lymph node C61; C77.5 Prostate cancer metastatic to bone C61; C79.51 Pulmonary embolism I26.99 Pulmonary embolism type: unspecified Chronicity: acute Acute cor pulmonale presence: without acute cor pulmonale CHF (congestive heart failure) I50.31 Heart failure type: diastolic Heart failure chronicity: acute Adult-onset Still's disease M06.1 Leg pain M79.606 Prostate cancer C61 Delirium R41.0 Pleural mass J94.8 Lung nodule, multiple R91.8 Fever R50.9 Anemia D64.9 Hypoxia R09.02 Metabolic alkalemia E87.3 DAMASO (acute kidney injury) N17.9 Lactate blood increase R79.89
[2021-10-25] MEDS: morphine 4 mg/mL SDV 1 mL IVP ×3 (16:48→19:09)
--- NOTE | 2021-10-25 18:11 | PC.NURSE ---
SHift summary: uneventful shift. Patient rested in bed throughout the day. Mental status has been variable, but is now becoming more alert near and answering questions and letting us know about needs near the end of shift. Precedex discontinued. Restraints removed as patient is now calm. Patient is now on comfort care measures. Family is at bedside.
[2021-10-25] MEDS: ropinirole 2 mg Tablet 4 MG PO (18:55)
[2021-10-25] MEDS: fentaNYL 100 mcg Patch 1 PATCH TRANSDERMA (20:08)
[2021-10-26] MEDS: HYDROmorphone 1 mg/mL INJ 1 mL 0.4 MG IVP ×3 (01:37→09:54)
[2021-10-26] MEDS: dexmedeTOMIDine 0.9 % NaCL 400 MCG/100 ML PREMIX 31.2 MCG IV ×2 (05:37→05:58)
--- NOTE | 2021-10-26 07:55 | PC.NURSE ---
Patient awake, cooperative, no pain or discomfort, pleasantly confused. Patient turned for comfort. Patient complains of being tired and easily falls back asleep.
[2021-10-26] MEDS: metoclopramide 5 mg/mL SDV 2 mL IVP ×3 (09:53→21:34)
[2021-10-26] MEDS: tamsulosin 0.4 mg Capsule PO (09:53)
[2021-10-26] MEDS: buPROPion XL (24 HR) 300 mg Tablet PO (09:53)
[2021-10-26] MEDS: pantoprazole 40 mg SDV IVP ×2 (09:54→21:33)
[2021-10-26] MEDS: LORazepam 2 mg/mL INJ 1 mL 0.5 MG IVP (11:51)
--- NOTE | 2021-10-26 12:30 | PC.CHAP ---
Pastoral Care Encounter/Spiritual Assessment Type of Contact [] Declined brick dropper visit [] Patient/Family/Request visit [] Outpatient visit [] Follow-up visit [] Physician referral [] Code/Alert [x] Routine visit [] Staff referral [] Actively dying [x] Patient sleeping [] Family support [] [] Out of room [] Palliative care [] [] Receiving care in room [] Pre-surgical visit [] Trauma [] Long length of stay [x] ICU visit [] Other: Relational/Emotional Strength [] Patient feels connected with others/family/visitors/staff [] Distress [] Loneliness/isolation [] Abandonment Spirituality of Patient [] Person of Pat [] Attends Sikh of their Pat [] Believes in Prayer [] Reads Bible or Holiness materials [] There are Spiritual issues to be addressed Assembler Seat Interventions [x] Prayer [] Active listening [] Non-anxious presence [] Spiritual/emotional support [] Crisis/trauma care [] Spiritual counseling [] Bereavement support [] Provided bereavement packet [] Provided Bible/devotional materials [] Provided toy/stuffed animal, coloring book to patient or family member [] Provided Communion [] Anointing/[place] [] Salvation [x] Completed spiritual assessment [] Other: Impact on Illness or Injury [] Angry [] Fearful [] Anxious [] Often cries [] Exhaustion [] Unable to work [] Unable to attend presybeterian [] Unable to walk/stand [] Unable to read [] Unable to drive [] Unable to eat/drink [] Unable to sleep [] Unable to be with family [] Patient intubated [] Other: Summary Time spent with patient
[2021-10-26] MEDS: HYDROmorphone 1 mg/mL INJ 1 mL 0.2 MG IVP ×3 (14:11→21:25)
--- NOTE | 2021-10-26 14:38 | PC.NURSE ---
Goals of care Dr. Hui and this nurse had an extensive conversation with patient and patient's family about goals of care, including comfort measures at home and [facility] and also fighting disease process. Patient and family will decide on plan and will let us know.
[2021-10-26 16:49] VITALS: RESP 20
--- NOTE | 2021-10-26 17:52 | P.PN_ITS ---
Subjective Subjective: Seen multiple times during the day today. Multiple goals of care discussion with the patient and patient's family today. Overnight patient had remained comfortable. Precedex drip. Earlier in the day yesterday. Today morning on examination patient is a lot more awake. Today morning patient was slightly confused. His mental fogginess and confusion continued to improve during the day. Later when seen in the afternoon with family at bedside patient was awake and alert to self, being in [place], remembered me from last time and today morning, knows he is in the hospital but thinks it is 2022. Patient is able to repeat back the medical information. Denies any pain other than discomfort in his feet. Vitals/I&O/Wt Last Vital Signs Temp 99.5 F 10/25/21 17:55 Pulse 83 10/25/21 15:15 Resp 20 H 10/26/21 16:49 BP 157/84 10/25/21 17:55 Pulse Ox 95 10/25/21 15:20 O2 Del Method 10/25/21 08:00 O2 Flow Rate 3 10/24/21 08:45 10/26/21 10/26/21 10/26/21 06:59 14:59 22:59 Intake Total 123.76 / 1817.093 60 / 60 Output Total 600 / 2800 Balance -476.24 / -982.907 60 / 60 Physical Exam Narrative: In general patient appears chronically sick appearing, pale and a cushingoid appearance, AO x2-3 Neuro. no focal deficit, moving all limbs, no facial abnormality, pupils bilaterally equal and reactive Heart: Regular normal S1-S2 Pulmonary: clear anteriorly Abdomen: Soft nondistended bowel sounds were diminished. Extremities no edema Data : 10/25/21 03:35 10/25/21 03:35 A&P Assessment and plan (1) Prostate cancer metastatic to intrapelvic lymph node: Has been receiving palliative chemotherapy both IV and oral prior to hospitalization 09/13/2021 Status: Acute (2) Prostate cancer metastatic to bone: Mets to ribs. Status: Acute (3) Pulmonary embolism: Identified 09/16/2021 Status: Acute Qualifiers: Pulmonary embolism type: unspecified Chronicity: acute Acute cor pulmonale presence: without acute cor pulmonale Qualified Code(s): I26.99 - Other pulmonary embolism without acute cor pulmonale (4) CHF (congestive heart failure): Likely diastolic; however not reported on echo Echo on 09/13/2021 shows: CONCLUSIONS ?Technically limited quality echocardiogram because of poor ?ultrasonic windows. ?LV systolic function is normal with EF of 55 to 60%. ?Moderate to severe concentric left ventricular hypertrophy. 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 Status: Acute (7) Prostate cancer: Metastatic to bone and pelvic lymph nodes. Suspect possible leptomeningeal spread as well. Status: Acute (8) Delirium: Status: Acute (9) Pleural mass: Status: Acute (10) Lung nodule, multiple: Status: Acute (11) Fever: Status: Acute (12) Anemia: Status: Acute (13) Hypoxia: Status: Acute (14) Metabolic alkalemia: Status: Acute (15) DAMASO (acute kidney injury): Status: Acute (16) Lactate blood increase: Status: Acute Plan Summary initially admitted on 09/13/2021 at [facility] [place] after being seen in the oncology clinic. Patient came in complaining of increasing anasarca. Patient was found to be in A. fib with RVR. Patient also had a femoral junction thrombosis and later PE was found. Patient was started on anticoagulation. On 09/17/2021 patient became critical. Found to have retroperitoneal bleeding. He had to be emergently transported to [facility] for embolization. After success he was hospitalized for a continued 30 days. Report from the physician was merely that patient was stable eating well and family wanted the patient to return to [place]. All that I can really identify is a UTI and treatment for pain that occurred in the interim 2 to 3 weeks after successful embolization. Since re-admission to [facility], care of this patient has been extremely complicated. While it was presented to me that this was a social readmission. Patient presented with confusion. And while the intention was to continue medications and find placement, I felt it prudent to adjust medications due to this confusion. At that time family was very concerned about his pain and I placed him on both long-acting and short acting oxycodone. Having some confusion thus I held Ativan. He appeared to be showing signs of delirium. I continued prednisone Protonix Reglan and Requip. Held scopolamine. Continued Wellbutrin. Since admission , He has been agitated periodically and sometimes refusing medications. We did trial of Haldol to no avail. On 10/23/2021 patient was so delirious that he had to be transferred to the ICU and started on Precedex. After the patient was sedated with Precedex I have spent significant time reviewing medications from prior hospital medications at our hospital, discussing with pharmacist possible medication interactions or other medications that could be attributing to delirium and/or withdrawal. Initial vital signs on admission to ICU reported a fever of 101 axillary. This was new. The night of admission 09/20/2021 UA was obtained. Overnight physicians interpretation was a urinary tract infection and he was started on Rocephin. However the patient had just recently been treated for UTI at [facility]. Considering the patient had a Perez catheter was agitated pulling at, I did not think the urinalysis was evidence of a urinary tract infection. Due to fever , sepsis work-up ensued with blood and urine cultures and chest x- ray shows again that pleural lesion?pulmonary infarct. Lactate is elevated. Withdrawal syndrome is possible since he was taking oxycodone 10 mg every 3 hours and Ativan 1 mg every 6 hours at outside hospital.. He was placed on morphine with good effect. I ordered Valium VA however this was not given since we did not have it in stock. Unfortunately he remained without a benzodiazepine for another 24 hours. I talked with the daughter and [id number] yesterday for about an hour. She informed us that he had changed his CODE STATUS to DNR at [facility]. Conclusion of the meeting was to continue the course of treatment for the next 24 to 48 hours. Today I met with the family for an hour and a half. The sister Fadia clearly has a lot of anxiety herself (as she is already been to our emergency room once) and finally admitted to the fears she has about her brother. She does not want him to suffer. And she feels responsible to make decisions. As below I explained that the patient's body is already making his decisions for us. I explained I do not think he can recover to his previous from the events of the last 6 weeks we discussed the patient's underlying conditions and comorbidities. We discussed metastatic prostate cancer and the complications from the cancer and treatments that the patient has experienced. The patient has been hospitalized since September 13 almost 6 weeks. Prior to that he was showing decline as per oncology notes. As we reviewed all of the patient's most recent diagnoses and how when we treat for 1 disease it affects another. I asked what she thought her brother would want. The conclusion again is that she does not want him to suffer. She wanted the defibrillator turned off just in case the patient were to have a ventricular arrhythmia. I have called the company and a research technician is on the way to turn this off. In the meantime he is on scheduled morphine and Ativan. We are considering starting a drip. Since he is so delirious and requiring IV medications and continuous nursing he would qualify for inpatient hospice. Earlier during the day when family was not available for further assessment of delirious and altered mental status patient underwent CT abdomen pelvis and head to rule out any infectious focus, new stroke or bleed. Patient was started on Dilaudid 0.4 mg every 4 hour scheduled along with Ativan 1 mg every 6 hours. Precedex was being weaned down. Paperwork from [employer] was reviewed and he was started on IV fluconazole for recent Shahana UTI. Later in the day family was for further goals of care discussions. Goals of care discussion: In summary discussion was done for further goals of care given Mr. Hogan poor baseline health from prostate cancer which is metastasized, prolonged hospitalization for over 4 to 5 weeks for pulm embolism complicated by retroperitoneal left renal hematoma which is further complicated by patient developing delirium most likely secondary to withdrawal from excessive pain and anxiety medications. As per the sister patient in detail have expressed his wishes to make sure that he is never in pain or anxious. Patient recently had made himself DNR/DNI given his overall health. As per the sister, patient does not have any other immediate family. The parents are , patient was never . Given patient's wishes sister wants to go ahead and start patient on comfort measures status. Her only concern is to make sure that patient is not anxious because his biggest goal was to make sure he is never anxious. CODE STATUS changed as to comfort measures status. No further blood work, vitals. Continue with Dilaudid and Ativan. Morphine and Ativan as needed. Stop any antifungals or antibiotics. 10/26: Today morning on examination patient was a lot more awake. His mentation during the day continue to improve. Once awake with family at bedside goals of care were discussed again. Patient was made aware that he has been made comfort measures as per his sister's request on . Patient wanted to discuss goals again. It was discussed in detail with patient that unfortunately he is chronically extremely sick at baseline given his prostate cancer metastatic to bone on palliative chemotherapy along with prolonged hospitalization for pulmonary embolism for which treatment has been complicated by him developing retroperitoneal hematoma on the left kidney which will most likely cause him to have loss left kidney in future. Patient was told that unfortunately overall he has poor prognosis. Options discussed were a possible trial of getting stronger with physical therapy while being treated for ongoing problems and eventual transfer to SNF for further rehabitation if possible. But during this process he will be on pain and anxiety medications though his pain level will not be lesser than 4-5 along with anxiety level as well. We discussed that during this process he will not be given a lot of pain and anxiety medications as I with them there is a high risk of him having respiratory arrest. Other option discussed was comfort measures which he was on before. We also discussed if he goes comfort measures option would be to go home with hospice versus hospice at SNF. We discussed that family had previously mentioned hospice at SNF as he does not have support at home to take care of his hospice needs. Patient requests he would like to discuss the goals further with his friends and family and would like to think further about the goals within next 24 hours. I also explained to the patient and patient's family that as a medical team we will be able to help him with what ever goals the patient and patient's family want to achieve but going back and forth between goals of care is going to complicate his care further and would cause him to have more complicated and painful outcome. Both patient and family verbalized understanding. They state they should be able to come back to a proper decision within next 24 hours. Hold off on comfort measures for now. Repeat CBC, CMP in a.m. Start on Flomax, home dose of Requip. Decrease dose of Ativan to 0.5 mg every 6 hours, Dilaudid to 0.2 every 4 hour. This documentation was created by [employer] flight engineer manager software. Every effort was made to ensure accuracy of flight engineer manager. Any obvious errors or omissions should be clarified with the author of the document. Attestations Medical Necessity Statement*: Requires further hospitalization while goals of care are further discussed for multiple medical problems Critical Care Time: The high probability of a clinically significant, sudden or life threatening deterioration of the patient's [goals of care discussion] system(s) required my full and direct attention, intervention and personal management. The critical care time is as shown. 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
[2021-10-26 18:30] VITALS: RESP 20
[2021-10-26] MEDS: ropinirole 2 mg Tablet 4 MG PO (18:30)
[2021-10-26] MEDS: morphine 4 mg/mL SDV 1 mL IVP ×3 (18:30→22:20)
--- NOTE | 2021-10-26 18:56 | PC.NURSE ---
Comfort measures only Patient and family (Eulalia and her ) come to the nurse with the decision that they want to pursue comfort measures only and do not want any further life sustaining intervention, tests, feeding tubes, surgeries, therapies, etc. Their may focus is to be pain free.
[2021-10-26] MEDS: ondansetron 2 mg/ML SDV 2 mL 4 MG IVP (19:34)
[2021-10-26 20:08] VITALS: O2SAT 95
[2021-10-26 20:39] VITALS: RESP 21
[2021-10-26] MEDS: cyclobenzaprine 10 mg Tablet 5 MG PO (21:24)
[2021-10-26 22:20] VITALS: RESP 20
[2021-10-27] MEDS: acetaminophen 325 mg Tablet 650 MG PO (00:20)
[2021-10-27] MEDS: HYDROmorphone 1 mg/mL INJ 1 mL 0.2 MG IVP (01:42)
[2021-10-27] MEDS: HYDROmorphone 1 mg/mL INJ 1 mL 0.5 MG IVP ×6 (02:10→21:58)
[2021-10-27] MEDS: morphine 10 mg/0.5 mL oral liq UD SUBLINGUAL ×3 (03:33→20:18)
[2021-10-27] MEDS: metoclopramide 5 mg/mL SDV 2 mL IVP ×4 (03:33→21:58)
[2021-10-27] MEDS: ondansetron 2 mg/ML SDV 2 mL 4 MG IVP ×4 (04:32→20:25)
--- NOTE | 2021-10-27 08:39 | PC.NURSE ---
Placed bed amaro underneath patient. He keeps asking if his friend will be coming back and if he can go poop in a commode brother suggested that the patient is bed bound.
[2021-10-27 09:55] VITALS: RESP 18
[2021-10-27] MEDS: pantoprazole 40 mg SDV IVP ×2 (09:55→22:21)
--- NOTE | 2021-10-27 12:39 | PC.CHAP ---
Pastoral Care Encounter/Spiritual Assessment Type of Contact [] Declined machine finisher visit [] Patient/Family/Request visit [] Outpatient visit [] Follow-up visit [] Physician referral [] Code/Alert [x] Routine visit [] Staff referral [] Actively dying [] Patient sleeping [x] Family support [] [] Out of room [] Palliative care [] [] Receiving care in room [] Pre-surgical visit [] Trauma [] Long length of stay [x] ICU visit [] Other: Relational/Emotional Strength [] Patient feels connected with others/family/visitors/staff [] Distress [] Loneliness/isolation [] Abandonment Spirituality of Patient [] Person of Pat [] Attends Methodist of their Pat [] Believes in Prayer [] Reads Bible or Latter-Day materials [] There are Spiritual issues to be addressed Distribution Center Associate Interventions [x] Prayer [] Active listening [] Non-anxious presence [] Spiritual/emotional support [] Crisis/trauma care [] Spiritual counseling [] Bereavement support [] Provided bereavement packet [] Provided Bible/devotional materials [] Provided toy/stuffed animal, coloring book to patient or family member [] Provided Communion [] Anointing/[place] [] Salvation [x] Completed spiritual assessment [] Other: Impact on Illness or Injury [] Angry [] Fearful [] Anxious [] Often cries [] Exhaustion [] Unable to work [] Unable to attend druze [] Unable to walk/stand [] Unable to read [] Unable to drive [] Unable to eat/drink [] Unable to sleep [] Unable to be with family [] Patient intubated [] Other: Summary Time spent with patient
--- NOTE | 2021-10-27 13:27 | P.PN_ITS ---
Subjective Subjective: Patient has remained comfortable. Vitals/I&O/Wt Last Vital Signs Temp 99.5 F 10/25/21 17:55 Pulse 83 10/25/21 15:15 Resp 18 10/27/21 09:55 BP 157/84 10/25/21 17:55 Pulse Ox 95 10/26/21 20:08 O2 Del Method 10/26/21 20:08 O2 Flow Rate 3 10/27/21 07:37 10/26/21 10/27/21 10/27/21 22:59 06:59 14:59 Intake Total 120 / 180 Output Total 500 / 500 100 / 600 Balance -380 / -320 -100 / -420 Physical Exam Narrative: Not examined given comfort status Data : 10/25/21 03:35 10/25/21 03:35 Micro: Microbiology 10/22/21 01:22 Blood Culture - Final Blood NO GROWTH AFTER 5 DAYS 10/22/21 01:22 Blood Culture - Final Blood NO GROWTH AFTER 5 DAYS A&P Assessment and plan (1) Prostate cancer metastatic to intrapelvic lymph node: Has been receiving palliative chemotherapy both IV and oral prior to hospitalization 09/13/2021 Status: Acute (2) Prostate cancer metastatic to bone: Mets to ribs. Status: Acute (3) Pulmonary embolism: Identified 09/16/2021 Status: Acute Qualifiers: Pulmonary embolism type: unspecified Chronicity: acute Acute cor pulmonale presence: without acute cor pulmonale Qualified Code(s): I26.99 - Other pulmonary embolism without acute cor pulmonale (4) CHF (congestive heart failure): Likely diastolic; however not reported on echo Echo on 09/13/2021 shows: CONCLUSIONS ?Technically limited quality echocardiogram because of poor ?ultrasonic windows. ?LV systolic function is normal with EF of 55 to 60%. ?Moderate to severe concentric left ventricular hypertrophy. 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 Status: Acute (7) Prostate cancer: Metastatic to bone and pelvic lymph nodes. Suspect possible leptomeningeal spr ead as well. Status: Acute (8) Delirium: Status: Acute (9) Pleural mass: Status: Acute (10) Lung nodule, multiple: Status: Acute (11) Fever: Status: Acute (12) Anemia: Status: Acute (13) Hypoxia: Status: Acute (14) Metabolic alkalemia: Status: Acute (15) DAMASO (acute kidney injury): Status: Acute (16) Lactate blood increase: Status: Acute Plan Summary initially admitted on 09/13/2021 at [facility] after being seen in the oncology clinic. Patient came in complaining of increasing anasarca. Patient was found to be in A. fib with RVR. Patient also had a femoral junction thrombosis and later PE was found. Patient was started on anticoagulation. On 09/17/2021 patient became critical. Found to have retroperitoneal bleeding. He had to be emergently transported to [facility] for embolization. After success he was hospitalized for a continued 30 days. Report from the physician was merely that patient was stable eating well and family wanted the patient to return to [place]. All that I can really identify is a UTI and treatment for pain that occurred in the interim 2 to 3 weeks after successful embolization. Since re-admission to [facility], care of this patient has been extremely complicated. While it was presented to me that this was a social readmission. Patient presented with confusion. And while the intention was to continue medications and find placement, I felt it prudent to adjust medications due to this confusion. At that time family was very concerned about his pain and I placed him on both long-acting and short acting oxycodone. Having some confusion thus I held Ativan. He appeared to be showing signs of delirium. I continued prednisone Protonix Reglan and Requip. Held scopolamine. Continued Wellbutrin. Since admission , He has been agitated periodically and sometimes refusing medications. We did trial of Haldol to no avail. On 10/23/2021 patient was so delirious that he had to be transferred to the ICU and started on Precedex. After the patient was sedated with Precedex I have spent significant time reviewing medications from prior hospital medications at our hospital, discussing with pharmacist possible medication interactions or other medications that could be attributing to delirium and/or withdrawal. Initial vital signs on admission to ICU reported a fever of 101 axillary. This was new. The night of admission 09/20/2021 UA was obtained. Overnight physicians interpretation was a urinary tract infection and he was started on Rocephin. However the patient had just recently been treated for UTI at [facility]. Considering the patient had a Perez catheter was agitated pulling at, I did not think the urinalysis was evidence of a urinary tract infection. Due to fever , sepsis work-up ensued with blood and urine cultures and chest x- ray shows again that pleural lesion?pulmonary infarct. Lactate is elevated. Withdrawal syndrome is possible since he was taking oxycodone 10 mg every 3 hours and Ativan 1 mg every 6 hours at outside hospital.. He was placed on morphine with good effect. I ordered Valium ID however this was not given since we did not have it in stock. Unfortunately he remained without a benzodiazepine for another 24 hours. I talked with the daughter and [id number] yesterday for about an hour. She informed us that he had changed his CODE STATUS to DNR at [facility]. Conclusion of the meeting was to continue the course of treatment for the next 24 to 48 hours. Today I met with the family for an hour and a half. The sister Fadia clearly has a lot of anxiety herself (as she is already been to our emergency room once) and finally admitted to the fears she has about her brother. She does not want him to suffer. And she feels responsible to make decisions. As below I explained that the patient's body is already making his decisions for us. I explained I do not think he can recover to his previous from the events of the last 6 weeks we discussed the patient's underlying conditions and comorbidities. We discussed metastatic prostate cancer and the complications from the cancer and treatments that the patient has experienced. The patient has been hospitalized since September 13 almost 6 weeks. Prior to that he was showing decline as per oncology notes. As we reviewed all of the patient's most recent diagnoses and how when we treat for 1 disease it affects another. I asked what she thought her brother would want. The conclusion again is that she does not want him to suffer. She wanted the defibrillator turned off just in case the patient were to have a ventricular arrhythmia. I have called the company and a ase certified technician is on the way to turn this off. In the meantime he is on scheduled morphine and Ativan. We are considering starting a drip. Since he is so delirious and requiring IV medications and continuous nursing he would qualify for inpatient hospice. Earlier during the day when family was not available for further assessment of delirious and altered mental status patient underwent CT abdomen pelvis and head to rule out any infectious focus, new stroke or bleed. Patient was started on Dilaudid 0.4 mg every 4 hour scheduled along with Ativan 1 mg every 6 hours. Precedex was being weaned down. Paperwork from [employer] was reviewed and he was started on IV fluconazole for recent Shahana UTI. Later in the day family was for further goals of care discussions. Goals of care discussion: In summary discussion was done for further goals of care given Mr. Hogan poor baseline health from prostate cancer which is metastasized, prolonged hospitalization for over 4 to 5 weeks for pulm embolism complicated by retroperitoneal left renal hematoma which is further complicated by patient developing delirium most likely secondary to withdrawal from excessive pain and anxiety medications. As per the sister patient in detail have expressed his wishes to make sure that he is never in pain or anxious. Patient recently had made himself DNR/DNI given his overall health. As per the sister, patient does not have any other immediate family. The parents are , patient was never . Given patient's wishes sister wants to go ahead and start patient on comfort measures status. Her only concern is to make sure that patient is not anxious because his biggest goal was to make sure he is never anxious. CODE STATUS changed as to comfort measures status. No further blood work, vitals. Continue with Dilaudid and Ativan. Morphine and Ativan as needed. Stop any antifungals or antibiotics. 10/26: Today morning on examination patient was a lot more awake. His mentation during the day continue to improve. Once awake with family at bedside goals of care were discussed again. Patient was made aware that he has been made comfort measures as per his sister's request on . Patient wanted to discuss goals again. It was discussed in detail with patient that unfortunately he is chronically extremely sick at baseline given his prostate cancer metastatic to bone on palliative chemotherapy along with prolonged hospitalization for pulmonary embolism for which treatment has been complicated by him developing retrop eritoneal hematoma on the left kidney which will most likely cause him to have loss left kidney in future. Patient was told that unfortunately overall he has poor prognosis. Options discussed were a possible trial of getting stronger with physical therapy while being treated for ongoing problems and eventual transfer to SNF for further rehabitation if possible. But during this process he will be on pain and anxiety medications though his pain level will not be lesser than 4-5 along with anxiety level as well. We discussed that during this process he will not be given a lot of pain and anxiety medications as I with them there is a high risk of him having respiratory arrest. Other option discussed was comfort measures which he was on before. We also discussed if he goes comfort measures option would be to go home with hospice versus hospice at SNF. We discussed that family had previously mentioned hospice at SNF as he does not have support at home to take care of his hospice needs. Patient requests he would like to discuss the goals further with his friends and family and would like to think further about the goals within next 24 hours. I also explained to the patient and patient's family that as a medical team we will be able to help him with what ever goals the patient and patient's family want to achieve but going back and forth between goals of care is going to complicate his care further and would cause him to have more complicated and painful outcome. Both patient and family verbalized understanding. They state they should be able to come back to a proper decision within next 24 hours. Hold off on comfort measures for now. Repeat CBC, CMP in a.m. Start on Flomax, home dose of Requip. Decrease dose of Ativan to 0.5 mg every 6 hours, Dilaudid to 0.2 every 4 hour. This documentation was created by [employer] manager business planning software. Every effort was made to ensure accuracy of manager business planning. Any obvious errors or omissions should be clarified with the author of the document. Plan for the day: Continue comfort measures. Placement for hospice at SNF versus home hospice. Transfer to [facility] floor. Attestations Medical Necessity Statement*: Requires further hospitalization for hospice care while safe and comfortable discharge planning is sought Time Spent in Patient Care: less than 15 minutes Coding Level of Care Code Acute Bridge Worker for Erasto Fwd Diagnoses Prostate cancer metastatic to intrapelvic lymph node C61; C77.5 Prostate cancer metastatic to bone C61; C79.51 Pulmonary embolism I26.99 Pulmonary embolism type: unspecified Chronicity: acute Acute cor pulmonale presence: without acute cor pulmonale CHF (congestive heart failure) I50.31 Heart failure type: diastolic Heart failure chronicity: acute Adult-onset Still's disease M06.1 Leg pain M79.606 Prostate cancer C61 Delirium R41.0 Pleural mass J94.8 Lung nodule, multiple R91.8 Fever R50.9 Anemia D64.9 Hypoxia R09.02 Metabolic alkalemia E87.3 DAMASO (acute kidney injury) N17.9 Lactate blood increase R79.89
[2021-10-27] MEDS: ropinirole 2 mg Tablet 4 MG PO ×2 (16:49→21:59)
[2021-10-27 16:52] VITALS: RESP 16; O2SAT 94
[2021-10-27] MEDS: cyclobenzaprine 10 mg Tablet 5 MG PO (20:17)
[2021-10-28 01:33] VITALS: RESP 18
[2021-10-28] MEDS: HYDROmorphone 1 mg/mL INJ 1 mL 0.5 MG IVP ×6 (01:33→21:11)
[2021-10-28] MEDS: metoclopramide 5 mg/mL SDV 2 mL IVP ×4 (04:06→21:11)
[2021-10-28] MEDS: morphine 10 mg/0.5 mL oral liq UD SUBLINGUAL ×2 (04:29→08:27)
[2021-10-28] MEDS: ondansetron 2 mg/ML SDV 2 mL 4 MG IVP ×2 (05:26→17:45)
[2021-10-28] MEDS: lanolin oint 7 gm 1 APPLIC TOPICAL (06:03)
[2021-10-28 07:40] VITALS: BP 123/85; PULSE 113; RESP 18; O2SAT 90
[2021-10-28] MEDS: cyclobenzaprine 10 mg Tablet 5 MG PO (08:24)
[2021-10-28] MEDS: tamsulosin 0.4 mg Capsule PO (08:24)
[2021-10-28] MEDS: pantoprazole 40 mg SDV IVP ×2 (10:39→21:16)
[2021-10-28 10:40] VITALS: RESP 18
[2021-10-28] MEDS: bisacodyl 10 mg Supp PR (10:40)
[2021-10-28] MEDS: buPROPion XL (24 HR) 300 mg Tablet PO (10:41)
--- NOTE | 2021-10-28 13:53 | PM.PN ---
Subjective Subjective: Patient remains comfortable. States pain is well controlled other than some abdominal discomfort. Complaining of constipation. Family states patient seems anxious. Vitals/I&O/Wt Last Vital Signs Temp 99.5 F 10/25/21 17:55 Pulse 113 H 10/28/21 07:40 Resp 18 10/28/21 10:40 BP 123/85 10/28/21 07:40 Pulse Ox 90 10/28/21 07:40 O2 Del Method 10/26/21 20:08 O2 Flow Rate 3 10/27/21 07:37 10/27/21 10/28/21 10/28/21 22:59 06:59 14:59 Intake Total 240 / 240 100 / 340 Output Total 300 / 300 Balance 240 / 240 -200 / 40 Physical Exam Narrative: Not examined given comfort status Data : 10/25/21 03:35 10/25/21 03:35 A&P Assessment and plan (1) Prostate cancer metastatic to intrapelvic lymph node: Has been receiving palliative chemotherapy both IV and oral prior to hospitalization 09/13/2021 Status: Acute (2) Prostate cancer metastatic to bone: Mets to ribs. Status: Acute (3) Pulmonary embolism: Identified 09/16/2021 Status: Acute Qualifiers: Pulmonary embolism type: unspecified Chronicity: acute Acute cor pulmonale presence: without acute cor pulmonale Qualified Code(s): I26.99 - Other pulmonary embolism without acute cor pulmonale (4) CHF (congestive heart failure): Likely diastolic; however not reported on echo Echo on 09/13/2021 shows: CONCLUSIONS ?Technically limited quality echocardiogram because of poor ?ultrasonic windows. ?LV systolic function is normal with EF of 55 to 60%. ?Moderate to severe concentric left ventricular hypertrophy. 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 Status: Acute (7) Prostate cancer: Metastatic to bone and pelvic lymph nodes. Suspect possible leptomeningeal spread as well. Status: Acute (8) Delirium: Status: Acute (9) Pleural mass: Status: Acute (10) Lung nodule, multiple: Status: Acute (11) Fever: Status: Acute (12) Anemia: Status: Acute (13) Hypoxia: Status: Acute (14) Metabolic alkalemia: Status: Acute (15) DAMASO (acute kidney injury): Status: Acute (16) Lactate blood increase: Status: Acute Plan Goals of care discussion: In summary discussion was done for further goals of care given Mr. Hogan poor baseline health from prostate cancer which is metastasized, prolonged hospitalization for over 4 to 5 weeks for pulm embolism complicated by retroperitoneal left renal hematoma which is further complicated by patient developing delirium most likely secondary to withdrawal from excessive pain and anxiety medications. As per the sister patient in detail have expressed his wishes to make sure that he is never in pain or anxious. Patient recently had made himself DNR/DNI given his overall health. As per the sister, patient does not have any other immediate family. The parents are , patient was never . Given patient's wishes sister wants to go ahead and start patient on comfort measures status. Her only concern is to make sure that patient is not anxious because his biggest goal was to make sure he is never anxious. CODE STATUS changed as to comfort measures status. No further blood work, vitals. Continue with Dilaudid and Ativan. Morphine and Ativan as needed. Stop any antifungals or antibiotics. 10/26: Today morning on examination patient was a lot more awake. His mentation during the day continue to improve. Once awake with family at bedside goals of care were discussed again. Patient was made aware that he has been made comfort measures as per his sister's request on . Patient wanted to discuss goals again. It was discussed in detail with patient that unfortunately he is chronically extremely sick at baseline given his prostate cancer metastatic to bone on palliative chemotherapy along with prolonged hospitalization for pulmonary embolism for which treatment has been complicated by him developing retroperitoneal hematoma on the left kidney which will most likely cause him to have loss left kidney in future. Patient was told that unfortunately overall he has poor prognosis. Options discussed were a possible trial of getting stronger with physical therapy while being treated for ongoing problems and eventual transfer to SNF for further rehabitation if possible. But during this process he will be on pain and anxiety medications though his pain level will not be lesser than 4-5 along with anxiety level as well. We discussed that during this process he will not be given a lot of pain and anxiety medications as I with them there is a high risk of him having respiratory arrest. Other option discussed was comfort measures which he was on before. We also discussed if he goes comfort measures option would be to go home with hospice versus hospice at SNF. We discussed that family had previously mentioned hospice at SNF as he does not have support at home to take care of his hospice needs. Patient requests he would like to discuss the goals further with his friends and family and would like to think further about the goals within next 24 hours. I also explained to the patient and patient's family that as a medical team we will be able to help him with what ever goals the patient and patient's family want to achieve but going back and forth between goals of care is going to complicate his care further and would cause him to have more complicated and painful outcome. Both patient and family verbalized understanding. They state they should be able to come back to a proper decision within next 24 hours. Hold off on comfort measures for now. Repeat CBC, CMP in a.m. Start on Flomax, home dose of Requip. Decrease dose of Ativan to 0.5 mg every 6 hours, Dilaudid to 0.2 every 4 hour. 10/28: Continue with comfort measures. Added as needed docusate and milk of magnesia. Patient received glycerin suppository. Increased standing Ativan to 1 mg every 6 hourly. Changed as needed Ativan to 1 to 2 mg IV every 4 hours as needed. Directed nurse to give pain medications in between if needed. This documentation was created by [employer] auto body builder apprentice software. Every effort was made to ensure accuracy of auto body builder apprentice. Any obvious errors or omissions should be clarified with the author of the document. Plan for the day: Continue comfort measures. Placement for hospice at SNF versus home hospice[facility] 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
[2021-10-28 17:46] VITALS: RESP 18
[2021-10-28] MEDS: fentaNYL 100 mcg Patch 1 PATCH TRANSDERMA (21:12)
--- NOTE | 2021-10-28 21:28 | PC.NURSE ---
Fentanyl patch changed. Old patch placed removed and disposed of. Laura Dawkins LPN witnessed
[2021-10-29] MEDS: ondansetron 2 mg/ML SDV 2 mL 4 MG IVP ×2 (02:25→13:12)
[2021-10-29] MEDS: HYDROmorphone 1 mg/mL INJ 1 mL 0.5 MG IVP ×6 (02:26→21:07)
[2021-10-29] MEDS: metoclopramide 5 mg/mL SDV 2 mL IVP ×4 (05:00→21:07)
[2021-10-29 08:13] VITALS: BP 121/80; PULSE 104; RESP 16; O2SAT 94
[2021-10-29] MEDS: tamsulosin 0.4 mg Capsule PO (08:59)
[2021-10-29] MEDS: docusate sodium 100 mg Capsule PO (08:59)
[2021-10-29] MEDS: pantoprazole 40 mg SDV IVP ×2 (09:00→21:07)
[2021-10-29] MEDS: buPROPion XL (24 HR) 300 mg Tablet PO (09:01)
[2021-10-29 12:06] VITALS: BP 145/70; PULSE 57; RESP 16; TEMP 36.6; O2SAT 93
--- NOTE | 2021-10-29 12:59 | PM.PN ---
Subjective Subjective: Status quo. No changes. Patient seems comfortable. Vitals/I&O/Wt Last Vital Signs Temp 97.9 F 10/29/21 12:06 Pulse 57 L 10/29/21 12:06 Resp 16 10/29/21 12:06 BP 145/70 10/29/21 12:06 Pulse Ox 93 10/29/21 12:06 O2 Del Method 10/26/21 20:08 O2 Flow Rate 3 10/27/21 07:37 10/28/21 10/29/21 10/29/21 22:59 06:59 14:59 Intake Total 0 / 0 120 / 120 0 / 0 Output Total 300 / 300 Balance 0 / 0 -180 / -180 0 / 0 Physical Exam Narrative: Not examined given comfort status Data : 10/25/21 03:35 10/25/21 03:35 Micro: Microbiology 10/23/21 14:45 Blood Culture - Final Blood NO GROWTH AFTER 5 DAYS 10/23/21 14:40 Blood Culture - Final Blood NO GROWTH AFTER 5 DAYS A&P Assessment and plan (1) Prostate cancer metastatic to intrapelvic lymph node: Has been receiving palliative chemotherapy both IV and oral prior to hospitalization 09/13/2021 Status: Acute (2) Prostate cancer metastatic to bone: Mets to ribs. Status: Acute (3) Pulmonary embolism: Identified 09/16/2021 Status: Acute Qualifiers: Pulmonary embolism type: unspecified Chronicity: acute Acute cor pulmonale presence: without acute cor pulmonale Qualified Code(s): I26.99 - Other pulmonary embolism without acute cor pulmonale (4) CHF (congestive heart failure): Likely diastolic; however not reported on echo Echo on 09/13/2021 shows: CONCLUSIONS ?Technically limited quality echocardiogram because of poor ?ultrasonic windows. ?LV systolic function is normal with EF of 55 to 60%. ?Moderate to severe concentric left ventricular hypertrophy. 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 Status: Acute (7) Prostate cancer: Metastatic to bone and pelvic lymph nodes. Suspect possible leptomeningeal spread as well. Status: Acute (8) Delirium: Status: Acute (9) Pleural mass: Status: Acute (10) Lung nodule, multiple: Status: Acute (11) Fever: Status: Acute (12) Anemia: Status: Acute (13) Hypoxia: Status: Acute (14) Metabolic alkalemia: Status: Acute (15) DAMASO (acute kidney injury): Status: Acute (16) Lactate blood increase: Status: Acute Plan Goals of care discussion: In summary discussion was done for further goals of care given Mr. Hogan poor baseline health from prostate cancer which is metastasized, prolonged hospitalization for over 4 to 5 weeks for pulm embolism complicated by retroperitoneal left renal hematoma which is further complicated by patient developing delirium most likely secondary to withdrawal from excessive pain and anxiety medications. As per the sister patient in detail have expressed his wishes to make sure that he is never in pain or anxious. Patient recently had made himself DNR/DNI given his overall health. As per the sister, patient does not have any other immediate family. The parents are , patient was never . Given patient's wishes sister wants to go ahead and start patient on comfort measures status. Her only concern is to make sure that patient is not anxious because his biggest goal was to make sure he is never anxious. CODE STATUS changed as to comfort measures status. No further blood work, vitals. Continue with Dilaudid and Ativan. Morphine and Ativan as needed. Stop any antifungals or antibiotics. 10/26: Goals of care discussion with patient and family done again: Today morning on examination patient was a lot more awake. His mentation during the day continue to improve. Once awake with family at bedside goals of care were discussed again. Patient was made aware that he has been made comfort measures as per his sister's request on . Patient wanted to discuss goals again. It was discussed in detail with patient that unfortunately he is chronically extremely sick at baseline given his prostate cancer metastatic to bone on palliative chemotherapy along with prolonged hospitalization for pulmonary embolism for which treatment has been complicated by him developing retroperitoneal hematoma on the left kidney which will most likely cause him to have loss left kidney in future. Patient was told that unfortunately overall he has poor prognosis. Options discussed were a possible trial of getting stronger with physical therapy while being treated for ongoing problems and eventual transfer to SNF for further rehabitation if possible. But during this process he will be on pain and anxiety medications though his pain level will not be lesser than 4-5 along with anxiety level as well. We discussed that during this process he will not be given a lot of pain and anxiety medications as I with them there is a high risk of him having respiratory arrest. Other option discussed was comfort measures which he was on before. We also discussed if he goes comfort measures option would be to go home with hospice versus hospice at SNF. We discussed that family had previously mentioned hospice at SNF as he does not have support at home to take care of his hospice needs. Patient requests he would like to discuss the goals further with his friends and family and would like to think further about the goals within next 24 hours. I also explained to the patient and patient's family that as a medical team we will be able to help him with what ever goals the patient and patient's family want to achieve but going back and forth between goals of care is going to complicate his care further and would cause him to have more complicated and painful outcome. Both patient and family verbalized understanding. They state they should be able to come back to a proper decision within next 24 hours. Hold off on comfort measures for now. Repeat CBC, CMP in a.m. Start on Flomax, home dose of Requip. Decrease dose of Ativan to 0.5 mg every 6 hours, Dilaudid to 0.2 every 4 hour. 10/29: Had a long discussion again with patient's sister at bedside. Answered all the questions in detail. Patient sister had multiple questions regarding hosp[facility] care at the [facility], continuation of medication and hospice the same way like it hospital at the [facility]. She states she is trying to arrange money for placement at a [facility]. Awaiting call back from the [facility] regarding further answers. She is requesting list of medications patient is getting on hospice at hospital. She is looking forward to talk to case management again today. This documentation was created by [employer] felt hanger software. Every effort was made to ensure accuracy of felt hanger. Any obvious errors or omissions should be clarified with the author of the document. Plan for the day: Continue comfort measures. Placement for hospice at SNF versus home hospice. Transfer to [facility] floor. Attestations Medical Necessity Statement*: Awaiting placement. Time Spent in Patient Care: 16 - 35 minutes Most of the time spent today talking to patient's family and answering questions regarding patient's potential care at [facility] if and when discharged Coding Level of Care Code Acute Bilingual Manager for [employer] Fwd Diagnoses Prostate cancer metastatic to intrapelvic lymph node C61; C77.5 Prostate cancer metastatic to bone C61; C79.51 Pulmonary embolism I26.99 Pulmonary embolism type: unspecified Chronicity: acute Acute cor pulmonale presence: without acute cor pulmonale CHF (congestive heart failure) I50.31 Heart failure type: diastolic Heart failure chronicity: acute Adult-onset Still's disease M06.1 Leg pain M79.606 Prostate cancer C61 Delirium R41.0 Pleural mass J94.8 Lung nodule, multiple R91.8 Fever R50.9 Anemia D64.9 Hypoxia R09.02 Metabolic alkalemia E87.3 DAMASO (acute kidney injury) N17.9 Lactate blood increase R79.89
--- NOTE | 2021-10-29 13:15 | PC.NURSE ---
patient continues to c/o nausea and pain medicated as ordered. patient states the pain is general is not able to states where or severity, just states he is hurting
[2021-10-29 17:40] VITALS: RESP 18
[2021-10-29 20:03] VITALS: BP 134/75; PULSE 107; RESP 21; TEMP 36.7; O2SAT 91
[2021-10-29] MEDS: ropinirole 2 mg Tablet 4 MG PO (20:50)
[2021-10-30] MEDS: ondansetron 2 mg/ML SDV 2 mL 4 MG IVP (00:30)
[2021-10-30] MEDS: HYDROmorphone 1 mg/mL INJ 1 mL 0.5 MG IVP ×6 (01:06→21:52)
[2021-10-30 04:00] VITALS: RESP 21
[2021-10-30] MEDS: metoclopramide 5 mg/mL SDV 2 mL IVP ×4 (04:05→21:51)
[2021-10-30] MEDS: docusate sodium 100 mg Capsule PO ×2 (08:44→18:14)
[2021-10-30] MEDS: buPROPion XL (24 HR) 300 mg Tablet PO (08:45)
[2021-10-30] MEDS: tamsulosin 0.4 mg Capsule PO (08:45)
[2021-10-30] MEDS: pantoprazole 40 mg SDV IVP ×2 (10:50→21:51)
[2021-10-30 10:51] VITALS: RESP 21; O2SAT 95
--- NOTE | 2021-10-30 12:19 | PC.NURSE ---
Verbal order from Dr. Rodriguez for Voltaran Cream to lower extremities QID
[2021-10-30] MEDS: diclofenac 1% Topical Gel 100 gm 1 APPLIC TOPICAL ×3 (13:10→21:31)
--- NOTE | 2021-10-30 13:18 | PM.PN ---
Subjective Subjective: status quo. No new complaints. Comfortable. Family at bedside. RN requesting for Voltaren gel. 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 Status: Acute (3) Pulmonary embolism: Identified 09/16/2021 Status: Acute Qualifiers: Pulmonary embolism type: unspecified Chronicity: acute Acute cor pulmonale presence: without acute cor pulmonale Qualified Code(s): I26.99 - Other pulmonary embolism without acute cor pulmonale (4) CHF (congestive heart failure): Likely diastolic; however not reported on echo Echo on 09/13/2021 shows: CONCLUSIONS ?Technically limited quality echocardiogram because of poor ?ultrasonic windows. ?LV systolic function is normal with EF of 55 to 60%. ?Moderate to severe concentric left ventricular hypertrophy. 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 Status: Acute (7) Prostate cancer: Metastatic to bone and pelvic lymph nodes. Suspect possible leptomeningeal spread as well. Status: Acute (8) Delirium: Status: Acute (9) Pleural mass: Status: Acute (10) Lung nodule, multiple: Status: Acute (11) Fever: Status: Acute (12) Anemia: Status: Acute (13) Hypoxia: Status: Acute (14) Metabolic alkalemia: Status: Acute (15) DAMASO (acute kidney injury): Status: Acute (16) Lactate blood increase: Status: Acute Plan Goals of care discussion: In summary discussion was done for further goals of care given Mr. Hogan poor baseline health from prostate cancer which is metastasized, prolonged hospitalization for over 4 to 5 weeks for pulm embolism complicated by retroperitoneal left renal hematoma which is further complicated by patient developing delirium most likely secondary to withdrawal from excessive pain and anxiety medications. As per the sister patient in detail have expressed his wishes to make sure that he is never in pain or anxious. Patient recently had made himself DNR/DNI given his overall health. As per the sister, patient does not have any other immediate family. The parents are , patient was never . Given patient's wishes sister wants to go ahead and start patient on comfort measures status. Her only concern is to make sure that patient is not anxious because his biggest goal was to make sure he is never anxious. CODE STATUS changed as to comfort measures status. No further blood work, vitals. Continue with Dilaudid and Ativan. Morphine and Ativan as needed. Stop any antifungals or antibiotics. 10/26: Goals of care discussion with patient and family done again: Today morning on examination patient was a lot more awake. His mentation during the day continue to improve. Once awake with family at bedside goals of care were discussed again. Patient was made aware that he has been made comfort measures as per his sister's request on . Patient wanted to discuss goals again. It was discussed in detail with patient that unfortunately he is chronically extremely sick at baseline given his prostate cancer metastatic to bone on palliative chemotherapy along with prolonged hospitalization for pulmonary embolism for which treatment has been complicated by him developing retroperitoneal hematoma on the left kidney which will most likely cause him to have loss left kidney in future. Patient was told that unfortunately overall he has poor prognosis. Options discussed were a possible trial of getting stronger with physical therapy while being treated for ongoing problems and eventual transfer to SNF for further rehabitation if possible. But during this process he will be on pain and anxiety medications though his pain level will not be lesser than 4-5 along with anxiety level as well. We discussed that during this process he will not be given a lot of pain and anxiety medications as I with them there is a high risk of him having respiratory arrest. Other option discussed was comfort measures which he was on before. We also discussed if he goes comfort measures option would be to go home with hospice versus hospice at SNF. We discussed that family had previously mentioned hospice at SNF as he does not have support at home to take care of his hospice needs. Patient requests he would like to discuss the goals further with his friends and family and would like to think further about the goals within next 24 hours. I also explained to the patient and patient's family that as a medical team we will be able to help him with what ever goals the patient and patient's family want to achieve but going back and forth between goals of care is going to complicate his care further and would cause him to have more complicated and painful outcome. Both patient and family verbalized understanding. They state they should be able to come back to a proper decision within next 24 hours. Hold off on comfort measures for now. Repeat CBC, CMP in a.m. Start on Flomax, home dose of Requip. Decrease dose of Ativan to 0.5 mg every 6 hours, Dilaudid to 0.2 every 4 hour. 10/30: Continue with comfort measures. Care discussed in detail with fixed income director Dr. Heredia. This documentation was created by [employer] veterinary surgery technologist software. Every effort was made to ensure accuracy of veterinary surgery technologist. Any obvious errors or omissions should be clarified with the author of the document. Plan for the day: Continue comfort measures. Placement for hospice at SNF versus home hospice[facility] Attestations Medical Necessity Statement*: Requires further hospitalization for hospice care when discharge planning is sought Time Spent in Patient Care: less than 15 minutes Coding Level of Care Code Acute [place] [facility] for [facility] Fwd Diagnoses Prostate cancer metastatic to intrapelvic lymph node C61; C77.5 Prostate cancer metastatic to bone C61; C79.51 Pulmonary embolism I26.99 Pulmonary embolism type: unspecified Chronicity: acute Acute cor pulmonale presence: without acute cor pulmonale CHF (congestive heart failure) I50.31 Heart failure type: diastolic Heart failure chronicity: acute Adult-onset Still's disease M06.1 Leg pain M79.606 Prostate cancer C61 Delirium R41.0 Pleural mass J94.8 Lung nodule, multiple R91.8 Fever R50.9 Anemia D64.9 Hypoxia R09.02 Metabolic alkalemia E87.3 DAMASO (acute kidney injury) N17.9 Lactate blood increase R79.89
[2021-10-30 14:55] VITALS: RESP 18; O2SAT 94
[2021-10-30 18:12] VITALS: RESP 18; O2SAT 93
[2021-10-30] MEDS: cyclobenzaprine 10 mg Tablet 5 MG PO (20:12)
[2021-10-30] MEDS: ropinirole 2 mg Tablet 4 MG PO (20:12)
[2021-10-31] MEDS: HYDROmorphone 1 mg/mL INJ 1 mL 0.5 MG IVP ×3 (02:53→09:48)
[2021-10-31] MEDS: metoclopramide 5 mg/mL SDV 2 mL IVP ×4 (02:57→21:42)
[2021-10-31] MEDS: ondansetron 2 mg/ML SDV 2 mL 4 MG IVP (06:48)
[2021-10-31 07:41] VITALS: BP 98/78; PULSE 92; RESP 16; O2SAT 95
[2021-10-31] MEDS: pantoprazole 40 mg SDV IVP ×2 (09:46→21:41)
[2021-10-31] MEDS: diclofenac 1% Topical Gel 100 gm 1 APPLIC TOPICAL (09:47)
[2021-10-31 09:48] VITALS: RESP 16; O2SAT 95
--- NOTE | 2021-10-31 11:32 | P.DS_ITS ---
Discharge Providers Date of Admission: 10/21/21 18:25 Date of Discharge: October 31, 2021 Attending Provider at Admission: Vadim Santos DO Attending Provider at Discharge: Fredi Hiu MD Primary Care Provider: Glenn Dyer MD Diagnoses at Discharge Discharge Diagnosis (1) Prostate cancer metastatic to intrapelvic lymph node: Status: Acute (2) Prostate cancer metastatic to bone: Status: Acute (3) Pulmonary embolism: Status: Acute Qualifiers: Pulmonary embolism type: unspecified Chronicity: acute Acute cor pulmonale presence: without acute cor pulmonale Qualified Code(s): I26.99 - Other pulmonary embolism without acute cor pulmonale (4) CHF (congestive heart failure): Status: Acute Qualifiers: Heart failure type: diastolic Heart failure chronicity: acute Quali fied Code(s): I50.31 - Acute diastolic (congestive) heart failure (5) Adult-onset Still's disease: Status: Acute (6) Leg pain: Status: Acute (7) Prostate cancer: Status: Acute Permanent problem details: Stage IVB - T1c, N1, M1a, P>=20, G5 (8) Delirium: Status: Acute (9) Pleural mass: Status: Acute (10) Lung nodule, multiple: Status: Acute (11) Fever: Status: Acute (12) Anemia: Status: Acute (13) Hypoxia: Status: Acute (14) Metabolic alkalemia: Status: Acute (15) DAMASO (acute kidney injury): Status: Acute (16) Lactate blood increase: Status: Acute Reason for Visit Reason for Visit: GI Bleed Hospital Course Hospital Course Jose Manuel Hogan is a 60 year old male with metastatic prostate cancer who was initially admitted on 09/13/2021 at [facility] after being seen in the oncology clinic. Patient came in complaining of increasing anasarca. Patient was found to be in A. fib with RVR. Patient also had a femoral junction thrombosis and later PE was found. Patient was started on anticoagulation. On 09/17/2021 patient became critical. Found to have retroperitoneal bleeding. He had to be emergently transported to [facility] for embolization. On review of chart from outside hospital it seems he was found to have no active bleed so embolization was never done. He had a prolonged hospitalization for over 30 days. During hospitalization as per chart review patient was on oral Dilaudid and Ativan for pain and anxiety. He was also treated for UTI with completion of antibiotic course. At [place] he was being tried to be placed at SNF but were unsuccessful and as family wanted the patient to return to [place]. He was transferred back to [facility] on 10/21. His current hospitalization was complicated by patient developing delirium which at start was thought to be from withdrawal from multiple pain and anxiety medications at [place]. He was started on regular Ativan and Dilaudid along with Precedex drip to which he responded well. Repeat CT scan was done which showed repeat retroperitoneal bleed around the left kidney. As per the family patient did have the similar bleed even at [facility]. Goals of care were discussed with patient's DPOA/sister as patient was delirious given Giurgius poor baseline health and prostate cancer which is metastasized along with prolonged hospitalization for pulmonary embolism which is complicated by him developing retroperitoneal bleed left renal hematoma. Both patient and patient's sister verbalized understanding and states for him its important that he is not in pain and anxiety and he understands the poor prognosis is feeling less has and would want to hospice. Patient was eventually placed on hospice on 10/26. Since being on hospice patient has remained comfortable on [id number] IV pain and anxiety medications along with as needed medications. Placement has been difficult given financial restraints for hospice at [facility]. Care was discussed in detail with Dr. Heredia and he has been dischargedto inpatient hospice. Physical Exam Narrative: Not examined given comfort status Discharge Data Studies Completed and Pending Completed Studies During Hospitalization Category [place] [id number] Routine Cat Scan 10/25/21 09:[address] head wo con* [id number] Routine Cat Scan 10/25/21 09:21 Completed XR chest 1V portable [id number] Routine Exams 10/23/21 13:16 Completed Radiology Impressions Chest X-Ray 10/23/21 13:16 IMPRESSION: 3.4 cm opacity along the lateral aspect of the right midlung field with seen on the prior CT scan as well. Chest/Abdomen/Pelvis CT 10/25/21 09:21 IMPRESSION: 1. Recurrent LEFT perirenal hematoma with increased attenuation blood products extending into the pelvis compatible with interval hemorrhage. This measures approximately 5.8 x 4.9 x 14.7 cm extending into the LEFT retroperitoneum. 2. Associated compression LEFT kidney. 3. Stable LEFT upper pole heterogeneous lesion suspicious for neoplasm measuring 4.1 x 5.2 CM. 4. Small LEFT and tiny RIGHT pleural effusions with compressive atelectasis in the lung bases. 5. Subpleural opacity/loculated fluid along the RIGHT fissure unchanged. 6. IVC filter Notified Fredi Hui MD at 10/25/2021 12:[address] 10/25/21 09:21 IMPRESSION: 1. No evidence of intracranial hemorrhage or mass effect. 2. Mild small vessel changes. Mild parenchymal volume loss. 3. Mucosal thickening RIGHT mastoid air cells. Laboratory Results WBC 5.1 10^3/uL (4.0-10.0) 10/25/21 03:35 RBC 2.72 10^6/uL (4.1-5.3) L 10/25/21 03:35 Hgb 8.2 g/dL (11.7-16.6) L 10/25/21 03:35 Hct 26.5 % (42.0-52.0) L 10/25/21 03:35 MCV 97.4 fl (80-94) H 10/25/21 03:35 MCH 30.1 pg (28.0-34.0) 10/25/21 03:35 MCHC 30.9 g/dL (30.0-36.0) 10/25/21 03:35 RDW 15.9 % (12.1-15.1) H 10/25/21 03:35 Plt Count 249 10^3/cmm (130-400) 10/25/21 03:35 MPV 9.0 fL (7.4-10.4) 10/25/21 03:35 Neut % (Auto) 66.5 % 10/25/21 03:35 Lymph % (Auto) 23.3 % 10/25/21 03:35 [place] % (Auto) 8.2 % 10/25/21 03:35 Eos % (Auto) 0.6 % 10/25/21 03:35 Baso % (Auto) 0.8 % 10/25/21 03:35 Neut # (Auto) 3.40 10^3/uL (1.8-7.7) 10/25/21 03:35 Lymph # (Auto) 1.2 10^3/uL (0.8-4.8) 10/25/21 03:35 [place] # (Auto) 0.4 10^3/uL (0.2-0.9) 10/25/21 03:35 Eos # (Auto) 0.0 10^3/uL (0.0-0.8) 10/25/21 03:35 Baso # (Auto) 0.0 10^3/uL (0.0-0.1) 10/25/21 03:35 Nucleated RBC % (auto) 0 % 10/25/21 03:35 Nucleated RBCs # 0.0 /100WBC 10/25/21 03:35 Specimen Type Arterial 10/23/21 12:30 Sample Site Brachial, right 10/23/21 12:30 ABG pH 7.59 (7.35-7.45) H* 10/23/21 12:30 ABG pCO2 35.8 mmHg (35-45) 10/23/21 12:30 ABG pO2 48.3 mmHg (80.0-100.0) L 10/23/21 12:30 ABG HCO3 34.1 mmol/L (22-26) H 10/23/21 12:30 ABG Base Excess 11.6 mmol/L (-2.0-2.0) H 10/23/21 12:30 Jose Test Pos 10/23/21 12:30 Hematocrit 29.8 % (42-52) L 10/23/21 12:30 O2 Delivery Device Room air 10/23/21 12:30 O2 Liters/Min 3.0 % 10/22/21 03:06 FiO2 21.0 % 10/23/21 12:30 Director Of Women'S Services ID Bd 10/23/21 12:30 Sodium 142 mmol/L (136-145) 10/25/21 03:35 Sodium Cancelled 10/25/21 03:35 Potassium 2.6 mmol/L (3.5-5.1) L* 10/25/21 03:35 Potassium Cancelled 10/25/21 03:35 Chloride 99 mmol/L (98-107) 10/25/21 03:35 Chloride Cancelled 10/25/21 03:35 Carbon Dioxide 26 mmol/L (22-29) 10/25/21 03:35 Carbon Dioxide Cancelled 10/25/21 03:35 Anion Gap 19.6 (5-19) H 10/25/21 03:35 Anion Gap Cancelled 10/25/21 03:35 BUN 9 mg/dL (8-23) 10/25/21 03:35 BUN Cancelled 10/25/21 03:35 Creatinine 1.1 mg/dL (0.7-1.2) 10/25/21 03:35 Creatinine Cancelled 10/25/21 03:35 GFR Calculation 68.1 mL/min (90-130) L 10/25/21 03:35 GFR Calculation Cancelled 10/25/21 03:35 Glucose 128 mg/dL (65-115) H 10/25/21 03:35 Glucose Cancelled 10/25/21 03:35 Calculated Osmolality 294 mOsm/kg (285-295) 10/25/21 03:35 Calculated Osmolality Cancelled 10/25/21 03:35 Lactate 6.0 mmol/L (0.5-2.2) H* 10/23/21 12:30 Calcium 7.8 mg/dL (8.5-10.5) L 10/25/21 03:35 Calcium Cancelled 10/25/21 03:35 Phosphorus 2.6 mg/dL (2.5-4.5) 10/22/21 01:22 Magnesium 1.7 mg/dL (1.7-2.3) 10/24/21 03:19 Ferritin 3023 ng/mL (30-400) H 10/22/21 01:22 Total Bilirubin 0.7 mg/dL (0.15-1.2) 10/25/21 03:35 AST 36 U/L (0-40) 10/25/21 03:35 ALT 26 U/L (0-41) 10/25/21 03:35 Alkaline Phosphatase 121 U/L (40-130) 10/25/21 03:35 Ammonia 18 umol/L (16-60) 10/22/21 01:22 Creatine Kinase 116 U/L (39-308) 10/22/21 01:22 C-Reactive Protein 37.2 mg/L (0.0-4.9) H 10/22/21 01:22 NT-Pro-B Natriuret Pep 1473 pg/mL (0-125) H 10/22/21 01:22 Total Protein 4.7 g/dL (6.6-8.7) L 10/25/21 03:35 Albumin 2.7 g/dL (3.5-5.2) L 10/25/21 03:35 Globulin Cancelled 10/25/21 03:35 Procalcitonin 0.17 ng/mL (0-0.5) 10/25/21 03:35 TSH 6.42 uIU/mL (0.27-4.20) H 10/23/21 12:30 Urine Color Yellow (Yellow) 10/23/21 14:00 Urine Appearance Clear (CLEAR) 10/23/21 14:00 Urine pH 9 (5-7) H 10/23/21 14:00 Ur Specific [place] 1.010 (1.005-1.030) 10/23/21 14:00 Urine Protein Neg (Negative) 10/23/21 14:00 Urine Glucose (UA) Norm (Normal) 10/23/21 14:00 Urine Ketones 1+ (Negative) H 10/23/21 14:00 Urine Blood 3+ (Negative) H 10/23/21 14:00 Urine Nitrate Negative (Negative) 10/23/21 14:00 Urine Bilirubin Neg (Negative) 10/23/21 14:00 Prot Sulfosalicylic Acd Negative (Negative) 10/23/21 14:00 Urine Urobilinogen Norm mg/dL (Negative) 10/23/21 14:00 Ur Leukocyte Esterase Negative (Negative) 10/23/21 14:00 Urine RBC 5-10 /hpf (0-2) H 10/23/21 14:00 Urine WBC None /hpf (0-5) 10/23/21 14:00 Ur Squamous Epith Cells None /hpf (0-5) 10/23/21 14:00 Amorphous Sediment Not Reportable 10/23/21 14:00 Urine Bacteria Trace /hpf (NONE) 10/23/21 14:00 Hyaline Casts 5-10 /lpf H 10/23/21 14:00 Urine Mucus Trace /hpf 10/23/21 14:00 Blood Type O Positive 10/22/21 06:44 Rho(D) Type Positive 10/22/21 06:44 Antibody Screen Negative 10/22/21 06:44 Crossmatch See Detail 10/22/21 06:44 Vitals Last Vital Signs Temp 98.1 F 10/29/21 20:03 Pulse 107 H 10/29/21 20:03 Resp 16 10/31/21 09:48 BP 98/78 10/31/21 07:41 Pulse Ox 95 10/31/21 09:48 O2 Del Method 10/26/21 20:08 O2 Flow Rate 3 10/30/21 08:00 Discharge Plan Discharge Patient Disposition: Home Condition: Stable Prescriptions: No Action Unable to Assess Discharge Orders: Discharge Order (Routine); Ordered 10/31/21 Ordered By: Fredi Hui Patient Instructions: Opioid Safety Discharge Attestations Time Spent in Discharge Care*: greater than 30 min Specific Discharge Activities: educating and/or supporting family/caregiver, discussing with pcp/other providers, discussing with case manager specialist/social workers/dc planners, documenting/other paperwork and evaluating patient/reviewing data Status at Discharge: Cognitive status at discharge: cognitively intact , Behavioral status at discharge: cooperative , Functional status at discharge: bed bound , Overall status at discharge: patient has a new baseline Quality Metrics Clinical Quality Measures [ No reported AMI, CVA or VTE this stay] Coding Level of Care Code Acute Chg FW DC note Diagnoses Prostate cancer metastatic to intrapelvic lymph node C61; C77.5 Prostate cancer metastatic to bone C61; C79.51 Pulmonary embolism I26.99 Pulmonary embolism type: unspecified Chronicity: acute Acute cor pulmonale presence: without acute cor pulmonale CHF (congestive heart failure) I50.31 Heart failure type: diastolic Heart failure chronicity: acute Adult-onset Still's disease M06.1 Leg pain M79.606 Prostate cancer C61 Delirium R41.0 Pleural mass J94.8 Lung nodule, multiple R91.8 Fever R50.9 Anemia D64.9 Hypoxia R09.02 Metabolic alkalemia E87.3 DAMASO (acute kidney injury) N17.9 Lactate blood increase R79.89
--- NOTE | 2021-10-31 11:41 | PM.HP ---
Providers/Chief Complaint Admitting Physician: Vadim Santos DO Primary Care Provider: Glenn Deyr MD Chief Complaint: GI Bleed History of Present Illness Jose Manuel Hogan is a 60 year old male prostate cancer which is metastasized, pulmonary embolism complicated by retroperitoneal hematoma, anemia who has had a prolonged hospitalization and was recently goals of care were changed to hospice care on 10/26. For more details please refer to my discharge summary from today. Review of Systems General: Reports: ROS unobtainable due to medical condition Medications/Allergies Home Medications Medication Instructions Recorded Confirmed Last Taken Type Unable to Assess 10/22/21 10/22/21 Unknown History Allergies Allergy/AdvReac Type Severity Reaction Status Date / Time Iodinated Contrast Media Allergy Severe ALGY-Swell Verified 09/13/21 20:57 Lip/Tongue/Throat PFSH Acute PFSH: Medical History (Updated 10/31/21 @ 11:43 by Fredi Hui MD) Adult-onset Still's disease COVID-19 vaccine administered Edema Elevated PSA High risk medication use Hypertension Immunization counseling Inflammatory arthritis Intermittent fever Joint pain Pain in joints Prostate cancer Stage IVB - T1c, N1, M1a, P>=20, G5 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 Restless leg syndrome Shortness of breath Urinary frequency Surgical History History of cholecystectomy Family History Other Cancer Diabetes Hyperlipidemia Hypertension Rheumatoid arthritis Denies family history of Lupus CAD (coronary artery disease) Clotting disorder Dementia Psychiatric illness Chronic kidney disease (CKD) Suicide Anesthesia complication Bleeding disorder Lung disease Stroke Social History Smoking and tobacco status: former smoker Alcohol intake: former Year of sobriety/quit date alcohol: 11yr History of recent travel: No Vitals/I&O/Wt Last Vital Signs Temp 98.1 F 10/29/21 20:03 Pulse 107 H 10/29/21 20:03 Resp 16 10/31/21 09:48 BP 98/78 10/31/21 07:41 Pulse Ox 95 10/31/21 09:48 O2 Del Method 10/26/21 20:08 O2 Flow Rate 3 10/30/21 08:00 08/10/31/21 10/31/21 22:59 06:59 14:59 Intake Total 240 / 240 Output Total 300 / 300 100 / 400 Balance -60 / -60 -100 / -160 Physical Exam Narrative: Not examined given comfort measures status Data : 10/25/21 03:35 10/25/21 03:35 A&P Assessment and plan (1) Hospice care: Status: Acute (2) Prostate cancer: Status: Acute (3) Retroperitoneal hematoma: Status: Acute (4) Pulmonary embolism: Status: Acute Qualifiers: Pulmonary embolism type: unspecified Chronicity: acute Acute cor pulmonale presence: without acute cor pulmonale Qualified Code(s): I26.99 - Other pulmonary embolism without acute cor pulmonale (5) CHF (congestive heart failure): Status: Acute Qualifiers: Heart failure type: diastolic Heart failure chronicity: acute Qualified Code(s): I50.31 - Acute diastolic (congestive) heart failure Plan Treatment as per inpatient hospice. Ativan 1 mg every 4 hour, Dilaudid 0.4 mg IV every 4 hour. Ativan, morphine as needed Scopolamine as needed, glycerin suppository as needed Protonix IV Zofran as needed Attestations Medical Necessity Statement*: Inpatient hospice care Time Spent in Patient Care: less than 15 minutes Coding Level of Care Code Acute Mounting Machine Operator for Erasto Fwfransico Diagnoses Hospice care Z51.5 Prostate cancer C61 Retroperitoneal hematoma K66.1 Pulmonary embolism I26.99 Pulmonary embolism type: unspecified Chronicity: acute Acute cor pulmonale presence: without acute cor pulmonale CHF (congestive heart failure) I50.31 Heart failure type: diastolic Heart failure chronicity: acute
[2021-10-31 11:54] VITALS: BP 97/69; PULSE 103; RESP 18; TEMP 36.7; O2SAT 96
[2021-10-31] MEDS: morphine 10 mg/0.5 mL oral liq UD SUBLINGUAL ×2 (17:10→23:36)
[2021-10-31] MEDS: fentaNYL 100 mcg Patch 1 PATCH TRANSDERMA (21:39)
[2021-11-01] MEDS: metoclopramide 5 mg/mL SDV 2 mL IVP ×4 (03:25→21:01)
[2021-11-01] MEDS: morphine 10 mg/0.5 mL oral liq UD SUBLINGUAL ×3 (06:33→18:10)
[2021-11-01 08:07] VITALS: BP 127/73; PULSE 91; RESP 18; TEMP 36.6; O2SAT 93
[2021-11-01] MEDS: pantoprazole 40 mg SDV IVP ×2 (10:00→21:01)
[2021-11-01] MEDS: glycopyrrolate 0.2 mg/mL SDV 2 mL IV ×3 (10:22→21:02)
--- NOTE | 2021-11-01 13:20 | PM.MISC ---
Miscellaneous Note Purpose of Documentation: Inpatient hospice care Note: Patient seen today. On examination remains comfortable. No active complaints. Will continue with in hospice care for now. Please call with any concerns.
[2021-11-01 20:51] VITALS: O2SAT 95
[2021-11-02] MEDS: morphine 10 mg/0.5 mL oral liq UD SUBLINGUAL (00:52)
[2021-11-02] MEDS: glycopyrrolate 0.2 mg/mL SDV 2 mL IV ×3 (00:52→09:04)
[2021-11-02] MEDS: metoclopramide 5 mg/mL SDV 2 mL IVP ×2 (03:09→10:18)
[2021-11-02] MEDS: scopolamine 1.5 Patch 1 PATCH TRANSDERMA (10:14)
[2021-11-02] MEDS: pantoprazole 40 mg SDV IVP (10:18)
--- NOTE | 2021-11-02 11:28 | P.PN_ITS ---
Vitals/I&O/Wt Last Vital Signs Temp 97.8 F 11/01/21 08:07 Pulse 91 11/01/21 08:07 Resp 18 11/01/21 08:07 BP 127/73 11/01/21 08:07 Pulse Ox 95 11/01/21 20:51 O2 Del Method 11/01/21 20:51 O2 Flow Rate 3 11/02/21 08:00 11/01/21 11/02/21 11/02/21 22:59 06:59 14:59 Intake Total 0 / 0 0 / 0 Output Total 450 / 450 Balance 0 / 0 -450 / -450 0 / 0 Data : 10/25/21 03:35 10/25/21 03:35 Coding Level of Care Code Acute Seat Joiner Chainstitch for Erasto Goldberg
--- NOTE | 2021-11-02 12:10 | PC.CHAP ---
Pastoral Care Encounter/Spiritual Assessment Type of Contact [] Declined adjuster piano action visit [] Patient/Family/Request visit [] Outpatient visit [] Follow-up visit [] Physician referral [] Code/Alert [x] Routine visit [] Staff referral [x] Actively dying [] Patient sleeping [] Family support [] [] Out of room [] Palliative care [] [] Receiving care in room [] Pre-surgical visit [] Trauma [] Long length of stay [] ICU visit [] Other: Relational/Emotional Strength [] Patient feels connected with others/family/visitors/staff [] Distress [] Loneliness/isolation [] Abandonment Spirituality of Patient [] Person of Pat [] Attends Confucianist of their Pat [] Believes in Prayer [] Reads Bible or Hoahaoism materials [] There are Spiritual issues to be addressed Generator Switchboard Operator Interventions [x] Prayer [] Active listening [] Non-anxious presence [] Spiritual/emotional support [] Crisis/trauma care [] Spiritual counseling [] Bereavement support [] Provided bereavement packet [] Provided Bible/devotional materials [] Provided toy/stuffed animal, coloring book to patient or family member [] Provided Communion [] Anointing/[place] [] Salvation [x] Completed spiritual assessment [] Other: Impact on Illness or Injury [] Angry [] Fearful [] Anxious [] Often cries [] Exhaustion [] Unable to work [] Unable to attend evangelical [] Unable to walk/stand [] Unable to read [] Unable to drive [] Unable to eat/drink [] Unable to sleep [] Unable to be with family [] Patient intubated [] Other: Summary Time spent with patient 10 min
--- NOTE | 2021-11-02 12:18 | PM.DDS ---
Discharge Providers DDS Date of Admission: 10/21/21 18:25 Date Summary Completed: 11/02/21 Attending Provider at Admission: Vadim Santos DO Attending Provider at Discharge: Trinidad Spear MD Primary Care Provider: MD PRUDENCIO Stovall Diagnoses Hospital Diagnoses (1) Hospice care: (2) Prostate cancer: Permanent Problem Comments: Stage IVB - T1c, N1, M1a, P>=20, G5 (3) Retroperitoneal hematoma: (4) Pulmonary embolism: Qualifiers: Pulmonary embolism type: unspecified Chronicity: acute Acute cor pulmonale presence: without acute cor pulmonale Qualified Code(s): I26.99 - Other pulmonary embolism without acute cor pulmonale (5) CHF (congestive heart failure): Qualifiers: Heart failure type: diastolic Heart failure chronicity: acute Qualified Code(s): I50.31 - Acute diastolic (congestive) heart failure Reason for Visit Reason for Visit GI Bleed Brief History: Jose Manuel Hogan is a 60 year old male prostate cancer which is metastasized, pulmonary embolism complicated by retroperitoneal hematoma, anemia who has had a prolonged hospitalization and was recently goals of care were changed to hospice care on 10/26. For more details please refer to my discharge summary from today as follows: Jose Manuel Hogan is a 60 year old male with metastatic prostate cancer who was initially admitted on 09/13/2021 at [facility] after being seen in the oncology clinic. Patient came in complaining of increasing anasarca. Patient was found to be in A. fib with RVR. Patient also had a femoral junction thrombosis and later PE was found. Patient was started on anticoagulation. On 09/17/2021 patient became critical. Found to have retroperitoneal bleeding. He had to be emergently transported to [facility] for embolization. On review of chart from outside hospital it seems he was found to have no active bleed so embolization was never done. He had a prolonged hospitalization for over 30 days. During hospitalization as per chart review patient was on oral Dilaudid and Ativan for pain and anxiety. He was also treated for UTI with completion of antibiotic course. At [place] he was being tried to be placed at SNF but were unsuccessful and as family wanted the patient to return to [place]. He was transferred back to [facility] on 10/21. His current hospitalization was complicated by patient developing delirium which at start was thought to be from withdrawal from multiple pain and anxiety medications at [place]. He was started on regular Ativan and Dilaudid along with Precedex drip to which he responded well. Repeat CT scan was done which showed repeat retroperitoneal bleed around the left kidney. As per the family patient did have the similar bleed even at [facility]. Goals of care were discussed with patient's DPOA/sister as patient was delirious given Giurgius poor baseline health and prostate cancer which is metastasized along with prolonged hospitalization for pulmonary embolism which is complicated by him developing retroperitoneal bleed left renal hematoma. Both patient and patient's sister verbalized understanding and states for him its important that he is not in pain and anxiety and he understands the poor prognosis is feeling less has and would want to hospice. Patient was eventually placed on hospice on 10/26. Since being on hospice patient has remained comfortable on [id number]-[id number] IV pain and anxiety medications along with as needed medications. Placement has been difficult given financial restraints for hospice at [facility]. Care was discussed in detail with Dr. Heredia and he has been dischargedto inpatient hospice. Summary Summary Summary: Patient was admitted for inpatient hospice care. Treated as per inpatient hospice. He was seen earlier today in a.m. and having a lot of secretions for which scopolamine patch was ordered. Family was present at bedside. Patient 11/02/2021 at 1210. Additional Data Advance directives?: No Discharge Plan Discharge Patient Disposition: Condition: Prescriptions: No Action Unable to Assess DS Attestations Time Spent in /Discharge Care*: less than 30 min Quality - AMI: AMI present?: No Quality - Stroke: CVA present?: No Symptom Onset Unknown: No Quality - VTE: VTE present?: No Deep Vein Thrombosis/Pulmonary Embolism Present on Admission: No Coding Level of Care Code Acute Construction Skills Teacher for [facility] Fwd Diagnoses Hospice care Z51.5 Prostate cancer C61 Retroperitoneal hematoma K66.1 Pulmonary embolism I26.99 Pulmonary embolism type: unspecified Chronicity: acute Acute cor pulmonale presence: without acute cor pulmonale CHF (congestive heart failure) I50.31 Heart failure type: diastolic Heart failure chronicity: acute
== END 2021-11-02 13:51 | disposition expired | DRG 722 ==
LOC: MEDSURG 10-22 07:33 → ICU 10-23 11:57 → MEDSURG 10-27 14:24
PROVIDERS: Family Medicine; Student in an Organized Health Care Education/Training Program; Admitting Provider Internal Medicine; PCP Family Medicine; Visit Provider Internal Medicine
DX: C61 Malignant neoplasm of prostate (principal); I26.99 Other pulmonary embolism without acute cor pulmonale; I50.31 Acute diastolic (congestive) heart failure; C77.5 Secondary and unspecified malignant neoplasm of intrapelvic lymph nodes; C79.51 Secondary malignant neoplasm of bone; N17.9 Acute kidney failure, unspecified; E87.2 Acidosis; M06.1 Adult-onset Still's disease; G25.81 Restless legs syndrome; F10.21 Alcohol dependence, in remission; Z87.891 Personal history of nicotine dependence; Z79.899 Other long term (current) drug therapy; I11.0 Hypertensive heart disease with heart failure; Z87.440 Personal history of urinary (tract) infections; I48.0 Paroxysmal atrial fibrillation; E11.42 Type 2 diabetes mellitus with diabetic polyneuropathy; Z86.718 Personal history of other venous thrombosis and embolism; R58 Hemorrhage, not elsewhere classified; K59.00 Constipation, unspecified; Z51.5 Encounter for palliative care; D64.9 Anemia, unspecified; R91.8 Other nonspecific abnormal finding of lung field; Z66 Do not resuscitate; R41.0 Disorientation, unspecified; T40.2X5A Adverse effect of other opioids, initial encounter
CPT/HCPCS: 36415; 36430; 36591; 36600; 70450; 71045; 71250; 74176; 80048; 80053; 81001; 82040; 82140; 82247; 82550; 82728; 82803; 83605; 83735; 83880; 84075; 84100; 84145; 84155; 84443; 84450; 84460; 85014; 85018; 85025; 86140; 86850; 86900; 86920; 87040; 94664; 96372; C9113; J0696; J1170; J1450; J1630; J1720; J2060; J2270; J2405; J2543; J2765; J3370; J3475; J3480; J3486; J3490; J7030; J7040; J7512; J8597; P9016; P9047